=== PATIENT | male | born 1950 | race Caucasian/White ===

== ENCOUNTER → 2018-03-06 10:49 | Outpatient (CLI) | payer MEDICARE, SELFPAY ==
[2018-03-06 12:31] LABS: AST(SGOT) 55 U/L (15-37); Alanine Aminotransfer ALT/SGPT 88 U/L (16-61); Albumin, Serum 4.2 g/dL (3.2-5.0); Alkaline Phosphatase 56 U/L (45-117); Anion Gap 11 (5-15); BUN 17 mg/dL (7-18); BUN/Creat Ratio 18.9 RATIO (10-20); Bilirubin, Direct 0.11 mg/dL (0.00-0.30); Calcium,Total 9.6 mg/dL (8.5-10.1); Chloride 108 mmol/L (98-107); Cholesterol 135 mg/dL (200); EST Glomerular Filtration Rate 89 mL/min (>60); Est Glom Filt Rate - Afr Amer 107 mL/min (>60); Globulin 3.3 g/dL (2.2-4.2); Glucose 104 mg/dL (74-106); High Density Lipoprotein 59 mg/dL; Potassium 4.2 mmol/L (3.5-5.1); Protein, Total 7.5 g/dL (6.4-8.2); Sodium Level 139 mmol/L (136-145); Triglycerides 78 mg/dL; Very Low Density Lipoprotein 16 mg/dL (5-40)
[2018-03-06 12:44] LABS: Microalbumin,Random Urine 11.8 mg/L (NO RANGE EST.); Microalbumin:Creatinine Ratio 9.7 mg/g CRE (<30 mg/g CRE)
== END ==
PROVIDERS: Family Provider Family Medicine; PCP Family Medicine; Visit Provider Family Medicine
DX: E11.9 Type 2 diabetes mellitus without complications (principal)
CPT/HCPCS: 36415; 80048; 80061; 80076; 82043; 82570

== ENCOUNTER → 2018-09-02 10:28 | Outpatient (CLI) | payer MEDICARE, SELFPAY ==
[2018-09-02 12:41] LABS: Anion Gap 10 (5-15); BUN 15 mg/dL (7-18); BUN/Creat Ratio 15.4 RATIO (10-20); Calcium,Total 9.8 mg/dL (8.5-10.1); Chloride 107 mmol/L (98-107); Creatinine, Serum 0.98 mg/dL (0.70-1.30); EST Glomerular Filtration Rate 81 mL/min (>60); Est Glom Filt Rate - Afr Amer 98 mL/min (>60); Glucose 104 mg/dL (74-106); Potassium 4.6 mmol/L (3.5-5.1); Sodium Level 138 mmol/L (136-145)
[2018-09-02 12:48] LABS: Hemoglobin A1c 6.3 % (4.2-6.3)
== END ==
PROVIDERS: Family Provider Family Medicine; PCP Family Medicine; Visit Provider Family Medicine
DX: E11.9 Type 2 diabetes mellitus without complications (principal)
CPT/HCPCS: 36415; 80048; 83036

== ENCOUNTER → 2019-03-03 | Outpatient (CLI) | payer MEDICARE, SELFPAY ==
[2019-03-03 12:39] LABS: Microalbumin,Random Urine 15.8 mg/L (NO RANGE EST.); Microalbumin:Creatinine Ratio 9.6 mg/g CRE (<30 mg/g CRE)
[2019-03-03 12:54] LABS: AST(SGOT) 30 U/L (15-37); Alanine Aminotransfer ALT/SGPT 44 U/L (16-61); Albumin, Serum 4.4 g/dL (3.2-5.0); Alkaline Phosphatase 60 U/L (45-117); Anion Gap 4 (5-15); BUN 18 mg/dL (7-18); BUN/Creat Ratio 18.7 RATIO (10-20); Bilirubin, Direct 0.13 mg/dL (0.00-0.30); Calcium,Total 9.9 mg/dL (8.5-10.1); Chloride 109 mmol/L (98-107); Cholesterol 149 mg/dL (200); Creatinine, Serum 0.96 mg/dL (0.70-1.30); EST Glomerular Filtration Rate 82 mL/min (>60); Est Glom Filt Rate - Afr Amer 99 mL/min (>60); Globulin 3.1 g/dL (2.2-4.2); Glucose 118 mg/dL (74-106); High Density Lipoprotein 58 mg/dL; Potassium 4.5 mmol/L (3.5-5.1); Protein, Total 7.5 g/dL (6.4-8.2); Sodium Level 137 mmol/L (136-145); Triglycerides 109 mg/dL; Very Low Density Lipoprotein 22 mg/dL (5-40)
== END | disposition home or self-care (01) ==
LOC: MFPLAB 11:00
PROVIDERS: Family Provider Family Medicine; PCP Family Medicine; Visit Provider Family Medicine
DX: I10 Essential (primary) hypertension (principal); E11.9 Type 2 diabetes mellitus without complications
CPT/HCPCS: 36415; 80048; 80061; 80076; 82043; 82570

== ENCOUNTER → 2019-05-23 | Outpatient (CLI) | payer MEDICARE, SELFPAY ==
--- NOTE | 2019-05-23 12:16 | RAD_ITS ---
STUDY: X-RAY - RIGHT KNEE REASON FOR EXAM: Male, 68 years old. Pain below the patella. TECHNIQUE: 4 view(s) of the knee. COMPARISON: None. FINDINGS: Normal visualized distal femur. Normal visualized proximal tibia and fibula. Normal proximal tibiofibular articulation. Enthesophyte of the superior and inferior pole of the patella. There is severe degenerative arthrosis of the medial femorotibial compartment with severe joint space narrowing. There is moderate degenerative arthrosis of the lateral femorotibial compartment with moderate joint space narrowing. There is severe degenerative arthrosis of the patellofemoral articulation. The soft tissue structures are unremarkable. RAD/Knee 4 or More Views IMPRESSION: The knee remains located without acute fracture deformity. Advanced degenerative arthrosis of the medial and patellofemoral compartments. Moderate degenerative arthrosis of the lateral compartment. Degenerative enthesophytes of the superior and inferior pole of the patella. Negative for substantial joint effusion. Electronically Signed: Arabella Rader MD at 18:33 EDT , Service support ,
== END | disposition home or self-care (01) ==
LOC: MTRAD 12:13
PROVIDERS: Family Provider Family Medicine; PCP Family Medicine; Referring Provider Family Medicine; Visit Provider Family Medicine
DX: M25.561 Pain in right knee (principal)
CPT/HCPCS: 73564

== ENCOUNTER → 2019-09-02 10:54 | Outpatient (CLI) | payer MEDICARE, SELFPAY ==
[2019-06-02 08:18] VITALS: BMI 29.5
[2019-09-02 13:15] LABS: Hemoglobin A1c 6.9 % (4.2-6.3)
[2019-09-02 13:21] LABS: Microalbumin,Random Urine 36.2 mg/L (NO RANGE EST.); Microalbumin:Creatinine Ratio 17.8 mg/g CRE (<30 mg/g CRE)
[2019-09-02 13:25] LABS: AST(SGOT) 22 U/L (15-37); Alanine Aminotransfer ALT/SGPT 44 U/L (16-61); Anion Gap 8 (5-15); BUN 18 mg/dL (7-18); BUN/Creat Ratio 18.9 RATIO (10-20); Chloride 107 mmol/L (98-107); Cholesterol 160 mg/dL (200); Creatinine, Serum 0.95 mg/dL (0.70-1.30); EST Glomerular Filtration Rate 83 mL/min (>60); Est Glom Filt Rate - Afr Amer 100 mL/min (>60); Glucose 131 mg/dL (74-106); High Density Lipoprotein 49 mg/dL; PSA,Total - Annual Screen 3.62 ng/mL (0.00-4.00); Potassium 4.3 mmol/L (3.5-5.1); Sodium Level 135 mmol/L (136-145); Triglycerides 109 mg/dL; Very Low Density Lipoprotein 22 mg/dL (5-40)
== END ==
PROVIDERS: Family Provider Family Medicine; PCP Family Medicine; Referring Provider Family Medicine; Visit Provider Family Medicine
DX: Z00.00 Encounter for general adult medical examination without abnormal findings (principal); E11.9 Type 2 diabetes mellitus without complications; Z12.5 Encounter for screening for malignant neoplasm of prostate; E78.5 Hyperlipidemia, unspecified; I10 Essential (primary) hypertension
CPT/HCPCS: 36415; 80048; 80061; 82043; 82570; 83036; 84153; 84450; 84460; G0103

== ENCOUNTER 2020-04-27 17:10 | Inpatient (IN) | payer MEDICARE, SELFPAY ==
[2019-06-02 08:18] VITALS: BMI 29.5
[2020-04-27 17:28] VITALS: BP 143/82; PULSE 102; RESP 18; TEMP 36.8; O2SAT 96; BMI 29.8; BMI 29.9
[2020-04-27] MEDS: Celecoxib 200 MG Capsule PO (19:02)
[2020-04-27 20:32] VITALS: PULSE 98; O2SAT 98
--- NOTE | 2020-04-27 20:47 | HP.PCM_ITS ---
Problem List (1) Debility Status: Acute (2) Bilateral primary osteoarthritis of knee Status: Chronic (3) Neuropathy Status: Chronic (4) GERD (gastroesophageal reflux disease) Status: Chronic (5) Insomnia Status: Chronic (6) Imbalance Status: Chronic (7) Tinea corporis Status: Chronic (8) Erectile dysfunction Status: Chronic (9) Lumbar spinal stenosis Status: Chronic (10) IBS (irritable bowel syndrome) Status: Chronic (11) Basal cell carcinoma Status: Chronic (12) Diabetes mellitus Status: Chronic (13) Hypertension Status: Chronic (14) Hyperlipidemia Status: Chronic (15) Alcohol abuse Status: Chronic History of Present Illness Date of Admission: 04/27/20 Chief Complaint: Here for rehabilitation, strengthening, prior to discharge home with . The patient is a 69 year old Male with below past medical history with followin04/22/2020 Dr. Pedersen performed bilateral total knee arthroplasty. Post-operative course complicated by urinary retention after removal of rawls catheter. Rawls catheter reinserted prior to discharge. 04/27/2020 Admit to TCU with debility, here for rehabilitation, strengthening, prior to discharge home with . Past Medical History Past Medical History (Chronic Problems): Chronic Problems Bilateral primary osteoarthritis of knee (Chronic) Neuropathy (Chronic) GERD (gastroesophageal reflux disease) (Chronic) Insomnia (Chronic) Imbalance (Chronic) Tinea corporis (Chronic) Erectile dysfunction (Chronic) Lumbar spinal stenosis (Chronic) IBS (irritable bowel syndrome) (Chronic) Basal cell carcinoma (Chronic) Diabetes mellitus (Chronic) Hypertension (Chronic) Hyperlipidemia (Chronic) Alcohol abuse (Chronic) Allergies propoxyphene [From Darvon] Adverse Reaction (Verified 06/02/19 08:19) Vomiting Home Medications: Ambulatory Orders Medication Instructions Recorded atorvastatin 20 mg tablet 20 mg PO QHS #90 tab 06/02/19 candesartan 8 mg tablet 8 mg PO DAILY #90 tab 06/02/19 celecoxib 200 mg capsule 200 mg PO BID #180 cap 06/02/19 glimepiride 4 mg tablet 4 mg PO DAILY #90 tab 06/02/19 metformin 500 mg tablet 500 mg PO DAILY #270 tab 06/02/19 Ascorbic Acid [C-1000] 1,000 mg PO BID 04/27/20 Aspirin 81 mg PO BID 04/27/20 Esomeprazole Magnesium 20 mg PO DAILY 04/27/20 Ginkgo Biloba 60 mg PO BID 04/27/20 Melatonin 3 mg PO QHS 04/27/20 Metformin HCl 1,000 mg PO QHS 04/27/20 Tadalafil [Cialis] 20 mg PO QHS 04/27/20 Tamsulosin HCl [Flomax] 0.4 mg PO DAILY 04/27/20 Vitamin D 1,000 units PO DAILY 04/27/20 traMADol [Ultram (G)] 50 mg PO Q6H PRN PRN 04/27/20 Surgical History: adenoidectomy, tonsillectomy, - - Left quadriceps tendon rupture repair, right carpal tunnel release, lumbar spine surgery, bilateral total knee replacement. Lives: Spouse/ Significant Other Smoking Status: Former smoker Tobacco Use: Cigarettes Alcohol: Sober Drugs: None, Cocaine - History of., Marijuana - History of. - *Family History Maternal History Items: Heart Disease Paternal History Items: Cancer - Liver. Review of Systems Constitutional: Denies: Chills, Fever, Weight Change HEENT: Denies: Head Aches, Sinus Congestion, Sinus Drainage Cardiovascular: Denies: Chest Pain, Palpitations Respiratory: Denies: Cough, Shortness of breath at rest, Sputum production Gastrointestinal: Denies: Abdominal Pain, Nausea, Vomiting Genitourinary: Reports: Retention. Denies: Dysuria Musculoskeletal: Denies: Joint Pain, Joint Tenderness Skin: Denies: Rash, Wounds Neurological: Denies: Numbness, Tingling, Focal weakness Psychiatric: Denies: Anxiety, Depression, Homicidal Ideations, Suicidal Ideations Hematologic/ Lymphatic: Denies: Easy Bruising, Easy Bleeding VTE Information - Inpt Only VTE Present on Admission: No VTE Mechan Device Prophylaxis: Knee High JACEK Hose VTE Pharm Prophylaxis ordered?: Yes Patient Problems: Active and Suspected Problems Debility (Acute) - Physical Exam Vitals/I&O's: Vital Signs Temp Pulse Resp BP Pulse Ox 98.3 F 102 H 18 143/82 H 96 04/27/20 17:28 04/27/20 17:28 04/27/20 17:28 04/27/20 17:28 04/27/20 17:28 Oxygen Delivery Method Room Air Weight: 105.551 kg Body Mass Index (BMI) 29.8 General: Alert, Oriented x3, Cooperative HEENT: Atraumatic, PERRLA, EOMI, Normocephalic Neck: Supple, No JVD, Negative Carotid Bruits Lungs: Clear to auscultation, Normal air movement Cardiovascular: Regular rate, No murmurs Abdomen: Bowel Sounds Present, Soft, Non Tender, - - Indwelling Rawls Catheter. Extremities: No edema, Capillary Refill Less than 3 Seconds Skin: No rashes, No breakdown, Incision - Bilateral knee clean, dry, intact. Musculoskeletal: No Tenderness to Palpation of Joints or Extremities Neurological: Cranial nerves II-XII grossly intact Psych/Mental Status: Normal Affect, Appropriate Laboratory Results 04/27/20 19:57: COVID-19 ([facility]MAN[facility]) Pending Current Medications Ascorbic Acid (Vitamin C) 1,000 mg PO BIDCM [facility] Aspirin (Aspirin, Baby) 81 mg PO BIDCM [facility] Atorvastatin Calcium (Lipitor) 20 mg PO QHS ALFRED Celecoxib (Celebrex) 200 mg PO BID [facility] Last Admin: 04/27/20 19:02 Dose: 200 mg Documented by: Glimepiride (Amaryl) 4 mg PO DAILYCM [facility] Losartan Potassium (Cozaar) 50 mg PO DAILY [facility] Melatonin (Melatonin) 3 mg PO QHS [facility] Metformin HCl (Glucophage) 1,000 mg PO QHS [facility] Metformin HCl (Glucophage) 500 mg PO DAILYCM [facility] Non-Formulary Medication (Tadalafil) 20 mg PO QHS ALFRED Pantoprazole Sodium (Protonix) 20 mg PO DAILY [facility] Tamsulosin HCl (Flomax) 0.4 mg PO DAILY@1730 ALFRED Tramadol HCl (Ultram) 50 mg PO Q6H PRN PRN PRN Reason: Pain 1-10/10 or Fever Tuberculin PPD (Tubersol, Aplisol, Ppd) 5 tu ID X1 ONE Stop: 04/28/20 10:01 Tuberculin PPD (Tubersol, Aplisol, Ppd) 5 tu ID X1 ONE Stop: 05/05/20 10:01 Assessment/Plan All Active Problems Debility (Acute) 69 year old male with below past medical history hospitalized for bilateral total knee replacement 04/22/[address] Pedersen, post-operative course complicated by urinary retention requiring indwelling Rawls catheter, admitted to TCU with debility, here for rehabilitation, strengthening, prior to discharge home with . * Debility - PT/OT. * Pain - Tylenol 1000MG Q6H PRN (1-3), Tramadol 50MG Q6H PRN (4-10). * Bowel - Miralax 17GM daily, Senna/colace 2 tablets BID, Dulcolax 10MG [place] daily PRN. * Adult immunization - Administer Prevnar 13, Pneumovax 23, Fluzone as appropriate. * DVT prophylaxis - Aspirin 81MG BID. * Vitamin C deficiency - Vitamin C 1000MG BID. * Hyperlipidemia - Atorvastatin 20MG QHS. * Osteoarthritis - Celebrex 200MG BID. * Diabetes Mellitus II - Metformin 500MG AM, 1000MG QHS, Glimepiride 4MG daily. * Hypertension - Losartan 50MG daily. * Insomnia - Melatonin 3MG QHS. * GERD - Pantoprazole 20MG daily. * BPH/urinary retention - Tamsulosin 0.4MG daily, on Tadalafil 20MG QHS at home, but not on formulary, remove rawls/voiding trials TCU Day #3.
[2020-04-27] MEDS: Atorvastatin Calcium 20 MG Tablet PO (21:05)
[2020-04-27] MEDS: MELATONIN 3 MG TABLET PO (21:05)
[2020-04-27] MEDS: metFORMIN HCl 1,000 MG Tablet 1000 MG PO (21:05)
[2020-04-27] MEDS: traMADol 50 MG Tablet PO (21:05)
[2020-04-27 21:31] LABS: Bedside Glucose 183 mg/dL (70-110)
[2020-04-28] MEDS: Acetaminophen 500 MG Tablet 1000 MG PO ×4 (01:20→21:10)
[2020-04-28] MEDS: traMADol 50 MG Tablet PO ×4 (03:38→21:47)
[2020-04-28 05:33] VITALS: BP 134/72; PULSE 98; RESP 18; TEMP 36.7; O2SAT 98
[2020-04-28] MEDS: Celecoxib 200 MG Capsule PO ×2 (05:34→16:27)
[2020-04-28] MEDS: Polyethylene Glycol 3350 17 GM PACKET PO (05:34)
[2020-04-28] MEDS: Losartan Potassium 50 MG Tablet PO (05:34)
[2020-04-28] MEDS: Senna/Docusate Sodium 1 Tablet 2 TABLET PO ×2 (05:34→16:27)
[2020-04-28] MEDS: Pantoprazole Sodium 20 MG Tablet PO (05:34)
[2020-04-28 06:26] LABS: Bedside Glucose 192 mg/dL (70-110)
[2020-04-28 06:27] LABS: Anion Gap 7 (5-15); BUN 19 mg/dL (7-18); BUN/Creat Ratio 21.3 RATIO (10-20); Calcium,Total 9.6 mg/dL (8.5-10.1); Chloride 96 mmol/L (98-107); Creatinine, Serum 0.89 mg/dL (0.70-1.30); EST Glomerular Filtration Rate 89 mL/min (>60); Est Glom Filt Rate - Afr Amer 108 mL/min (>60); Estimated Creatinine Clearance 88.51 ml/min; Glucose 191 mg/dL (74-106); Potassium 4.2 mmol/L (3.5-5.1); Sodium Level 132 mmol/L (136-145)
[2020-04-28 06:46] LABS: Absolute Lymphocyte Count 1.58 X10^3/uL (0.83-4.51); Absolute Neutrophil Count 5.1 X10^3/uL (2.0-7.7); Basophil# 0.06 X10^3/uL; Basophil% 0.7 % (0-1); Eosinophil# 0.28 X10^3/uL; Eosinophils% 3.5 % (0-5); Hematocrit 35.9 % (40-54); Hemoglobin 11.2 g/dL (13.0-16.5); Lymphocyte # 1.58 X10^3/ul (4.0); Lymphocyte % 19.6 % (19-41); Mean Corp Hgb Conc 31.2 g/dL (32-36); Mean Corpuscular Hgb 30.8 pg (27.0-32.0); Mean Corpuscular Volume 98.6 fL (80-94); Mean Platelet Vol. 9.7 fl (6.2-12.0); Monocyte# 0.91 X10^3/uL; Monocyte% 11.3 % (0-10); NRBC Flagged by Analyzer 0 % (0-5); Neutrophil # 5.12 X10^3/uL (2.7-7.7); Neutrophil % 63.7 % (47-70); Platelet Count 321 K/mm3 (150-450); RBC Distribution Width CV 12.4 % (11.6-14.6); RBC Distribution Width SD 44.9 fl (35.1-43.9); Red Blood Count 3.64 M/mm3 (4.6-6.2); White Blood Count 8.1 K/mm3 (4.4-11.0)
[2020-04-28] MEDS: Ascorbic Acid 500 MG Tablet 1000 MG PO ×2 (08:31→16:28)
[2020-04-28] MEDS: metFORMIN HCl 500 MG Tablet PO (08:31)
[2020-04-28] MEDS: Glimepiride 4 MG Tablet PO (08:31)
[2020-04-28] MEDS: Aspirin 81 MG TAB.CHEW PO ×2 (08:31→16:28)
[2020-04-28 10:43] VITALS: PULSE 90; RESP 16; O2SAT 95
[2020-04-28 11:10] LABS: Bedside Glucose 188 mg/dL (70-110)
[2020-04-28 12:53] VITALS: BP 144/90; PULSE 90; RESP 16; TEMP 36.2; O2SAT 95
--- NOTE | 2020-04-28 13:10 | RAD_ITS ---
STUDY: X-RAY CHEST REASON FOR EXAM: Male, 69 years old. RULE OUT ACTIVE TB; HISTORY O F TB REACTOR TECHNIQUE: PA and lateral views of the chest. COMPARISON: None. FINDINGS: Scattered calcified granulomas. There is no demonstrated pleural abnormality. Normal size heart. Normal mediastinum and nehal. Normal visualized pulmonary arteries. There is atherosclerotic calcification of the aortic arch with tortuosity. There are diffuse degenerative changes of the visualized thoracic spine. Normal visualized ribs, clavicles, and shoulders. There is no demonstrated abnormality of the visualized soft tissue structures of the upper abdomen. RAD/Chest PA and Lateral IMPRESSION: No acute abnormality is seen. Electronically Signed: Moy Anand, at 14:00 EDT , Service support ,
--- NOTE | 2020-04-28 14:57 | PHA.CONS_ITS ---
<Adelaida Elizabeth - Last Filed: 04/28/20 14:57> Progress Note - Pharmacy Subjective: TCU Admission Objective: Allergies propoxyphene [From Darvon] Adverse Reaction (Verified 06/02/19 08:19) Vomiting Current Medications Generic Name Dose Route Start Last Admin Trade Name Freq PRN Reason Stop Dose Admin Acetaminophen 1,000 mg 04/27/20 21:05 04/28/20 14:29 Tylenol PO 1,000 mg Q6H PRN PRN Administration Pain Score 1-3/10 Ascorbic Acid 1,000 mg 04/28/20 08:00 04/28/20 08:31 Vitamin C PO 1,000 mg BIDCM ALFRED Administration Aspirin 81 mg 04/28/20 08:00 04/28/20 08:31 [facility], [facility] Atorvastatin Calcium 20 mg 04/27/20 22:00 04/27/20 21:05 Lipitor PO 20 mg QHS ALFRED Administration Bisacodyl 10 mg 04/27/20 21:05 Dulcolax RECTAL DAILY PRN Constipation Celecoxib 200 mg 04/27/20 18:00 04/28/20 05:34 Celebrex PO 200 mg BID ALFRED Administration Glimepiride 4 mg 04/28/20 08:00 04/28/20 08:31 [facility] Administration Losartan Potassium 50 mg 04/28/20 06:00 04/28/20 05:34 Cozaar PO 50 mg DAILY ALFRED Administration Melatonin 3 mg 04/27/20 22:00 04/27/20 21:05 Melatonin PO 3 mg QHS ALFRED Administration Metformin HCl 1,000 mg 04/27/20 22:00 04/27/20 21:05 Glucophage PO 1,000 mg QHS ALFRED Administration Metformin HCl 500 mg 04/28/20 08:00 04/28/20 08:31 Glucophage PO 500 mg DAILY ALFRED Administration Pantoprazole Sodium 20 mg 04/28/20 06:00 04/28/20 05:34 Protonix PO 20 mg DAILY ALFRED Administration Polyethylene Glycol 17 gm 04/28/20 06:00 04/28/20 05:34 Miralax PO 17 gm DAILY ALFRED Administration Senna/Docusate Sodium 2 tablet 04/28/20 06:00 04/28/20 05:34 Senokot-S, Michelle-Colace PO 2 tablet BID ALFRED Administration Tamsulosin HCl 0.4 mg 04/28/20 17:30 Flomax PO DAILY@1730 ALFRED Tramadol HCl 50 mg 04/27/20 17:58 04/28/20 09:36 Ultram PO 50 mg Q6H PRN PRN Administration Pain Score 4-10/10 Tuberculin PPD 5 tu 05/05/20 10:00 Tubersol, Aplisol, Ppd ID 05/05/20 10:01 X1 ONE Problem List Debility (Acute) Bilateral primary osteoarthritis of knee (Chronic) Neuropathy (Chronic) GERD (gastroesophageal reflux disease) (Chronic) Insomnia (Chronic) Imbalance (Chronic) Tinea corporis (Chronic) Erectile dysfunction (Chronic) Lumbar spinal stenosis (Chronic) IBS (irritable bowel syndrome) (Chronic) Basal cell carcinoma (Chronic) Diabetes mellitus (Chronic) Hypertension (Chronic) Hyperlipidemia (Chronic) Alcohol abuse (Chronic) Vital Signs Temp Pulse Resp BP Pulse Ox 97.2 F L 90 16 144/90 H 95 04/28/20 12:53 04/28/20 12:53 04/28/20 12:53 04/28/20 12:53 04/28/20 12:53 Oxygen Delivery Method Room Air Weight: 105.551 kg Body Mass Index (BMI) 29.8 Sodium 132 mmol/L (136-145) L 04/28/20 05:32 Potassium 4.2 mmol/L (3.5-5.1) 04/28/20 05:32 Chloride 96 mmol/L (98-107) L 04/28/20 05:32 Carbon Dioxide 29.0 mmol/L (21.0-32.0) 04/28/20 05:32 Anion Gap 7 (5-15) 04/28/20 05:32 BUN 19 mg/dL (7-18) H 04/28/20 05:32 Creatinine 0.89 mg/dL (0.70-1.30) 04/28/20 05:32 Est GFR (MDRD) Af Amer 108 mL/min (>60) 04/28/20 05:32 Est GFR (MDRD) Non-Af 89 mL/min (>60) 04/28/20 05:32 BUN/Creatinine Ratio 21.3 RATIO (10-20) H 04/28/20 05:32 Glucose 191 mg/dL (74-106) H 04/28/20 05:32 Assessment/Plan: 1. Pain: acetaminophen 1000mg PO Q6H PRN pain 1-3/10 and tramadol 50mg PO Q6H PRN pain 4-10/10. Please continue to monitor for increased pain, PRN usage, constipation and respiratory depression. 2. DVT prophylaxis: aspirin 81mg PO BIDCM. Please continue to monitor for S/S of bleeding/DVT. 3. Vitamin C deficiency: ascorbic acid 1000mg PO BIDCM. Please continue to monitor. 4. Hyperlipidemia: atorvastatin 20mg PO QHS. Please continue to monitor a lipid panel annually and for muscle pain. LFTs are WNL. 5. Osteoarthritis: celecoxib 200mg PO BID. Please continue to monitor for pain, GI side effects, and GI bleeding. 6. Type II diabetes mellitus: metformin 500mg PO DAILYCM and 1000mg PO QHS, glimepiride 4mg PO DAILYCM. Last A1c was 6.9%. Please continue to monitor POC glucose, for S/S of hypo/hyperglycemia and renal function. 7. Hypertension: losartan 50mg PO daily. Please continue to monitor BP (last 144/90) and renal function. 8. Insomnia: melatonin 3mg PO QHS. Please continue to monitor for insomnia and excessive drowsiness. 9. GERD: pantoprazole 20mg PO daily. Please continue to monitor for S/S of GERD. 10. BPH/urinary retention: tamsulosin 0.4mg PO daily. Please continue to monitor for urine flow and hypotension. Psychotropic Medications: None Unnecessary Medications: None Bowel Regimen: Miralax 17gm PO daily, senna/docusate 2T PO BID and bisacodyl 10mg [place] daily PRN constipation. Please continue to monitor for constipation and PRN usage. Date of Note:: 04/28/20 - Provider Comments Provider responsibility: Provider responsible to enter orders to implement recommendations <Christiano Tellez Chi - Last Filed: 04/28/20 17:00> Progress Note - Pharmacy Subjective: [] Objective: Allergies propoxyphene [From Darvon] Adverse Reaction (Verified 06/02/19 08:19) Vomiting Current Medications Generic Name Dose Route Start Last Admin Trade Name Freq PRN Reason Stop Dose Admin Acetaminophen 1,000 mg 04/27/20 21:05 04/28/20 14:29 Tylenol PO 1,000 mg Q6H PRN PRN Administration Pain Score 1-3/10 Ascorbic Acid 1,000 mg 04/28/20 08:00 04/28/20 16:28 Vitamin C PO 1,000 mg BIDCM [facility] Administration Aspirin 81 mg 04/28/20 08:00 04/28/20 16:28 Aspirin, Baby [facility] Administration Atorvastatin Calcium 20 mg 04/27/20 22:00 04/27/20 21:05 Lipitor PO 20 mg QHS [facility] Administration Bisacodyl 10 mg 04/27/20 21:05 Dulcolax RECTAL DAILY PRN Constipation Celecoxib 200 mg 04/27/20 18:00 04/28/20 16:27 Celebrex PO 200 mg BID [facility] Administration Glimepiride 4 mg 04/28/20 08:00 04/28/20 08:31 [facility] Administration Losartan Potassium 50 mg 04/28/20 06:00 04/28/20 05:34 Cozaar PO 50 mg DAILY [facility] Administration Melatonin 3 mg 04/27/20 22:00 04/27/20 21:05 Melatonin PO 3 mg QHS [facility] Administration Metformin HCl 1,000 mg 04/27/20 22:00 04/27/20 21:05 Glucophage PO 1,000 mg QHS [facility] Administration Metformin HCl 500 mg 04/28/20 08:00 04/28/20 08:31 [facility] Administration Pantoprazole Sodium 20 mg 04/28/20 06:00 04/28/20 05:34 Protonix PO 20 mg DAILY [facility] Administration Polyethylene Glycol 17 gm 04/28/20 06:00 04/28/20 05:34 Miralax PO 17 gm DAILY [facility] Administration Senna/Docusate Sodium 2 tablet 04/28/20 06:00 04/28/20 16:27 Senokot-S, Michelle-Colace PO 2 tablet BID [facility] Administration Tamsulosin HCl 0.4 mg 04/28/20 17:30 04/28/20 16:28 Flomax PO 0.4 mg DAILY@1730 [facility] Administration Tramadol HCl 50 mg 04/27/20 17:58 04/28/20 15:46 Ultram PO 50 mg Q6H PRN PRN Administration Pain Score 4-10/10 Tuberculin PPD 5 tu 05/05/20 10:00 Tubersol, Aplisol, Ppd ID 05/05/20 10:01 X1 ONE Problem List Debility (Acute) Bilateral primary osteoarthritis of knee (Chronic) Neuropathy (Chronic) GERD (gastroesophageal reflux disease) (Chronic) Insomnia (Chronic) Imbalance (Chronic) Tinea corporis (Chronic) Erectile dysfunction (Chronic) Lumbar spinal stenosis (Chronic) IBS (irritable bowel syndrome) (Chronic) Basal cell carcinoma (Chronic) Diabetes mellitus (Chronic) Hypertension (Chronic) Hyperlipidemia (Chronic) Alcohol abuse (Chronic) Vital Signs Temp Pulse Resp BP Pulse Ox 97.2 F L 90 16 144/90 H 95 04/28/20 12:53 04/28/20 12:53 04/28/20 12:53 04/28/20 12:53 04/28/20 12:53 Oxygen Delivery Method Room Air Weight: 105.551 kg Body Mass Index (BMI) 29.8 Sodium 132 mmol/L (136-145) L 04/28/20 05:32 Potassium 4.2 mmol/L (3.5-5.1) 04/28/20 05:32 Chloride 96 mmol/L (98-107) L 04/28/20 05:32 Carbon Dioxide 29.0 mmol/L (21.0-32.0) 04/28/20 05:32 Anion Gap 7 (5-15) 04/28/20 05:32 BUN 19 mg/dL (7-18) H 04/28/20 05:32 Creatinine 0.89 mg/dL (0.70-1.30) 04/28/20 05:32 Est GFR (MDRD) Af Amer 108 mL/min (>60) 04/28/20 05:32 Est GFR (MDRD) Non-Af 89 mL/min (>60) 04/28/20 05:32 BUN/Creatinine Ratio 21.3 RATIO (10-20) H 04/28/20 05:32 Glucose 191 mg/dL (74-106) H 04/28/20 05:32 Assessment/Plan: Psychotropic Medications: Unnecessary Medications: Bowel Regimen: - Provider Comments Provider responsibility: Provider responsible to enter orders to implement recommendations Provider Comments to Recommendations by Pharmacy: Agree
[2020-04-28 16:20] LABS: Bedside Glucose 150 mg/dL (70-110)
[2020-04-28] MEDS: Tamsulosin HCl 0.4 MG Capsule PO (16:28)
--- NOTE | 2020-04-28 18:47 | NURSING ---
Resident sent to x ray due to previous positive TB test. X ray results negative. Dr. Tellez aware of results.
[2020-04-28] MEDS: Atorvastatin Calcium 20 MG Tablet PO (21:12)
[2020-04-28] MEDS: MELATONIN 3 MG TABLET PO (21:12)
[2020-04-28] MEDS: metFORMIN HCl 1,000 MG Tablet 1000 MG PO (21:13)
[2020-04-28 21:31] LABS: Bedside Glucose 199 mg/dL (70-110)
[2020-04-29] MEDS: Acetaminophen 500 MG Tablet 1000 MG PO ×3 (04:00→20:11)
[2020-04-29] MEDS: traMADol 50 MG Tablet PO ×4 (04:00→22:27)
[2020-04-29 05:02] VITALS: BP 135/82; PULSE 100; RESP 18; TEMP 37
[2020-04-29] MEDS: Pantoprazole Sodium 20 MG Tablet PO (05:42)
[2020-04-29] MEDS: Polyethylene Glycol 3350 17 GM PACKET PO (05:42)
[2020-04-29] MEDS: Celecoxib 200 MG Capsule PO ×2 (05:44→16:21)
[2020-04-29] MEDS: Senna/Docusate Sodium 1 Tablet 2 TABLET PO ×2 (05:45→16:21)
[2020-04-29] MEDS: Losartan Potassium 50 MG Tablet PO (05:45)
[2020-04-29] MEDS: Menthol/Lanolin/Calamine/Znox 113 GM Tube 1 APPLIC TOPICAL ×2 (05:46→16:21)
[2020-04-29 06:16] LABS: Bedside Glucose 174 mg/dL (70-110)
[2020-04-29] MEDS: Aspirin 81 MG TAB.CHEW PO ×2 (08:14→16:21)
[2020-04-29] MEDS: Glimepiride 4 MG Tablet PO (08:14)
[2020-04-29] MEDS: Ascorbic Acid 500 MG Tablet 1000 MG PO ×2 (08:15→16:21)
[2020-04-29] MEDS: metFORMIN HCl 500 MG Tablet PO (08:15)
[2020-04-29 11:36] LABS: Bedside Glucose 158 mg/dL (70-110)
[2020-04-29 12:38] VITALS: BP 142/88; PULSE 100; RESP 18; TEMP 36.4; O2SAT 96
[2020-04-29 14:10] VITALS: BP 142/88; PULSE 100; RESP 18; TEMP 36.4; O2SAT 96
[2020-04-29] MEDS: Tamsulosin HCl 0.4 MG Capsule PO (16:21)
[2020-04-29 17:11] LABS: Bedside Glucose 173 mg/dL (70-110)
[2020-04-29] MEDS: Atorvastatin Calcium 20 MG Tablet PO (20:12)
[2020-04-29] MEDS: MELATONIN 3 MG TABLET PO (20:13)
[2020-04-29] MEDS: metFORMIN HCl 1,000 MG Tablet 1000 MG PO (20:13)
[2020-04-29 22:16] LABS: Bedside Glucose 184 mg/dL (70-110)
[2020-04-30] MEDS: Acetaminophen 500 MG Tablet 1000 MG PO ×4 (02:15→23:26)
[2020-04-30 06:41] LABS: Bedside Glucose 185 mg/dL (70-110)
[2020-04-30] MEDS: Losartan Potassium 50 MG Tablet PO (06:58)
[2020-04-30] MEDS: traMADol 50 MG Tablet PO ×3 (06:58→22:00)
[2020-04-30] MEDS: Menthol/Lanolin/Calamine/Znox 113 GM Tube 1 APPLIC TOPICAL ×2 (06:59→17:40)
[2020-04-30] MEDS: Pantoprazole Sodium 20 MG Tablet PO (06:59)
[2020-04-30] MEDS: Celecoxib 200 MG Capsule PO ×2 (06:59→17:40)
[2020-04-30 07:00] VITALS: BP 140/95; PULSE 102; RESP 18; TEMP 36.8; O2SAT 97
[2020-04-30] MEDS: Ascorbic Acid 500 MG Tablet 1000 MG PO ×2 (10:01→16:16)
[2020-04-30] MEDS: metFORMIN HCl 500 MG Tablet PO (10:01)
[2020-04-30] MEDS: Aspirin 81 MG TAB.CHEW PO ×2 (10:01→16:16)
[2020-04-30] MEDS: Glimepiride 4 MG Tablet PO (10:01)
[2020-04-30 10:35] VITALS: PULSE 94; RESP 18; O2SAT 98
[2020-04-30 11:05] LABS: Bedside Glucose 211 mg/dL (70-110)
[2020-04-30 16:00] VITALS: BP 148/92; PULSE 94; RESP 18; TEMP 36.4; O2SAT 98
[2020-04-30] MEDS: Tamsulosin HCl 0.4 MG Capsule PO (16:16)
[2020-04-30 16:50] LABS: Bedside Glucose 184 mg/dL (70-110)
[2020-04-30] MEDS: MELATONIN 3 MG TABLET PO (22:00)
[2020-04-30] MEDS: metFORMIN HCl 1,000 MG Tablet 1000 MG PO (22:00)
[2020-04-30] MEDS: Atorvastatin Calcium 20 MG Tablet PO (22:01)
[2020-04-30 23:26] LABS: Bedside Glucose 208 mg/dL (70-110)
[2020-05-01] MEDS: traMADol 50 MG Tablet PO ×4 (01:37→20:39)
[2020-05-01 05:42] VITALS: BP 139/94; PULSE 74; RESP 18; TEMP 36.5; O2SAT 95
[2020-05-01] MEDS: Acetaminophen 500 MG Tablet 1000 MG PO ×4 (05:44→23:50)
[2020-05-01] MEDS: Losartan Potassium 50 MG Tablet PO (05:45)
[2020-05-01] MEDS: Celecoxib 200 MG Capsule PO ×2 (05:45→17:08)
[2020-05-01] MEDS: Pantoprazole Sodium 20 MG Tablet PO (05:45)
[2020-05-01] MEDS: Menthol/Lanolin/Calamine/Znox 113 GM Tube 1 APPLIC TOPICAL ×2 (05:46→17:09)
[2020-05-01 06:41] LABS: Bedside Glucose 201 mg/dL (70-110)
[2020-05-01] MEDS: Glimepiride 4 MG Tablet PO (09:16)
[2020-05-01] MEDS: Ascorbic Acid 500 MG Tablet 1000 MG PO ×2 (09:16)
[2020-05-01] MEDS: Aspirin 81 MG TAB.CHEW PO ×2 (09:17→17:08)
[2020-05-01] MEDS: metFORMIN HCl 500 MG Tablet PO (09:17)
[2020-05-01 11:35] LABS: Bedside Glucose 228 mg/dL (70-110)
--- NOTE | 2020-05-01 12:22 | NURSING ---
SPOKE WITH Lb' REGARDING BLOOD SUGARS. STATES HE DOES NOT TAKE INSULIN AT HOME, NOR DOES HE WISH TO. HE WANTS HIS TREATMENT OF GLUCOPHAGE AND AMARYL TO REMAIN THE SAME.
[2020-05-01 15:38] VITALS: BP 131/80; PULSE 95; RESP 18; TEMP 37.7; O2SAT 97
[2020-05-01 16:41] LABS: Bedside Glucose 162 mg/dL (70-110)
[2020-05-01] MEDS: Tamsulosin HCl 0.4 MG Capsule PO (17:08)
[2020-05-01 17:43] VITALS: TEMP 36.9
[2020-05-01] MEDS: Atorvastatin Calcium 20 MG Tablet PO (20:39)
[2020-05-01] MEDS: metFORMIN HCl 1,000 MG Tablet 1000 MG PO (20:39)
[2020-05-01] MEDS: Senna/Docusate Sodium 1 Tablet 2 TABLET PO (20:41)
[2020-05-01 21:21] LABS: Bedside Glucose 201 mg/dL (70-110)
[2020-05-01] MEDS: MELATONIN 3 MG TABLET PO (23:50)
[2020-05-02] MEDS: traMADol 50 MG Tablet PO ×4 (02:00→19:24)
[2020-05-02 06:01] VITALS: BP 149/87; PULSE 92; RESP 18; TEMP 35.9; O2SAT 96
[2020-05-02] MEDS: Acetaminophen 500 MG Tablet 1000 MG PO ×3 (06:03→20:53)
[2020-05-02] MEDS: Menthol/Lanolin/Calamine/Znox 113 GM Tube 1 APPLIC TOPICAL ×2 (06:04→16:26)
[2020-05-02] MEDS: Pantoprazole Sodium 20 MG Tablet PO (06:04)
[2020-05-02] MEDS: Senna/Docusate Sodium 1 Tablet 2 TABLET PO ×2 (06:04→16:26)
[2020-05-02] MEDS: Losartan Potassium 50 MG Tablet PO (06:04)
[2020-05-02] MEDS: Celecoxib 200 MG Capsule PO ×2 (06:04→16:26)
--- NOTE | 2020-05-02 06:20 | NURSING ---
Romeo removed without difficulty, tip intact. Pt tolerated well. Urinal at bedside and pt aware to notify RN of any pressure/discomfort/difficulty urinating. Bladder scans to begin this afternoon per voiding trials.
[2020-05-02 06:30] LABS: Bedside Glucose 188 mg/dL (70-110)
[2020-05-02] MEDS: Ascorbic Acid 500 MG Tablet 1000 MG PO ×2 (08:19→16:25)
[2020-05-02] MEDS: metFORMIN HCl 500 MG Tablet PO (08:19)
[2020-05-02] MEDS: Glimepiride 4 MG Tablet PO (08:19)
[2020-05-02] MEDS: Aspirin 81 MG TAB.CHEW PO ×2 (08:19→16:25)
[2020-05-02 11:21] LABS: Bedside Glucose 214 mg/dL (70-110)
[2020-05-02 12:35] VITALS: BP 136/82; PULSE 85; RESP 18; TEMP 36.7; O2SAT 97
--- NOTE | 2020-05-02 14:50 | NURSING ---
Notified Dr. Tellez of pt c/o itching back, received new order.
[2020-05-02 15:44] VITALS: PULSE 85; RESP 16; O2SAT 96
[2020-05-02] MEDS: Hydrocortisone 2.5% Crm 1 APPLIC TOPICAL (16:02)
[2020-05-02] MEDS: Tamsulosin HCl 0.4 MG Capsule PO (16:25)
[2020-05-02 16:35] LABS: Bedside Glucose 178 mg/dL (70-110)
--- NOTE | 2020-05-02 17:56 | NURSING ---
Notified Dr. Tellez, pt c/o burning with urination. Received new orders.
[2020-05-02 18:34] LABS: Mucous, Urine 0 SEEN /hpf (<or=2+); Squamous Epithelial Cells - UA 0 SEEN /hpf (0-5)
[2020-05-02 19:01] LABS: Color, Urine Yellow (Yellow); Glucose, Dipstick Normal (Normal); Ketone-Dipstick Negative (Negative); Leukocyte Esterase-Dipstick 500 /ul (Negative); Nitrite-Dipstick Positive (Negative); Occult Blood-Urine 150 /ul (Negative); Protein-Dipstick 30 mg/dl (Negative); Specific Gravity, Urine 1.015 (1.002-1.030); Urine Bilirubin Dipstick Negative (Negative); Urine Clarity Cloudy (Clear); Urine Urobilinogen Normal (Normal)
[2020-05-02 19:09] LABS: Bacteria 4+ /hpf (None Seen); Red Blood Cells-Urine 0-5 SEEN /hpf (0-5); Triple Phosphate Crystals Ur 2+ /hpf (<or=1+); White Blood Cells 0-5 SEEN /hpf (0-5)
[2020-05-02] MEDS: Phenazopyridine 95 MG Tablet PO (19:25)
[2020-05-02] MEDS: Atorvastatin Calcium 20 MG Tablet PO (20:51)
[2020-05-02] MEDS: Ciprofloxacin 500 MG Tablet PO (20:51)
[2020-05-02] MEDS: metFORMIN HCl 1,000 MG Tablet 1000 MG PO (20:51)
[2020-05-02 21:21] LABS: Bedside Glucose 206 mg/dL (70-110)
[2020-05-02] MEDS: MELATONIN 3 MG TABLET PO (22:59)
--- NOTE | 2020-05-02 23:20 | NURSING ---
results communicated to Dr. Tellez. [facility]
--- NOTE | 2020-05-02 23:21 | NURSING ---
2245- Pt c/o pelvic and penile pain this shift. Attempted to urinate several times for small amounts/dribbles. Was also up to the BSC with loose stools several times and c/o gas pressure. Bladder scan showing 480mL/ Dr. Tellez notified and new orders received to straight cath now and PRN >500mL per bladder scan. Straight cath inserted with sterile technique and 900mL dark yellow cloudy urine drained. Pt states relief of pain/pressure. Will continue to monitor.
[2020-05-03] MEDS: traMADol 50 MG Tablet PO ×4 (00:45→20:23)
[2020-05-03] MEDS: Phenazopyridine 95 MG Tablet PO ×3 (02:51→20:24)
[2020-05-03] MEDS: Menthol/Lanolin/Calamine/Znox 113 GM Tube 1 APPLIC TOPICAL ×2 (02:52→17:12)
[2020-05-03] MEDS: Acetaminophen 500 MG Tablet 1000 MG PO ×3 (02:53→22:58)
[2020-05-03 03:28] VITALS: BP 154/97; PULSE 118; RESP 18; TEMP 36.3; O2SAT 97
[2020-05-03] MEDS: Losartan Potassium 50 MG Tablet PO (04:02)
[2020-05-03] MEDS: Celecoxib 200 MG Capsule PO ×2 (04:02→17:11)
[2020-05-03] MEDS: Ciprofloxacin 500 MG Tablet PO ×2 (04:02→17:11)
[2020-05-03] MEDS: Pantoprazole Sodium 20 MG Tablet PO (04:02)
[2020-05-03 06:30] LABS: Bedside Glucose 236 mg/dL (70-110)
[2020-05-03] MEDS: metFORMIN HCl 500 MG Tablet PO (09:25)
[2020-05-03] MEDS: Glimepiride 4 MG Tablet PO (09:25)
[2020-05-03] MEDS: Aspirin 81 MG TAB.CHEW PO ×2 (09:25→17:12)
[2020-05-03] MEDS: Ascorbic Acid 500 MG Tablet 1000 MG PO ×2 (09:26→17:12)
--- NOTE | 2020-05-03 11:05 | NURSING ---
[address] cathed 1225cc orange color urine. pt c/o pelvic discomfort. scanned for >645cc. pt also incont lg amt soft stool. incont care provided. pt much relieved after bladder emptied. will updated dr. Tellez. pt voided x2 [address]cc before st cath with assist of [employer].
[2020-05-03 11:30] LABS: Bedside Glucose 221 mg/dL (70-110)
--- NOTE | 2020-05-03 14:10 | NURSING ---
Addendum entered by Gwen Snow 05/03/20 14:24: Orders from Dr Tellez to reinsert Romeo catheter and increase Flomax to BID. Original Note: Up in chair. Unable to urinate. States his bladder is uncomfortable and he feels the urge. Bladder scanned for 670 ml at this time. Will update Dr Tellez.
[2020-05-03 14:49] VITALS: BP 136/89; PULSE 119; RESP 16; TEMP 36.2; O2SAT 97
[2020-05-03 16:36] LABS: Bedside Glucose 223 mg/dL (70-110)
[2020-05-03] MEDS: Tamsulosin HCl 0.4 MG Capsule PO (17:12)
[2020-05-03] MEDS: MELATONIN 3 MG TABLET PO (20:23)
[2020-05-03] MEDS: metFORMIN HCl 1,000 MG Tablet 1000 MG PO (20:23)
[2020-05-03] MEDS: Atorvastatin Calcium 20 MG Tablet PO (20:24)
[2020-05-03 21:46] LABS: Bedside Glucose 221 mg/dL (70-110)
[2020-05-04] MEDS: traMADol 50 MG Tablet PO ×4 (02:08→21:27)
[2020-05-04 05:07] VITALS: BP 110/75; PULSE 105; RESP 18; TEMP 36.7; O2SAT 96
[2020-05-04] MEDS: Acetaminophen 500 MG Tablet 1000 MG PO ×3 (05:08→18:13)
[2020-05-04] MEDS: Ciprofloxacin 500 MG Tablet PO ×2 (05:09→17:03)
[2020-05-04] MEDS: Menthol/Lanolin/Calamine/Znox 113 GM Tube 1 APPLIC TOPICAL ×2 (05:09→17:05)
[2020-05-04] MEDS: Celecoxib 200 MG Capsule PO ×2 (05:09→17:03)
[2020-05-04] MEDS: Losartan Potassium 50 MG Tablet PO (05:10)
[2020-05-04] MEDS: Phenazopyridine 95 MG Tablet PO ×3 (05:10→21:28)
[2020-05-04] MEDS: Pantoprazole Sodium 20 MG Tablet PO (05:10)
[2020-05-04 06:26] LABS: Bedside Glucose 193 mg/dL (70-110)
[2020-05-04] MEDS: metFORMIN HCl 500 MG Tablet PO (08:11)
[2020-05-04] MEDS: Glimepiride 4 MG Tablet PO (08:11)
[2020-05-04] MEDS: Aspirin 81 MG TAB.CHEW PO ×2 (08:11→17:03)
[2020-05-04] MEDS: Tamsulosin HCl 0.4 MG Capsule PO ×2 (08:12→17:03)
[2020-05-04] MEDS: Ascorbic Acid 500 MG Tablet 1000 MG PO ×2 (08:12→17:03)
--- NOTE | 2020-05-04 11:17 | CASEMGMT ---
Social Work Brief interview for mental status (BIMS) and resident mood assessment (PHQ-9) completed on this day. BIMS score . PHQ-9 score 01/08. Vladimir HINTON, KAMILLE
[2020-05-04 11:30] LABS: Bedside Glucose 196 mg/dL (70-110)
[2020-05-04 14:39] VITALS: BP 127/69; PULSE 112; RESP 16; TEMP 36.6; O2SAT 98
[2020-05-04 16:51] LABS: Bedside Glucose 158 mg/dL (70-110)
[2020-05-04] MEDS: Atorvastatin Calcium 20 MG Tablet PO (21:28)
[2020-05-04] MEDS: MELATONIN 3 MG TABLET PO (21:28)
[2020-05-04] MEDS: metFORMIN HCl 1,000 MG Tablet 1000 MG PO (21:28)
[2020-05-04 21:36] LABS: Bedside Glucose 168 mg/dL (70-110)
[2020-05-05] MEDS: Acetaminophen 500 MG Tablet 1000 MG PO (01:41)
[2020-05-05] MEDS: traMADol 50 MG Tablet PO ×4 (01:42→20:33)
[2020-05-05 05:45] VITALS: BP 119/82; PULSE 92; RESP 16; TEMP 36.3; O2SAT 98
[2020-05-05] MEDS: Hydrocortisone 2.5% Crm 1 APPLIC TOPICAL (05:47)
[2020-05-05] MEDS: Ciprofloxacin 500 MG Tablet PO ×2 (05:48→15:59)
[2020-05-05] MEDS: Phenazopyridine 95 MG Tablet PO ×3 (05:48→20:34)
[2020-05-05] MEDS: Pantoprazole Sodium 20 MG Tablet PO (05:48)
[2020-05-05] MEDS: Celecoxib 200 MG Capsule PO ×2 (05:48→15:58)
[2020-05-05] MEDS: Losartan Potassium 50 MG Tablet PO (05:48)
[2020-05-05] MEDS: Menthol/Lanolin/Calamine/Znox 113 GM Tube 1 APPLIC TOPICAL ×2 (05:50→15:59)
[2020-05-05 06:04] LABS: Absolute Lymphocyte Count 1.93 X10^3/uL (0.83-4.51); Absolute Neutrophil Count 5.3 X10^3/uL (2.0-7.7); Basophil# 0.08 X10^3/uL; Basophil% 0.9 % (0-1); Eosinophil# 0.42 X10^3/uL; Eosinophils% 4.8 % (0-5); Hematocrit 35.8 % (40-54); Hemoglobin 11.4 g/dL (13.0-16.5); Lymphocyte # 1.93 X10^3/ul (4.0); Mean Corp Hgb Conc 31.8 g/dL (32-36); Mean Corpuscular Hgb 30.6 pg (27.0-32.0); Monocyte# 0.94 X10^3/uL; Monocyte% 10.7 % (0-10); NRBC Flagged by Analyzer 0 % (0-5); Neutrophil # 5.33 X10^3/uL (2.7-7.7); Neutrophil % 60.7 % (47-70); Platelet Count 450 K/mm3 (150-450); RBC Distribution Width CV 12.7 % (11.6-14.6); RBC Distribution Width SD 44.3 fl (35.1-43.9); Red Blood Count 3.73 M/mm3 (4.6-6.2); White Blood Count 8.8 K/mm3 (4.4-11.0)
[2020-05-05 06:34] LABS: Anion Gap 5 (5-15); BUN 20 mg/dL (7-18); BUN/Creat Ratio 17.4 RATIO (10-20); Calcium,Total 9.8 mg/dL (8.5-10.1); Chloride 104 mmol/L (98-107); Creatinine, Serum 1.15 mg/dL (0.70-1.30); EST Glomerular Filtration Rate 67 mL/min (>60); Est Glom Filt Rate - Afr Amer 81 mL/min (>60); Glucose 211 mg/dL (74-106); Potassium 4.1 mmol/L (3.5-5.1); Sodium Level 135 mmol/L (136-145)
[2020-05-05 06:36] LABS: Bedside Glucose 213 mg/dL (70-110)
[2020-05-05] MEDS: Ascorbic Acid 500 MG Tablet 1000 MG PO ×2 (08:47→15:58)
[2020-05-05] MEDS: metFORMIN HCl 500 MG Tablet PO (08:48)
[2020-05-05] MEDS: Glimepiride 4 MG Tablet PO (08:48)
[2020-05-05] MEDS: Tamsulosin HCl 0.4 MG Capsule PO ×2 (08:48→15:58)
[2020-05-05] MEDS: Aspirin 81 MG TAB.CHEW PO ×2 (08:48→15:58)
[2020-05-05 11:11] LABS: Bedside Glucose 211 mg/dL (70-110)
[2020-05-05 13:07] VITALS: BP 126/78; PULSE 94; RESP 18; TEMP 36.6; O2SAT 98
--- NOTE | 2020-05-05 14:10 | CASEMGMT ---
Social Work IDT met with patient and via conference call for care plan meeting. Discussed patient's progress in therapy. Pt is SBA/CGA for bed mobility, CGA for sit to stands and transfers w/FWW, CGA to ambulate 150 ft with FWW, CGA to step up and off portable bus step with UE support. Pt is CGA/SBA for toilet transfers, SBA for pericare, CGA for shower transfers, set up seated level for UE ADLS, SBA for LE ADLS. Pt is very painful with movement and pain meds are now scheduled. Pt is out of room isolation 05/12. Pt's appetite is improving and weight it stable. Activities will continue with 1:1 visits. Explained [employer] benefit with [employer] 05/03 and continued stay is not guaranteed. Inquired about alternative plan if pt cannot do 14 steps to 2nd floor. Pt requesting hospital bed for 1st floor set up. Discussed HHC vs outpatient and due to COVID, pt prefers HHC. Insurance approved with NRD 05/07 and will issue NOMNC- approval given to resolve urinary retention and stair training. Notified pt and . Provided cost for hospital bed and list of skilled HHC agencies to select. Will continue to follow. Yomaira Brown, JAMAAL GODOYW
[2020-05-05] MEDS: Senna/Docusate Sodium 1 Tablet 2 TABLET PO (15:58)
[2020-05-05 16:11] LABS: Bedside Glucose 186 mg/dL (70-110)
[2020-05-05] MEDS: metFORMIN HCl 1,000 MG Tablet 1000 MG PO (20:34)
[2020-05-05] MEDS: Atorvastatin Calcium 20 MG Tablet PO (20:35)
[2020-05-05] MEDS: MELATONIN 3 MG TABLET PO (20:35)
[2020-05-05 21:40] LABS: Bedside Glucose 194 mg/dL (70-110)
[2020-05-06] MEDS: traMADol 50 MG Tablet PO ×4 (02:32→20:15)
[2020-05-06 06:18] VITALS: BP 153/90; PULSE 104; RESP 18; TEMP 36.5; O2SAT 98
[2020-05-06] MEDS: Losartan Potassium 50 MG Tablet PO (06:20)
[2020-05-06] MEDS: Celecoxib 200 MG Capsule PO ×2 (06:21→17:42)
[2020-05-06] MEDS: Pantoprazole Sodium 20 MG Tablet PO (06:21)
[2020-05-06] MEDS: Ciprofloxacin 500 MG Tablet PO ×2 (06:21→17:42)
[2020-05-06] MEDS: Menthol/Lanolin/Calamine/Znox 113 GM Tube 1 APPLIC TOPICAL ×2 (06:22→17:43)
[2020-05-06 06:35] LABS: Bedside Glucose 188 mg/dL (70-110)
[2020-05-06] MEDS: Glimepiride 4 MG Tablet PO (08:43)
[2020-05-06] MEDS: metFORMIN HCl 500 MG Tablet PO (08:43)
[2020-05-06] MEDS: Ascorbic Acid 500 MG Tablet 1000 MG PO ×2 (08:43→17:43)
[2020-05-06] MEDS: Aspirin 81 MG TAB.CHEW PO ×2 (08:43→17:42)
[2020-05-06] MEDS: Tamsulosin HCl 0.4 MG Capsule PO ×2 (08:44→17:43)
--- NOTE | 2020-05-06 10:14 | MDS.RN ---
Information for the mds was obtained from review of the clinical record, interview of resident, staff, and direct observation of resident's care.
[2020-05-06 11:00] LABS: Bedside Glucose 214 mg/dL (70-110)
[2020-05-06 14:48] VITALS: BP 122/79; PULSE 97; RESP 18; TEMP 36.2; O2SAT 99
[2020-05-06 16:46] LABS: Bedside Glucose 150 mg/dL (70-110)
[2020-05-06] MEDS: Hydrocortisone 2.5% Crm 1 APPLIC TOPICAL (20:17)
[2020-05-06 21:51] LABS: Bedside Glucose 173 mg/dL (70-110)
[2020-05-06] MEDS: MELATONIN 3 MG TABLET PO (21:54)
[2020-05-06] MEDS: metFORMIN HCl 1,000 MG Tablet 1000 MG PO (21:54)
[2020-05-06] MEDS: Atorvastatin Calcium 20 MG Tablet PO (21:54)
[2020-05-06] MEDS: Acetaminophen 500 MG Tablet 1000 MG PO (23:37)
[2020-05-07] MEDS: traMADol 50 MG Tablet PO ×4 (01:26→20:25)
[2020-05-07 05:25] VITALS: BP 139/90; PULSE 90; RESP 16; TEMP 36.5; O2SAT 98
[2020-05-07] MEDS: Celecoxib 200 MG Capsule PO ×2 (05:26→17:21)
[2020-05-07] MEDS: Ciprofloxacin 500 MG Tablet PO ×2 (05:26→17:21)
[2020-05-07] MEDS: Pantoprazole Sodium 20 MG Tablet PO (05:27)
[2020-05-07] MEDS: Losartan Potassium 50 MG Tablet PO (05:27)
[2020-05-07] MEDS: Menthol/Lanolin/Calamine/Znox 113 GM Tube 1 APPLIC TOPICAL ×2 (05:30→17:21)
[2020-05-07 06:31] LABS: Bedside Glucose 173 mg/dL (70-110)
[2020-05-07] MEDS: Aspirin 81 MG TAB.CHEW PO ×2 (08:35→17:21)
[2020-05-07] MEDS: Tamsulosin HCl 0.4 MG Capsule PO ×2 (08:35→17:21)
[2020-05-07] MEDS: Ascorbic Acid 500 MG Tablet 1000 MG PO ×2 (08:35→17:21)
[2020-05-07] MEDS: Glimepiride 4 MG Tablet PO (08:35)
[2020-05-07] MEDS: metFORMIN HCl 500 MG Tablet PO (09:56)
[2020-05-07 11:01] VITALS: BP 152/88; PULSE 99; RESP 16; TEMP 36.7; O2SAT 98
[2020-05-07 11:35] LABS: Bedside Glucose 211 mg/dL (70-110)
[2020-05-07 17:01] LABS: Bedside Glucose 121 mg/dL (70-110)
[2020-05-07] MEDS: metFORMIN HCl 1,000 MG Tablet 1000 MG PO (20:33)
[2020-05-07] MEDS: Atorvastatin Calcium 20 MG Tablet PO (20:33)
[2020-05-07 21:25] LABS: Bedside Glucose 213 mg/dL (70-110)
[2020-05-07] MEDS: MELATONIN 3 MG TABLET PO (22:09)
[2020-05-08] MEDS: traMADol 50 MG Tablet PO ×4 (00:46→19:35)
[2020-05-08 00:49] VITALS: BP 149/78; PULSE 109; RESP 18; TEMP 37.3; O2SAT 98
[2020-05-08] MEDS: Acetaminophen 500 MG Tablet 1000 MG PO (04:19)
[2020-05-08] MEDS: Ciprofloxacin 500 MG Tablet PO ×2 (04:19→16:49)
[2020-05-08] MEDS: Pantoprazole Sodium 20 MG Tablet PO (04:19)
[2020-05-08] MEDS: Celecoxib 200 MG Capsule PO ×2 (04:19→16:50)
[2020-05-08] MEDS: Losartan Potassium 50 MG Tablet PO (04:20)
[2020-05-08] MEDS: Menthol/Lanolin/Calamine/Znox 113 GM Tube 1 APPLIC TOPICAL ×2 (04:21→16:51)
[2020-05-08 06:31] LABS: Bedside Glucose 161 mg/dL (70-110)
[2020-05-08] MEDS: metFORMIN HCl 500 MG Tablet PO (08:23)
[2020-05-08] MEDS: Tamsulosin HCl 0.4 MG Capsule PO ×2 (08:23→16:50)
[2020-05-08] MEDS: Aspirin 81 MG TAB.CHEW PO ×2 (08:23→16:50)
[2020-05-08] MEDS: Glimepiride 4 MG Tablet PO (08:23)
[2020-05-08] MEDS: Ascorbic Acid 500 MG Tablet 1000 MG PO ×2 (08:23→16:51)
[2020-05-08 10:42] VITALS: PULSE 92; RESP 18; O2SAT 98
[2020-05-08 11:40] LABS: Bedside Glucose 217 mg/dL (70-110)
[2020-05-08 16:25] VITALS: BP 142/82; PULSE 92; RESP 18; TEMP 37; O2SAT 98
[2020-05-08] MEDS: metFORMIN HCl 1,000 MG Tablet 1000 MG PO (21:12)
[2020-05-08] MEDS: Atorvastatin Calcium 20 MG Tablet PO (21:12)
[2020-05-08] MEDS: MELATONIN 3 MG TABLET PO (21:12)
[2020-05-09] MEDS: traMADol 50 MG Tablet PO ×4 (01:23→19:33)
[2020-05-09 02:47] VITALS: BP 139/80; PULSE 101; RESP 16; TEMP 36.8; O2SAT 98
[2020-05-09] MEDS: Celecoxib 200 MG Capsule PO ×2 (05:03→16:45)
[2020-05-09] MEDS: Pantoprazole Sodium 20 MG Tablet PO (05:03)
[2020-05-09] MEDS: Losartan Potassium 50 MG Tablet PO (05:03)
[2020-05-09] MEDS: Ciprofloxacin 500 MG Tablet PO ×2 (05:03→16:45)
[2020-05-09] MEDS: Menthol/Lanolin/Calamine/Znox 113 GM Tube 1 APPLIC TOPICAL ×2 (05:04→16:46)
[2020-05-09 06:26] LABS: Bedside Glucose 208 mg/dL (70-110)
[2020-05-09] MEDS: Ascorbic Acid 500 MG Tablet 1000 MG PO ×2 (08:16→16:45)
[2020-05-09] MEDS: Tamsulosin HCl 0.4 MG Capsule PO ×2 (08:16→16:45)
[2020-05-09] MEDS: Aspirin 81 MG TAB.CHEW PO ×2 (08:16→16:45)
[2020-05-09] MEDS: metFORMIN HCl 1,000 MG Tablet 1000 MG PO (08:16)
[2020-05-09] MEDS: Glimepiride 4 MG Tablet PO (08:16)
[2020-05-09] MEDS: metFORMIN HCl 500 MG Tablet PO (08:18)
[2020-05-09] MEDS: Hydrocortisone 2.5% Crm 1 APPLIC TOPICAL (10:44)
[2020-05-09 14:44] VITALS: BP 141/89; PULSE 97; RESP 16; TEMP 37; O2SAT 100
[2020-05-09] MEDS: Atorvastatin Calcium 20 MG Tablet PO (19:32)
[2020-05-09] MEDS: MELATONIN 3 MG TABLET PO (22:45)
[2020-05-10 01:41] VITALS: BP 131/84; PULSE 106; RESP 16; TEMP 36.9; O2SAT 97
[2020-05-10] MEDS: traMADol 50 MG Tablet PO ×4 (01:41→21:14)
[2020-05-10] MEDS: Menthol/Lanolin/Calamine/Znox 113 GM Tube 1 APPLIC TOPICAL ×2 (06:40→17:01)
[2020-05-10] MEDS: Celecoxib 200 MG Capsule PO ×2 (06:40→17:00)
[2020-05-10] MEDS: Pantoprazole Sodium 20 MG Tablet PO (06:40)
[2020-05-10] MEDS: Losartan Potassium 50 MG Tablet PO (06:41)
[2020-05-10 06:46] LABS: Bedside Glucose 184 mg/dL (70-110)
[2020-05-10] MEDS: Glimepiride 4 MG Tablet PO (08:29)
[2020-05-10] MEDS: metFORMIN HCl 500 MG Tablet PO (08:29)
[2020-05-10] MEDS: Aspirin 81 MG TAB.CHEW PO ×2 (08:29→17:00)
[2020-05-10] MEDS: Tamsulosin HCl 0.4 MG Capsule PO ×2 (08:29→17:00)
[2020-05-10] MEDS: Ascorbic Acid 500 MG Tablet 1000 MG PO ×2 (09:57→17:00)
[2020-05-10 10:00] VITALS: PULSE 109; RESP 16; O2SAT 99
--- NOTE | 2020-05-10 12:27 | NURSING ---
Roemo catheter removed, per orders. pt tolerated well.
--- NOTE | 2020-05-10 12:28 | CASEMGMT ---
Social Work Insurance issued last covered day. SW met with pt and call placed to pt for discharge meeting. Pt and agreeable to discharge on Sunday05/11/20. Per therapy and pt, Pt is able to complete flight of stairs and therefore pt will be able to get to second floor bedroom and bathroom at home. Pt has a walker, shower chair and high rise commode. Pt and preferring home health at this time and pt prefers [facility]. Pt and with questions regarding Catheter. JORGE A Espino updated and will talk to Dr. Tellez about this. Referral made to [facility] for Home health PT/SN. Pt is able to transport pt home. NOMNOC faxed to insurance. No further d/c needs. RADHA Gallegos
[2020-05-10 14:27] VITALS: BP 120/79; PULSE 106; RESP 18; TEMP 35.9; O2SAT 99
--- NOTE | 2020-05-10 17:06 | NURSING ---
Notified Dr. Tellez of pat unable to void after removal of rawls cath. Bladder scan 595. New order to insert rawls cath received.
--- NOTE | 2020-05-10 17:50 | NURSING ---
Dr Tellez in to see pt, pt requested to be straight cathed one more time before requiring an indwelling rawls. pt hopeful he will be able to void on his own.
--- NOTE | 2020-05-10 18:09 | NURSING ---
Patient straight cathed for 900ml, pt tolerated well.
[2020-05-10] MEDS: metFORMIN HCl 1,000 MG Tablet 1000 MG PO (21:15)
[2020-05-10] MEDS: MELATONIN 3 MG TABLET PO (21:15)
[2020-05-10] MEDS: Atorvastatin Calcium 20 MG Tablet PO (21:15)
--- NOTE | 2020-05-10 21:43 | DCINST_ITS ---
- Discharge Diagnoses Current Active Problems: Current Active and Chronic Problems Debility (Acute) Bilateral primary osteoarthritis of knee (Chronic) Neuropathy (Chronic) GERD (gastroesophageal reflux disease) (Chronic) Insomnia (Chronic) Imbalance (Chronic) Tinea corporis (Chronic) Erectile dysfunction (Chronic) Lumbar spinal stenosis (Chronic) IBS (irritable bowel syndrome) (Chronic) Basal cell carcinoma (Chronic) Diabetes mellitus (Chronic) Hypertension (Chronic) Hyperlipidemia (Chronic) Alcohol abuse (Chronic) You will use the following diet at home:: No restrictions, Regular Your food should be the consistency of: Regular Your liquids should be the consistency of: Regular/Thin Discharge Activity: Return to Normal Activity, May Shower, Use Walker Weight Bearing Status: Weight bearing as tolerated Call your doctor if you observe: Fever of 101 or Higher, Inability to urinate, Inability to have a bowel movement, Shortness of breath, Chest pain, Uncontrolled pain Allergies/Adverse Reactions: Allergies propoxyphene [From Darvon] Adverse Reaction (Verified 06/02/19 08:19) Vomiting Medications to take at Discharge atorvastatin 20 mg tablet 20 mg PO QHS #90 tab 06/02/19 candesartan 8 mg tablet 8 mg PO DAILY #90 tab 06/02/19 celecoxib 200 mg capsule 200 mg PO BID #180 cap 06/02/19 glimepiride 4 mg tablet 4 mg PO DAILY #90 tab 06/02/19 metformin 500 mg tablet 500 mg PO DAILY #270 tab 06/02/19 Ascorbic Acid [C-1000] 1,000 mg PO BID 04/27/20 Aspirin 81 mg PO BID 04/27/20 Esomeprazole Magnesium 20 mg PO DAILY 04/27/20 Melatonin 3 mg PO QHS 04/27/20 Metformin HCl 1,000 mg PO QHS 04/27/20 Tadalafil [Cialis] 20 mg PO QHS 04/27/20 Acetaminophen [Tylenol] 1,000 mg PO Q6H PRN PRN tablet 05/10/20 Ascorbic Acid [Vitamin C] 1,000 mg PO BIDCM tablet 05/10/20 Atorvastatin Calcium [Lipitor] 20 mg PO QHS tablet 05/10/20 Hydrocortisone 2.5% Crm [Hytone] 1 applic TOPICAL BID PRN PRN #1 tube 05/10/20 Menthol/Lanolin/Calamine/Znox [Calmoseptine Ointment] 1 applic TOPICAL BID tube 05/10/20 Polyethylene Glycol 3350 [Miralax] 17 gm PO DAILY #30 packet 05/10/20 Senna/Docusate Sodium [Senokot-S] 2 tab PO BID #120 tab 05/10/20 Tamsulosin HCl [Flomax] 0.4 mg PO BID@0830,1730 #60 cap 05/10/20 traMADol [Ultram] 50 mg PO Q6H PRN PRN #28 tab 05/10/20 The following prescriptions were given: Tamsulosin HCl [Flomax] 0.4 mg PO BID@0830,1730 #60 cap Prescription Printed Hydrocortisone 2.5% Crm [Hytone] 1 applic TOPICAL BID PRN PRN #1 tube PRN Reason: RASH/TOPICAL IRRITATION Prescription Printed Polyethylene Glycol 3350 [Miralax] 17 gm PO DAILY #30 packet Prescription Printed Senna/Docusate Sodium [Senokot-S] 2 tab PO BID #120 tab Prescription Printed traMADol [Ultram] 50 mg PO Q6H PRN PRN #28 tab PRN Reason: Pain Or Fever Prescription Printed Primary Care Physician: Rahel Anglin MD [Primary Care Provider] - Please follow up with your Primary Care Physician in: 1 week. Test Results: Test results from this visit will be discussed in further detail at your follow- up appointment, if applicable. Please Follow Up With: Dr. Pedersen (Orthopedic Surgeon) When: As scheduled. Please Follow Up With: Rohit Hough MD - Urinary retention When: 1 week. Proposed Discharge Date: 05/11/20
--- NOTE | 2020-05-10 21:45 | PCM.DC.SUM ---
Discharge Date and Diagnosis - Problem List Patient Problems: Active and Suspected Problems Debility (Acute) Date of Admission: 04/27/20 Date of Discharge: 05/11/20 - Primary Discharge Diagnosis Acute Problems: Active Problems Debility (Acute) - Secondary Discharge Diagnosis Chronic Problems: Chronic Problems Bilateral primary osteoarthritis of knee (Chronic) Neuropathy (Chronic) GERD (gastroesophageal reflux disease) (Chronic) Insomnia (Chronic) Imbalance (Chronic) Tinea corporis (Chronic) Erectile dysfunction (Chronic) Lumbar spinal stenosis (Chronic) IBS (irritable bowel syndrome) (Chronic) Basal cell carcinoma (Chronic) Diabetes mellitus (Chronic) Hypertension (Chronic) Hyperlipidemia (Chronic) Alcohol abuse (Chronic) Hospital Course and Treatment Imaging Results: 05/03/20 07:52 Diet: Regular Diet Is pt able to select menu?: Yes Clinical Impression(s) from Imaging Studies Chest X-Ray 04/28/20 13:10 IMPRESSION: No acute abnormality is seen. Electronically Signed: Moy Kika, at 14:00 EDT , Service support , Labs (Last 48 Hours) 05/09/20 05/10/20 06:17 06:39 POC Glucose 208 H 184 H Operations: None Procedures: None Summary of Care Provided: The patient is a 69 year old Male with below past medical history hospitalized for bilateral total knee replacement 04/22/[address] Pedersen, post-operative course complicated by urinary retention requiring indwelling Rawls catheter, admitted to TCU with debility, here for rehabilitation, strengthening, prior to discharge home with . On TCU, failed voiding trials x 2. Tamsulosin increased to 0.4MG twice daily, if discharged home with rawls catheter, follow up with Dr. Hough for BPH/urinary retention. Discharge home with , [facility] PT/SN. Patient Problems: Active and Suspected Problems Debility (Acute) - Physical Exam Vitals/I&O's: Vital Signs Temp Pulse Resp BP Pulse Ox 96.7 F L 106 H 18 120/79 99 05/10/20 14:27 05/10/20 14:27 05/10/20 14:27 05/10/20 14:27 05/10/20 14:27 Oxygen Delivery Method Room Air Weight: 104.78 kg Body Mass Index (BMI) 29.8 Intake and Output for Last 24 Hours 05/08/20 05/09/20 05/10/20 23:59 23:59 23:59 Intake Total 960 / 960 1520 / 1520 1320 / 1320 Output Total 1300 / 1300 4450 / 4450 3700 / 3700 Balance -340 / -340 -2930 / -2930 -2380 / -2380 Laboratory Results 05/10/20 06:39: POC Glucose 184 H Current Medications Acetaminophen (Tylenol) 1,000 mg PO Q6H PRN PRN PRN Reason: Pain Score 1-3/10 Last Admin: 05/08/20 04:19 Dose: 1,000 mg Documented by: [facility]ic [facility] Admin: 05/10/20 17:00 Dose: 1,000 mg Documented by: Aspirin (Aspirin, Baby) [facility] Last Admin: 05/10/20 17:00 Dose: 81 mg Documented by: Atorvastatin Calcium (Lipitor) 20 mg PO QHS [facility] Last Admin: 05/10/20 21:15 Dose: 20 mg Documented by: Bisacodyl (Dulcolax) 10 mg RECTAL DAILY PRN PRN Reason: Constipation Calamine/Phenol (Calmoseptine Ointment) 1 applic TOPICAL BID [facility]; Protocol Last Admin: 05/10/20 17:01 Dose: 1 applicatio Documented by: Celecoxib (Celebrex) 200 mg PO BID [facility] Last Admin: 05/10/20 17:00 Dose: 200 mg Documented by: Gl[facility]pir[facility] (Amaryl) [facility] Last Admin: 05/10/20 08:29 Dose: 4 mg Documented by: Hydrocortisone (Hytone) 1 applic TOPICAL BID PRN PRN; Protocol PRN Reason: RASH/TOPICAL IRRITATION Last Admin: 05/09/20 10:44 Dose: 1 applicatio Documented by: Losartan Potassium (Cozaar) 50 mg PO DAILY [facility] Last Admin: 05/10/20 06:41 Dose: 50 mg Documented by: [facility] Admin: 05/10/20 21:15 Dose: 3 mg Documented by: Metformin [facility] (Glucophage) [facility] Last Admin: 05/10/20 21:15 Dose: 1,000 mg Documented by: Metformin HCl (Glucophage) 500 mg PO DAILYCM [facility] Last Admin: 05/10/20 08:29 Dose: 500 mg Documented by: Pantoprazole Sodium (Protonix) 20 mg PO DAILY [facility] Last Admin: 05/10/20 06:40 Dose: 20 mg Documented by: Polyethylene Glycol (Miralax) 17 gm PO DAILY [facility] Last Admin: 05/10/20 06:41 Dose: Not Given Documented by: Senna/Docusate Sodium (Senokot-S, Michelle-Colace) 2 tablet PO BID [facility] Last Admin: 05/10/20 17:02 Dose: Not Given Documented by: Tamsulosin HCl (Flomax) 0.4 mg PO BID@0830,1730 [facility] Last Admin: 05/10/20 17:00 Dose: 0.4 mg Documented by: Tramadol HCl (Ultram) 50 mg PO Q6H [facility] Last Admin: 05/10/20 21:14 Dose: 50 mg Documented by: Discharge Diet: No Restrictions Discharge Activity: Return to Normal Activity, May Shower, Use Walker Weight Bearing Status: Weight bearing as tolerated Call your doctor if you observe: Fever of 101 or Higher, Inability to urinate, Inability to have a bowel movement, Shortness of breath, Chest pain, Uncontrolled pain Home Medications: Medications to take at Discharge atorvastatin 20 mg tablet 20 mg PO QHS #90 tab 06/02/19 candesartan 8 mg tablet 8 mg PO DAILY #90 tab 06/02/19 celecoxib 200 mg capsule 200 mg PO BID #180 cap 06/02/19 glimepiride 4 mg tablet 4 mg PO DAILY #90 tab 06/02/19 metformin 500 mg tablet 500 mg PO DAILY #270 tab 06/02/19 Ascorbic Acid [C-1000] 1,000 mg PO BID 04/27/20 Aspirin 81 mg PO BID 04/27/20 Esomeprazole Magnesium 20 mg PO DAILY 04/27/20 Melatonin 3 mg PO QHS 04/27/20 Metformin HCl 1,000 mg PO QHS 04/27/20 Tadalafil [Cialis] 20 mg PO QHS 04/27/20 Acetaminophen [Tylenol] 1,000 mg PO Q6H PRN PRN tablet 05/10/20 Ascorbic Acid [Vitamin C] 1,000 mg PO BIDCM tablet 05/10/20 Atorvastatin Calcium [Lipitor] 20 mg PO QHS tablet 05/10/20 Hydrocortisone 2.5% Crm [Hytone] 1 applic TOPICAL BID PRN PRN #1 tube 05/10/20 Menthol/Lanolin/Calamine/Znox [Calmoseptine Ointment] 1 applic TOPICAL BID tube 05/10/20 Polyethylene Glycol 3350 [Miralax] 17 gm PO DAILY #30 packet 05/10/20 Senna/Docusate Sodium [Senokot-S] 2 tab PO BID #120 tab 05/10/20 Tamsulosin HCl [Flomax] 0.4 mg PO BID@0830,1730 #60 cap 05/10/20 traMADol [Ultram] 50 mg PO Q6H PRN PRN #28 tab 05/10/20 Following Prescrptions Were Given to Patient: Tamsulosin HCl [Flomax] 0.4 mg PO BID@0830,1730 #60 cap Prescription Printed Hydrocortisone 2.5% Crm [Hytone] 1 applic TOPICAL BID PRN PRN #1 tube PRN Reason: RASH/TOPICAL IRRITATION Prescription Printed Polyethylene Glycol 3350 [Miralax] 17 gm PO DAILY #30 packet Prescription Printed Senna/Docusate Sodium [Senokot-S] 2 tab PO BID #120 tab Prescription Printed traMADol [Ultram] 50 mg PO Q6H PRN PRN #28 tab PRN Reason: Pain Or Fever Prescription Printed Primary Care Physician: Rahel Anglin MD [Primary Care Provider] - Please follow up with your Primary Care Physician in: 1 week. Please Follow Up With: Dr. Pedersen (Orthopedic Surgeon) When: As scheduled. Please Follow Up With: Rohit Hough MD - Urinary retention When: 1 week. Disposition: Home with Home Health Minutes spent on discharge:: 35 Patient Condition:: Stable Medical Necessity - Tobacco Use Smoking Status: Former smoker Tobacco Use: Cigarettes Meaningful Use Info Meaningful Use Diagnoses (Choose all that apply): None applicable
[2020-05-11] MEDS: Acetaminophen 500 MG Tablet 1000 MG PO (00:35)
[2020-05-11] MEDS: traMADol 50 MG Tablet PO ×2 (01:56→09:43)
--- NOTE | 2020-05-11 02:13 | NURSING ---
Patient has not been able to urinate since he was straight cathed at 1800. Patient is complaining of some pressure in his abdomen. Patient requesting that Romeo be inserted at this time per Dr. arriaga. Romeo inserted this time with an instant return of 750 cc of clear yellow urine. Patient states that he feels instant relief.
[2020-05-11 05:29] VITALS: BP 137/90; PULSE 96; RESP 18; TEMP 37; O2SAT 99
[2020-05-11] MEDS: Losartan Potassium 50 MG Tablet PO (05:31)
[2020-05-11] MEDS: Celecoxib 200 MG Capsule PO (05:31)
[2020-05-11] MEDS: Pantoprazole Sodium 20 MG Tablet PO (05:31)
[2020-05-11] MEDS: Menthol/Lanolin/Calamine/Znox 113 GM Tube 1 APPLIC TOPICAL (05:32)
[2020-05-11 06:26] LABS: Bedside Glucose 169 mg/dL (70-110)
[2020-05-11] MEDS: Ascorbic Acid 500 MG Tablet 1000 MG PO (09:38)
[2020-05-11] MEDS: Aspirin 81 MG TAB.CHEW PO (09:38)
[2020-05-11] MEDS: Glimepiride 4 MG Tablet PO (09:38)
[2020-05-11] MEDS: metFORMIN HCl 500 MG Tablet PO (09:38)
[2020-05-11] MEDS: Tamsulosin HCl 0.4 MG Capsule PO (09:39)
== END 2020-05-11 11:05 | disposition home health service (06) | DRG 561 ==
PROVIDERS: Admitting Provider Family Medicine Geriatric Medicine; PCP Family Medicine; Visit Provider Family Medicine Geriatric Medicine
DX: Z47.1 Aftercare following joint replacement surgery (principal); Z96.653 Presence of artificial knee joint, bilateral; I10 Essential (primary) hypertension; E11.40 Type 2 diabetes mellitus with diabetic neuropathy, unspecified; K21.9 Gastro-esophageal reflux disease without esophagitis; E78.5 Hyperlipidemia, unspecified; F10.10 Alcohol abuse, uncomplicated; K58.9 Irritable bowel syndrome, unspecified; Z87.891 Personal history of nicotine dependence; N40.1 Benign prostatic hyperplasia with lower urinary tract symptoms; R33.8 Other retention of urine
CPT/HCPCS: 36415; 71046; 80048; 81001; 82962; 85025; 87077; 87086; 87088; 87186; 87635; 97110; 97116; 97161; 97166; 97530; 97535; 97802; G2023; U0003

== ENCOUNTER 2020-06-28 09:00 | Outpatient (RCR) | payer MEDICARE, SELFPAY ==
[2020-04-27 17:28] VITALS: BMI 29.8
--- NOTE | 2020-05-31 12:54 | HP.PTEVAL_ITS ---
Patient's Visit Information ADENIKE KRUSE is a 69 year old M referred to Physical Therapy by KAREN OLIVEROS with a diagnosis of B TKA 04/22. Date of Evaluation: 05/31/20 Physical Therapist: Romie Horan DPT, OCS, CSCS - Visit Plan Frequency: 2x /Week Duration: 4-6 Weeks Plan: 2x/week for 4-6 weeks for. 1. rollout and stretch quads and patella mobs distal, PROM knee flexion and ext. 2. strength LE. 3. gait and steps. 4. ice as needed. - Subjective B TKA 04/22/20. First major on R, H/o back surgery in 60s and 2005 quad tendon tear that was repaired. 6 weeks ago had TKA after bone on bone with B knee pain. Unable to hike for several years. Had therapy immediately in hospital and 5 days at [facility] and 14 in rehab at [facility]. Had home PT for two weeks. Everybody seems happy with progress. Saw doctor 3 weeks ago adn sees again . No aD prior to surgery. Was on Walker until Sunday adn cane since. Uses walker at night. Pain level is 1 R adn 0 L. Been up to 8/10 in therapy but not after. Sleeping is not great on back and knees hurt on sides within 20 minutes. A little trouble sleeping. Used to sleep on sides adn trying back now. Not employed retired from [employer]. When healthy spends day baking and gardeing. Mowing grass. Has not returned for more than making biscuits. Can't stand long yet. Does basic ADLs on his own. is home most of time. Steps to second floor with railing and doing them multipoe times per day. Has HEP includes AP, SLR, HS, QS, SAQ, sitting flexion. 15 2 sets. - Pain R knee Pain Intensity (Out of 10): 0 Pain Intensity Range: 0, 8 Comment: bending L knee Pain Intensity (Out of 10): 1 Pain Intensity Range: 0, 8 Comment: bending - Objective Walks I with adn without cane today. Trasnfers needing arms as he is talla nd does not fully shift weight forward. Steps are reciprocally but pulls with UE adn lacks a forward weight shift. 2/3 patella adn achilles reflex. SensationWNL to gross light touch in LE. Patella move well medial and lateral but distal is limited adn tight B. Incisions have healed well with some scabs on R knee and mild scar tissue mostly distally B. R knee AROM -2-103 AROM, L knee. Quasds max tight B, HS -10 90/90 test. Hips and ankle AROM WFL. strength knee ext 4- R knee adn 4 L knee. Hip strength 4 B felxion and 4- ext and abd. Ankle strength 4+ B. Walk is I but lacks some ext at heel strike adn confidence with weight shift. - Balance Scores Functional Gait Assessment Score: 27 % Disability: 10.0000 - Goals Goal 1:: stand 60 minutes to bake without increased pain. Goal Time Frame: 4-6 Weeks Goal 2:: Hike through yard without need for cane fro safety. Goal Time Frame: 4-6 Weeks Goal 3:: AROM 0-120 to allow steps without pain Goal Time Frame: 4-6 Weeks Goal 4:: Steps reciprocal with one rail without UE pulling Goal Time Frame: 4-6 Weeks Goal 5:: Exit chair without UE Goal Time Frame: 4-6 Weeks - Rehabilitation Potential Physical Therapy Diagnosis: s/p TKA Rehabilitation Potential: Good - Anticipated Interventions Patient/Client Instruction: Educate patient on: Condition, Plan of Care For the Purpose of:: To decrease pain, To increase ROM, To improve muscle performance and motor function, To increase tolerance to activity/condition/position, To improve ability of physical actions for home/community/work/leisure Therapeutic Exercise to Include: Strength training, Flexibilty training, Gait and locomotor training, Neuromotor development, Passive ROM, Active ROM For the Purpose of:: To decrease pain, To increase ROM, To improve muscle performance and motor function, To increase tolerance to activity/condition/position, To improve ability of physical actions for home/community/work/leisure Manual Therapy Techniques to Include: Mobilization, Soft tissue mobilization For the Purpose of:: To decrease pain, To increase ROM Cryotherapy (ice pack, ice massage): Yes For the Purpose of:: To decrease swelling/inflammation Thank you for the opportunity to evaluate your patient. For Medicare and Medicare HMO plans, please review the plan of care and approve it. It will need to be FAXED BACK to us at [phone] for Medicare purposes. For Medicare only, by signing this I certify the plan of care. Please let me know if there are questions or concerns regarding this plan of care. Physician Signature: Date:
--- NOTE | 2020-06-28 09:21 | HP.PTDCSUM ---
It has been my pleasure to treat ADENIKE KRUSE referred by KAREN OLIVEROS, with the diagnosis of B TKA 04/22 for a total of 8 visit(s). Discharge Date: 06/28/20 Please see the following information for a summary of their discharge status. Subjective: Everything got better. More flexibility and less pain and more strength. Currently pain is slight 1/10 now and then whie doing stuff, gone with rest. Sleep is OK with two tylenol and alleve. Has pain elsewhere. Activities are pretty normal. Doing exercises at home 10 of them including stretches. Ready to be done with PT. R knee Pain Intensity (Out of 10): 0 L knee Pain Intensity (Out of 10): 0 % Improvement: 80 Objective/Function: 0-115 knee flexion R adn 0-113 L. Walks well and steps without rail reciprocally ascending and one rail descending. Needs UE to exit chair. Functionally, ROM and painwise doing very well. Ready to be done and will continue via HEP. Goal 1:: stand 60 minutes to bake without increased pain. Goal Progress: Goal Met Goal 2:: Hike through yard without need for cane fro safety. Goal Progress: Goal Met Goal 3:: AROM 0-120 to allow steps without pain Goal Progress: 113 L and 115 R Goal 4:: Steps reciprocal with one rail without UE pulling Goal Progress: Goal Met Goal 5:: Exit chair without UE Goal Progress: needs UE. Plan: d/c Discharge Comments: Pt ready to be done due to doing wella dn covid concerns. If there are questions or concerns regarding this patient's physical therapy, please feel free to call me at [phone]. Thank you for the referral of this patient. Sincerely, Romie Horan, DPT, OCS, CSCS
== END 2020-06-28 19:00 | disposition home or self-care (01) ==
LOC: PT 09:00
PROVIDERS: PCP Family Medicine
DX: Z96.653 Presence of artificial knee joint, bilateral (principal)
CPT/HCPCS: 97110; 97162; 97164

== ENCOUNTER → 2020-09-06 10:22 | Outpatient (CLI) | payer MEDICARE, SELFPAY ==
[2020-04-27 17:28] VITALS: BMI 29.8
[2020-09-06 12:43] LABS: AST(SGOT) 20 U/L (15-37); Alanine Aminotransfer ALT/SGPT 43 U/L (16-61); Anion Gap 11 (5-15); BUN 17 mg/dL (7-18); Chloride 107 mmol/L (98-107); Cholesterol 170 mg/dL (200); Creatinine, Serum 1.06 mg/dL (0.70-1.30); EST Glomerular Filtration Rate 73 mL/min (>60); Est Glom Filt Rate - Afr Amer 88 mL/min (>60); Glucose 145 mg/dL (74-106); High Density Lipoprotein 60 mg/dL; Potassium 4.2 mmol/L (3.5-5.1); Sodium Level 139 mmol/L (136-145); Triglycerides 83 mg/dL; Very Low Density Lipoprotein 17 mg/dL (5-40)
== END ==
PROVIDERS: PCP Family Medicine; Visit Provider Family Medicine
DX: E11.9 Type 2 diabetes mellitus without complications (principal); E78.5 Hyperlipidemia, unspecified
CPT/HCPCS: 36415; 80048; 80061; 84450; 84460

== ENCOUNTER → 2021-06-06 11:21 | Outpatient (CLI) | payer MEDICARE, SELFPAY ==
[2020-04-27 17:28] VITALS: BMI 29.8
[2021-06-06 13:15] LABS: AST(SGOT) 22 U/L (15-37); Alanine Aminotransfer ALT/SGPT 49 U/L (16-61); Albumin, Serum 4.2 g/dL (3.2-5.0); Alkaline Phosphatase 72 U/L (45-117); Anion Gap 9 (5-15); BUN 20 mg/dL (7-18); BUN/Creat Ratio 20.9 RATIO (10-20); Bilirubin, Direct 0.08 mg/dL (0.00-0.30); Calcium,Total 9.9 mg/dL (8.5-10.1); Chloride 108 mmol/L (98-107); Cholesterol 155 mg/dL (200); Creatinine, Serum 0.96 mg/dL (0.70-1.30); EST Glomerular Filtration Rate 82 mL/min (>60); Est Glom Filt Rate - Afr Amer 99 mL/min (>60); Globulin 3.6 g/dL (2.2-4.2); Glucose 119 mg/dL (74-106); High Density Lipoprotein 54 mg/dL; Potassium 4.3 mmol/L (3.5-5.1); Protein, Total 7.8 g/dL (6.4-8.2); Sodium Level 136 mmol/L (136-145); Triglycerides 100 mg/dL; Very Low Density Lipoprotein 20 mg/dL (5-40)
== END ==
PROVIDERS: PCP Family Medicine; Visit Provider Family Medicine
DX: E11.59 Type 2 diabetes mellitus with other circulatory complications (principal); I10 Essential (primary) hypertension
CPT/HCPCS: 36415; 80048; 80061; 80076

== ENCOUNTER 2022-02-14 12:16 | Outpatient (CLI) | payer MEDICARE, SELFPAY ==
[2022-02-14 15:40] LABS: Microalbumin,Random Urine 80.3 mg/L (NO RANGE EST.)
[2022-02-14 15:44] LABS: AST(SGOT) 21 U/L (15-37); Alanine Aminotransfer ALT/SGPT 41 U/L (16-61); Anion Gap 8 (5-15); BUN 21 mg/dL (7-18); BUN/Creat Ratio 17.1 RATIO (10-20); Calcium,Total 9.9 mg/dL (8.5-10.1); Chloride 109 mmol/L (98-107); Cholesterol 158 mg/dL (200); Creatinine, Serum 1.23 mg/dL (0.70-1.30); EST Glomerular Filtration Rate 61 mL/min (>60); Est Glom Filt Rate - Afr Amer 74 mL/min (>60); Glucose 125 mg/dL (74-106); High Density Lipoprotein 55 mg/dL; Potassium 4.4 mmol/L (3.5-5.1); Sodium Level 138 mmol/L (136-145); Triglycerides 91 mg/dL; Very Low Density Lipoprotein 18 mg/dL (5-40)
== END 2022-02-14 23:59 | disposition home or self-care (01) ==
LOC: MFPLAB 12:17
PROVIDERS: PCP Family Medicine; Referring Provider Family Medicine; Visit Provider Family Medicine
DX: E11.69 Type 2 diabetes mellitus with other specified complication (principal)
CPT/HCPCS: 36415; 80048; 80061; 82043; 82570; 84450; 84460

== ENCOUNTER 2022-03-26 16:02 | Emergency (ER) | payer MEDICARE, SELFPAY ==
[2022-03-26 16:02] VITALS: BP 139/79; PULSE 138; RESP 20; TEMP 37.9; O2SAT 98; BMI 28.2
--- NOTE | 2022-03-26 16:17 | RAD_ITS ---
INDICATION: dyspnea EXAMINATION/TECHNIQUE: X-RAY - XR Chest 1 View COMPARISON: 04/28/2020 FINDINGS: LIFE-SUPPORT AND LINES: 1. None HEART AND VESSELS: The cardiac silhouette, pulmonary vasculature have normal appearance. No evidence of congestive failure. LUNGS AND PLEURAL SPACES: Minimal linear atelectasis/interstitial prominence in the mid lung on the LEFT and at the RIGHT lung base. No focal infiltrate or consolidation. No pulmonary mass is noted. MEDIASTINUM AND HILAR REGIONS: No masses adenopathy noted. No areas of calcification. Visualized upper airway is normal in position. BONY ELEMENTS: No acute bony changes noted. RAD/Chest 1 View (Portable) IMPRESSION: 1. Linear areas of interstitial prominence versus atelectasis in the LEFT midlung at the RIGHT lung base. Subtle early interstitial infiltrate is a consideration. 2. No consolidation, congestive failure or effusion. Electronically Signed: Ranjeet Vidal MD at 18:14 EDT ,
--- NOTE | 2022-03-26 16:17 | EKG12_ITS ---
Test Reason : SOB Blood Pressure : / mmHG Vent. Rate : 129 BPM Atrial Rate : 129 BPM P-R Int : 162 ms QRS Dur : 088 ms QT Int : 284 ms P-R-T Axes : 035 018 029 degrees QTc Int : 416 ms Sinus tachycardia with occasional Premature ventricular complexes Otherwise normal ECG Confirmed by DA TSE, JAILENE ([id number]), video editor CRUZITO BAILEY ([id number]) on 03/27/2022 2:00:21 PM Referred By: GHADA Confirmed By:JAILENE ROBERSON MD
--- NOTE | 2022-03-26 16:18 | EX.ED.DYSGE1 ---
HPI History of Present Illness Chief Complaint: Shortness of Breath Detail of Chief Complaint: Shortness of breath and fatigue that started this afternoon around 3 PM Informant: patient Narrative Narrative: Patient presents to the emergency department complaint of shortness of breath with exertion and just generalized fatigue that started around 3 AM after waking up from a nap. Patient states that he rarely naps. He denies any chest pain. Patient called his primary care physician's office and was referred to the emergency department. Patient does have history of diabetes and hypertension and history of IBS as well as GERD. Patient denies cough or fever although on arrival to the ER he was noted to have a temperature of 100.3. He had COVID in July 2021. Patient has had the COVID-vaccine and booster. He has not had the flu vaccine. He denies urinary symptoms. Prior similar symptoms: No PFSH PFSH Home Medications candesartan 8 mg tablet 8 mg PO DAILY #90 tab 06/02/19 [History Last Taken Unknown] celecoxib 200 mg capsule 200 mg PO BID #180 cap 06/02/19 [History Last Taken Unknown] glimepiride 4 mg tablet 4 mg PO BID #90 tab 06/02/19 [History Last Taken Unknown] metformin 500 mg tablet 500 mg PO DAILY #270 tab 06/02/19 [History Last Taken Unknown] aspirin 81 mg PO DAILY 04/27/20 [History Last Taken Unknown] esomeprazole magnesium 20 mg PO DAILY 04/27/20 [History Last Taken Unknown] melatonin 3 mg PO QHS 04/27/20 [History Last Taken Unknown] metformin 1,000 mg PO QHS 04/27/20 [History Last Taken Unknown] tadalafil 20 mg PO QHS 04/27/20 [History Last Taken Unknown] ascorbic acid (vitamin C) 1,000 mg PO BIDCM tab 05/10/20 [Rx Last Taken Unknown] atorvastatin 20 mg PO QHS tab 05/10/20 [Rx Last Taken Unknown] hydrocortisone 1 applic TOPICAL BID PRN PRN #1 tube 05/10/20 [Rx Last Taken Unknown] menthol-zinc oxide 1 applic TOPICAL BID tube 05/10/20 [Rx Last Taken Unknown] Allergy/AdvReac Type Severity Reaction Status Date / Time adhesive AdvReac Rash Verified 03/26/22 16:04 propoxyphene [From Darvon] AdvReac Vomiting Verified 05/15/22 16:04 Family History Other Alcoholism Surgical History History of back surgery History of carpal tunnel surgery History of knee surgery Hx of tonsillectomy Social History Smoking Status: Former smoker alcohol intake: former details: Former alcoholic ROS ROS ED Constitutional Constitutional ED: Reports systems reviewed and no addt'l complaints, except as documented; Denies body ache(s), change in weight or chills Eyes Eyes: Denies acute decrease in peripheral vision, change in vision, double vision or loss of vision ENT ENT ED: Reports none; Denies ear pain, lip swelling, loss taste/smell, neck pain, otalgia or sore throat Cardiovascular Cardiovascular: Reports none; Denies abdominal pain, chest pain with activity, leg edema, lightheadedness, palpitations, rapid heart rate or syncope Respiratory/Chest Respiratory/Chest: Reports none and dyspnea; Denies change in mental status, dry cough, hemoptysis, shortness of breath at rest or shortness of breath with exertion Gastrointestinal Gastrointestinal: Reports none; Denies abdominal pain, change in stool character, diarrhea, hematemesis, hematochezia, melena, rectal bleeding or vomiting Genitourinary Genitourinary ED: Reports none; Denies abdominal discomfort, anuria, dysuria, genital pain or polyuria Musculoskeletal Musculoskeletal: Reports none; Denies arthralgias, back pain, difficulty walking, extremity pain, muscle weakness or myalgias Integumentary Reports none; Denies abscess or rash Neurologic Neurologic: Reports none and weakness; Denies abnormal gait, confusion, focal weakness, frequent falls, headache(s), loss of vision, numbness, paresthesias, radicular pain or vertigo Psychiatric Psychiatric: Reports systems reviewed and no addt'l complaints, except as documented and none; Denies behavioral changes, confusion, difficulty concentrating, hallucinations, suicidal ideation, tactile hallucinations or visual hallucinations Endocrine Endocrinology: Denies none, cold intolerance, excessive sweating, fatigue or heat intolerance Hematologic/Lymphatic Hematologic/Lymphatic: Reports none; Denies anemia, easy bleeding or easy bruising Allergic/Immunologic Allergic/Immunologic ED: Denies as per HPI, none, lip swelling, mouth swelling, throat swelling, tongue swelling or hives EXAM Physical Exam Const Vital Signs: 03/26/22 16:02 03/26/22 16:03 03/26/22 16:45 Temperature 100.3 F H Temperature Source Temporal Pulse Rate 138 H 129 H Respiratory Rate 20 H 16 Respiratory Effort Normal Non-Labored Respiratory Depth Normal Respiratory Pattern Normal Blood Pressure 139/79 H 118/75 Blood Pressure Mean 99 89 Pulse Ox 98 95 Oxygen Delivery Method Room Air Room Air 03/26/22 18:02 03/26/22 18:03 Temperature 99.8 F H Temperature Source Oral Pulse Rate 114 H 116 H Respiratory Rate 14 18 Respiratory Effort Respiratory Depth Respiratory Pattern Blood Pressure 136/78 H 152/81 H Blood Pressure Mean 97 104 Pulse Ox 98 97 Oxygen Delivery Method Room Air Room Air Positive well nourished and well developed General Appearance ED: well developed and NAD HEENT Reports TM's clear and moist mucous membranes normocephalic and atraumatic; Negative for trauma or tenderness Tympanic Membrane ED: Yes TM's clear Eyes PERRL and EOMs intact bilaterally General Eye ED: Negative for pale conjunctiva or scleral icterus Neck no lymphadenopathy, supple and no JVD General: Negative for tenderness Chest Wall inspection of chest normal and palpation of chest normal Chest: Negative for tenderness Resp normal respiratory effort and clear to auscultation bilaterally Effort and Inspection: Negative for respiratory distress or pain with movement Auscultation: Negative for rhonchi, wheezes or diminished lung sounds Cardio regular rate, regular rhythm, S1 normal heart sound, S2 normal heart sound and no murmurs Peripheral Pulses: pulses 2+ throughout GI normal to inspection, nondistended, normoactive bowel sounds, soft to palpation, non-tender, non-distended and no masses Back/Spine no CVA tenderness and no thoracic nor lumbar tenderness Extremity normal to inspection General Extremety ED: Negative for edema General Extremity: Negative for edema Neuro oriented x3, CN's II-XII intact bilaterally, no sensory deficits noted and gait normal Sensorium / Orientation: awake, alert, oriented to person, oriented to place and oriented to time Motor Exam: strength 5/5 throughout and strength abnormal Psych mental status grossly normal Skin no wounds Skin Narrative: Patient has cellulitis of the right lower extremity with diffuse erythema and warmth. Patient was unaware of these findings and has no discomfort to the leg. MDM MDM MDM Narrative Medical decision making narrative: IV line established on arrival. Patient had labs that showed an elevated white blood cell count of 18.6. His lactate was 1.8. Chemistries were unremarkable. Glucose was 326. Patient was started on Unasyn 3 g IV. Chest x-ray 1 view obtained interpreted by myself as no acute disease process. Official report from radiology pending. D-dimer was normal. At this point I suspect patient's symptoms likely related to cellulitis of his right lower extremity. Patient technically meets sepsis criteria. Case will be discussed with hospitalist evaluate for admission. Patient was seen by hospitalist and awaiting floor bed when he eloped from the department. Patient initially was advised that I recommended admission and he agreed to it. Hospitalist did call patient back and he refused to come back for admission. I was not made aware the patient would be leaving the department until after he left. Lab Data Attestation: I reviewed the patient's lab results. Labs: Laboratory Results - last 24 hr 03/26/22 03/26/22 03/26/22 16:43 16:43 16:43 WBC 18.6 H RBC 4.62 Hgb 14.5 Hct 43.4 MCV 93.9 MCH 31.4 MCHC 33.4 RDW Std Deviation 43.4 RDW Coeff of Amanda 12.6 Plt Count 277 MPV 9.5 Immature Gran % (Auto) 1.200 H Neut % (Auto) 90.1 H Lymph % (Auto) 2.0 L [place] % (Auto) 6.5 Eos % (Auto) 0.1 Baso % (Auto) 0.1 Absolute Neuts (auto) 16.8 H Absolute Lymphs (auto) 0.37 L Nucleated RBC % 0 Anisocytosis 1+ D-Dimer Quant (PE/DVT) Sodium 135 L Potassium 4.3 Chloride 107 Carbon Dioxide 20.0 L Anion Gap 8 BUN 38 H Creatinine 1.42 H Estim Creat Clear Calc 53.87 Est GFR (MDRD) Af Amer 63 Est GFR (MDRD) Non-Af 52 L BUN/Creatinine Ratio 26.8 H Glucose 326 H Lactic Acid 1.8 Calcium 9.6 Troponin I High Sens 4 03/26/22 17:03 WBC RBC Hgb Hct MCV MCH MCHC RDW Std Deviation RDW Coeff of Amanda Plt Count MPV Immature Gran % (Auto) Neut % (Auto) Lymph % (Auto) [place] % (Auto) Eos % (Auto) Baso % (Auto) Absolute Neuts (auto) Absolute Lymphs (auto) Nucleated RBC % Anisocytosis D-Dimer Quant (PE/DVT) 0.30 Sodium Potassium Chloride Carbon Dioxide Anion Gap BUN Creatinine Estim Creat Clear Calc Est GFR (MDRD) Af Amer Est GFR (MDRD) Non-Af BUN/Creatinine Ratio Glucose Lactic Acid Calcium Troponin I High Sens Radiography Chest X-Ray - ED: 1 View Diagnostic Testing: Clinical Impression(s) from Imaging Studies Chest X-Ray 03/26/22 16:17 IMPRESSION: 1. Linear areas of interstitial prominence versus atelectasis in the LEFT midlung at the RIGHT lung base. Subtle early interstitial infiltrate is a consideration. 2. No consolidation, congestive failure or effusion. Electronically Signed: Ranjeet Vidal MD at 18:14 EDT , 1 view chest x-ray obtained interpreted by myself as no acute disease process. Official report from radiology pending. EKG Initial EKG: Comments: Sinus tachycardia with a ventricular rate of 129 bpm with occasional PVCs Discharge Plan Triage Chief Complaint: Shortness of Breath ED Provider: Arias Noe Dx/Rx/DC Orders Clinical Impression: Cellulitis of leg, right, Acute hyperglycemia, Sepsis Prescriptions: No Action candesartan 8 mg tablet 8 mg PO DAILY Qty: 90 RF: 0 glimepiride 4 mg tablet 4 mg PO BID Qty: 90 RF: 0 celecoxib 200 mg capsule 200 mg PO BID Qty: 180 RF: 0 metformin 500 mg tablet 500 mg PO DAILY Qty: 270 RF: 0 melatonin 3 MG tablet 3 mg PO QHS RF: 0 metformin 1,000 MG tablet 1,000 mg PO QHS RF: 0 esomeprazole magnesium 20 MG capsule,delayed release(DR/EC) 20 mg PO DAILY RF: 0 tadalafil 20 MG tablet 20 mg PO QHS RF: 0 aspirin 81 MG tablet,chewable 81 mg PO DAILY RF: 0 atorvastatin 20 MG tablet 20 mg PO QHS RF: 0 ascorbic acid (vitamin C) 500 MG tablet 1,000 mg PO BIDCM RF: 0 hydrocortisone 1 APPLIC cream 1 applic topical BID PRN PRN (Reason: RASH/TOPICAL IRRITATION) Qty: 1 RF: 0 menthol-zinc oxide 1 APPLIC ointment 1 applic topical BID RF: 0 Primary Care Provider: Rahel Anglin Referrals: Rahel Anglin MD [Primary Care Provider] - Disposition Disposition: Elopement Discharge Date/Time: 03/26/22 19:50
[2022-03-26 16:45] VITALS: BP 118/75; PULSE 129; RESP 16; O2SAT 95
[2022-03-26 17:00] LABS: Absolute Lymphocyte Count 0.37 X10^3/uL (0.83-4.51); Absolute Neutrophil Count 16.8 X10^3/uL (2.0-7.7); Basophil# 0.02 X10^3/uL; Basophil% 0.1 % (0-1); Eosinophil# 0.01 X10^3/uL; Eosinophils% 0.1 % (0-5); Hematocrit 43.4 % (40-54); Hemoglobin 14.5 g/dL (13.0-16.5); Lymphocyte # 0.37 X10^3/ul (0.83-4.51); Mean Corp Hgb Conc 33.4 g/dL (32-36); Mean Corpuscular Hgb 31.4 pg (27.0-32.0); Mean Corpuscular Volume 93.9 fL (80-94); Mean Platelet Vol. 9.5 fl (6.2-12.0); Monocyte# 1.21 X10^3/uL; Monocyte% 6.5 % (0-10); NRBC Flagged by Analyzer 0 % (0-5); Neutrophil # 16.76 X10^3/uL (2.7-7.7); Neutrophil % 90.1 % (47-70); POSITIVE DIFFERENTIAL YES; Platelet Count 277 K/mm3 (150-450); RBC Distribution Width CV 12.6 % (11.6-14.6); RBC Distribution Width SD 43.4 fl (35.1-43.9); Red Blood Count 4.62 M/mm3 (4.6-6.2); White Blood Count 18.6 K/mm3 (4.4-11.0)
[2022-03-26 17:15] LABS: Anion Gap 8 (5-15); BUN 38 mg/dL (7-18); BUN/Creat Ratio 26.8 RATIO (10-20); Calcium,Total 9.6 mg/dL (8.5-10.1); Chloride 107 mmol/L (98-107); Creatinine, Serum 1.42 mg/dL (0.70-1.30); EST Glomerular Filtration Rate 52 mL/min (>60); Est Glom Filt Rate - Afr Amer 63 mL/min (>60); Estimated Creatinine Clearance 53.87 ml/min; Glucose 326 mg/dL (74-106); Potassium 4.3 mmol/L (3.5-5.1); Sodium Level 135 mmol/L (136-145); Troponin-I HS 4 pg/mL (3.0-78.0)
[2022-03-26 17:16] LABS: Differential Indicated SCAN CRITERIA MET
[2022-03-26] MEDS: 0.9% Normal Saline 1,000 ML 150 ML IV (17:22)
[2022-03-26 17:23] LABS: Lactic Acid 1.8 mmol/L (0.4-1.9)
[2022-03-26 18:02] VITALS: BP 136/78; PULSE 114; RESP 14; O2SAT 98
[2022-03-26 18:03] VITALS: BP 152/81; PULSE 116; RESP 18; TEMP 37.7; O2SAT 97
[2022-03-26 18:32] LABS: Anisocytosis 1+
--- NOTE | 2022-03-26 18:58 | HP.PCM.HOS_ITS ---
HPI - General HPI Narrative ADENIKE KRUSE, is a 71 M with a significant history of hypertension; diabetes mellitus medical hyperlipidemia who presents to the emergency department with erythema of his right meyers that he did not know about. On the day of presentation patient felt shortness of breath with mild exertion. He was weak all over. He had weakness; fatigue; and lethargy. Because his symptoms was reminiscent of delta COVID-19 that he had in July 2021 he was very concerned. The on-call physician of his PCP was notified and patient was instructed come to emergency department. He denies any subjective fever or chills. He denies anorexia. At the emergent department he was found to have a temperature of 100.3 Fahrenheit and was found to have erythema of his right leg. [facility] Home Medications candesartan 8 mg tablet 8 mg PO DAILY #90 tab 06/02/19 [History Last Taken Unknown] celecoxib 200 mg capsule 200 mg PO BID #180 cap 06/02/19 [History Last Taken Unknown] glimepiride 4 mg tablet 4 mg PO BID #90 tab 06/02/19 [History Last Taken Unknown] metformin 500 mg tablet 500 mg PO DAILY #270 tab 06/02/19 [History Last Taken Unknown] aspirin 81 mg PO DAILY 04/27/20 [History Last Taken Unknown] esomeprazole magnesium 20 mg PO DAILY 04/27/20 [History Last Taken Unknown] melatonin 3 mg PO QHS 04/27/20 [History Last Taken Unknown] metformin 1,000 mg PO QHS 04/27/20 [History Last Taken Unknown] tadalafil 20 mg PO QHS 04/27/20 [History Last Taken Unknown] ascorbic acid (vitamin C) 1,000 mg PO BIDCM tab 05/10/20 [Rx Last Taken Unknown] atorvastatin 20 mg PO QHS tab 05/10/20 [Rx Last Taken Unknown] hydrocortisone 1 applic TOPICAL BID PRN PRN #1 tube 05/10/20 [Rx Last Taken Unknown] menthol-zinc oxide 1 applic TOPICAL BID tube 05/10/20 [Rx Last Taken Unknown] Allergy/AdvReac Type Severity Reaction Status Date / Time adhesive AdvReac Rash Verified 03/26/22 16:04 propoxyphene [From Darvon] AdvReac Vomiting Verified 03/26/22 16:04 Family History Other Alcoholism Surgical History History of back surgery History of carpal tunnel surgery History of knee surgery Hx of tonsillectomy Social History Smoking Status: Former smoker alcohol intake: former details: Former alcoholic ROS ROS Narrative Pertinent positives and pertinent negatives as noted in HPI. All other systems were reviewed and are negative. Vital Signs Vital Signs Vital Signs: 03/26/22 16:02 03/26/22 16:03 03/26/22 16:45 Temperature 100.3 F H Temperature Source Temporal Pulse Rate 138 H 129 H Respiratory Rate 20 H 16 Respiratory Effort Normal Non-Labored Respiratory Depth Normal Respiratory Pattern Normal Blood Pressure 139/79 H 118/75 Blood Pressure Mean 99 89 Pulse Ox 98 95 Oxygen Delivery Method Room Air Room Air 03/26/22 18:02 03/26/22 18:03 Temperature 99.8 F H Temperature Source Oral Pulse Rate 114 H 116 H Respiratory Rate 14 18 Respiratory Effort Respiratory Depth Respiratory Pattern Blood Pressure 136/78 H 152/81 H Blood Pressure Mean 97 104 Pulse Ox 98 97 Oxygen Delivery Method Room Air Room Air Weight Weight: 99.79 kg Body Mass Index (BMI) 28.2 Physical Exam Narrative Physical exam: General: Well-nourished, well-developed. Head: Normocephalic, atraumatic, no tenderness Eyes: Vision is grossly intact. EOMI ENT, no trauma, moist mucous membranes, no rhinorrhea Neck: Nontender, full range of motion, no spinal tenderness, deformities, step- off CVS: Regular rate and rhythm. S1-S2 present. No murmur, gallop or rub. Respiratory : clear to auscultation bilaterally, chest wall nontender, no wheezing Abdomen: Soft, nontender, nondistended, normal bowel sounds, no masses : Deferred Back: Nontender, no CVA tenderness, no midline spinal tenderness, deformities. Extremities: Nontender full range of motion, no trauma Skin: Erythema; increased warmth and mild tenderness of right meyers. Normal color, no trauma, abrasions Neuro: Alert, oriented, cranial nerves II through XII grossly intact. Psychiatry: Normal mood. Normal affect. Not depressed. Not anxious. Results Lab / Micro Data Result Diagrams: 03/26/22 16:43 03/26/22 16:43 Labs: Laboratory Results - last 24 hr 03/26/22 16:43: WBC 18.6 H, RBC 4.62, Hgb 14.5, Hct 43.4, MCV 93.9, MCH 31.4, MCHC 33.4, RDW Std Deviation 43.4, RDW Coeff of Amanda 12.6, Plt Count 277, MPV 9.5, Immature Gran % (Auto) 1.200 H, Neut % (Auto) 90.1 H, Lymph % (Auto) 2.0 L, [place] % (Auto) 6.5, Eos % (Auto) 0.1, Baso % (Auto) 0.1, Absolute Neuts (auto) 16.8 H, Absolute Lymphs (auto) 0.37 L, Nucleated RBC % 0, Anisocytosis 1+ 03/26/22 16:43: Sodium 135 L, Potassium 4.3, Chloride 107, Carbon Dioxide 20.0 L , Anion Gap 8, BUN 38 H, Creatinine 1.42 H, Estim Creat Clear Calc 53.87, Est GFR (MDRD) Af Amer 63, Est GFR (MDRD) Non-Af 52 L, BUN/Creatinine Ratio 26.8 H, Glucose 326 H, Calcium 9.6, Troponin I High Sens 4 03/26/22 16:43: Lactic Acid 1.8 03/26/22 17:03: D-Dimer Quant (PE/DVT) 0.30 Micro: Microbiology 03/26/22 16:30 Nasal Secretion SARS-CoV-2 & FLU Antigen (Rapid) - Final Radiology Impression Chest X-Ray 03/26/22 16:17 IMPRESSION: 1. Linear areas of interstitial prominence versus atelectasis in the LEFT midlung at the RIGHT lung base. Subtle early interstitial infiltrate is a consideration. 2. No consolidation, congestive failure or effusion. Electronically Signed: Ranjeet Vidal MD at 18:14 EDT , Assessment & Plan Assessment/Plan (1) Cellulitis: QUALIFIERS: Laterality: right Site of cellulitis: extremity Site of cellulitis of extremity: lower extremity Qualified Code(s): L03.115 - Cellulitis of right lower limb PLAN: Cellulitis of right leg On presentation patient met SIRS criteria with white count of 18,600 (bandemia of 1.2%; neutrophilia of 90.1%; lymphopenia of 2%.); Tachycardia with highest heart rate of 138. Lactic acid of 1.8 qSOFA is 0; sepsis ruled out. Chest x-ray was visualized and independently interpreted and agree radiology interpretation above. Blood cultures x2 ordered emergency department, follow.Rapid COVID antigen and influenza screen on presentation was negative. Received Unasyn at the emergency department and continued. Will trend CBC. Diabetes mellitus Patient with hyperglycemia on presentation Glimepiride continued. Hold metformin. Accu-Chek with correction scale insulin continued. AIDEN on CKD stage II Creatinine on presentation was 1.42. His creatinine on 02/15/2020 was 1.23. Creatinine in 2020 was 0.96. His creatinine on 09/06/2020 was 1.06. Baseline creatinine likely around 1. His BUN on presentation was 38. BUN on 02/14/2022 was 21 and in 2020 was 28. BUN over creatinine is 26.8; likely prerenal Likely mild AIDEN. Hold home NSAIDs and ANDREW receptor blockers. Gentle IV hydration. Trend BMP. Hypertension Blood pressure is not within goal Expiratory lopez held secondary to mild AIDEN. As needed hydralazine ordered. Trend blood pressure and adjust blood pressure medications. DVT prophylaxis: Subcutaneous Lovenox ordered. Charges/Coding Visit Charges Inpatient E&M: 55477 Init Hosp L3
--- NOTE | 2022-03-26 19:47 | NURSING ---
Pt ambulating in seay, dressed in clothes, stating that he is leaving. Stopped by staff and informed that we need to take his IV out. Pt states that his patience is worn out and that he wants to leave. RN took IV out. Pt ambulated out main ED entrance.
== END 2022-03-26 19:50 | disposition left against medical advice (07) ==
PROVIDERS: Emergency Provider Emergency Medicine; PCP Family Medicine; Visit Provider Emergency Medicine
DX: L03.115 Cellulitis of right lower limb (principal); A41.9 Sepsis, unspecified organism; E11.65 Type 2 diabetes mellitus with hyperglycemia; I10 Essential (primary) hypertension; K58.9 Irritable bowel syndrome, unspecified; K21.9 Gastro-esophageal reflux disease without esophagitis; Z79.82 Long term (current) use of aspirin; Z79.84 Long term (current) use of oral hypoglycemic drugs; Z79.899 Other long term (current) drug therapy; Z86.16 Personal history of COVID-19; Z87.891 Personal history of nicotine dependence; I49.3 Ventricular premature depolarization; Z53.29 Procedure and treatment not carried out because of patient's decision for other reasons
CPT/HCPCS: 71045; 80048; 83605; 84484; 85025; 85379; 87040; 87428; 93005; 96365; 99281; 99282; J7030; A4216; J0295

== ENCOUNTER → 2023-02-14 | Outpatient (CLI) | payer MEDICARE, SELFPAY ==
[2023-02-14 12:45] LABS: AST(SGOT) 21 U/L (15-37); Alanine Aminotransfer ALT/SGPT 35 U/L (16-61); Alkaline Phosphatase 65 U/L (45-117); Anion Gap 7 (5-15); BUN 17 mg/dL (7-18); BUN/Creat Ratio 15.3 RATIO (10-20); Calcium,Total 9.8 mg/dL (8.5-10.1); Chloride 108 mmol/L (98-107); Cholesterol 151 mg/dL (200); Creatinine, Serum 1.11 mg/dL (0.70-1.30); EST Glomerular Filtration Rate 69 mL/min (>60); Est Glom Filt Rate - Afr Amer 83 mL/min (>60); Globulin 3.3 g/dL (2.2-4.2); Glucose 132 mg/dL (74-106); High Density Lipoprotein 51 mg/dL; Potassium 4.5 mmol/L (3.5-5.1); Protein, Total 7.3 g/dL (6.4-8.2); Sodium Level 136 mmol/L (136-145); Triglycerides 102 mg/dL; Very Low Density Lipoprotein 20 mg/dL (5-40)
== END | disposition home or self-care (01) ==
LOC: MFPLAB 10:50
PROVIDERS: PCP Family Medicine; Referring Provider Family Medicine; Visit Provider Family Medicine
DX: E11.59 Type 2 diabetes mellitus with other circulatory complications (principal)
CPT/HCPCS: 36415; 80048; 80061; 80076

== ENCOUNTER 2023-03-17 16:13 | Emergency (ER) | payer MEDICARE, SELFPAY ==
[2023-03-17 16:14] VITALS: BP 130/77; PULSE 93; RESP 12; TEMP 36.5; O2SAT 100; BMI 29.5
--- NOTE | 2023-03-17 16:26 | EKG12_ITS ---
Test Reason : SYNCOPE Blood Pressure : / mmHG Vent. Rate : 091 BPM Atrial Rate : 091 BPM P-R Int : 186 ms QRS Dur : 096 ms QT Int : 368 ms P-R-T Axes : 033 002 013 degrees QTc Int : 452 ms Normal sinus rhythm Minimal voltage criteria for LVH, may be normal variant ( R in aVL ) Borderline ECG Confirmed by RADHA TSE, CASSIE ([id number]), state editor CRUZITO BAILEY ([id number]) on 03/19/2023 2:46:48 PM Referred By: PL Confirmed By:SANDIP GARCIA MD
--- NOTE | 2023-03-17 16:27 | CT_ITS ---
INDICATION: Dizziness. Syncopal episode. Hypertension. EXAMINATION: CT Head or Brain W/O Contrast Injection TECHNIQUE: Multiple axial images were obtained of the head without intravenous contrast. A radiation dose optimization technique was used for this scan. IV Contrast dosage and agent: None. COMPARISON: None. FINDINGS: BRAIN PARENCHYMA: No intra- or extra-axial hemorrhage. No evidence of acute infarct. No intracranial mass or mass effect. No vasogenic edema. There is preservation of the aj/white matter interface. Mild parenchymal volume loss. Posterior fossa structures are unremarkable. CSF SPACES: Appropriate for age. No hydrocephalus. Basal cisterns are patent. No focal dense vessel sign. No abnormal extra-axial fluid collection. CALVARIUM, SKULL BASE, PARANASAL SINUSES AND MASTOID AIR CELLS: Clear. No discrete lytic or blastic abnormalities. ORBITS: Bilateral cataract repair. No acute orbital abnormality.. ASPECTS Score for Acute Strokes: 10 CT/Brain/Head without Contrast IMPRESSION: No acute intracranial findings. Electronically Signed: Artie Davis MD at 17:41 EDT ,
[2023-03-17 16:37] LABS: Absolute Lymphocyte Count 0.82 X10^3/uL (0.83-4.51); Absolute Neutrophil Count 13.4 X10^3/uL (2.0-7.7); Basophil# 0.05 X10^3/uL; Basophil% 0.3 % (0-1); Eosinophil# 0.11 X10^3/uL; Eosinophils% 0.7 % (0-5); Hemoglobin 15.1 g/dL (13.0-16.5); Lymphocyte # 0.82 X10^3/ul (0.83-4.51); Lymphocyte % 5.2 % (19-41); Mean Corp Hgb Conc 33.6 g/dL (32-36); Mean Corpuscular Hgb 31.5 pg (27.0-32.0); Mean Corpuscular Volume 93.9 fL (80-94); Mean Platelet Vol. 9.4 fl (6.2-12.0); Monocyte% 8.9 % (0-10); NRBC Flagged by Analyzer 0 % (0-5); Neutrophil # 13.37 X10^3/uL (2.7-7.7); Neutrophil % 84.6 % (47-70); Platelet Count 293 K/mm3 (150-450); RBC Distribution Width CV 12.8 % (11.6-14.6); Red Blood Count 4.79 M/mm3 (4.6-6.2); White Blood Count 15.8 K/mm3 (4.4-11.0)
[2023-03-17] MEDS: Ondansetron 4 MG/2 ML Vial IV (16:39)
[2023-03-17] MEDS: 0.9% Normal Saline 1,000 ML 1000 ML IV (16:39)
--- NOTE | 2023-03-17 16:43 | RAD_ITS ---
INDICATION: Cough. EXAMINATION/TECHNIQUE: X-RAY - XR Chest 1 View COMPARISON: March 26, 2022 chest x-ray. FINDINGS: LINES/DEVICES: None. LUNGS: Stable linear scarring in the left midlung. Mild interstitial prominence at the right lung base again seen. No focal consolidation or pleural effusion. No pneumothorax. MEDIASTINUM AND CARDIOVASCULAR STRUCTURES: Cardiac silhouette not enlarged. Aortic arch calcification. Normal pulmonary vascularity. BONES AND SOFT TISSUES: Stable degenerative changes of the thoracic spine. No acute osseous injury. RAD/Chest 1 View (Portable) IMPRESSION: No acute cardiopulmonary disease. Stable chest. Electronically Signed: Artie Davis MD at 17:13 EDT ,
--- NOTE | 2023-03-17 16:47 | EDS_ITS ---
HPI <GAIL Mejia - Last Filed: 03/17/23 19:22> History of Present Illness Chief Complaint: Syncope Narrative Narrative: Patient is a 72-year-old male with history of acid reflux, diabetes, hypertension, hyperlipidemia who presents to the emergency department with a syncopal episode, nausea, vomiting, diarrhea. Patient woke up feeling well, patient states all of a sudden he had multiple episodes of diarrhea, he felt faint, he then had to have multiple episode of vomitus, he did have 3 episodes of intermittent syncope while in the bathroom. Per the , he kept vomiting looking up at her that his eyes rolled back and he would pass out for a second and then vomit again. Patient denied any chest pain. Patient states that whenever he moves his head side to side he does feel more nauseous. He is not describing a dizziness slight as a room spinning sensation. He states he feels like he might pass out. Patient arrives by EMS. [facility] <GAIL Mejia - Last Filed: 03/17/23 19:22> [facility] Medical History (Updated 03/17/23 @ 19:21 by GAIL Mejia) Basal cell carcinoma DM II (diabetes mellitus, type II), controlled GERD (gastroesophageal reflux disease) History of alcohol abuse HTN (hypertension) Hyperlipidemia Irritable bowel syndrome (IBS) Home Medications candesartan 8 mg tablet 8 mg PO DAILY BP #90 tabs 06/02/19 [History Last Taken Unknown] celecoxib 200 mg capsule 200 mg PO BID Pain #180 caps 06/02/19 [History Last Taken Unknown] glimepiride 4 mg tablet 4 mg PO BID Blood sugar #90 tabs 06/02/19 [History Last Taken Unknown] metformin 500 mg tablet 500 mg PO DAILY Blood sugar #270 tabs 06/02/19 [History Last Taken Unknown] aspirin 81 mg chewable tablet 81 mg PO DAILY Blood thinner 04/27/20 [History Last Taken Unknown] esomeprazole magnesium 20 mg capsule,delayed release 20 mg PO DAILY Stomach acid 04/27/20 [History Last Taken Unknown] melatonin 3 mg tablet 3 mg PO QHS Sleep 04/27/20 [History Last Taken Unknown] metformin 1,000 mg tablet 1,000 mg PO QHS Blood sugar 04/27/20 [History Last Taken Unknown] ascorbic acid (vitamin C) 500 mg tablet 1,000 mg PO BIDCM 05/10/20 [Rx Last Taken Unknown] atorvastatin 20 mg tablet 20 mg PO QHS 05/10/20 [Rx Last Taken Unknown] dicyclomine 20 mg tablet 20 mg PO TID #14 tabs 03/17/23 [Rx Last Taken Unknown] ondansetron 4 mg disintegrating tablet 4 mg PO Q8H PRN PRN Nausea #10 tabs 03/17/23 [Rx Last Taken Unknown] Allergy/AdvReac Type Severity Reaction Status Date / Time adhesive AdvReac Rash Verified 03/17/23 16:18 propoxyphene [From Darvon] AdvReac Vomiting Verified 03/17/23 16:18 Family History Other Alcoholism Surgical History History of back surgery History of carpal tunnel surgery History of knee surgery Hx of tonsillectomy Social History Smoking Status: Former smoker alcohol intake: former details: Former alcoholic ROS <GAIL Mejia - Last Filed: 03/17/23 19:22> ROS ED ROS Narrative Constitutional: Negative for fever, chills, weight loss, weakness Eyes: Negative for vision loss, vision change, double vision ENT: Negative for any sore throat, ear pain, congestion Cardiovascular: Negative for any chest pain, tightness, palpitations Respiratory: Negative for any cough, sputum production, hemoptysis, dyspnea, dyspnea on exertion, orthopnea Gastrointestinal: Negative for any constipation, blood in stool, blood in vomit. Positive for abdominal pain, nausea, vomiting, diarrhea : Negative for any urinary frequency, dysuria, retention, blood in urine Muscle skeletal: Negative for any muscle joint pain, stiffness, myalgias, a rthralgias, neck pain, back pain Neurological: Negative for any headache, numbness or tingling, dizziness. Positive for syncope Skin: Negative for any rashes, lumps, itching, abrasions, lacerations Psychiatric: Negative for any depression, anxiety, stress, suicidal ideation, homicidal ideation Hematologic: Negative for any easy bruising, excessive bruising, easy bleeding Allergies: Negative for any eczema, hives, rash EXAM <GAIL Mejia - Last Filed: 03/17/23 19:22> Physical Exam Narrative Exam Narrative: Vital signs reviewed. Patient when laying on his back, eyes closed with his head straight feels better. He does appear dry, slightly pale. HEET: Head normocephalic atraumatic, TMs clear bilaterally. Posterior pharynx is clear, dry mucous membranes. Nares clear bilaterally. Neck: Supple with no lymphadenopathy or tenderness. No signs of meningismus, negative jolt sign. Cardiac: Regular rate and rhythm no murmurs gallops or rubs, equal peripheral pulses bilaterally. Respiratory: Lungs clear to auscultation bilaterally. No chest tenderness. Abdomen: Soft, nontender, nondistended. No abdominal bruit or pulsatile masses. No hepatosplenomegaly Extremities: No peripheral edema, no signs of gross trauma or deformity. Active full range of motion of all extremities. Neuro: Cranial nerves II through XII intact, no focal neurological deficits. NIH score 0. When the patient does move his head right or left he said he feels nauseous, he does not exhibit any nystagmus or feels a room spinning like sensation. He only feels nausea. Skin: Clean dry and intact with no rash, purpura, petechiae, vesicles or pustules. Backs/flank: No CVA tenderness, no midline spinal tenderness, no deformity. Psych: Normal mood and affect. No SI, HI or acute psychosis. Const Vital Signs: 03/17/23 16:14 03/17/23 16:20 03/17/23 17:13 Temperature 97.7 F L Temperature Source Oral Pulse Rate 93 96 Respiratory Rate 12 17 Respiratory Effort Normal Non-Labored Respiratory Pattern Normal Blood Pressure 130/77 H 135/76 H Blood Pressure Mean 94 95 Pulse Ox 100 95 Oxygen Delivery Method Room Air Room Air 03/17/23 18:00 03/17/23 19:22 Temperature Temperature Source Pulse Rate 101 H 100 Respiratory Rate 18 17 Respiratory Effort Respiratory Pattern Blood Pressure 127/75 H 136/88 H Blood Pressure Mean 92 Pulse Ox 97 98 Oxygen Delivery Method Room Air Positive well nourished and well developed General Appearance ED: well developed <Dr. Zonia Castillo MD - Last Filed: 03/17/23 21:23> Physical Exam Const Vital Signs: 03/17/23 16:14 03/17/23 16:20 03/17/23 17:13 Temperature 97.7 F L Temperature Source Oral Pulse Rate 93 96 Respiratory Rate 12 17 Respiratory Effort Normal Non-Labored Respiratory Pattern Normal Blood Pressure 130/77 H 135/76 H Blood Pressure Mean 94 95 Pulse Ox 100 95 Oxygen Delivery Method Room Air Room Air 03/17/23 18:00 03/17/23 19:22 Temperature Temperature Source Pulse Rate 101 H 100 Respiratory Rate 18 17 Respiratory Effort Respiratory Pattern Blood Pressure 127/75 H 136/88 H Blood Pressure Mean 92 Pulse Ox 97 98 Oxygen Delivery Method Room Air MDM <GAIL Mejia - Last Filed: 03/17/23 19:22> [facility] Lab Data Labs: Laboratory Results - last 24 hr 03/17/23 03/17/23 03/17/23 16:20 16:20 16:20 WBC 15.8 H RBC 4.79 Hgb 15.1 Hct 45.0 MCV 93.9 MCH 31.5 MCHC 33.6 RDW Std Deviation 44.0 H RDW Coeff of Amanda 12.8 Plt Count 293 MPV 9.4 Immature Gran % (Auto) 0.300 Neut % (Auto) 84.6 H Lymph % (Auto) 5.2 L Lyon % (Auto) 8.9 Eos % (Auto) 0.7 Baso % (Auto) 0.3 Absolute Neuts (auto) 13.4 H Absolute Lymphs (auto) 0.82 L Nucleated RBC % 0 Sodium 141 Potassium 3.7 Chloride 109 H Carbon Dioxide 20.0 L Anion Gap 12 BUN 26 H Creatinine 1.21 Estim Creat Clear Calc 60.53 Est GFR (MDRD) Af Amer 75 Est GFR (MDRD) Non-Af 62 BUN/Creatinine Ratio 21.5 H Glucose 264 H Calcium 9.6 Total Bilirubin 0.30 AST 17 ALT 31 Alkaline Phosphatase 71 Troponin I High Sens 4 Total Protein 7.2 Albumin 3.8 Globulin 3.4 Albumin/Globulin Ratio 1.1 Lipase 48 Urine Color Urine Clarity Urine pH Ur Specific [place] Urine Protein Urine Glucose (UA) Urine Ketones Urine Occult Blood Urine Nitrite Urine Bilirubin Urine Urobilinogen Ur Leukocyte Esterase Urine RBC Urine WBC Ur Squamous Epith Cells Urine Bacteria Urine Mucus 03/17/23 03/17/23 18:24 18:30 WBC RBC Hgb Hct MCV MCH MCHC RDW Std Deviation RDW Coeff of Amanda Plt Count MPV Immature Gran % (Auto) Neut % (Auto) Lymph % (Auto) Lyon % (Auto) Eos % (Auto) Baso % (Auto) Absolute Neuts (auto) Absolute Lymphs (auto) Nucleated RBC % Sodium Potassium Chloride Carbon Dioxide Anion Gap BUN Creatinine Estim Creat Clear Calc Est GFR (MDRD) Af Amer Est GFR (MDRD) Non-Af BUN/Creatinine Ratio Glucose Calcium Total Bilirubin AST ALT Alkaline Phosphatase Troponin I High Sens 4 Total Protein Albumin Globulin Albumin/Globulin Ratio Lipase Urine Color Yellow Urine Clarity Clear Urine pH 6.0 Ur Specific [place] 1.015 Urine Protein 30 H Urine Glucose (UA) 250 H Urine Ketones 50 H Urine Occult Blood Negative Urine Nitrite Negative Urine Bilirubin Negative Urine Urobilinogen Normal Ur Leukocyte Esterase 25 H Urine RBC 0-5 SEEN Urine WBC 10-25 SEEN Ur Squamous Epith Cells 0 SEEN Urine Bacteria RARE Urine Mucus 0 SEEN Radiography Diagnostic Testing: Clinical Impression(s) from Imaging Studies Brain CT 03/17/23 16:27 IMPRESSION: No acute intracranial findings. Electronically Signed: Artie Davis MD at 17:41 EDT , Chest X-Ray 03/17/23 16:43 IMPRESSION: No acute cardiopulmonary disease. Stable chest. Electronically Signed: Artie Davis MD at 17:13 EDT , EKG Normal sinus rhythm: Attestation: I personally reviewed and interpreted this EKG as follows: Comments: Normal sinus rhythm, rate of 91 bpm, NC interval 186 ms, QRS duration 96 ms, no acute ST elevation, no acute infarct noted Treatment and Re-Evaluation :: All radiologic examinations were read, reviewed by the emergency department attending. From these reads, a plan of care will be put in place. Patient on arrival was pale, had difficulty opening his eyes because he said he felt faint, nausea, vomiting, diarrhea. Patient did receive a full abdominal work-up as well as a cardiac work-up secondary to the syncopal episodes. After speaking with the patient, I do believe the syncopal episodes were related to a vagal response secondary to having diarrhea as well as nausea and vomiting. However secondary the patient's age, and evaluation was completed. Patient's laboratory studies showed a CBC with a white blood count of 15.8, this is slight ly elevated however the patient is having nausea, vomiting, diarrhea over the last several hours. Patient's chemistries showed normal renal function, no anion gap, blood glucose of 264. Patient's liver enzymes were unremarkable. Patient's initial troponin was 4, the repeat was 4, patient's EKG was unremarkable. There is no evidence to suspect any ACS, IA. Consider CT scan of the abdomen pelvis however patient had no pain on palpation, active bowel sounds. With the nausea vomiting diarrhea, there is little evidence of any bowel obstruction. Patient did receive a CT scan of the brain which was unremarkable, negative for any CVA or intracranial hemorrhage. Patient's chest x-ray was unremarkable. After 2 L of normal saline, 8 mg of IV Zofran, the patient felt much better. Vital signs remained stable, he was able to get up and walk around and felt much better. He is able to pass a p.o. challenge here. At this time, I do believe the patient stable for discharge. I spoke with the patient the patient's as well as the patient's son, they all had no further questions, they were given strict return precaution. Patient stable for discharge. Patient be placed on Zofran, Bentyl for home. <Dr. Zonia Castillo MD - Last Filed: 03/17/23 21:23> [facility] Lab Data Labs: Laboratory Results - last 24 hr 03/17/23 03/17/23 03/17/23 16:20 16:20 16:20 WBC 15.8 H RBC 4.79 Hgb 15.1 Hct 45.0 MCV 93.9 MCH 31.5 MCHC 33.6 RDW Std Deviation 44.0 H RDW Coeff of Amanda 12.8 Plt Count 293 MPV 9.4 Immature Gran % (Auto) 0.300 Neut % (Auto) 84.6 H Lymph % (Auto) 5.2 L Lyon % (Auto) 8.9 Eos % (Auto) 0.7 Baso % (Auto) 0.3 Absolute Neuts (auto) 13.4 H Absolute Lymphs (auto) 0.82 L Nucleated RBC % 0 Sodium 141 Potassium 3.7 Chloride 109 H Carbon Dioxide 20.0 L Anion Gap 12 BUN 26 H Creatinine 1.21 Estim Creat Clear Calc 60.53 Est GFR (MDRD) Af Amer 75 Est GFR (MDRD) Non-Af 62 BUN/Creatinine Ratio 21.5 H Glucose 264 H Calcium 9.6 Total Bilirubin 0.30 AST 17 ALT 31 Alkaline Phosphatase 71 Troponin I High Sens 4 Total Protein 7.2 Albumin 3.8 Globulin 3.4 Albumin/Globulin Ratio 1.1 Lipase 48 Urine Color Urine Clarity Urine pH Ur Specific [place] Urine Protein Urine Glucose (UA) Urine Ketones Urine Occult Blood Urine Nitrite Urine Bilirubin Urine Urobilinogen Ur Leukocyte Esterase Urine RBC Urine WBC Ur Squamous Epith Cells Urine Bacteria Urine Mucus 03/17/23 03/17/23 18:24 18:30 WBC RBC Hgb Hct MCV MCH MCHC RDW Std Deviation RDW Coeff of Amanda Plt Count MPV Immature Gran % (Auto) Neut % (Auto) Lymph % (Auto) Lyon % (Auto) Eos % (Auto) Baso % (Auto) Absolute Neuts (auto) Absolute Lymphs (auto) Nucleated RBC % Sodium Potassium Chloride Carbon Dioxide Anion Gap BUN Creatinine Estim Creat Clear Calc Est GFR (MDRD) Af Amer Est GFR (MDRD) Non-Af BUN/Creatinine Ratio Glucose Calcium Total Bilirubin AST ALT Alkaline Phosphatase Troponin I High Sens 4 Total Protein Albumin Globulin Albumin/Globulin Ratio Lipase Urine Color Yellow Urine Clarity Clear Urine pH 6.0 Ur Specific [place] 1.015 Urine Protein 30 H Urine Glucose (UA) 250 H Urine Ketones 50 H Urine Occult Blood Negative Urine Nitrite Negative Urine Bilirubin Negative Urine Urobilinogen Normal Ur Leukocyte Esterase 25 H Urine RBC 0-5 SEEN Urine WBC 10-25 SEEN Ur Squamous Epith Cells 0 SEEN Urine Bacteria RARE Urine Mucus 0 SEEN Radiography Diagnostic Testing: Clinical Impression(s) from Imaging Studies Brain CT 03/17/23 16:27 IMPRESSION: No acute intracranial findings. Electronically Signed: Artie Davis MD at 17:41 EDT , Chest X-Ray 03/17/23 16:43 IMPRESSION: No acute cardiopulmonary disease. Stable chest. Electronically Signed: Artie Davis MD at 17:13 EDT , Treatment and Re-Evaluation :: All radiologic examinations were read, reviewed by the emergency department attending. From these reads, a plan of care will be put in place. Patient on arrival was pale, had difficulty opening his eyes because he said he felt faint, nausea, vomiting, diarrhea. Patient did receive a full abdominal work-up as well as a cardiac work-up secondary to the syncopal episodes. After speaking with the patient, I do believe the syncopal episodes were related to a vagal response secondary to having diarrhea as well as nausea and vomiting. However secondary the patient's age, and evaluation was completed. Patient's laboratory studies showed a CBC with a white blood count of 15.8, this is slightly elevated however the patient is having nausea, vomiting, diarrhea over the last several hours. Patient's chemistries showed normal renal function, no anion gap, blood glucose of 264. Patient's liver enzymes were unremarkable. Patient's initial troponin was 4, the repeat was 4, patient's EKG was unremarkable. There is no evidence to suspect any ACS, IA. Consider CT scan of the abdomen pelvis however patient had no pain on palpation, active bowel sounds. With the nausea vomiting diarrhea, there is little evidence of any bowel obstruction. Patient did receive a CT scan of the brain which was unremarkable, negative for any CVA or intracranial hemorrhage. Patient's chest x-ray was unremarkable. After 2 L of normal saline, 8 mg of IV Zofran, the patient felt much better. Vital signs remained stable, he was able to get up and walk around and felt much better. He is able to pass a p.o. challenge here. At this time, I do believe the patient stable for discharge. I spoke with the patient the patient's as well as the patient's son, they all had no further questions, they were given strict return precaution. Patient stable for discharge. Patient be placed on Zofran, Bentyl for home. Patient seen and evaluated with ELLEN. I personally interviewed and examined the patient. I was involved in all aspects of patient's orders, interpretation of results, and treatment. Patient presents for evaluation of nausea, vomiting, diarrhea, syncope. Patient reportedly had rather abrupt onset of diarrhea this afternoon. This was followed by nausea and vomiting. Per report his states that he was on the commode with episodes of vomiting and had multiple syncopal episodes. He states he members feeling lightheaded, clammy, and sweaty. He denies having chest pain or palpitations. He does report significant nausea when he turns his head but does not report vertigo symptoms. Patient lying in bed with a towel across his eyes. No acute distress and answering questions appropriately. Head and neck examination largely unremarkable. Heart is regular rate and rhythm. Lung sounds are clear. Abdomen is soft and nontender. Neuro exam reveals no focal findings. CT scan of the head is unremarkable. CBC reveals a white count of 15.8 with 84% neutrophils. Chemistry studies reveal slightly low bicarb at 20. BUN is 26 and creatinine is 1.21. Glucose is 264. LFTs and lipase are unremarkable. Troponin is normal at 4. Urinalysis reveals 10-25 white cells with rare bacteria. No nitrites are noted and patient has no urinary symptoms. After IV fluids and Zofran patient does feel much improved. He is able to tolerate p.o. challenge. He is able to get up and walk about his room without difficulty. He will be given Zofran and Bentyl for home instructed to follow a bland diet and slowly advance. Return instructions given. Discharge Plan Triage Chief Complaint: Syncope Other Complaint: Nausea/Vomiting/Diarrhea ED Midlevel Provider: Artie Carl ED Provider: Zonia Castillo Dx/Rx/DC Orders Clinical Impression: Vasovagal syncope, Nausea & vomiting, Diarrhea Instructions: ED Diarrhea, Unknown Cause, ED Fainting, Vagal Reaction, ED Vomi ting and Diarrhea ... Prescriptions: New ondansetron 4 mg tablet,disintegrating 4 mg PO Q8H PRN PRN (Reason: Nausea) Qty: 10 0RF dicyclomine 20 mg tablet 20 mg PO TID Qty: 14 0RF No Action candesartan 8 mg tablet 8 mg PO DAILY Qty: 90 glimepiride 4 mg tablet 4 mg PO BID Qty: 90 celecoxib 200 mg capsule 200 mg PO BID Qty: 180 metformin 500 mg tablet 500 mg PO DAILY Qty: 270 melatonin 3 MG tablet 3 mg PO QHS metformin 1,000 MG tablet 1,000 mg PO QHS esomeprazole magnesium 20 MG capsule,delayed release(DR/EC) 20 mg PO DAILY aspirin 81 MG tablet,chewable 81 mg PO DAILY atorvastatin 20 MG tablet 20 mg PO QHS 0RF ascorbic acid (vitamin C) 500 MG tablet 1,000 mg PO BIDCM 0RF Primary Care Provider: Rahel Anglin Referrals: Rahel Anglin MD [Primary Care Provider] - Activity Restrictions/Additional Instructions: Maintain hydration, advance her diet as tolerated Disposition Disposition: Home, Self Care Discharge Date/Time: 03/17/23 19:30
[2023-03-17 16:53] LABS: ALB/GLOB Ratio 1.1 RATIO (0.9-2.4); AST(SGOT) 17 U/L (15-37); Alanine Aminotransfer ALT/SGPT 31 U/L (16-61); Albumin, Serum 3.8 g/dL (3.2-5.0); Alkaline Phosphatase 71 U/L (45-117); Anion Gap 12 (5-15); BUN 26 mg/dL (7-18); BUN/Creat Ratio 21.5 RATIO (10-20); Calcium,Total 9.6 mg/dL (8.5-10.1); Chloride 109 mmol/L (98-107); Creatinine, Serum 1.21 mg/dL (0.70-1.30); EST Glomerular Filtration Rate 62 mL/min (>60); Est Glom Filt Rate - Afr Amer 75 mL/min (>60); Estimated Creatinine Clearance 60.53 ml/min; Globulin 3.4 g/dL (2.2-4.2); Glucose 264 mg/dL (74-106); Lipase 48 U/L (13-75); Potassium 3.7 mmol/L (3.5-5.1); Protein, Total 7.2 g/dL (6.4-8.2); Sodium Level 141 mmol/L (136-145)
[2023-03-17 17:13] VITALS: BP 135/76; PULSE 96; RESP 17; O2SAT 95
[2023-03-17 17:24] LABS: Troponin-I HS (w/2H Reflex) 4 pg/mL (3.0-78.0)
[2023-03-17 18:00] VITALS: BP 127/75; PULSE 101; RESP 18; O2SAT 97
[2023-03-17 18:27] LABS: Mucous, Urine 0 SEEN /hpf (<or=2+); Squamous Epithelial Cells - UA 0 SEEN /hpf (0-5)
[2023-03-17 18:28] LABS: Color, Urine Yellow (Yellow); Glucose, Dipstick 250 mg/dl (Normal); Ketone-Dipstick 50 mg/dl (Negative); Leukocyte Esterase-Dipstick 25 /ul (Negative); Nitrite-Dipstick Negative (Negative); Occult Blood-Urine Negative /ul (Negative); Protein-Dipstick 30 mg/dl (Negative); Specific Gravity, Urine 1.015 (1.002-1.030); Urine Bilirubin Dipstick Negative (Negative); Urine Clarity Clear (Clear); Urine Urobilinogen Normal (Normal)
[2023-03-17 18:35] LABS: Bacteria RARE /hpf (None Seen); Red Blood Cells-Urine 0-5 SEEN /hpf (0-5); White Blood Cells 10-25 SEEN /hpf (0-5)
[2023-03-17 18:42] LABS: Reflex Troponin-HS? (from REC) Y
[2023-03-17 19:06] LABS: Troponin-I HS 4 pg/mL (3.0-78.0)
[2023-03-17 19:22] VITALS: BP 136/88; PULSE 100; RESP 17; O2SAT 98
== END 2023-03-17 19:30 | disposition home or self-care (01) ==
PROVIDERS: Nurse Practitioner; Emergency Provider Emergency Medicine; PCP Family Medicine; Visit Provider Emergency Medicine
DX: R55 Syncope and collapse (principal); E11.9 Type 2 diabetes mellitus without complications; R11.2 Nausea with vomiting, unspecified; E78.5 Hyperlipidemia, unspecified; I10 Essential (primary) hypertension; R19.7 Diarrhea, unspecified; Z87.891 Personal history of nicotine dependence; Z79.899 Other long term (current) drug therapy; Z79.84 Long term (current) use of oral hypoglycemic drugs; Z79.82 Long term (current) use of aspirin; K21.9 Gastro-esophageal reflux disease without esophagitis
CPT/HCPCS: 70450; 71045; 80053; 81001; 83690; 84484; 85025; 93005; 96361; 96374; 99284; J7030; J2405

== ENCOUNTER 2024-02-06 17:03 | Emergency (ER) | payer MEDICARE, SELFPAY ==
[2024-02-06 17:05] VITALS: BP 137/79; PULSE 104; RESP 16; TEMP 36.6; O2SAT 98; BMI 29.8
--- NOTE | 2024-02-06 17:22 | EKG12_ITS ---
Test Reason : GENERAL Blood Pressure : / mmHG Vent. Rate : 105 BPM Atrial Rate : 105 BPM P-R Int : 184 ms QRS Dur : 094 ms QT Int : 328 ms P-R-T Axes : 026 001 014 degrees QTc Int : 433 ms Sinus tachycardia Inferior infarct , age undetermined Abnormal ECG Confirmed by JAILENE ROBERSON MD ([id number]), offline editor JACQUELINE KEYS ([id number]) on 02/07/2024 9:17:12 AM Referred By: Confirmed By:JAILENE ROBERSON MD
--- NOTE | 2024-02-06 17:23 | EDS_ITS ---
HPI History of Present Illness Chief Complaint: Nausea/Vomiting/Diarrhea Detail of Chief Complaint: Gastroenteritis and syncope Informant: patient Onset/Context/Timing Onset: Today Narrative Narrative: Patient presents secondary to nausea, vomiting, diarrhea for the past 90 minutes. EMS reports he had a brief syncopal episode while sitting in his chair and vomiting. Patient complains of mild epigastric pain. No fever or chills. He has not noted any blood in his vomitus. He reportedly was given Zofran with EMS and he states his nausea is improved. [facility] Medical History Basal cell carcinoma DM II (diabetes mellitus, type II), controlled GERD (gastroesophageal reflux disease) History of alcohol abuse HTN (hypertension) Hyperlipidemia Irritable bowel syndrome (IBS) Home Medications candesartan 8 mg tablet 8 mg PO DAILY BP #90 tabs 06/02/19 [History Last Taken Unknown] celecoxib 200 mg capsule 200 mg PO BID Pain #180 caps 06/02/19 [History Last Taken Unknown] glimepiride 4 mg tablet 4 mg PO BID Blood sugar #90 tabs 06/02/19 [History Last Taken Unknown] metformin 500 mg tablet 500 mg PO DAILY Blood sugar #270 tabs 06/02/19 [History Last Taken Unknown] aspirin 81 mg chewable tablet 81 mg PO DAILY Blood thinner 04/27/20 [History Last Taken Unknown] esomeprazole magnesium 20 mg capsule,delayed release 20 mg PO DAILY Stomach acid 04/27/20 [History Last Taken Unknown] melatonin 3 mg tablet 3 mg PO QHS Sleep 04/27/20 [History Last Taken Unknown] metformin 1,000 mg tablet 1,000 mg PO QHS Blood sugar 04/27/20 [History Last Taken Unknown] ascorbic acid (vitamin C) 500 mg tablet 1,000 mg (2 x 500 mg) PO BIDCM 05/10/20 [Rx Last Taken Unknown] atorvastatin 20 mg tablet 20 mg PO QHS 05/10/20 [Rx Last Taken Unknown] dicyclomine 20 mg tablet 20 mg PO TID #14 tabs 03/17/23 [Rx Last Taken Unknown] ondansetron 4 mg disintegrating tablet 4 mg PO Q8H PRN PRN Nausea #10 tabs 03/17/23 [Rx Last Taken Unknown] ondansetron 4 mg disintegrating tablet 4 mg PO Q8H PRN PRN Nausea #10 tabs 02/06/24 [Rx Last Taken Unknown] Allergy/AdvReac Type Severity Reaction Status Date / Time adhesive AdvReac Rash Verified 03/17/23 16:18 propoxyphene [From Darvon] AdvReac Vomiting Verified 03/17/23 16:18 Family History Other Alcoholism Surgical History History of back surgery History of carpal tunnel surgery History of knee surgery Hx of tonsillectomy Social History Smoking Status: Former smoker alcohol intake: former details: Former alcoholic ROS ROS ED Constitutional Constitutional ED: Denies chills or fever(s) Eyes Eyes: Denies discharge from eye(s) ENT ENT ED: Denies discharge from eye(s), rhinorrhea or sore throat Cardiovascular Cardiovascular: Denies chest pain Respiratory/Chest Respiratory/Chest: Denies cough or dyspnea Gastrointestinal Gastrointestinal: Reports abdominal pain, diarrhea, nausea and vomiting Genitourinary Genitourinary ED: Denies dysuria Musculoskeletal Musculoskeletal: Denies back pain or extremity pain Integumentary Denies Abrasions or rash Neurologic Neurologic: Denies headache(s) or weakness Allergic/Immunologic Allergic/Immunologic ED: Denies lip swelling or urticaria EXAM Physical Exam Const Vital Signs: 02/06/24 17:05 02/06/24 19:04 Temperature 97.9 F Temperature Source Oral Pulse Rate 104 H 110 H Respiratory Rate 16 16 Blood Pressure 137/79 H 144/81 H Blood Pressure Mean 98 102 Pulse Ox 98 97 Oxygen Delivery Method Room Air Room Air Positive well nourished and well developed General Appearance ED: well developed HEENT Reports moist mucous membranes Eyes EOMs intact bilaterally Chest Wall inspection of chest normal and palpation of chest normal Resp normal respiratory effort and clear to auscultation bilaterally Cardio regular rate and regular rhythm GI GI Narrative: Abdomen soft with mild tenderness in the epigastrium. No guarding or rebound. Hypoactive bowel sounds. Extremity normal to inspection Neuro oriented x3 and no sensory deficits noted Motor Exam: strength 5/5 throughout Psych mental status grossly normal Skin no rashes or lesions noted MDM MDM MDM Narrative Medical decision making narrative: Patient placed on personnel monitor. IV fluids initiated. EKG obtained to evaluate for cardiac arrhythmia/ischemia. Labwork obtained to evaluate for leukocytosis, anemia, and electrolyte derangement. History & Record Review Discussion w/independent historian: Patient Lab Data Attestation: I reviewed the patient's lab results. Labs: Laboratory Results - last 24 hr 02/06/24 17:30 WBC 24.1 H RBC 4.82 Hgb 14.6 Hct 46.0 MCV 95.4 H MCH 30.3 MCHC 31.7 L RDW Std Deviation 44.1 H RDW Coeff of Amanda 12.7 Plt Count 310 MPV 9.4 Immature Gran % (Auto) 0.700 Neut % (Auto) 88.7 H Lymph % (Auto) 2.7 L [place] % (Auto) 7.1 Eos % (Auto) 0.3 Baso % (Auto) 0.5 Absolute Neuts (auto) 21.4 H Absolute Lymphs (auto) 0.65 L Nucleated RBC % 0 Differential Comment SCANNED Diff Path Review May foll Sodium 135 L Potassium 3.9 Chloride 107 Carbon Dioxide 21.0 Anion Gap 7 BUN 21 H Creatinine 1.19 Estim Creat Clear Calc 67.93 Est GFR (MDRD) Af Amer 77 Est GFR (MDRD) Non-Af 63 BUN/Creatinine Ratio 17.6 Glucose 249 H Calcium 9.4 Total Bilirubin 0.40 Direct Bilirubin 0.13 AST 14 L ALT 25 Alkaline Phosphatase 73 Total Protein 7.4 Albumin 4.0 Globulin 3.4 Lipase 47 EKG Initial EKG: Attestation: I personally reviewed and interpreted this EKG as follows: Interpretation: Sinus Tachycardia (Sinus tachycardia at 105. No acute ischemia.) Treatment and Re-Evaluation :: CBC was elevated white count at 24.1 with 88% neutrophils. Hemoglobin is 14.6. Chemistry studies reveal a BUN of 21 and a creatinine 1.19. Sodium is 135. LFTs and lipase are unremarkable. Glucose is 249. EKG is sinus tachycardia with no acute ischemia. On repeat evaluation patient states his nausea and abdominal pain are completely resolved. He is tolerating ice chips here without difficulty. I do feel his elevated white count is likely stress response from his vomiting. He had a brief syncopal episode with diarrhea that was vasovagal in nature. He will be given a prescription for Zofran and discharged to home. Return instructions were provided. Discharge Plan Triage Chief Complaint: Nausea/Vomiting/Diarrhea Other Complaint: Nausea/Vomiting ED Provider: Zonia Castillo Dx/Rx/DC Orders Clinical Impression: Vasovagal syncope, Gastroenteritis Instructions: ED Fainting, Vagal Reaction, ED Gastroenteritis, Viral (Adult), ED Vomiting (Adult) Prescriptions: New ondansetron 4 mg tablet,disintegrating 4 mg PO Q8H PRN PRN (Reason: Nausea) Qty: 10 0RF No Action candesartan 8 mg tablet 8 mg PO DAILY Qty: 90 glimepiride 4 mg tablet 4 mg PO BID Qty: 90 celecoxib 200 mg capsule 200 mg PO BID Qty: 180 metformin 500 mg tablet 500 mg PO DAILY Qty: 270 melatonin 3 MG tablet 3 mg PO QHS metformin 1,000 MG tablet 1,000 mg PO QHS esomeprazole magnesium 20 MG capsule,delayed release(DR/EC) 20 mg PO DAILY aspirin 81 MG tablet,chewable 81 mg PO DAILY atorvastatin 20 MG tablet 20 mg PO QHS 0RF ascorbic acid (vitamin C) 500 MG tablet 1,000 mg PO BIDCM 0RF ondansetron 4 mg tablet,disintegrating 4 mg PO Q8H PRN PRN (Reason: Nausea) Qty: 10 0RF dicyclomine 20 mg tablet 20 mg PO TID Qty: 14 0RF Primary Care Provider: Rahel Anglin Referrals: Rahel Anglin MD [Primary Care Provider] - 3-5 Days if not improving
[2024-02-06] MEDS: 0.9% Normal Saline (1000mL) 1,000 ML 1000 ML IV (17:30)
[2024-02-06 17:35] LABS: Absolute Lymphocyte Count 0.65 X10^3/uL (0.83-4.51); Absolute Neutrophil Count 21.4 X10^3/uL (2.0-7.7); Basophil# 0.11 X10^3/uL; Basophil% 0.5 % (0-1); Eosinophil# 0.08 X10^3/uL; Eosinophils% 0.3 % (0-5); Hemoglobin 14.6 g/dL (13.0-16.5); Lymphocyte # 0.65 X10^3/ul (0.83-4.51); Lymphocyte % 2.7 % (19-41); Mean Corp Hgb Conc 31.7 g/dL (32-36); Mean Corpuscular Hgb 30.3 pg (27.0-32.0); Mean Corpuscular Volume 95.4 fL (80-94); Mean Platelet Vol. 9.4 fl (6.2-12.0); Monocyte% 7.1 % (0-10); NRBC Flagged by Analyzer 0 % (0-5); Neutrophil # 21.36 X10^3/uL (2.7-7.7); Neutrophil % 88.7 % (47-70); POSITIVE DIFFERENTIAL YES; Platelet Count 310 K/mm3 (150-450); RBC Distribution Width CV 12.7 % (11.6-14.6); RBC Distribution Width SD 44.1 fl (35.1-43.9); Red Blood Count 4.82 M/mm3 (4.6-6.2); White Blood Count 24.1 K/mm3 (4.4-11.0)
[2024-02-06 17:43] LABS: Differential Indicated SCAN CRITERIA MET
[2024-02-06 17:53] LABS: AST(SGOT) 14 U/L (15-37); Alanine Aminotransfer ALT/SGPT 25 U/L (16-61); Alkaline Phosphatase 73 U/L (45-117); Anion Gap 7 (5-15); BUN 21 mg/dL (7-18); BUN/Creat Ratio 17.6 RATIO (10-20); Bilirubin, Direct 0.13 mg/dL (0.00-0.30); Calcium,Total 9.4 mg/dL (8.5-10.1); Chloride 107 mmol/L (98-107); Creatinine, Serum 1.19 mg/dL (0.70-1.30); EST Glomerular Filtration Rate 63 mL/min (>60); Est Glom Filt Rate - Afr Amer 77 mL/min (>60); Estimated Creatinine Clearance 67.93 ml/min; Globulin 3.4 g/dL (2.2-4.2); Glucose 249 mg/dL (74-106); Lipase 47 U/L (13-75); Potassium 3.9 mmol/L (3.5-5.1); Protein, Total 7.4 g/dL (6.4-8.2); Sodium Level 135 mmol/L (136-145)
[2024-02-06 18:11] LABS: Differential Comment SCANNED
[2024-02-06 19:04] VITALS: BP 144/81; PULSE 110; RESP 16; O2SAT 97
[2024-02-06 19:48] VITALS: BP 139/89; PULSE 106; RESP 18; TEMP 36.9; O2SAT 98
[2024-02-07 14:33] LABS: Pathologist Review Reviewed
== END 2024-02-06 19:58 | disposition home or self-care (01) ==
PROVIDERS: Emergency Provider Emergency Medicine; PCP Family Medicine; Visit Provider Emergency Medicine
DX: K52.9 Noninfective gastroenteritis and colitis, unspecified (principal); E11.9 Type 2 diabetes mellitus without complications; R55 Syncope and collapse; Z87.891 Personal history of nicotine dependence; I10 Essential (primary) hypertension; E78.5 Hyperlipidemia, unspecified; Z79.84 Long term (current) use of oral hypoglycemic drugs; Z79.82 Long term (current) use of aspirin; Z79.899 Other long term (current) drug therapy; K21.9 Gastro-esophageal reflux disease without esophagitis
CPT/HCPCS: 80048; 80076; 83690; 85025; 93005; 96360; 99284

== ENCOUNTER → 2024-03-10 | Outpatient (CLI) | payer MEDICARE, SELFPAY ==
[2024-03-10 15:09] LABS: Absolute Lymphocyte Count 1.46 X10^3/uL (0.83-4.51); Basophil# 0.05 X10^3/uL; Basophil% 0.4 % (0-1); Eosinophil# 0.11 X10^3/uL; Eosinophils% 0.8 % (0-5); Hematocrit 47.3 % (40-54); Hemoglobin 15.4 g/dL (13.0-16.5); Lymphocyte # 1.46 X10^3/ul (0.83-4.51); Lymphocyte % 10.7 % (19-41); Mean Corp Hgb Conc 32.6 g/dL (32-36); Mean Corpuscular Hgb 30.3 pg (27.0-32.0); Mean Corpuscular Volume 93.1 fL (80-94); Mean Platelet Vol. 9.8 fl (6.2-12.0); Monocyte% 6.6 % (0-10); NRBC Flagged by Analyzer 0 % (0-5); Neutrophil # 11.04 X10^3/uL (2.7-7.7); Neutrophil % 81.1 % (47-70); Platelet Count 332 K/mm3 (150-450); RBC Distribution Width CV 12.5 % (11.6-14.6); RBC Distribution Width SD 42.9 fl (35.1-43.9); Red Blood Count 5.08 M/mm3 (4.6-6.2); White Blood Count 13.6 K/mm3 (4.4-11.0)
[2024-03-10 15:24] LABS: Protein, Urine (Random) 45.1 mg/dL (<11.9); Protein:Creat Ratio 291 mg/g CRE (0-200)
[2024-03-10 15:28] LABS: AST(SGOT) 18 U/L (15-37); Alanine Aminotransfer ALT/SGPT 27 U/L (16-61); Albumin, Serum 4.1 g/dL (3.2-5.0); Alkaline Phosphatase 81 U/L (45-117); Anion Gap 8 (5-15); BUN 15 mg/dL (7-18); BUN/Creat Ratio 12.8 RATIO (10-20); Chloride 106 mmol/L (98-107); Cholesterol 145 mg/dL (200); Creatinine, Serum 1.17 mg/dL (0.70-1.30); EST Glomerular Filtration Rate 65 mL/min (>60); Est Glom Filt Rate - Afr Amer 78 mL/min (>60); Globulin 3.6 g/dL (2.2-4.2); Glucose 130 mg/dL (74-106); High Density Lipoprotein 55 mg/dL; Potassium 4.3 mmol/L (3.5-5.1); Protein, Total 7.7 g/dL (6.4-8.2); Sodium Level 137 mmol/L (136-145); Triglycerides 92 mg/dL; Very Low Density Lipoprotein 18 mg/dL (5-40)
== END | disposition home or self-care (01) ==
PROVIDERS: PCP Family Medicine; Referring Provider Family Medicine; Visit Provider Family Medicine
DX: E11.59 Type 2 diabetes mellitus with other circulatory complications (principal); D72.829 Elevated white blood cell count, unspecified; E78.5 Hyperlipidemia, unspecified
CPT/HCPCS: 36415; 80048; 80061; 80076; 82570; 84156; 85025

== ENCOUNTER → 2024-03-19 | Outpatient (CLI) | payer MEDICARE, SELFPAY ==
--- NOTE | 2024-03-19 10:55 | RAD_ITS ---
STUDY: X-RAY - RIGHT FOOT CLINICAL: Male, 73 years old. RIGHT FOOT DEFORMITY, PRIOR FX ABOUT 10 YRS AGO TECHNIQUE: 2 views of the right foot. COMPARISON: Right foot radiographs dated 06/21/2016. FINDINGS: Intact talus, calcaneus, and tarsal bones. There are small plantar and posterior calcaneal spurs. Normal visualized subtalar, talonavicular, calcaneocuboid, tarsal and tarsometatarsal articulations. There is an old healed fracture of the proximal fifth metatarsal. Normal remainder of the metatarsi. Normal metatarsophalangeal joint of the great toe. Normal tibial and fibular sesamoid bones. Normal interphalangeal joint of the great toe. Normal phalanges of the great toe. Normal second through fifth metatarsophalangeal joints. Normal interphalangeal joints and phalanges of the lesser toes. The soft tissue structures are unremarkable. There is no demonstrated acute fracture. RAD/Foot min 3 Views IMPRESSION: Old healed fracture of the proximal fifth metatarsal. Small plantar and posterior calcaneal spurs. No demonstrated acute fracture. Electronically Signed: Brandon Brown MD at 15:40 EDT Reading Location ID and State: [facility] / [place] , Service support ,
[2024-03-19 11:05] LABS: Mucous, Urine 0 SEEN /hpf (<or=2+); Red Blood Cells-Urine 0 SEEN /hpf (0-5); Squamous Epithelial Cells - UA 0 SEEN /hpf (0-5)
[2024-03-19 12:23] LABS: Erythrocyte Sedimentation Rate 17 mm/hr (0-20)
[2024-03-19 12:25] LABS: GGTP 20 U/L (15-85)
[2024-03-19 12:27] LABS: Absolute Lymphocyte Count 1.45 X10^3/uL (0.83-4.51); Absolute Neutrophil Count 8.9 X10^3/uL (2.0-7.7); Basophil# 0.05 X10^3/uL; Basophil% 0.4 % (0-1); Eosinophil# 0.09 X10^3/uL; Eosinophils% 0.8 % (0-5); Hematocrit 42.8 % (40-54); Hemoglobin 13.7 g/dL (13.0-16.5); Lymphocyte # 1.45 X10^3/ul (0.83-4.51); Lymphocyte % 12.8 % (19-41); Mean Corpuscular Volume 93.7 fL (80-94); Mean Platelet Vol. 9.9 fl (6.2-12.0); Monocyte# 0.82 X10^3/uL; Monocyte% 7.2 % (0-10); NRBC Flagged by Analyzer 0 % (0-5); Neutrophil # 8.85 X10^3/uL (2.7-7.7); Neutrophil % 78.3 % (47-70); Platelet Count 325 K/mm3 (150-450); RBC Distribution Width CV 12.5 % (11.6-14.6); RBC Distribution Width SD 42.9 fl (35.1-43.9); Red Blood Count 4.57 M/mm3 (4.6-6.2); White Blood Count 11.3 K/mm3 (4.4-11.0)
[2024-03-19 12:36] LABS: Vitamin B12 571 pg/mL (211-911)
[2024-03-19 12:46] LABS: Color, Urine Yellow (Yellow); Glucose, Dipstick Normal (Normal); Ketone-Dipstick Negative (Negative); Leukocyte Esterase-Dipstick 500 /ul (Negative); Nitrite-Dipstick Negative (Negative); Occult Blood-Urine 10 /ul (Negative); Protein-Dipstick Negative (Negative); Specific Gravity, Urine 1.015 (1.002-1.030); Urine Bilirubin Dipstick Negative (Negative); Urine Clarity Clear (Clear); Urine Urobilinogen Normal (Normal)
[2024-03-19 13:05] LABS: ALB/GLOB Ratio 1.1 RATIO (0.9-2.4); AST(SGOT) 15 U/L (15-37); Alanine Aminotransfer ALT/SGPT 21 U/L (16-61); Albumin, Serum 3.8 g/dL (3.2-5.0); Alkaline Phosphatase 69 U/L (45-117); Anion Gap 4 (5-15); BUN 16 mg/dL (7-18); BUN/Creat Ratio 16.6 RATIO (10-20); Calcium,Total 9.7 mg/dL (8.5-10.1); Chloride 109 mmol/L (98-107); Creatinine, Serum 0.96 mg/dL (0.70-1.30); EST Glomerular Filtration Rate 81 mL/min (>60); Est Glom Filt Rate - Afr Amer 98 mL/min (>60); Globulin 3.4 g/dL (2.2-4.2); Glucose 167 mg/dL (74-106); Magnesium 1.5 mg/dL (1.6-2.6); Phosphorus 2.6 mg/dL (2.5-4.9); Protein, Total 7.2 g/dL (6.4-8.2); Sodium Level 139 mmol/L (136-145)
[2024-03-19 13:08] LABS: Bacteria 2+ /hpf (None Seen); White Blood Cells 50-100 SEEN /hpf (0-5)
== END | disposition home or self-care (01) ==
PROVIDERS: PCP Family Medicine; Referring Provider Internal Medicine Medical Oncology; Visit Provider Internal Medicine Medical Oncology
DX: D72.829 Elevated white blood cell count, unspecified (principal); M21.969 Unspecified acquired deformity of unspecified lower leg
CPT/HCPCS: 36415; 73630; 80053; 81001; 82274; 82607; 82746; 82977; 83735; 84100; 85025; 85652

== ENCOUNTER → 2024-03-26 | Outpatient (CLI) | payer MEDICARE, SELFPAY ==
--- NOTE | 2024-03-26 18:39 | CT_ITS ---
STUDY: CT CHEST, ABDOMEN T PELVIS WITH CONTRAST REASON FOR EXAM: Male, 73 years old. R/O MALIGNANCY RADIATION DOSAGE (If Supplied By Facility): CTDIvol = ( 18.59 ) mGy, DLP = ( 1776.16 ) mGycm TECHNIQUE: Transaxial imaging was performed following intravenous administration of Oral and amp; IV Gastrografin and amp; 100mL [id number]-370. Individualized dose optimization techniques were used for this CT. COMPARISON: No relevant priors. FINDINGS: CHEST Mild emphysema and scarring. No noncalcified nodule or mass. There is no demonstrated pleural abnormality. Normal heart and pericardium. Normal mediastinum. Normal hilar regions. Normal unenhanced pulmonary arteries. Normal aorta arch and descending thoracic aorta. There are multi-level degenerative changes of the thoracic spine. There is no demonstrated abnormality of the visualized upper abdomen. ABDOMEN The visualized lung bases are unremarkable. The visualized portions of the heart are within normal limits. 1.5 cm cyst in the lateral segment left lobe of liver adjacent to the falciform ligament. Normal gallbladder and extrahepatic biliary system. Normal spleen. Normal pancreas. Normal bilateral adrenal glands. Normal right kidney. 6 cm exophytic cyst in the midsection left kidney. There is a small hiatal hernia. Normal small intestine. Normal colon. The appendix is visualized and appears normal. There is diffuse atherosclerotic calcification of the abdominal aorta, without a demonstrated aneurysm. Normal inferior vena cava. Normal retroperitoneum. Normal abdominal wall. There are diffuse degenerative changes of the visualized lumbar spine. PELVIS Normal urinary bladder. Normal visualized small intestine. There are multiple colonic diverticula of the sigmoid colon consistent with chronic diverticulosis. There is no pelvic fluid. There is no pelvic lymphadenopathy or mass lesion. There are prostatic calcifications. Normal visualized pelvic arteries. There are bilateral inguinal hernias containing fat. Normal osseous structures. CT/CT Chest, Abd, Pel w/Contrast IMPRESSION: No CT evidence of primary or metastatic tumor. Electronically Signed: Ranjeet Hughes MD at 22:52 EDT ,
== END | disposition home or self-care (01) ==
LOC: CT 18:38
PROVIDERS: PCP Family Medicine; Referring Provider Internal Medicine Medical Oncology; Visit Provider Internal Medicine Medical Oncology
DX: D72.829 Elevated white blood cell count, unspecified (principal)
CPT/HCPCS: 71260; 74177; Q9967

== ENCOUNTER → 2024-06-18 | Outpatient (CLI) | payer MEDICARE, SELFPAY ==
[2024-06-18 10:12] LABS: Absolute Lymphocyte Count 1.56 X10^3/uL (0.83-4.51); Absolute Neutrophil Count 5.6 X10^3/uL (2.0-7.7); Basophil# 0.04 X10^3/uL; Basophil% 0.5 % (0-1); Eosinophil# 0.16 X10^3/uL; Hematocrit 43.8 % (40-54); Hemoglobin 14.1 g/dL (13.0-16.5); Lymphocyte # 1.56 X10^3/ul (0.83-4.51); Lymphocyte % 19.5 % (19-41); Mean Corp Hgb Conc 32.2 g/dL (32-36); Mean Corpuscular Hgb 29.8 pg (27.0-32.0); Mean Corpuscular Volume 92.6 fL (80-94); Mean Platelet Vol. 9.7 fl (6.2-12.0); Monocyte# 0.62 X10^3/uL; Monocyte% 7.7 % (0-10); NRBC Flagged by Analyzer 0 % (0-5); Neutrophil # 5.62 X10^3/uL (2.7-7.7); Neutrophil % 70.1 % (47-70); Platelet Count 333 K/mm3 (150-450); RBC Distribution Width CV 12.9 % (11.6-14.6); RBC Distribution Width SD 43.7 fl (35.1-43.9); Red Blood Count 4.73 M/mm3 (4.6-6.2)
[2024-06-18 10:44] LABS: ALB/GLOB Ratio 1.1 RATIO (0.9-2.4); AST(SGOT) 15 U/L (15-37); Alanine Aminotransfer ALT/SGPT 22 U/L (16-61); Albumin, Serum 3.8 g/dL (3.2-5.0); Alkaline Phosphatase 69 U/L (45-117); Anion Gap 9 (5-15); BUN 14 mg/dL (7-18); BUN/Creat Ratio 13.7 RATIO (10-20); Calcium,Total 10.1 mg/dL (8.5-10.1); Chloride 105 mmol/L (98-107); Creatinine, Serum 1.02 mg/dL (0.70-1.30); EST Glomerular Filtration Rate 76 mL/min (>60); Est Glom Filt Rate - Afr Amer 91 mL/min (>60); Globulin 3.5 g/dL (2.2-4.2); Glucose 196 mg/dL (74-106); LDH 123 U/L (87-241); Potassium 3.8 mmol/L (3.5-5.1); Protein, Total 7.3 g/dL (6.4-8.2); Sodium Level 136 mmol/L (136-145)
== END | disposition home or self-care (01) ==
PROVIDERS: PCP Family Medicine; Referring Provider Internal Medicine Medical Oncology; Visit Provider Internal Medicine Medical Oncology
DX: D72.828 Other elevated white blood cell count (principal)
CPT/HCPCS: 80053; 83615; 85025

== ENCOUNTER → 2024-11-21 | Outpatient (CLI) | payer MEDICARE, SELFPAY ==
[2024-11-21 12:25] LABS: Cholesterol 166 mg/dL (200); High Density Lipoprotein 54 mg/dL; Triglycerides 84 mg/dL; Very Low Density Lipoprotein 17 mg/dL (5-40)
[2024-11-21 12:47] LABS: Microalbumin:Creatinine Ratio 71.8 mg/g CRE (<30 mg/g CRE)
[2024-11-22 09:51] LABS: Protein, Urine (Random) 39.9 mg/dL (<11.9); Protein:Creat Ratio 281 mg/g CRE (0-200)
== END | disposition home or self-care (01) ==
LOC: MTLAB 10:56
PROVIDERS: PCP Family Medicine; Referring Provider Family Medicine; Visit Provider Family Medicine
DX: E11.69 Type 2 diabetes mellitus with other specified complication (principal)
CPT/HCPCS: 36415; 80061; 82043; 82570; 84156; 84443

== ENCOUNTER → 2025-06-08 | Outpatient (CLI) | payer MEDICARE, SELFPAY ==
[2025-06-08 12:42] LABS: Hematocrit 45.0 % (40-54); Hemoglobin 15.4 g/dL (13.0-16.5); Mean Corp Hgb Conc 34.2 g/dL (32-36); Mean Corpuscular Volume 90.5 fL (80-94); Mean Platelet Vol. 9.8 fl (6.2-12.0); Platelet Count 323 K/mm3 (150-450); RBC Distribution Width CV 12.8 % (11.6-14.6); RBC Distribution Width SD 42.0 fl (35.1-43.9); Red Blood Count 4.97 M/mm3 (4.6-6.2); White Blood Count 7.5 K/mm3 (4.4-11.0)
[2025-06-08 13:29] LABS: AST(SGOT) 17 U/L (<=37); Alanine Aminotransfer ALT/SGPT 17 U/L (<=46); Albumin, Serum 4.4 g/dL (3.4-4.8); Alkaline Phosphatase 74 U/L (40-129); Anion Gap 15 (5-15); BUN 15 mg/dL (4-19); BUN/Creat Ratio 14.7 RATIO (10-20); Calcium,Total 10.4 mg/dL (7.6-11.0); Carbon Dioxide 18.7 mmol/L (21.0-32.0); Chloride 103 mmol/L (98-108); Cholesterol 163 mg/dL (<=200); Globulin 3.0 g/dL (2.2-4.2); Glucose 183 mg/dL (70-99); Low Density Lipoprotein Calc. 85 mg/dL; Potassium 4.2 mmol/L (3.3-5.1); Triglycerides 99 mg/dL; Very Low Density Lipoprotein 20 mg/dL (5-40); cholesterol:hdl ratio screen 2.80
[2025-06-08 13:30] LABS: Creatinine, Urine (random) 125.00 mg/dL (39.00-259.00); Microalbumin,Random Urine 51.0 mg/L (<20 mg/L)
--- OUTSIDE RECORDS SUMMARY | 2025-06-08 20:53 | XMS RPT_ITS | CCD ---
Author Organization [facility] Care Team Providers [employer] Web Application Developer Name Role Phone Dr. Rahel Anglin Primary Care Provider Dr. Arias Noe Emergency Provider [phone] Xavier Espana Attending Provider [phone] Dr. Rahel Anglin Primary Care Provider Varsha José Attending Provider Unavailable Xavier Palacios Referring Unavailable Jolliff, Rahel S Primary Care Unavailable Prajhony, Xavier Attending Unavailable PraXavier booker Referring Unavailable Jolliff, Rahel S Primary Care Unavailable Prajhony, Xavier Attending Unavailable Jolliff, Rahel S Primary Care Unavailable Jolliff, Rahel S Attending Unavailable Jolliff, Rahel S Referring Unavailable Jolliff, Rahel S Primary Care Unavailable Zonia Castillo Attending Unavailable Jolliff, Rahel S Primary Care Unavailable Varsha José Attending Unavailable Xavier Palacios Referring Unavailable Prajhony, Xavier Attending Unavailable Jolliff, Rahel S Primary Care Unavailable Jolliff, Rahel S Attending Unavailable Jolliff, Rahel S Referring Unavailable Jolliff, Rahel S Primary Care Unavailable Prah, Xavier Attending Unavailable Jolliff, Rahel S Referring Unavailable Jolliff, Rahel S Primary Care Unavailable Jolliff, Rahel S Primary Care Unavailable Jolliff, Rahel S Referring Unavailable Prah, Xavier Attending Unavailable Jolliff, Rahel S Referring Unavailable Jolliff, Rahel S Primary Care Unavailable Prah, Xavier Attending Unavailable Allergies Allergy Classification Reported Allergen(s) Allergy Type Date of Onset Reaction(s) Facility (6 sources) Propoxyphene Drug Allergy 9 Vomiting [facility] (6 sources) Adhesive agent; Translations: [adhesive] Propensity to adverse reactions 2 Rash [facility] (1 source) Propoxyphene Drug Allergy 4 [facility] Repository Medications Current Medications Medication Drug Class(es) Dates Sig (Normalized) Sig (Original) acetaminophen 500 mg oral tablet (1 source) Start: 05-10-2020 take 1000 mg by mouth every six hours as needed Acetaminophen Active 1000 MG PO EVERY 6 HOURS NEEDED May 10, 2020 9:40pm ascorbic acid 500 mg oral tablet (7 sources) Vitamin C Start: 05-10-2020 take 1000 mg by mouth twice daily at mealtime Ascorbic Acid (Vitamin C) Active 1000 MG PO TWICE DAILY WITH MEALS May 10, 2020 12:00am Start: 04-27-2020 take 1000 mg by mout h twice daily Ascorbic Acid (Vitamin C) Active 1000 MG PO TWICE A DAY April 27, 2020 5:31pm aspirin 81 mg chewable tablet (6 sources) Platelet Aggregation Inhibitor, Nonsteroidal Anti-inflammatory Drug Start: 04-27-2020 take 81 mg by mouth twice daily Aspirin Active 81 MG PO TWICE A DAY April 27, 2020 5:57pm Start: 04-27-2020 take 81 mg by mouth once daily Aspirin Active 81 MG PO DAILY April 27, 2020 12:00am atorvastatin 20 mg oral tablet (7 sources) HMG-CoA Reductase Inhibitor Start: 06-02-2019 take 20 mg by mouth at bedtime Atorvastatin Active 20 MG PO AT BEDTIME May 10, 2020 12:00am candesartan cilexetil 8 mg oral tablet (6 sources) Angiotensin 2 Receptor Nanci Start: 06-02-2019 take 8 mg by mouth once daily Candesartan Active 8 MG PO DAILY 90 June 02, 2019 12:00am celecoxib 200 mg oral capsule (6 sources) Nonsteroidal Anti-inflammatory Drug Start: 06-02-2019 take 200 mg by mouth twice daily Celecoxib Active 200 MG PO TWICE A DAY 180 June 02, 2019 12:00am dicyclomine hydrochloride 20 mg oral tablet (3 sources) Anticholinergic Start: 03-17-2023 take 20 mg by mouth three times daily Dicyclomine Active 20 MG PO THREE TIMES A DAY 14 March 17, 2023 12:00am docusate sodium 50 mg / sennosides, senior care 8.6 mg oral tablet (1 source) Start: 05-10-2020 take 2 tablets by mouth twice daily Sennosides-Docusa te Sodium Active 2 TABLET PO TWICE A DAY 120 May 10, 2020 9:40pm Ginkgo Biloba (7 sources) Start: 03-12-2024 take 40 mg by mouth once daily Ginkgo Biloba Active 40 MG PO DAILY March 12, 2024 12:00am give with meal/snack Start: 04-27-2020 End: 05-10-2020 take 60 mg by mouth twice daily Ginkgo Biloba Discontinued 60 MG PO TWICE A DAY April 27, 2020 5:31pm May 10, 2020 9:42pm Start: 04-27-2020 End: 05-10-2020 take 60 mg by mouth twice daily Ginkgo Biloba Discontinued 60 MG PO TWICE A DAY April 27, 2020 12:00am May 10, 2020 9:42pm glimepiride 4 mg oral tablet (6 sources) Sulfonylurea Start: 06-02-2019 take 4 mg by mouth once daily Glimepiride Active 4 MG PO DAILY June 02, 2019 8:20am Start: 06-02-2019 take 4 mg by mouth twice daily Glimepiride Active 4 MG PO TWICE A DAY June 02, 2019 12:00am hydrocortisone 25 mg/ml topical cream (3 sources) Corticosteroid Start: 05-10-2020 Hydrocortisone Active 1 APPLIC TOPICAL TWICE DAILY NEEDED May 10, 2020 9:40pm Menthol / Zinc Oxide (3 sources) Start: 05-10-2020 Menthol-Zinc O xide Active 1 APPLIC TOPICAL TWICE A DAY May 10, 2020 9:40pm Start: 05-10-2020 Menthol-Zinc O xide Active 1 APPLIC TOPICAL TWICE A DAY May 10, 2020 9:40pm Start: 05-10-2020 Menthol-Zinc O xide Active 1 APPLIC TOPICAL TWICE A DAY May 10, 2020 12:00am metFORMIN hydrochloride 1000 mg oral tablet (12 sources) Biguanide Start: 04-27-2020 take 1000 mg by mouth at bedtime Metformin Active 1000 MG PO AT BEDTIME April 27, 2020 12:00am Start: 06-02-2019 take 500 mg by mouth once kaleigh y Metformin Active 500 MG PO DAILY 270 June 02, 2019 12:00am ondansetron 4 mg disintegrating oral tablet (5 sources) Serotonin-3 Receptor Antagonist Start: 03-17-2023 take 4 mg by mouth every eight hours as needed Ondansetron Active 4 MG PO EVERY 8 HOURS NEEDED February 06, 2024 12:00am polyethylene glycol 3350 72104 mg powder for oral solution (1 source) Osmotic Laxative Start: 05-10-2020 take 17 g by mouth once daily Polyethylene Glycol 3350 Active 17 GM PO DAILY May 10, 2020 9:40pm Goodwell's Wort (1 source) Start: 03-12-2024 take 300 mg by mouth once daily Gama's Wort Active 300 MG PO DAILY March 12, 2024 12:00am tadalafil 20 mg oral tablet (4 sources) Phosphodiesterase 5 Inhibitor Start: 03-12-2024 take 1 tablet by mouth every twenty-four hours Tadalafil (Cialis) 20 mg tablet Active 20 MG PO DAILY March 12, 2024 12:00am administer approximately 30min before sexual activity; do not use more than 1 dose per 24hrs Start: 04-27-2020 take 20 mg by mouth at bedtime Tadalafil Active 20 MG PO AT BEDTIME April 27, 2020 5:31pm tamsulosin hydrochloride 0.4 mg oral capsule (7 sources) alpha-Adrenergic Nanci Start: 05-10-2020 take 0.4 mg by mouth twice daily Tamsulosin Active 0.4 MG PO BID@0830,1730 60 May 10, 2020 9:40pm Start: 04-27-2020 End: 05-10-2020 take 0.4 mg by mouth once daily Tamsulosin Discontinued 0.4 MG PO DAILY April 27, 2020 12:00am May 10, 2020 9:42pm Completed/Discontinued Medications Medication Drug Class(es) Dates Sig (Normalized) Sig (Original) esomeprazole 20 mg delayed release oral capsule (6 sources) Proton Pump Inhibitor Start: 04-27-2020 End: 03-12-2024 take 20 mg by mouth once daily Esomeprazole Magnesium Discontinued 20 MG PO DAILY April 27, 2020 12:00am March 12, 2024 10:49am melatonin 3 mg oral tablet (6 sources) Start: 04-27-2020 End: 03-12-2024 take 3 mg by mouth at bedtime Melatonin Discontinued 3 MG PO AT BEDTIME April 27, 2020 12:00am March 12, 2024 10:49am traMADol hydrochloride 50 mg oral tablet (7 sources) Opioid Agonist Start: 04-27-2020 End: 05-10-2020 take 50 mg by mouth every six hours as needed Tramadol Discontinued 50 MG PO EVERY 6 HOURS NEEDED April 27, 2020 12:00am May 10, 2020 9:42pm vitamin d 1000 unt oral tablet (6 sources) Start: 04-27-2020 End: 05-10-2020 take 1000 [IU] by mouth once daily Vitamin D Discontinued 1000 UNITS PO DAILY April 27, 2020 5:31pm May 10, 2020 9:42pm Start: 04-27-2020 End: 05-10-2020 take 1000 [IU] by mouth once daily Vitamin D Discontinued 1000 UNITS PO DAILY April 27, 2020 12:00am May 10, 2020 9:42pm Problems Active Problems Problem Classification Problem Date Documented Da te Episodic/Chronic Alcohol-related disorders (6 sources) Alcohol abuse; Translations: [Alcohol abuse, uncomplicated] 04-27-2020 Chronic Diabetes mellitus with complications (2 sources) Type 2 diabetes mellitus with other specified complication; Translations: [Type 2 diabetes mellitus with other circulatory complications] Onset: 4 Chronic Diabetes mellitus without complication (6 sources) Diabetes mellitus; Translations: [Type 2 diabetes mellitus without complications] 04-27-2020 Chronic Diabetes mellitus without complication (5 sources) Acute hyperglycemia; Translations: [Hyperglycemia, unspecified] 04-03-2022 Episodic Diseases of white blood cells (3 sources) Other elevated white blood cell count; Translations: [Elevated white blood cell count, unspecified] Onset: 4 Chronic Disorders of lipid metabolism (6 sources) Hyperlipidemia; Translations: [Hyperlipidemia, unspecified] 04-27-2020 Chronic Esophageal disorders (6 sources) Gastroesophageal reflux disease; Translations: [Gastro-esophageal reflux disease without esophagitis] 04-27-2020 Chronic Essential hypertension (6 sources) Hypertensive disorder; Translations: [Essential (primary) hypertension] 04-27-2020 Chronic Malaise and fatigue (6 sources) Asthenia; Translations: [Other malaise] 04-27-2020 Episodic Mycoses (6 sources) Tinea corporis; Translations: [Tinea corporis] 04-27-2020 Episodic Nausea and vomiting (3 sources) Nausea and vomiting; Translations: [Nausea with vomiting, unspecified] 03-17-2023 Episodic Osteoarthritis (6 sources) Primary gonarthrosis, bilateral; Translations: [Bilateral primary osteoarthritis of knee] 04-27-2020 Chronic Other gastrointestinal disorders (6 sources) Irritable bowel syndrome; Translations: [Irritable bowel syndrome without diarrhea] 04-27-2020 Chronic Other gastrointestinal disorders (3 sources) Diarrhea; Translations: [Diarrhea, unspecified] 03-17-2023 Episodic Other male genital disorders (6 sources) Male erectile dysfunction, unspecified; Translations: [Erectile dysfunction] 04-27-2020 Chronic Other nervous system disorders (6 sources) Neuropathy; Translations: [Polyneuropathy, unspecified] 04-27-2020 Chronic Other nervous system disorders (6 sources) Impairment of balance; Translations: [Other abnormalities of gait and mobility] 04-27-2020 Episodic Residual codes; unclassified (6 sources) Insomnia; Translations: [Insomnia, unspecified] 04-27-2020 Episodic Septicemia (except in labor) (5 sources) Sepsis; Translations: [Sepsis, unspecified organism] 04-03-2022 Episodic Skin and subcutaneous tissue infections (10 sources) Cellulitis of lower limb; Translations: [Cellulitis of right lower limb] 04-03-2022 Episodic Spondylosis; intervertebral disc disorders; other back problems (6 sources) Spinal stenosis of lumbar region; Translations: [Spinal stenosis, lumbar region without neurogenic claudication] 04-27-2020 Episodic Syncope (5 sources) Vasovagal syncope; Translations: [Syncope and collapse] 03-17-2023 Episodic Past or Other Problems Problem Classification Problem Date Documented Date Episodic/Chronic Noninfectious gastroenteritis (3 sources) Gastroenteritis; Translations: [Noninfective gastroenteritis and colitis, unspecified] Onset: 02-12-2024 02-06-2024 Episodic Other acquired deformities (1 source) Unspecified acquired deformity of right lower leg; Translations: [Unspecified acquired deformity of right lower leg] Onset: 03-19-2024 Episodic Other acquired deformities (1 source) Unspecified acquired deformity of unspecified lower leg; Translations: [Unspecified acquired deformity of unspecified lower leg] Onset: 03-19-2024 Episodic Other non-epithelial cancer of skin (7 sources) Basal cell carcinoma of skin; Translations: [Basal cell carcinoma of skin, unspecified] Onset: 03-19-2024 04-27-2020 Episodic Results Test Name Value Interpretation Reference Range Facility Protein+Creatinine Ratio,Uri neon 11-22-2024 PROT:CRE RATIO 281 mg/g CRE High 0-200 [facility] Comment on above: Performed By: #### L 501.0900, L500.4100, L500.2500, L500.3400, L100.0100 #### [facility] [address] [place], [address] Protein (U) [Mass/Vol] 39.9 mg/dL High <11.9 [facility] Comment on above: Performed By: #### L 501.0900, L500.4100, L500.2500, L500.3400, L100.0100 #### [facility] [address] [place], [address] Lipid Profileon 11-21-2024 Cholesterol [Mass/Vol] 166 mg/dL Normal 200 [facility] Comment on above: Result Comment: <200 mg/dL Desirable 200-240 mg/dL Borderline >240 mg/dL High Risk Performed By: #### L 501.0900, L500.4100, L500.2500, L500.3400, L100.0100 #### [facility] [address] [place], [address] Cholesterol in HDL [Mass/Vol] 54 mg/dL Normal [facility] Comment on above: Result Comment: The drugs N-Acetylcysteine and Metamizole may falsely depress this assay. Reference Range HDL <40 mg/dL Low HDL Cholesterol HDL >or= 60 mg/dL High HDL Cholesterol Performed By: #### L 501.0900, L500.4100, L500.2500, L500.3400, L100.0100 #### [facility] [address] [place], [address] Cholesterol in LDL [Mass/Vol] 95 mg/dL Normal 0-130 [facility] Comment on above: Performed By: #### L 501.0900, L500.4100, L500.2500, L500.3400, L100.0100 #### [facility] [address] [place], [place], [id number] Cholesterol in VLDL [Mass/Vol] 17 mg/dL Normal 5-40 [facility] Comment on above: Performed By: #### L 501.0900, L500.4100, L500.2500, L500.3400, L100.0100 #### [facility] [address] [place], [place], [id number] Triglyceride [Mass/Vol] 84 mg/dL Normal [facility] Comment on above: Result Comment: The drugs N-Acetylcysteine and Metamizole may falsely depress this assay. Serum Triglycerides Reference Interval Normal <150 mg/dL Borderline high 150 - 199 mg/dL High 200 - 499 mg/dL Very High > or = 500 mg/dL Performed By: #### L 501.0900, L500.4100, L500.2500, L500.3400, L100.0100 #### [facility] [address] [place], [place], [id number] Microalb:Creat Ratio,Random URon 11-21-2024 Creatinine [Mass/Vol] 142.00 mg/dL Normal NO RAN GE EST. [facility] Comment on above: Performed By: #### L 501.0900, L500.4100, L500.2500, L500.3400, L100.0100 #### [facility] [address] [place], [place], [id number] MALB:CRE 71.8 mg/g CRE High <30 mg/g CRE [facility] Comment on above: Performed By: #### L 501.0900, L500.4100, L500.2500, L500.3400, L100.0100 #### [facility] [address] [place], [address] MICROALBUMIN,UR 102.0 mg/L Normal NO RANGE EST. [facility] Comment on above: Performed By: #### L 501.0900, L500.4100, L500.2500, L500.3400, L100.0100 #### [facility] [address] [place], [address] Thyroid Stim Hormone (TSH)on 11-21-2024 TSH 1.680 uIU/mL Normal 0.358-3.740 [facility] Comment on above: Performed By: #### L 501.0900, L500.4100, L500.2500, L500.3400, L100.0100 #### [facility] [address] [place], [address] Oncology Visit Reporton 06-12 Oncology Visit Report [facility] [address] [place] [address] OFFICE VISIT Date of Service: 06/25/24 1347 MR#: [id number] Acct: [id number] Name: ADENIKE KRUSE Rep #: [id number] : 1950 From: Xavier Palacios MD Age/Sex: 73/M Location: [facility] [place] Status: Signed HPI Subjective Date of Service 06/25/24 Chief Complaint F/u for increased WBC. History of Present Illness 73y.o.man was found to have Leukocytosis since March 2022 and referred for evaluation. He had Knee surgery in 2020. Denied weight loss, fever or night sweats. CT chest/abd/pelvis on 03/26/2024 was normal. Flow cytometry was normal. Stool for occult blood was positive, he says he has hemorrhoids and Dr. Gifford knows about it. He is on observation, had blood work and comes for follow up. Feeling well. [facility] Medical History History of alcohol abuse Hyperlipidemia HTN (hypertension) Irritable bowel syndrome (IBS) GERD (gastroesophageal reflux disease) DM II (diabetes mellitus, type II), controlled Basal cell carcinoma Surgical History Cataract Hx of tonsillectomy History of back surgery History of carpal tunnel surgery History of knee surgery Family History Father Cancer melanoma Aunt Heart disease Other Alcoholism Social History household members: spouse housing: house Smoking Status: Former smoker alcohol intake: former details: Former alcoholic substance use type: does not use Intake Vital Signs 04/02/24 15:00 06/25/24 13:47 06/25/24 13:51 Height 6 ft 1.5 in 6 ft 1.5 in 6 ft 1.5 in Weight: 99.96 kg BMI 28.6 BP 153/90 H Blood Pressure Location Lt brachial Position Sitting Respiration 18 Pulse 80 Pulse Source Monitor Temp 98.6 F Temperature Source Temporal Artery Pulse Oximetry (%) 97 Oxygen Delivery Method room air Intake Is patient in pain?: No Allergies adhesive Adverse Reaction (Verified 06/25/24 13:51) Rash propoxyphene (From Darvon) Adverse Reaction (Verified 06/25/24 13:51) Vomiting Medications ???Medication ???Instructions ???Recorded ???Confirmed ???Type candesartan 8 mg tablet 8 mg PO DAILY BP #90 tabs 06/02/19 06/25/24 History celecoxib 200 mg capsule 200 mg PO BID Pain #180 caps 06/02/19 06/25/24 History glimepiride 4 mg tablet 4 mg PO BID Blood sugar #90 tabs 06/02/19 06/25/24 History metformin 500 mg tablet 500 mg PO DAILY Blood sugar #270 06/02/19 06/25/24 History tabs aspirin 81 mg chewable tablet 81 mg PO DAILY Blood thinner 04/27/20 06/25/24 History metformin 1,000 mg tablet 1,000 mg PO QHS Blood sugar 04/27/20 06/25/24 History atorvastatin 20 mg tablet 20 mg PO QHS 05/10/20 06/25/24 Rx omeprazole 20 mg capsule,delayed 20 mg PO DAILY 03/19/24 06/25/24 History release tadalafil 20 mg tablet (Cialis) 60 mg PO DAILY PRN 03/19/24 06/25/24 History Have you fallen in the past year?: No Central Venous Access Central Venous Access: No Laboratory Results 06/18/24 03/19/24 08:02 11:04 WBC 8.0 11.3 H Hgb 14.1 13.7 Hct 43.8 42.8 Plt Count 333 325 Absolute Neuts (auto) 5.6 8.9 H Absolute Lymphs (auto) 1.56 Sodium 139 Potassium 4.0 Chloride 109 H Carbon Dioxide 26.0 BUN 16 Creatinine 0.96 Glucose 167 H Calcium 9.7 Phosphorus 2.6 Magnesium 1.5 L Total Bilirubin 0.30 GGT 20 AST 15 ALT 21 Alkaline Phosphatase 69 Total Protein 7.2 Albumin 3.8 Globulin 3.4 Coding Level of Care Code Off vis,est,level 3 Exam Problem Focused Diagnoses Other elevated white blood cell (WBC) count D72.828 Leukocytosis type: other Assessment and Plan Assessment and Plan (1) Leukocytosis: Status: Chronic Qualifiers: Leukocytosis type: other Qualified Code(s): D72.828 - Other elevated white blood cell count Comment: Neutrophilia, Flow cytometry on 03/19/2024 showed no abnormal cells. CT c/a/p on 03/26/2024 showed no evidence of malignancy. WBC on 06/18/2024 is normal. Flow cytometry is normal. Discussed results, needs observation. Plan: To continue observation. To follow up with Dr. Anglin and referred if new problems arise. RTC PRN. Clinical Quality Measures Falls Risk Screening/Assistive Devices Have you fallen in the past year?: No 06/25/24 1416 Date Xavier Palacios MD Cosigner Signature: Date (if applicable) CC: Dr. Rahel Anglin MD Normal [facility] Miscellaneous Lab Procedureo n 06-24-[address] [facility] LAB TEST Normal [facility] Comment on above: Order Comment: LC#[id number] [facility] SODIUM HEP WB RFLC#[id number] [facility] SODIUM HEP WB RF Result Comment: TEST RESULTS LIMITS Flow panel: Leukemia/Lymphoma Flow Interpretation No significant immunophenotypic abnormality detected Flow Comment Previous negative phenotyping results form 03/19/24 were reviewed. Clinical Information Accompanying CBC dated 06/18/2024 shows: WBC 8.0, Gustavo 5.6, Lym 1.6, Mon 0.6. Specimen Type Peripheral blood Assessment of Leukocytes No monoclonal B cell population is detected. kappa:lambda ratio 1.6 There is no loss of, or aberrant expression of, the funes T cell antigens to suggest a neoplastic T cell process. CD4:CD8 ratio 9.4 No circulating blasts are detected. There is no immunophenotypic evidence of abnormal myeloid maturation. Analysis of the leukocyte population shows: granulocytes 79%, monocytes 5%, lymphocytes 16%, blasts <0.1%, B cells 1%, T cells 13%, NK cells 2%. Viability 96% Analysis and Gating Strategy 8 color analysis with CD45/SSC gating [facility] Phen[facility] Chart CD2 Normal CD3 Normal CD4 Normal CD5 Normal CD7 Normal CD8 Normal CD10 Normal CD11b Normal CD13 Normal CD14 Normal CD16 Normal CD19 Normal CD20 Normal CD33 Normal CD34 Normal CD38 Normal CD45 Normal CD56 Normal CD57 Normal CD117 Normal HLA-DR Normal KAPPA Normal LAMBDA Normal CD64 Normal Resulting Path Name Kaylie Dawkins M.D. Comment: Each antibody in this assay was utilized to assess for potential abnormalities of studied cell populations or to characterize identified abnormalities. This test was developed and its performance characteristics determined by [facility]. It has not been cleared or approved by the U.S. Food and Drug Administration. The FDA has determined that such clearance or approval is not necessary. This test is used for clinical purposes. It should not be regarded as investigational or for research. TESTING PERFORMED AT [facility]. ORIGINAL REPORT ON FILE IN LAB CONTAINS ADDITIONAL TEST SITE INFORMATION. Performed By: #### L 501.0900, L500.4100, L500.2500, L500.3400, L100.0100 #### [facility] [place], [address] Miscellaneous Lab Procedure 2on 06-24-[address] [facility] LAB TEST 2 Normal [facility] Comment on above: Order Comment: #[id number] CLL FISH SODIUM HEP [id number] CLL FISH SODIUM HEP RMT Result Comment: TEST RESULTS LIMITS CLL FISH Panel Specimen Type Comment: BLOOD Cells Counted Comment: 200/PROBE Cells Analyzed Comment: 200/PROBE FISH Result Comment: NORMAL CLL PANEL Interpretation Comment: The CLL interphase fluorescence in situ hybridization (FISH) panel analysis was normal. There were no cells with CCND1-IGH fusion. No extra signals or deletions of MALIHA, chromosome 12, 13q, or TP53 were observed. SPECIFIC FISH RESULTS: CCND1/IGH: NORMAL . nuc cecily 11q13(KLKV9e8),14q32(IGHx2)[200] MALIHA: NORMAL nuc cecily 11q22.3(ATMx2)[200]. 12cen: NORMAL . nuc cecily 12cen(R23V9h8)[200]. 13q: NORMAL . nuc cecily 13q14.3(DLEUx2),13q34(JARZ2h9)[200]. TP53: NORMAL . nuc cecily 17p13.1(TP53x2)[200] This analysis is limited to abnormalities detectable by the specific probes included in the study. FISH results should be interpreted within the context of a full cytogenetic analysis and hematologic evaluation. REFERENCES:. Howard,(2013) Adv Exp Med Biol 792:193-214.PMID#[id number] . Celestina et al.,(2011) Clin Lab Med 31:649-658.PMID#[id number] This test was developed and its performace characteristics determined by [employer] It has not been cleared or approved by the U.S. Food and Drug Administration. The DNA probe vendor for this study was [employer] ([employer]). Director Review: Comment: BRAD CHRISTOPHER, PHD, [facility] TESTING PERFORMED AT [facility]. ORIGINAL REPORT ON FILE IN LAB CONTAINS ADDITIONAL TEST SITE INFORMATION. Performed By: #### L 501.0900, L500.4100, L500.2500, L500.3400, L100.0100 #### [facility] [address] [place], [address] CBC W/Diff, Automatedon 08-0 7-2023 Absolute Lymph 1.56 X10 3/uL Normal 0.83-4.51 [facility] Comment on above: Performed By: #### L 501.0900, L500.4100, L500.2500, L500.3400, L100.0100 #### [facility] [address] [place], [address] Absolute Neut 5.6 X10 3/uL Normal 2.0-7.7 [facility] Comment on above: Performed By: #### L 501.0900, L500.4100, L500.2500, L500.3400, L100.0100 #### [facility] [address] [place], [address] Basophils/100 WBC (Bld) 0.5 % Normal 0-1 [facility] Comment on above: Performed By: #### L 501.0900, L500.4100, L500.2500, L500.3400, L100.0100 #### [facility] [address] [place], [address] Eosinophils/100 WBC (Bld) 2.0 % Normal 0-5 [facility] Comment on above: Performed By: #### L 501.0900, L500.4100, L500.2500, L500.3400, L100.0100 #### [facility] [address] [place], [address] Erythrocyte distribution width (RBC) [Ratio] 12.9 % Normal 11.6-14.6 [facility] Comment on above: Performed By: #### L 501.0900, L500.4100, L500.2500, L500.3400, L100.0100 #### [facility] [address] [place], [address] Hematocrit (Bld) [Volume fraction] 43.8 % Normal 40-54 [facility] Comment on above: Performed By: #### L 501.0900, L500.4100, L500.2500, L500.3400, L100.0100 #### [facility] [address] [place], [address] Hemoglobin (Bld) [Mass/Vol] 14.1 g/dL Normal 13.0-16.5 [facility] Comment on above: Performed By: #### L 501.0900, L500.4100, L500.2500, L500.3400, L100.0100 #### [facility] [address] [place], [address] IG% 0.200 Normal 0.0-0.9 [facility] Comment on above: Result Comment: IG% - Immature Granulocytes (promyelocytes, myelocytes and metamyelocytes) > 1% indicates that a LEFT SHIFT is Present. Performed By: #### L 501.0900, L500.4100, L500.2500, L500.3400, L100.0100 #### [facility] [address] [place], [address] Lymphocytes/100 WBC (Bld) 19.5 % Normal 19-41 [facility] Comment on above: Performed By: #### L 501.0900, L500.4100, L500.2500, L500.3400, L100.0100 #### [facility] [address] [place], [address] MCH (RBC) [Entitic mass] 29.8 pg Normal 27.0-32.0 [facility] Comment on above: Performed By: #### L 501.0900, L500.4100, L500.2500, L500.3400, L100.0100 #### [facility] [address] [place], [address] MCHC (RBC) [Mass/Vol] 32.2 g/dL Normal 32-36 [facility] Comment on above: Performed By: #### L 501.0900, L500.4100, L500.2500, L500.3400, L100.0100 #### [facility] [address] [place], [address] MCV (RBC) [Entitic vol] 92.6 fL Normal 80-94 [facility] Comment on above: Performed By: #### L 501.0900, L500.4100, L500.2500, L500.3400, L100.0100 #### [facility] [address] [place], [address] Monocytes/100 WBC (Bld) 7.7 % Normal 0-10 [facility] Comment on above: Performed By: #### L 501.0900, L500.4100, L500.2500, L500.3400, L100.0100 #### [facility] [address] [place], [address] Neutrophils/100 WBC (Bld) 70.1 % High 47-70 [facility] Comment on above: Performed By: #### L 501.0900, L500.4100, L500.2500, L500.3400, L100.0100 #### [facility] [address] [place], [address] Nucleated RBC (Bld) [#/Vol] 0 10*3/uL Normal 0-5 [facility] Comment on above: Performed By: #### L 501.0900, L500.4100, L500.2500, L500.3400, L100.0100 #### [facility] [address] [place], [address] Platelet mean volume (Bld) [Entitic vol] 9.7 fL Normal 6.2-12.0 [facility] Comment on above: Performed By: #### L 501.0900, L500.4100, L500.2500, L500.3400, L100.0100 #### [facility] [address] [place], [address] Platelets (Bld) [#/Vol] 333 10*3/uL Normal 150-450 [facility] Comment on above: Performed By: #### L 501.0900, L500.4100, L500.2500, L500.3400, L100.0100 #### [facility] [address] [place], [address] RBC (Bld) [#/Vol] 4.73 10*6/uL Normal 4.6-6.2 [facility] Comment on above: Performed By: #### L 501.0900, L500.4100, L500.2500, L500.3400, L100.0100 #### [facility] [address] [place], [address] RDW SD 43.7 fl Normal 35.1-43.9 [facility] Comment on above: Performed By: #### L 501.0900, L500.4100, L500.2500, L500.3400, L100.0100 #### [facility] [address] [place], [address] WBC (Bld) [#/Vol] 8.0 10*3/uL Normal 4.4-11.0 [facility] Comment on above: Performed By: #### L 501.0900, L500.4100, L500.2500, L500.3400, L100.0100 #### [facility] [address] [place], [address] Comprehensive Metabolic Prof ilon 06-18-2024 Albumin [Mass/Vol] 3.8 g/dL Normal 3.2-5.0 [facility] Comment on above: Order Comment: 1 Performed By: #### L 501.0900, L500.4100, L500.2500, L500.3400, L100.0100 #### [facility] [address] [place], [address] Albumin/Globulin [Mass ratio] 1.1 {ratio} Normal 0.9-2.4 [facility] Comment on above: Order Comment: 1 Performed By: #### L 501.0900, L500.4100, L500.2500, L500.3400, L100.0100 #### [facility] [address] [place], [address] ALK P 69 U/L Normal 45-117 [facility] Comment on above: Order Comment: 1 Performed By: #### L 501.0900, L500.4100, L500.2500, L500.3400, L100.0100 #### [facility] [address] [place], [address] ALT [Catalytic activity/Vol] 22 U/L Normal 16-61 [facility] Comment on above: Order Comment: 1 Performed By: #### L 501.0900, L500.4100, L500.2500, L500.3400, L100.0100 #### [facility] [address] [place], [address] AST [Catalytic activity/Vol] 15 U/L Normal 15-37 [facility] Comment on above: Order Comment: 1 Performed By: #### L 501.0900, L500.4100, L500.2500, L500.3400, L100.0100 #### [facility] [address] [place], [address] Bilirubin [Mass/Vol] 0.50 mg/dL Normal 0.20-1.00 [facility] Comment on above: Order Comment: 1 Result Comment: For patients on eltrombopag therapy, use of Dimension Aurora TBIL is not recommended. Performed By: #### L 501.0900, L500.4100, L500.2500, L500.3400, L100.0100 #### [facility] [address] [place], [address] BUN/CRE 13.7 RATIO Normal 10-20 [facility] Comment on above: Order Comment: 1 Performed By: #### L 501.0900, L500.4100, L500.2500, L500.3400, L100.0100 #### [facility] [address] [place], [address] CA,Total 10.1 mg/dL Normal 8.5-10.1 [facility] Comment on above: Order Comment: 1 Performed By: #### L 501.0900, L500.4100, L500.2500, L500.3400, L100.0100 #### [facility] [address] [place], [address] Chloride [Moles/Vol] 105 mmol/L Normal 98-107 [facility] Comment on above: Order Comment: 1 Performed By: #### L 501.0900, L500.4100, L500.2500, L500.3400, L100.0100 #### [facility] [address] [place], [address] CO2 [Moles/Vol] 22.0 mmol/L Normal 21.0-32.0 [facility] Comment on above: Order Comment: 1 Performed By: #### L 501.0900, L500.4100, L500.2500, L500.3400, L100.0100 #### [facility] [address] [place], [address] Creatinine [Mass/Vol] 1.02 mg/dL Normal 0.70-1.30 [facility] Comment on above: Order Comment: 1 Result Comment: The validity of the calculated GFR GFRAA in patients over 70 years has not been determined. Clinical correlation is essential. Performed By: #### L 501.0900, L500.4100, L500.2500, L500.3400, L100.0100 #### [facility] [address] [place], [address] EST GFR - AA 91 mL/min Normal >60 [facility] Comment on above: Order Comment: 1 Result Comment: Afri can Faroese GFR Calc Performed By: #### L 501.0900, L500.4100, L500.2500, L500.3400, L100.0100 #### [facility] [address] [place], [address] GAP 9 Normal 5-15 [facility] Comment on above: Order Comment: 1 Performed By: #### L 501.0900, L500.4100, L500.2500, L500.3400, L100.0100 #### [facility] [address] [place], [address] GFR/1.73 sq M.predicted among non-blacks MDRD (S/P/Bld) [Vol rate/Area] 76 mL/min/{1.73_m2} Normal >60 [facility] Comment on above: Order Comment: 1 Result Comment: Non- GFR Calc Performed By: #### L 501.0900, L500.4100, L500.2500, L500.3400, L100.0100 #### [facility] [address] [place], [address] Globulin (S) [Mass/Vol] 3.5 g/dL Normal 2.2-4.2 [facility] Comment on above: Order Comment: 1 Performed By: #### L 501.0900, L500.4100, L500.2500, L500.3400, L100.0100 #### [facility] [address] [place], [address] Glucose [Mass/Vol] 196 mg/dL High 74-106 [facility] Comment on above: Order Comment: 1 Result Comment: Fast ing Glucose result greater than or equal to 126 mg/dL suggests DIABETES MELLITUS per A.D.A. criteria. Performed By: #### L 501.0900, L500.4100, L500.2500, L500.3400, L100.0100 #### [facility] [address] [place], [address] Potassium [Moles/Vol] 3.8 mmol/L Normal 3.5-5.1 [facility] Comment on above: Order Comment: 1 Performed By: #### L 501.0900, L500.4100, L500.2500, L500.3400, L100.0100 #### [facility] [address] [place], [address] Sodium [Moles/Vol] 136 mmol/L Normal 136-145 [facility] Comment on above: Order Comment: 1 Performed By: #### L 501.0900, L500.4100, L500.2500, L500.3400, L100.0100 #### [facility] [address] [place], [address] T PROT 7.3 g/dL Normal 6.4-8.2 [facility] Comment on above: Order Comment: 1 Performed By: #### L 501.0900, L500.4100, L500.2500, L500.3400, L100.0100 #### [facility] [address] [place], [address] Urea nitrogen [Mass/Vol] 14 mg/dL Normal 7-18 [facility] Comment on above: Order Comment: 1 Performed By: #### L 501.0900, L500.4100, L500.2500, L500.3400, L100.0100 #### [facility] [address] [place], [address] LDHon 06-18-2024 LDH 123 U/L Normal 87-241 [facility] Comment on above: Order Comment: 1 Performed By: #### L 501.0900, L500.4100, L500.2500, L500.3400, L100.0100 #### [facility] [address] [place], [address] Oncology Visit Reporton 03-13 Oncology Visit Report [facility] [address] [place] [address] OFFICE VISIT Date of Service: 04/02/24 1458 MR#: [id number] Acct: [id number] Name: ADENIKE KRUSE Rep #: [id number] : 1950 From: Xavier Palacios MD Age/Sex: 73/M Location: [facility] Status: Signed HPI Subjective Date of Service 04/02/24 Chief Complaint F/u for increased WBC. History of Present Illness 73y.o.man was found to have Leukocytosis since March 2022 and referred for evaluation. He had Knee surgery in 2020. Denied weight loss, fever or night sweats. Had CT chest/abd/pelvis and Flow cytometry done and comes for follow up. Stool for occult blood was positive, he says he has hemorrhoids and Dr. Gifford knows about it. [facility] Medical History History of alcohol abuse Hyperlipidemia HTN (hypertension) Irritable bowel syndrome (IBS) GERD (gastroesophageal reflux disease) DM II (diabetes mellitus, type II), controlled Basal cell carcinoma Surgical History Cataract Hx of tonsillectomy History of back surgery History of carpal tunnel surgery History of knee surgery Family History Father Cancer melanoma Aunt Heart disease Other Alcoholism Social History household members: spouse housing: house Smoking Status: Former smoker alcohol intake: former details: Former alcoholic substance use type: does not use Intake Vital Signs 03/19/24 09:32 04/02/24 14:59 04/02/24 15:00 Height 6 ft 1.5 in 6 ft 1.5 in 6 ft 1.5 in Weight: 97.069 kg BMI 27.8 BP 150/92 H Blood Pressure Location Lt brachial Position Sitting Respiration 18 Pulse 83 Pulse Source Monitor Temp 98.7 F Temperature Source Temporal Artery Pulse Oximetry (%) 97 Oxygen Delivery Method room air Intake Is patient in pain?: No Allergies adhesive Adverse Reaction (Verified 04/02/24 15:00) Rash propoxyphene (From Darvon) Adverse Reaction (Verified 04/02/24 15:00) Vomiting Medications ???Medication ???Instructions ???Recorded ???Confirmed ???Type candesartan 8 mg tablet 8 mg PO DAILY BP #90 tabs 06/02/19 04/02/24 History celecoxib 200 mg capsule 200 mg PO BID Pain #180 caps 06/02/19 04/02/24 History glimepiride 4 mg tablet 4 mg PO BID Blood sugar #90 tabs 06/02/19 04/02/24 History metformin 500 mg tablet 500 mg PO DAILY Blood sugar #270 06/02/19 04/02/24 History tabs aspirin 81 mg chewable tablet 81 mg PO DAILY Blood thinner 04/27/20 04/02/24 History metformin 1,000 mg tablet 1,000 mg PO QHS Blood sugar 04/27/20 04/02/24 History atorvastatin 20 mg tablet 20 mg PO QHS 05/10/20 04/02/24 Rx omeprazole 20 mg capsule,delayed 20 mg PO DAILY 03/19/24 04/02/24 History release tadalafil 20 mg tablet (Cialis) 60 mg PO DAILY PRN 03/19/24 04/02/24 History Central Venous Access Central Venous Access: No Laboratory Results 03/19/24 11:04 WBC 11.3 H Hgb 13.7 Hct 42.8 Plt Count 325 Absolute Neuts (auto) 8.9 H Sodium 139 Potassium 4.0 Chloride 109 H Carbon Dioxide 26.0 BUN 16 Creatinine 0.96 Glucose 167 H Calcium 9.7 Phosphorus 2.6 Magnesium 1.5 L Total Bilirubin 0.30 GGT 20 AST 15 ALT 21 Alkaline Phosphatase 69 Total Protein 7.2 Albumin 3.8 Globulin 3.4 03/26/2024 CT c/a/p reviewed. CT/CT Chest, Abd, Pel w/Contrast IMPRESSION: No CT evidence of primary or metastatic tumor. Electronically Signed: Ranjeet Hughes MD at 22:52 EDT Exam Physical Exam Const alert, oriented x3 and no apparent distress Coding Level of Care Code Off vis,est,level 3 Exam Problem Focused Diagnoses Other elevated white blood cell (WBC) count D72.828 Leukocytosis type: other Assessment and Plan Assessment and Plan (1) Leukocytosis: Status: Acute Qualifiers: Leukocytosis type: other Qualified Code(s): D72.828 - Other elevated white blood cell count Comment: Neutrophilia, Flow cytometry on 03/19/2024 showed no abnormal cells. CT c/a/p on 03/26/2024 showed no evidence of malignancy Plan: To do observation. Monitor WBC. RTC 3 months Orders: Orders CBC W/Diff, Automated 06/18/24 D72.829 - Elevated white blood cell count, unspecified Comprehensive Metabolic Profil 06/18/24 D72.828 - Other elevated white blood cell count LDH 06/18/24 D72.828 - Other elevated white blood cell count Miscellaneous Lab Procedure 06/18/24 D72.828 - Other elevated white blood cell count Miscellaneous Lab Procedure 2 06/18/24 D72.828 - Other elevated white blood cell count 04/02/24 1716 Date ____ (more content not included)... Normal [facility] CT Chest, Abd, Pel w/Contras ton 03-26-2024 CT Chest, Abd, Pel w/Contrast [facility] Imaging Services [address] [place] [address] Chest, Abd, Pel w/Contrast MR#: [id number] Acct: [id number] Name: ADENIKE KRUSE Rep #: [id number] : 1950 M 73 From: Ranjeet Hughes MD PCP: Dr. Rahel Anglin MD Status: REG CLI Study: CT Chest, Abd, Pel w/Contrast Date of Exam: Exam# [id number] Ordering Dr: Xavier Palacios MD [id number] STUDY: CT CHEST, ABDOMEN T PELVIS WITH CONTRAST REASON FOR EXAM: Male, 73 years old. R/O MALIGNANCY RADIATION DOSAGE (If Supplied By Facility): CTDIvol = ( 18.59 ) mGy, DLP = ( 1776.16 ) mGycm TECHNIQUE: Transaxial imaging was performed following intravenous administration of Oral and amp; IV Gastrografin and amp; 100mL [id number]-370. Individualized dose optimization techniques were used for this CT. COMPARISON: No relevant priors. FINDINGS: CHEST Mild emphysema and scarring. No noncalcified nodule or mass. There is no demonstrated pleural abnormality. Normal heart and pericardium. Normal mediastinum. Normal hilar regions. Normal unenhanced pulmonary arteries. Normal aorta arch and descending thoracic aorta. There are multi-level degenerative changes of the thoracic spine. There is no demonstrated abnormality of the visualized upper abdomen. ABDOMEN The visualized lung bases are unremarkable. The visualized portions of the heart are within normal limits. 1.5 cm cyst in the lateral segment left lobe of liver adjacent to the falciform ligament. Normal gallbladder and extrahepatic biliary system. Normal spleen. Normal pancreas. Normal bilateral adrenal glands. Normal right kidney. 6 cm exophytic cyst in the midsection left kidney. There is a small hiatal hernia. Normal small intestine. Normal colon. The appendix is visualized and appears normal. There is diffuse atherosclerotic calcification of the abdominal aorta, without a demonstrated aneurysm. Normal inferior vena cava. Normal retroperitoneum. Normal abdominal wall. There are diffuse degenerative changes of the visualized lumbar spine. PELVIS Normal urinary bladder. Normal visualized small intestine. There are multiple colonic diverticula of the sigmoid colon consistent with chronic diverticulosis. There is no pelvic fluid. There is no pelvic lymphadenopathy or mass lesion. There are prostatic calcifications. Normal visualized pelvic arteries. There are bilateral inguinal hernias containing fat. Normal osseous structures. CT/CT Chest, Abd, Pel w/Contrast IMPRESSION: No CT evidence of primary or metastatic tumor. Electronically Signed: Ranjeet Hughes MD at 22:52 EDT , CC: Dr. Rahel Anglin MD; Dr. Xavier Palacios MD [place] Operator: [facility]igned [facility] [facility] LAB TEST Normal [facility] Comment on above: Order Comment: FLOW CYTOMETRY LC#[id number] CYTOMETRY GREEN WB RF Result Comment: TEST RESULTS LIMITS Flow panel: Leukemia/Lymphoma Flow Interpretation No significant immunophenotypic abnormality detected. Clinical Information Leukocytosis Accompanying CBC dated 03/19/2024 shows: WBC count 11.3, Gustavo 8.9, Lym 1.5 Specimen Type Peripheral blood Assessment of Leukocytes No monoclonal B cell population is detected. kappa:lambda ratio 1.5 There is no loss of, or aberrant expression of, the funse T cell antigens to suggest a neoplastic T cell process. CD4:CD8 ratio 7.6 No circulating blasts are detected. There is no immunophenotypic evidence of abnormal myeloid maturation. Analysis of the lymphocyte population shows: B cells 10%, T cells 77%, NK cells 13% Viability 87% Analysis and Gating Strategy 8 color analysis with CD45/SCC gating Technical-Analysis performed at [facility], [address] [facility] [address] , [place] [address] Director: Viv Gleason, [facility] Phenotype Chart CD2 Normal CD3 Normal CD4 Normal CD5 Normal CD7 Normal CD8 Normal CD10 Normal CD11b Normal CD13 Normal CD14 Normal CD16 Normal CD19 Normal CD20 Normal CD33 Normal CD34 Normal CD38 Normal CD45 Normal CD56 Normal CD57 Normal CD117 Normal HLA-DR Normal KAPPA Normal LAMBDA Normal CD64 Normal Resulting Path Name Xavier Yañez M.D. Comment: Each antibody in this assay was utilized to assess for potential abnormalities of studied cell populations or to characterize identified abnormalities. This test was developed and its performance characteristics determined by [facility]. It has not been cleared or approved by the U.S. Food and Drug Administration. The FDA has determined that such clearance or approval is not necessary. This test is used for clinical purposes. It should not be regarded as investigational or for research. TESTING PERFORMED AT [facility]. ORIGINAL REPORT ON FILE IN LAB CONTAINS ADDITIONAL TEST SITE INFORMATION. Performed By: #### L 801.1541, L501.5100 #### [facility] [address] [place], [address] CBC W/Diff, Automatedon 05-0 8-2023 Absolute Lymph 1.45 X10 3/uL Normal 0.83-4.51 [facility] Comment on above: Performed By: #### L 100.0100, L501.2300, L500.4050, L506.0250, L101.9900, L503.0105, L501.5200, L400.0001 ####[facility] [address] [place], [address] Absolute Neut 8.9 X10 3/uL High 2.0-7.7 [facility] Comment on above: Performed By: #### L 100.0100, L501.2300, L500.4050, L506.0250, L101.9900, L503.0105, L501.5200, L400.0001 ####[facility] [address] [place], [address] Basophils/100 WBC (Bld) 0.4 % Normal 0-1 [facility] Comment on above: Performed By: #### L 100.0100, L501.2300, L500.4050, L506.0250, L101.9900, L503.0105, L501.5200, L400.0001 ####[facility] [address] [place], [address] Eosinophils/100 WBC (Bld) 0.8 % Normal 0-5 [facility] Comment on above: Performed By: #### L 100.0100, L501.2300, L500.4050, L506.0250, L101.9900, L503.0105, L501.5200, L400.0001 ####[facility] [address] [place], [address] Erythrocyte distribution width (RBC) [Ratio] 12.5 % Normal 11.6-14.6 [facility] Comment on above: Performed By: #### L 100.0100, L501.2300, L500.4050, L506.0250, L101.9900, L503.0105, L501.5200, L400.0001 ####[facility] [address] [place], [address] Hematocrit (Bld) [Volume fraction] 42.8 % Normal 40-54 [facility] Comment on above: Performed By: #### L 100.0100, L501.2300, L500.4050, L506.0250, L101.9900, L503.0105, L501.5200, L400.0001 ####[facility] [address] [place], [address] Hemoglobin (Bld) [Mass/Vol] 13.7 g/dL Normal 13.0-16.5 [facility] Comment on above: Performed By: #### L 100.0100, L501.2300, L500.4050, L506.0250, L101.9900, L503.0105, L501.5200, L400.0001 ####[facility] [address] [place], [address] IG% 0.500 Normal 0.0-0.9 [facility] Comment on above: Result Comment: IG% - Immature Granulocytes (promyelocytes, myelocytes and metamyelocytes) > 1% indicates that a LEFT SHIFT is Present. Performed By: #### L 100.0100, L501.2300, L500.4050, L506.0250, L101.9900, L503.0105, L501.5200, L400.0001 ####[facility] [address] [place], [address] Lymphocytes/100 WBC (Bld) 12.8 % Low 19-41 [facility] Comment on above: Performed By: #### L 100.0100, L501.2300, L500.4050, L506.0250, L101.9900, L503.0105, L501.5200, L400.0001 ####[facility] [address] [place], [address] MCH (RBC) [Entitic mass] 30.0 pg Normal 27.0-32.0 [facility] Comment on above: Performed By: #### L 100.0100, L501.2300, L500.4050, L506.0250, L101.9900, L503.0105, L501.5200, L400.0001 ####[facility] [address] [place], [address] MCHC (RBC) [Mass/Vol] 32.0 g/dL Normal 32-36 [facility] Comment on above: Performed By: #### L 100.0100, L501.2300, L500.4050, L506.0250, L101.9900, L503.0105, L501.5200, L400.0001 ####[facility] [address] [place], [address] MCV (RBC) [Entitic vol] 93.7 fL Normal 80-94 [facility] Comment on above: Performed By: #### L 100.0100, L501.2300, L500.4050, L506.0250, L101.9900, L503.0105, L501.5200, L400.0001 ####[facility] [address] [place] [place], [address] Monocytes/100 WBC (Bld) 7.2 % Normal 0-10 [facility] Comment on above: Performed By: #### L 100.0100, L501.2300, L500.4050, L506.0250, L101.9900, L503.0105, L501.5200, L400.0001 ####[facility] [address] [facility] [place], [address] Neutrophils/100 WBC (Bld) 78.3 % High 47-70 [facility] Comment on above: Performed By: #### L 100.0100, L501.2300, L500.4050, L506.0250, L101.9900, L503.0105, L501.5200, L400.0001 ####[facility] [address] [facility], [address] Nucleated RBC (Bld) [#/Vol] 0 10*3/uL Normal 0-5 [facility] Comment on above: Performed By: #### L 100.0100, L501.2300, L500.4050, L506.0250, L101.9900, L503.0105, L501.5200, L400.0001 ####[facility] [address] [facility] [place], [address] Platelet mean volume (Bld) [Entitic vol] 9.9 fL Normal 6.2-12.0 [facility] Comment on above: Performed By: #### L 100.0100, L501.2300, L500.4050, L506.0250, L101.9900, L503.0105, L501.5200, L400.0001 ####[facility] [address] [place], [address] Platelets (Bld) [#/Vol] 325 10*3/uL Normal 150-450 [facility] Comment on above: Performed By: #### L 100.0100, L501.2300, L500.4050, L506.0250, L101.9900, L503.0105, L501.5200, L400.0001 ####[facility] [address] [place], [address] RBC (Bld) [#/Vol] 4.57 10*6/uL Low 4.6-6.2 [facility] Comment on above: Performed By: #### L 100.0100, L501.2300, L500.4050, L506.0250, L101.9900, L503.0105, L501.5200, L400.0001 ####[facility] [address] [place], [address] RDW SD 42.9 fl Normal 35.1-43.9 [facility] Comment on above: Performed By: #### L 100.0100, L501.2300, L500.4050, L506.0250, L101.9900, L503.0105, L501.5200, L400.0001 ####[facility] [address] [place], [address] WBC (Bld) [#/Vol] 11.3 10*3/uL High 4.4-11.0 [facility] Comment on above: Performed By: #### L 100.0100, L501.2300, L500.4050, L506.0250, L101.9900, L503.0105, L501.5200, L400.0001 ####[facility] [address] [place], [address] Comprehensive Metabolic Prof ilon 03-19-2024 Albumin [Mass/Vol] 3.8 g/dL Normal 3.2-5.0 [facility] Comment on above: Order Comment: FLOW CYTOMETRY LC#[id number] Performed By: #### L 100.0100, L501.2300, L500.4050, L506.0250, L101.9900, L503.0105, L501.5200, L400.0001 ####[facility] [address] [place], [place], [id number] Albumin/Globulin [Mass ratio] 1.1 {ratio} Normal 0.9-2.4 [facility] Comment on above: Order Comment: FLOW CYTOMETRY LC#[id number] Performed By: #### L 100.0100, L501.2300, L500.4050, L506.0250, L101.9900, L503.0105, L501.5200, L400.0001 ####[facility] [address] [place], [place], [id number] ALK P 69 U/L Normal 45-117 [facility] Comment on above: Order Comment: FLOW CYTOMETRY LC#[id number] Performed By: #### L 100.0100, L501.2300, L500.4050, L506.0250, L101.9900, L503.0105, L501.5200, L400.0001 ####[facility] [address] [place], [address] ALT [Catalytic activity/Vol] 21 U/L Normal 16-61 [facility] Comment on above: Order Comment: FLOW CYTOMETRY LC#[id number] Performed By: #### L 100.0100, L501.2300, L500.4050, L506.0250, L101.9900, L503.0105, L501.5200, L400.0001 ####[facility] [address] [place], [address] AST [Catalytic activity/Vol] 15 U/L Normal 15-37 [facility] Comment on above: Order Comment: FLOW CYTOMETRY LC#[id number] Performed By: #### L 100.0100, L501.2300, L500.4050, L506.0250, L101.9900, L503.0105, L501.5200, L400.0001 ####[facility] [address] [place], [address] Bilirubin [Mass/Vol] 0.30 mg/dL Normal 0.20-1.00 [facility] Comment on above: Order Comment: FLOW CYTOMETRY LC#[id number] Result Comment: For patients on eltrombopag therapy, use of Dimension Aurora TBIL is not recommended. Performed By: #### L 100.0100, L501.2300, L500.4050, L506.0250, L101.9900, L503.0105, L501.5200, L400.0001 ####[facility] [address] [place], [place], [phone]([phone]) BUN/CRE 16.6 RATIO Normal 10-20 [facility] Comment on above: Order Comment: FLOW CYTOMETRY LC#[id number] Performed By: #### L 100.0100, L501.2300, L500.4050, L506.0250, L101.9900, L503.0105, L501.5200, L400.0001 ####[facility] [address] [place], [address] CA,Total 9.7 mg/dL Normal 8.5-10.1 [facility] Comment on above: Order Comment: FLOW CYTOMETRY LC#[id number] Performed By: #### L 100.0100, L501.2300, L500.4050, L506.0250, L101.9900, L503.0105, L501.5200, L400.0001 ####[facility] [address] [place], [address] Chloride [Moles/Vol] 109 mmol/L High 98-107 [facility] Comment on above: Order Comment: FLOW CYTOMETRY LC#[id number] Performed By: #### L 100.0100, L501.2300, L500.4050, L506.0250, L101.9900, L503.0105, L501.5200, L400.0001 ####[facility] [address] [place], [address] CO2 [Moles/Vol] 26.0 mmol/L Normal 21.0-32.0 [facility] Comment on above: Order Comment: FLOW CYTOMETRY LC#[id number] Performed By: #### L 100.0100, L501.2300, L500.4050, L506.0250, L101.9900, L503.0105, L501.5200, L400.0001 ####[facility] [address] [place], [address] Creatinine [Mass/Vol] 0.96 mg/dL Normal 0.70-1.30 [facility] Comment on above: Order Comment: FLOW CYTOMETRY LC#[id number] Result Comment: The validity of the calculated GFR GFRAA in patients over 70 years has not been determined. Clinical correlation is essential. Performed By: #### L 100.0100, L501.2300, L500.4050, L506.0250, L101.9900, L503.0105, L501.5200, L400.0001 ####[facility] [address] [place], [address] EST GFR - AA 98 mL/min Normal >60 [facility] Comment on above: Order Comment: FLOW CYTOMETRY LC#[id number] Result Comment: Afri can Faroese GFR Calc Performed By: #### L 100.0100, L501.2300, L500.4050, L506.0250, L101.9900, L503.0105, L501.5200, L400.0001 ####[facility] [address] [place], [address] GAP 4 Low 5-15 [facility] Comment on above: Order Comment: FLOW CYTOMETRY LC#[id number] Performed By: #### L 100.0100, L501.2300, L500.4050, L506.0250, L101.9900, L503.0105, L501.5200, L400.0001 ####[facility] [address] [place], [address] GFR/1.73 sq M.predicted among non-blacks MDRD (S/P/Bld) [Vol rate/Area] 81 mL/min/{1.73_m2} Normal >60 [facility] Comment on above: Order Comment: FLOW CYTOMETRY LC#[id number] Result Comment: Non- GFR Calc Performed By: #### L 100.0100, L501.2300, L500.4050, L506.0250, L101.9900, L503.0105, L501.5200, L400.0001 ####[facility] [address] [place], [place], [phone] Globulin (S) [Mass/Vol] 3.4 g/dL Normal 2.2-4.2 [facility] Comment on above: Order Comment: FLOW CYTOMETRY LC#[id number] Performed By: #### L 100.0100, L501.2300, L500.4050, L506.0250, L101.9900, L503.0105, L501.5200, L400.0001 ####[facility] [address] [place], [address] Glucose [Mass/Vol] 167 mg/dL High 74-106 [facility] Comment on above: Order Comment: FLOW CYTOMETRY LC#[id number] Result Comment: Fast ing Glucose result greater than or equal to 126 mg/dL suggests DIABETES MELLITUS per A.D.A. criteria. Performed By: #### L 100.0100, L501.2300, L500.4050, L506.0250, L101.9900, L503.0105, L501.5200, L400.0001 ####[facility] [address] [place], [address] Potassium [Moles/Vol] 4.0 mmol/L Normal 3.5-5.1 [facility] Comment on above: Order Comment: FLOW CYTOMETRY LC#[id number] Performed By: #### L 100.0100, L501.2300, L500.4050, L506.0250, L101.9900, L503.0105, L501.5200, L400.0001 ####[facility] [address] [place], [address] Sodium [Moles/Vol] 139 mmol/L Normal 136-145 [facility] Comment on above: Order Comment: FLOW CYTOMETRY LC#[id number] Performed By: #### L 100.0100, L501.2300, L500.4050, L506.0250, L101.9900, L503.0105, L501.5200, L400.0001 ####[facility] [address] [place], [place], [phone] T PROT 7.2 g/dL Normal 6.4-8.2 [facility] Comment on above: Order Comment: FLOW CYTOMETRY LC#[id number] Performed By: #### L 100.0100, L501.2300, L500.4050, L506.0250, L101.9900, L503.0105, L501.5200, L400.0001 ####[facility] [address] [place], [address] Urea nitrogen [Mass/Vol] 16 mg/dL Normal 7-18 [facility] Comment on above: Order Comment: FLOW CYTOMETRY LC#[id number] Performed By: #### L 100.0100, L501.2300, L500.4050, L506.0250, L101.9900, L503.0105, L501.5200, L400.0001 ####[facility] [address] [place], [address] Erythrocyte Sed Rateon 03-19 SED RATE 17 mm/hr Normal 0-20 [facility] Comment on above: Performed By: #### L 100.0100, L501.2300, L500.4050, L506.0250, L101.9900, L503.0105, L501.5200, L400.0001 ####[facility] [address] [place], [address] Folates, (Folic Acid)on FOLATES 26.00 ng/mL Normal 3.1-55.4 [facility] Comment on above: Order Comment: FLOW CYTOMETRY LC#[id number] Performed By: #### L 501.0900, L500.4100, L500.2500, L500.3400, L100.0100 #### [facility] Laboratory [address] [place], [address] Foot min 3 Viewson Foot min 3 Views [facility] Imaging Services [address] [place] [place] [address] Foot min 3 Views MR#: [id number] Acct: [id number] Name: ADENIKE KRUSE Rep #: [id number] : 1950 M 73 From: Brandon Brown MD PCP: Dr. Rahel Anglin MD Status: REG CLI Study: Foot min 3 Views Date of Exam: 03/19/24 Exam# [id number] Ordering Dr: Xavier Palacios [place] [id number] STUDY: X-RAY - RIGHT FOOT CLINICAL: Male, 73 years old. RIGHT FOOT DEFORMITY, PRIOR FX ABOUT 10 YRS AGO TECHNIQUE: 2 views of the right foot. COMPARISON: Right foot radiographs dated 06/21/2016. FINDINGS: Intact talus, calcaneus, and tarsal bones. There are small plantar and posterior calcaneal spurs. Normal visualized subtalar, talonavicular, calcaneocuboid, tarsal and tarsometatarsal articulations. There is an old healed fracture of the proximal fifth metatarsal. Normal remainder of the metatarsi. Normal metatarsophalangeal joint of the great toe. Normal tibial and fibular sesamoid bones. Normal interphalangeal joint of the great toe. Normal phalanges of the great toe. Normal second through fifth metatarsophalangeal joints. Normal interphalangeal joints and phalanges of the lesser toes. The soft tissue structures are unremarkable. There is no demonstrated acute fracture. RAD/Foot min 3 Views IMPRESSION: Old healed fracture of the proximal fifth metatarsal. Small plantar and posterior calcaneal spurs. No demonstrated acute fracture. Electronically Signed: Brandon Brown MD at 15:40 EDT Reading Location ID and State: [address] [place] [address] , Service support , CC: Dr. Rahel Anglin MD; Dr. Xavier Palacios MD [place] Operator: Signed Normal [facility] GGTPon 03-19-2024 GGTP 20 U/L Normal [facility] Comment on above: Performed By: #### L 801.1541, L501.5100 #### [facility] [address] [place], [address] Magnesiumon 03-19-2024 Magnesium [Mass/Vol] 1.5 mg/dL Low 1.6-2.6 [facility] Comment on above: Order Comment: FLOW CYTOMETRY LC#[id number] Performed By: #### L 100.0100, L501.2300, L500.4050, L506.0250, L101.9900, L503.0105, L501.5200, L400.0001 ####[facility] [address] [place], [address] Oncology Visit Reporton Oncology Visit Report [facility] [address] [place] [address] OFFICE VISIT Date of Service: 03/19/24922 MR#: [id number] Acct: [id number] Name: ADENIKE KRUSE Rep #: [id number] : 1950 From: Xavier Palacios MD Age/Sex: 73/M Location: [facility] [place] Status: Signed HPI Subjective Date of Service 03/19/24 Chief Complaint Referred for increased WBC. History of Present Illness 73y.o.yr was found to have Leukocytosis since March 2022 and referred for evaluation. He had Knee surgery in 2020. Denies weight loss, fever or night sweats. [facility] Medical History (Updated 03/19/24 @ 09:[address] Xavier Palacios MD) Basal cell carcinoma DM II (diabetes mellitus, type II), controlled GERD (gastroesophageal reflux disease) History of alcohol abuse HTN (hypertension) Hyperlipidemia Irritable bowel syndrome (IBS) Surgical History (Updated 03/19/24 @ 09:28 by Naty Hernandez LPN) Cataract History of back surgery History of carpal tunnel surgery History of knee surgery Hx of tonsillectomy Family History Father Cancer melanoma Aunt Heart disease Other Alcoholism Social History (Updated 03/19/24 @ 09:29 by Naty Hernandez LPN) household members: spouse housing: house Smoking Status: Former smoker smoking status stop date: 11/12/87 alcohol intake: former details: Former alcoholic substance use type: does not use ROS Constitutional Constitutional: Reports systems reviewed and no addt'l complaints, except as documented Eyes Eyes: Reports systems reviewed and no addt'l complaints, except as documented ENT HEENT: Reports systems reviewed and no addt'l complaints, except as documented Cardiovascular Cardiovascular: Reports systems reviewed and no addt'l complaints, except as documented Respiratory/Chest Respiratory/Chest: Reports systems reviewed and no addt'l complaints, except as documented Gastrointestinal Gastrointestinal: Reports systems reviewed and no addt'l complaints, except as documented Genitourinary Genitourinary: Reports systems reviewed and no addt'l complaints, except as documented Musculoskeletal Musculoskeletal: Reports systems reviewed and no addt'l complaints, except as documented Integumentary Integumentary: Reports systems reviewed and no addt'l complaints, except as documented Neurologic Neurologic: Reports systems reviewed and no addt'l complaints, except as documented Psychiatric Psychiatric: Reports systems reviewed and no addt'l complaints, except as documented Endocrine Endocrinology: Reports systems reviewed and no addt'l complaints, except as documented Hematologic/Lymphatic Hematologic/Lymphatic: Reports systems reviewed and no addt'l complaints, except as documented Allergic/Immunologic Allergic/Immunologic: Reports systems reviewed and no addt'l complaints, except as documented Intake Vital Signs 02/06/24 17:05 03/19/24 09:29 03/19/24 09:30 03/19/24 09:32 Height 6 ft 1.5 in 6 ft 1.5 in 6 ft 1.5 in 6 ft 1.5 in Weight: 97.778 kg 97.778 kg BMI 28.0 28.0 BP 151/92 H Blood Pressure Location Rt brachial Position Sitting Respiration 18 Pulse 79 Pulse Source Monitor Temp 98.2 F Temperature Source Temporal Artery Pulse Oximetry (%) 97 Oxygen Delivery Method room air Intake Is patient in pain?: Yes (joint pain) Pain scale (1-10): 2 Allergies adhesive Adverse Reaction (Verified 03/19/24 09:24) Rash propoxyphene [From Darvon] Adverse Reaction (Verified 03/19/24 09:24) Vomiting Medications candesartan 8 mg tablet 8 mg PO DAILY BP #90 tabs 06/02/19 [History Confirmed 03/19/24] celecoxib 200 mg capsule 200 mg PO BID Pain #180 caps 06/02/19 [History Confirmed 03/19/24] glimepiride 4 mg tablet 4 mg PO BID Blood sugar #90 tabs 06/02/19 [History Confirmed 03/19/24] metformin 500 mg tablet 500 mg PO DAILY Blood sugar #270 tabs 06/02/19 [History Confirmed 03/19/24] aspirin 81 mg chewable tablet 81 mg PO DAILY Blood thinner 04/27/20 [History Confirmed 03/19/24] metformin 1,000 mg tablet 1,000 mg PO QHS Blood sugar 04/27/20 [History Confirmed 03/19/24] atorvastatin 20 mg tablet 20 mg PO QHS 05/10/20 [Rx Confirmed 03/19/24] omeprazole 20 mg capsule,delayed release 20 mg PO DAILY 03/19/24 [History Confirmed 03/19/24] tadalafil 20 mg tablet (Cialis) 60 mg PO DAILY PRN 03/19/24 [History Confirmed 03/19/24] Central Venous Access Central Venous Access: No Exam Physical Exam Const alert, oriented x3 and no apparent distress HEENT normocephalic, external ears normal and external nose normal Eyes conjunctivae normal and no scleral icterus Neck supple Lymph Lymphatic: no lymphadenopathy noted Chest inspection of chest normal Resp normal respiratory effort and clear to auscultation bilaterally (more content not included)... Normal [facility] Phosphoruson 03-19-2024 Phosphate [Mass/Vol] 2.6 mg/dL Normal 2.5-4.9 [facility] Comment on above: Order Comment: FLOW CYTOMETRY LC#[id number] Performed By: #### L 100.0100, L501.2300, L500.4050, L506.0250, L101.9900, L503.0105, L501.5200, L400.0001 ####[facility] [address] [place], [place], [id number] Stool Occult Blood iFOBon STOB Positive Normal [facility] Comment on above: Performed By: #### L 501.0900, L500.4100, L500.2500, L500.3400, L100.0100 #### [facility] Laboratory [address] [place], [place], [address] Urinalysis, Completeon 03-19 BACTERIA 2+ /hpf Normal None Seen [facility] Comment on above: Order Comment: FLOW CYTOMETRY LC#[id number] TO SPECIFY Performed By: #### L 100.0100, L501.2300, L500.4050, L506.0250, L101.9900, L503.0105, L501.5200, L400.0001 ####[facility] [address] [place], [address] WBC 50-100 SEEN Normal 0-5 [facility] Comment on above: Order Comment: FLOW CYTOMETRY LC#[id number] TO SPECIFY Performed By: #### L 100.0100, L501.2300, L500.4050, L506.0250, L101.9900, L503.0105, L501.5200, L400.0001 ####[facility] [address] [place], [address] EPI,SQUAMOUS 0 SEEN Normal 0-5 [facility] Comment on above: Order Comment: FLOW CYTOMETRY LC#[id number] TO SPECIFY Performed By: #### L 100.0100, L501.2300, L500.4050, L506.0250, L101.9900, L503.0105, L501.5200, L400.0001 ####[facility] [address] [place], [address] Mucus Ql (Urine sed) 0 SEEN Normal [facility] Comment on above: Order Comment: FLOW CYTOMETRY LC#[id number] TO SPECIFY Performed By: #### L 100.0100, L501.2300, L500.4050, L506.0250, L101.9900, L503.0105, L501.5200, L400.0001 ####[facility] [address] [place], [address] RBC 0 SEEN Normal 0-5 [facility] Comment on above: Order Comment: FLOW CYTOMETRY LC#[id number] TO SPECIFY Performed By: #### L 100.0100, L501.2300, L500.4050, L506.0250, L101.9900, L503.0105, L501.5200, L400.0001 ####[facility] [address] [place], [address] Vitamin B12on 03-19-2024 Cobalamin (Vitamin B12) [Mass/Vol] 571 pg/mL Normal 211-911 [facility] Comment on above: Performed By: #### L 100.0100, L501.2300, L500.4050, L506.0250, L101.9900, L503.0105, L501.5200, L400.0001 ####[facility] [address] [place], [address] Absolute lymphocyte countOrd ered By: Rahel Anglin on 03-10-2024 Lymphocytes Auto (Unsp spec) [#/Vol] 1.46 10*3/uL 0.83-4.51 [facility] Automated lymphocyte count a s percentage of total leukocytesOrdered By: Rahel Anglin on 03-10-2024 Lymphocytes/100 WBC Auto (Unsp spec) 10.7 % 19-41 [facility] Basic Metabolic Profile (BMP )on 03-10-2024 BUN/CRE 12.8 RATIO Normal 10-20 [facility] Comment on above: Performed By: #### L 501.0900, L500.4100, L500.2500, L500.3400, L100.0100 #### [facility] [address] [place], [address] CA,Total 10.0 mg/dL Normal 8.5-10.1 [facility] Comment on above: Performed By: #### L 501.0900, L500.4100, L500.2500, L500.3400, L100.0100 #### [facility] [address] [place], [address] Chloride [Moles/Vol] 106 mmol/L Normal 98-107 [facility] Comment on above: Performed By: #### L 501.0900, L500.4100, L500.2500, L500.3400, L100.0100 #### [facility] [address] [place], [address] CO2 [Moles/Vol] 23.0 mmol/L Normal 21.0-32.0 [facility] Comment on above: Performed By: #### L 501.0900, L500.4100, L500.2500, L500.3400, L100.0100 #### [facility] [address] [place], [address] Creatinine [Mass/Vol] 1.17 mg/dL Normal 0.70-1.30 [facility] Comment on above: Result Comment: The validity of the calculated GFR GFRAA in patients over 70 years has not been determined. Clinical correlation is essential. Performed By: #### L 501.0900, L500.4100, L500.2500, L500.3400, L100.0100 #### [facility] [address] [place], [address] EST GFR - AA 78 mL/min Normal >60 [facility] Comment on above: Result Comment: Afri can Faroese GFR Calc Performed By: #### L 501.0900, L500.4100, L500.2500, L500.3400, L100.0100 #### [facility] [address] [place], [address] GAP 8 Normal 5-15 [facility] Comment on above: Performed By: #### L 501.0900, L500.4100, L500.2500, L500.3400, L100.0100 #### [facility] [address] [place], [address] GFR/1.73 sq M.predicted among non-blacks MDRD (S/P/Bld) [Vol rate/Area] 65 mL/min/{1.73_m2} Normal >60 [facility] Comment on above: Result Comment: Non- GFR Calc Performed By: #### L 501.0900, L500.4100, L500.2500, L500.3400, L100.0100 #### [facility] [address] [place], [address] Glucose [Mass/Vol] 130 mg/dL High 74-106 [facility] Comment on above: Result Comment: Fast ing Glucose result greater than or equal to 126 mg/dL suggests DIABETES MELLITUS per A.D.A. criteria. Performed By: #### L 501.0900, L500.4100, L500.2500, L500.3400, L100.0100 #### [facility] [address] [place], [address] Potassium [Moles/Vol] 4.3 mmol/L Normal 3.5-5.1 [facility] Comment on above: Performed By: #### L 501.0900, L500.4100, L500.2500, L500.3400, L100.0100 #### [facility] [address] [place], [address] Sodium [Moles/Vol] 137 mmol/L Normal 136-145 [facility] Comment on above: Performed By: #### L 501.0900, L500.4100, L500.2500, L500.3400, L100.0100 #### [facility] [address] [place], [address] Urea nitrogen [Mass/Vol] 15 mg/dL Normal 7-18 [facility] Comment on above: Performed By: #### L 501.0900, L500.4100, L500.2500, L500.3400, L100.0100 #### [facility] [address] [place], [address] Basophil percentageOrdered B y: Rahel Anglin on 03-10-2024 Basophils/100 WBC (Bld) 0.4 % 0-1 [facility] Bilirubin [Mass/Vol] 0.40 mg/dL 0.20-1.00 [facility] Comment on above: For patients on eltr ombopag therapy, use of Dimension Aurora TBIL is not recommended. Chloride [Moles/Vol] 106 mmol/L 98-107 [facility] Cholesterol [Mass/Vol] 145 mg/dL <200 [facility] Comment on above: <200 mg/dL Desirable 200-240 mg/dL Borderline >240 mg/dL High Risk Eosinophils/100 WBC (Bld) 0.8 % 0-5 [facility] Glucose [Mass/Vol] 130 mg/dL 74-106 [facility] Comment on above: Fasting Glucose resu lt greater than or equal to 126 mg/dL suggests DIABETES MELLITUS per A.D.A. criteria. Hemoglobin (Bld) [Mass/Vol] 15.4 g/dL 13.0-16.5 [facility] Monocytes/100 WBC (Bld) 6.6 % 0-10 [facility] Neutrophils (Bld) [#/Vol] 11.0 10*3/uL 2.0-7.7 [facility] Neutrophils/100 WBC (Bld) 81.1 % 47-70 [facility] Potassium [Moles/Vol] 4.3 mmol/L 3.5-5.1 [facility] Protein [Mass/Vol] 7.7 g/dL 6.4-8.2 [facility] Sodium [Moles/Vol] 137 mmol/L 136-145 [facility] Triglyceride [Mass/Vol] 92 mg/dL <199 [facility] Comment on above: The drugs N-Acetylcy steine and Metamizole may falsely depress this assay.Serum Triglycerides Reference Interval Normal <150 mg/dL Borderline high 150 - 199 mg/dL High 200 - 499 mg/dL Very High > or = 500 mg/dL WBC (Bld) [#/Vol] 13.6 10*3/uL 4.4-11.0 [facility] CBC W/Diff, Automatedon 04-2 Absolute Lymph 1.46 X10 3/uL Normal 0.83-4.51 [facility] Comment on above: Performed By: #### L 501.0900, L500.4100, L500.2500, L500.3400, L100.0100 #### [facility] [address] [place], [place], [address] Absolute Neut 11.0 X10 3/uL High 2.0-7.7 [facility] Comment on above: Performed By: #### L 501.0900, L500.4100, L500.2500, L500.3400, L100.0100 #### [facility] [address] [place], [address] Basophils/100 WBC (Bld) 0.4 % Normal 0-1 [facility] Comment on above: Performed By: #### L 501.0900, L500.4100, L500.2500, L500.3400, L100.0100 #### [facility] [address] [place], [address] Eosinophils/100 WBC (Bld) 0.8 % Normal 0-5 [facility] Comment on above: Performed By: #### L 501.0900, L500.4100, L500.2500, L500.3400, L100.0100 #### [facility] [address] [place], [address] Erythrocyte distribution width (RBC) [Ratio] 12.5 % Normal 11.6-14.6 [facility] Comment on above: Performed By: #### L 501.0900, L500.4100, L500.2500, L500.3400, L100.0100 #### [facility] [address] [place], [address] Hematocrit (Bld) [Volume fraction] 47.3 % Normal 40-54 [facility] Comment on above: Performed By: #### L 501.0900, L500.4100, L500.2500, L500.3400, L100.0100 #### [facility] [address] [place], [address] Hemoglobin (Bld) [Mass/Vol] 15.4 g/dL Normal 13.0-16.5 [facility] Comment on above: Performed By: #### L 501.0900, L500.4100, L500.2500, L500.3400, L100.0100 #### [facility] [address] [place], [address] IG% 0.400 Normal 0.0-0.9 [facility] Comment on above: Result Comment: IG% - Immature Granulocytes (promyelocytes, myelocytes and metamyelocytes) > 1% indicates that a LEFT SHIFT is Present. Performed By: #### L 501.0900, L500.4100, L500.2500, L500.3400, L100.0100 #### [facility] [address] [place] [place], [address] Lymphocytes/100 WBC (Bld) 10.7 % Low 19-41 [facility] Comment on above: Performed By: #### L 501.0900, L500.4100, L500.2500, L500.3400, L100.0100 #### [facility] [address] [place] [place], [address] MCH (RBC) [Entitic mass] 30.3 pg Normal 27.0-32.0 [facility] Comment on above: Performed By: #### L 501.0900, L500.4100, L500.2500, L500.3400, L100.0100 #### [facility] [address] [place] [place], [address] MCHC (RBC) [Mass/Vol] 32.6 g/dL Normal 32-36 [facility] Comment on above: Performed By: #### L 501.0900, L500.4100, L500.2500, L500.3400, L100.0100 #### [facility] [address] [place], [address] MCV (RBC) [Entitic vol] 93.1 fL Normal 80-94 [facility] Comment on above: Performed By: #### L 501.0900, L500.4100, L500.2500, L500.3400, L100.0100 #### [facility] [address] [place], [address] Monocytes/100 WBC (Bld) 6.6 % Normal 0-10 [facility] Comment on above: Performed By: #### L 501.0900, L500.4100, L500.2500, L500.3400, L100.0100 #### [facility] [address] [place], [address] Neutrophils/100 WBC (Bld) 81.1 % High 47-70 [facility] Comment on above: Performed By: #### L 501.0900, L500.4100, L500.2500, L500.3400, L100.0100 #### [facility] [address] [place], [address] Nucleated RBC (Bld) [#/Vol] 0 10*3/uL Normal 0-5 [facility] Comment on above: Performed By: #### L 501.0900, L500.4100, L500.2500, L500.3400, L100.0100 #### [facility] [address] [place], [address] Platelet mean volume (Bld) [Entitic vol] 9.8 fL Normal 6.2-12.0 [facility] Comment on above: Performed By: #### L 501.0900, L500.4100, L500.2500, L500.3400, L100.0100 #### [facility] [address] [place], [address] Platelets (Bld) [#/Vol] 332 10*3/uL Normal 150-450 [facility] Comment on above: Performed By: #### L 501.0900, L500.4100, L500.2500, L500.3400, L100.0100 #### [facility] [address] [place], [address] RBC (Bld) [#/Vol] 5.08 10*6/uL Normal 4.6-6.2 [facility] Comment on above: Performed By: #### L 501.0900, L500.4100, L500.2500, L500.3400, L100.0100 #### [facility] [address] [place], [address] RDW SD 42.9 fl Normal 35.1-43.9 [facility] Comment on above: Performed By: #### L 501.0900, L500.4100, L500.2500, L500.3400, L100.0100 #### [facility] [address] [place], [address] WBC (Bld) [#/Vol] 13.6 10*3/uL High 4.4-11.0 [facility] Comment on above: Performed By: #### L 501.0900, L500.4100, L500.2500, L500.3400, L100.0100 #### [facility] [address] [place], [address] Determination of erythrocyte mean corpuscular volume (MCV)Ordered By: Rahel Anglin on 03-10-2024 MCV (RBC) [Entitic vol] 93.1 fL 80-94 [facility] Direct bilirubinOrdered By: Rahel Anglin on 03-10-2024 Bilirubin.direct [Mass/Vol] 0.10 mg/dL 0.00-0.30 [facility] Erythrocyte distribution wid th ratioOrdered By: Rahel Anglin on 03-10-2024 Erythrocyte distribution width (RBC) [Ratio] 12.5 % 11.6-14.6 [facility] Erythrocyte distribution wid th standard deviationOrdered By: Rahel Anglin on 03-10-2024 Erythrocyte distribution width (RBC) [Entitic vol] 42.9 fL 35.1-43.9 [facility] Hematocrit Auto (Bld) [Volum e fraction]Ordered By: Rahel Anglin on 03-10-2024 Hematocrit (Bld) [Volume fraction] 47.3 % 40-54 [facility] Immature granulocytes/100 WB C Auto (Bld)Ordered By: Rahel Anglin on 03-10-2024 Immature granulocytes/100 WBC (Bld) 0.400 % 0.0-0.9 [facility] Comment on above: IG% - Immature Granu locytes (promyelocytes, myelocytes and metamyelocytes) > 1% indicates that a LEFT SHIFT is Present. Laboratory - Chemistry and C hemistry - challengeOrdered By: Rahel Anglin on 03-10-2024 ALP [Catalytic activity/Vol] 81 U/L 45-117 [facility] ALT [Catalytic activity/Vol] 27 U/L 16-61 [facility] Cholesterol in HDL [Mass/Vol] 55 mg/dL >40 [facility] Comment on above: The drugs N-Acetylcy steine and Metamizole may falsely depress this assay. Reference Range HDL <40 mg/dL Low HDL Cholesterol HDL >or= 60 mg/dL High HDL Cholesterol Cholesterol in LDL [Mass/Vol] 72 mg/dL 0-130 [facility] CO2 [Moles/Vol] 23.0 mmol/L 21.0-32.0 [facility] Globulin (S) [Mass/Vol] 3.6 g/dL 2.2-4.2 [facility] Urea nitrogen/Creatinine [Mass ratio] 12.8 mg/mg 10-20 [facility] - Hematology and Cell countsOrdered By: Rahel Anglin on 03-10-2024 MCH (RBC) [Entitic mass] 30.3 pg 27.0-32.0 [facility] MCHC (RBC) [Mass/Vol] 32.6 g/dL 32-36 [facility] Nucleated RBC/100 WBC (Bld) [Ratio] 0 % 0-5 [facility] Platelet mean volume (Bld) [Entitic vol] 9.8 fL 6.2-12.0 [facility] Platelets (Bld) [#/Vol] 332 10*3/uL 150-450 [facility] Lipid Profileon 03-10-2024 Cholesterol [Mass/Vol] 145 mg/dL Normal 200 [facility] Comment on above: Result Comment: <200 mg/dL Desirable 200-240 mg/dL Borderline >240 mg/dL High Risk Performed By: #### L 501.0900, L500.4100, L500.2500, L500.3400, L100.0100 #### [facility] [address] [place], [address] Cholesterol in HDL [Mass/Vol] 55 mg/dL Normal [facility] Comment on above: Result Comment: The drugs N-Acetylcysteine and Metamizole may falsely depress this assay. Reference Range HDL <40 mg/dL Low HDL Cholesterol HDL >or= 60 mg/dL High HDL Cholesterol Performed By: #### L 501.0900, L500.4100, L500.2500, L500.3400, L100.0100 #### [facility] [address] [place], [address] Cholesterol in LDL [Mass/Vol] 72 mg/dL Normal 0-130 [facility] Comment on above: Performed By: #### L 501.0900, L500.4100, L500.2500, L500.3400, L100.0100 #### [facility] [address] [place], [address] Cholesterol in VLDL [Mass/Vol] 18 mg/dL Normal 5-40 [facility] Comment on above: Performed By: #### L 501.0900, L500.4100, L500.2500, L500.3400, L100.0100 #### [facility] [address] [place], [address] Triglyceride [Mass/Vol] 92 mg/dL Normal [facility] Comment on above: Result Comment: The drugs N-Acetylcysteine and Metamizole may falsely depress this assay. Serum Triglycerides Reference Interval Normal <150 mg/dL Borderline high 150 - 199 mg/dL High 200 - 499 mg/dL Very High > or = 500 mg/dL Performed By: #### L 501.0900, L500.4100, L500.2500, L500.3400, L100.0100 #### [facility] [address] [place], [address] Liver Profileon 04-29-2024 Albumin [Mass/Vol] 4.1 g/dL Normal 3.2-5.0 [facility] Comment on above: Performed By: #### L 501.0900, L500.4100, L500.2500, L500.3400, L100.0100 #### [facility] [address] [place], [address] ALK P 81 U/L Normal 45-117 [facility] Comment on above: Performed By: #### L 501.0900, L500.4100, L500.2500, L500.3400, L100.0100 #### [facility] [address] [place], [address] ALT [Catalytic activity/Vol] 27 U/L Normal 16-61 [facility] Comment on above: Performed By: #### L 501.0900, L500.4100, L500.2500, L500.3400, L100.0100 #### [facility] [address] [place], [address] AST [Catalytic activity/Vol] 18 U/L Normal 15-37 [facility] Comment on above: Performed By: #### L 501.0900, L500.4100, L500.2500, L500.3400, L100.0100 #### [facility] [address] [place], [address] Bilirubin [Mass/Vol] 0.40 mg/dL Normal 0.20-1.00 [facility] Comment on above: Result Comment: For patients on eltrombopag therapy, use of Dimension Aurora TBIL is not recommended. Performed By: #### L 501.0900, L500.4100, L500.2500, L500.3400, L100.0100 #### [facility] [address] [place], [address] Bilirubin.direct [Mass/Vol] 0.10 mg/dL Normal 0.00-0.30 [facility] Comment on above: Performed By: #### L 501.0900, L500.4100, L500.2500, L500.3400, L100.0100 #### [facility] [address] [place], [address] Globulin (S) [Mass/Vol] 3.6 g/dL Normal 2.2-4.2 [facility] Comment on above: Performed By: #### L 501.0900, L500.4100, L500.2500, L500.3400, L100.0100 #### [facility] [address] [place], [address] T PROT 7.7 g/dL Normal 6.4-8.2 [facility] Comment on above: Performed By: #### L 501.0900, L500.4100, L500.2500, L500.3400, L100.0100 #### [facility] [address] [place], [address] No Panel InformationOrdered By: Rahel Anglin on 03-10-2024 Estimated GFR (MDRD) Amer 78 mL/min >60 [facility] Comment on above: GFR Calc Estimated GFR (MDRD) Non-Af Amer 65 mL/min >60 [facility] Comment on above: Non- GFR Calc VLDL Cholesterol 18 mg/dL 5-40 [facility] Protein+Creatinine Ratio,Uri neon 03-10-2024 PROT:CRE RATIO 291 mg/g CRE High 0-200 [facility] Comment on above: Performed By: #### L 501.0900, L500.4100, L500.2500, L500.3400, L100.0100 #### [facility] [address] [place] [place], [address] Protein (U) [Mass/Vol] 45.1 mg/dL High <11.9 [facility] Comment on above: Performed By: #### L 501.0900, L500.4100, L500.2500, L500.3400, L100.0100 #### [facility] [address] [place], [address] UR CREAT 155.00 mg/dL Normal NO RANGE EST. [facility] Comment on above: Performed By: #### L 501.0900, L500.4100, L500.2500, L500.3400, L100.0100 #### [facility] [address] [place], [address] RBC Auto (Bld) [#/Vol]Ordere d By: Rahel Anglin on 03-10-2024 RBC (Bld) [#/Vol] 5.08 10*6/uL 4.6-6.2 [facility] Serum or plasma calcium veronica urement (mass/volume)Ordered By: Rahel Anglin on 03-10-2024 Calcium [Mass/Vol] 10.0 mg/dL 8.5-10.1 [facility] Serum or plasma creatinine m easurement (mass/volume)Ordered By: Rahel Anglin on 03-10-2024 Creatinine [Mass/Vol] 1.17 mg/dL 0.70-1.30 [facility] Comment on above: The validity of the calculated GFR & GFRAA in patients over 70 years has not been determined. Clinical correlation is essential. Serum or plasma urea nitroge n measurement (mass/volume)Ordered By: Rahel Anglin on 03-10-2024 Urea nitrogen [Mass/Vol] 15 mg/dL 7-18 [facility] Thin prep Papanicolaou smear with manual screeningOrdered By: Rahel Anglin on 03-10-2024 Protein (U) [Mass/Vol] 45.1 mg/dL 0.0-11.8 [facility] Thin prep Papanicolaou smear with manual screening 4.1 g/dL 3.2-5.0 [facility] Thin prep Papanicolaou smear with manual screening 18 U/L 15-37 [facility] Thin prep Papanicolaou smear with manual screening 8 5-15 [facility] Urine creatinine measurement (mass/volume)Ordered By: Rahel Anglin on 03-10-2024 Creatinine (U) [Mass/Vol] 155.00 mg/dL NO RANGE EST. [facility] Urine protein/creatinine mas s ratioOrdered By: Rahel Anglin on 03-10-2024 Protein/Creatinine (U) [Mass ratio] 291 mg/g CRE 0-200 [facility] CBC W/Diff, Automatedon 01-11 PATH REV Reviewed Normal [facility] Comment on above: Result Comment: Neut rophilic leukocytosis. Macrocytosis Clinical correlation necessary. Cristhian Mujica M.D. 02/07/24 AMENDED REPORT 02/07/24 1432 PATH REV previously reported as: March michael Performed By: #### L 500.3400, L100.0100, L500.2500, L501.2450 #### [facility] [address] [facility], [address] 12 Lead EKGon 02-06-2024 12 Lead EKG [facility] Services [address] [place] [address] 12 Lead EKG 02/06/24 1728 MR#: [id number] Acct: [id number] Name: ADENIKE KRUSE Rep #: [id number] : [id number] 73 From: Micky Law MD Attending Dr: Status: DEP ER Ordering Dr: Zonia Castillo MD Date: 02/06/24 Location: ED Sex: M C Admitted: Test Reason : GENERAL Blood Pressure : / mmHG Vent. Rate : 105 BPM Atrial Rate : 105 BPM P-R Int : 184 ms QRS Dur : 094 ms QT Int : 328 ms P-R-T Axes : 026 001 014 degrees QTc Int : 433 ms Sinus tachycardia Inferior infarct , age undetermined Abnormal ECG Confirmed by MICKY LAW MD ([id number]), associate entertainment editor JACQUELINE KEYS ([id number]) on 02/07/2024 9:17:12 AM Referred By: Confirmed By:MICKY LAW MD 02/07/24 0917 Date Micky Law MD CC: Dr. Rahel Anglin MD; Dr. Zonia Castillo MD Signed Normal [facility] Absolute lymphocyte countOrd ered By: Zonia Castillo on 02-06-2024 Lymphocytes Auto (Unsp spec) [#/Vol] 0.65 10*3/uL 0.83-4.51 [facility] Automated lymphocyte count a s percentage of total leukocytesOrdered By: Zonia Castillo on 02-06-2024 Lymphocytes/100 WBC Auto (Unsp spec) 2.7 % 19-41 [facility] Basic Metabolic Profile (BMP )on 02-06-2024 BUN/CRE 17.6 RATIO Normal 10-20 [facility] Comment on above: Performed By: #### L 500.3400, L100.0100, L500.2500, L501.2450 ####[facility] [address] [place], [address] CA,Total 9.4 mg/dL Normal 8.5-10.1 [facility] Comment on above: Performed By: #### L 500.3400, L100.0100, L500.2500, L501.2450 ####[facility] [address] [place], [address] Chloride [Moles/Vol] 107 mmol/L Normal 98-107 [facility] Comment on above: Performed By: #### L 500.3400, L100.0100, L500.2500, L501.2450 ####[facility] [address] [place], [address] CO2 [Moles/Vol] 21.0 mmol/L Normal 21.0-32.0 [facility] Comment on above: Performed By: #### L 500.3400, L100.0100, L500.2500, L501.2450 ####[facility] [address] [place], [address] Creatinine [Mass/Vol] 1.19 mg/dL Normal 0.70-1.30 [facility] Comment on above: Result Comment: The validity of the calculated GFR GFRAA in patients over 70 years has not been determined. Clinical correlation is essential. Performed By: #### L 500.3400, L100.0100, L500.2500, L501.2450 ####[facility] [address] [place], [address] ECRCL 67.93 ml/min Normal [facility] Comment on above: Performed By: #### L 500.3400, L100.0100, L500.2500, L501.2450 ####[facility] [address] [place], [address] EST GFR - AA 77 mL/min Normal >60 [facility] Comment on above: Result Comment: Afri can Faroese GFR Calc Performed By: #### L 500.3400, L100.0100, L500.2500, L501.2450 ####[facility] [address] [place], [address] GAP 7 Normal 5-15 [facility] Comment on above: Performed By: #### L 500.3400, L100.0100, L500.2500, L501.2450 ####[facility] [address] [place], [address] GFR/1.73 sq M.predicted among non-blacks MDRD (S/P/Bld) [Vol rate/Area] 63 mL/min/{1.73_m2} Normal >60 [facility] Comment on above: Result Comment: Non- GFR Calc Performed By: #### L 500.3400, L100.0100, L500.2500, L501.2450 ####[facility] [address] [place], [address] Glucose [Mass/Vol] 249 mg/dL High 74-106 [facility] Comment on above: Result Comment: Gluc ose result greater than or equal to 200 mg/dL suggests DIABETES MELLITUS per A.D.A. criteria. Performed By: #### L 500.3400, L100.0100, L500.2500, L501.2450 ####[facility] [address] [place], [address] Potassium [Moles/Vol] 3.9 mmol/L Normal 3.5-5.1 [facility] Comment on above: Performed By: #### L 500.3400, L100.0100, L500.2500, L501.2450 ####[facility] [address] [place], [address] Sodium [Moles/Vol] 135 mmol/L Low 136-145 [facility] Comment on above: Performed By: #### L 500.3400, L100.0100, L500.2500, L501.2450 ####[facility] [address] [place], [address] Urea nitrogen [Mass/Vol] 21 mg/dL High 7-18 [facility] Comment on above: Performed By: #### L 500.3400, L100.0100, L500.2500, L501.2450 ####[facility] [address] [place], [address] Basophil percentageOrdered B y: Zonia Castillo on 02-06-2024 Basophils/100 WBC (Bld) 0.5 % 0-1 [facility] Bilirubin [Mass/Vol] 0.40 mg/dL 0.20-1.00 [facility] Comment on above: For patients on eltr ombopag therapy, use of Dimension Aurora TBIL is not recommended. Chloride [Moles/Vol] 107 mmol/L 98-107 [facility] Eosinophils/100 WBC (Bld) 0.3 % 0-5 [facility] Glucose [Mass/Vol] 249 mg/dL 74-106 [facility] Comment on above: Glucose result great er than or equal to 200 mg/dLsuggests DIABETES MELLITUS per A.D.A. criteria. Hemoglobin (Bld) [Mass/Vol] 14.6 g/dL 13.0-16.5 [facility] Monocytes/100 WBC (Bld) 7.1 % 0-10 [facility] Neutrophils (Bld) [#/Vol] 21.4 10*3/uL 2.0-7.7 [facility] Neutrophils/100 WBC (Bld) 88.7 % 47-70 [facility] Potassium [Moles/Vol] 3.9 mmol/L 3.5-5.1 [facility] Protein [Mass/Vol] 7.4 g/dL 6.4-8.2 [facility] Sodium [Moles/Vol] 135 mmol/L 136-145 [facility] WBC (Bld) [#/Vol] 24.1 10*3/uL 4.4-11.0 [facility] Blood manual differential co mment interpretation (narrative result)Ordered By: Zonia Castillo on 02-06-2024 Manual differential comment Bhanu (Bld) [Interp] SCANNED [facility] Comment on above: NEUTROPHILIA NOTEDMO NOCYTOSIS NOTED Determination of erythrocyte mean corpuscular volume (MCV)Ordered By: Zonia Castillo on 02-06-2024 MCV (RBC) [Entitic vol] 95.4 fL 80-94 [facility] Direct bilirubinOrdered By: Zonia Castillo on 02-06-2024 Bilirubin.direct [Mass/Vol] 0.13 mg/dL 0.00-0.30 [facility] Emergency Department Summary on 02-06-2024 Emergency Department Summary [facility] Medical Records Department [address] [place] [address] Emergency Department Summary 02/06/24 MR#: [id number] Acct: [id number] Name: ADENIKE KRUSE Rep #: [id number] : 1950 73 From: Zonia Castillo MD PCP: Dr. Rahel Anglin MD Status:DEP ER Location: ED HPI History of Present Illness Chief Complaint: Nausea/Vomiting/Diarrh ea Detail of Chief Complaint: Gastroenteritis and syncope Informant: patient Onset/Context/Timing Onset: Today Narrative Narrative: Patient presents secondary to nausea, vomiting, diarrhea for the past 90 minutes. EMS reports he had a brief syncopal episode while sitting in his chair and vomiting. Patient complains of mild epigastric pain. No fever or chills. He has not noted any blood in his vomitus. He reportedly was given Zofran with EMS and he states his nausea is improved. [facility] Medical History Basal cell carcinoma DM II (diabetes mellitus, type II), controlled GERD (gastroesophageal reflux disease) History of alcohol abuse HTN (hypertension) Hyperlipidemia Irritable bowel syndrome (IBS) Home Medications candesartan 8 mg tablet 8 mg PO DAILY BP #90 tabs 06/02/19 [History Last Taken Unknown] celecoxib 200 mg capsule 200 mg PO BID Pain #180 caps 06/02/19 [History Last Taken Unknown] glimepiride 4 mg tablet 4 mg PO BID Blood sugar #90 tabs 06/02/19 [History Last Taken Unknown] metformin 500 mg tablet 500 mg PO DAILY Blood sugar #270 tabs 06/02/19 [History Last Taken Unknown] aspirin 81 mg chewable tablet 81 mg PO DAILY Blood thinner 04/27/20 [History Last Taken Unknown] esomeprazole magnesium 20 mg capsule,delayed release 20 mg PO DAILY Stomach acid 04/27/20 [History Last Taken Unknown] melatonin 3 mg tablet 3 mg PO QHS Sleep 04/27/20 [History Last Taken Unknown] metformin 1,000 mg tablet 1,000 mg PO QHS Blood sugar 04/27/20 [History Last Taken Unknown] ascorbic acid (vitamin C) 500 mg tablet 1,000 mg (2 x 500 mg) PO BIDCM 05/10/20 [Rx Last Taken Unknown] atorvastatin 20 mg tablet 20 mg PO QHS 05/10/20 [Rx Last Taken Unknown] dicyclomine 20 mg tablet 20 mg PO TID #14 tabs 03/17/23 [Rx Last Taken Unknown] ondansetron 4 mg disintegrating tablet 4 mg PO Q8H PRN PRN Nausea #10 tabs 03/17/23 [Rx Last Taken Unknown] ondansetron 4 mg disintegrating tablet 4 mg PO Q8H PRN PRN Nausea #10 tabs 02/06/24 [Rx Last Taken Unknown] Allergy/AdvReac Type Severity Reaction Status Date / Time adhesive AdvReac Rash Verified 03/17/23 16:18 propoxyphene [From Darvon] AdvReac Vomiting Verified 03/17/23 16:18 Family History Other Alcoholism Surgical History History of back surgery History of carpal tunnel surgery History of knee surgery Hx of tonsillectomy Social History Smoking Status: Former smoker alcohol intake: former details: Former alcoholic ROS ROS ED Constitutional Constitutional ED: Denies chills or fever(s) Eyes Eyes: Denies discharge from eye(s) ENT ENT ED: Denies discharge from eye(s), rhinorrhea or sore throat Cardiovascular Cardiovascular: Denies chest pain Respiratory/Chest Respiratory/Chest: Denies cough or dyspnea Gastrointestinal Gastrointestinal: Reports abdominal pain, diarrhea, nausea and vomiting Genitourinary Genitourinary ED: Denies dysuria Musculoskeletal Musculoskeletal: Denies back pain or extremity pain Integumentary Denies Abrasions or rash Neurologic Neurologic: Denies headache(s) or weakness Allergic/Immunologic Allergic/Immunologic ED: Denies lip swelling or urticaria EXAM Physical Exam Const Vital Signs: 02/06/24 17:05 02/06/24 19:04 Temperature 97.9 F Temperature Source Oral Pulse Rate 104 H 110 H Respiratory Rate 16 16 Blood Pressure 137/79 H 144/81 H Blood Pressure Mean 98 102 Pulse Ox 98 97 Oxygen Delivery Method Room Air Room Air Positive well nourished and well developed General Appearance ED: well developed HEENT Reports moist mucous membranes Eyes EOMs intact bilaterally Chest Wall inspection of chest normal and palpation of chest normal Resp normal respiratory effort and clear to auscultation bilaterally Cardio regular rate and regular rhythm GI GI Narrative: Abdomen soft with mild tenderness in the epigastrium. No guarding or rebound. Hypoactive bowel sounds. Extremity normal to inspection Neuro oriented x3 and no sensory deficits noted Motor Exam: strength 5/5 throughout Psych mental status grossly normal Skin no rashes or lesions noted MDM MDM MDM Narrative Medical decision making narrative: Patient placed on emg technician. IV flu (more content not included)... Normal [facility] Erythrocyte distribution wid th ratioOrdered By: Zonia Castillo on 02-06-2024 Erythrocyte distribution width (RBC) [Ratio] 12.7 % 11.6-14.6 [facility] Erythrocyte distribution wid th standard deviationOrdered By: Zonia Castillo on 02-06-2024 Erythrocyte distribution width (RBC) [Entitic vol] 44.1 fL 35.1-43.9 [facility] Hematocrit Auto (Bld) [Volum e fraction]Ordered By: Zonia Castillo on 02-06-2024 Hematocrit (Bld) [Volume fraction] 46.0 % 40-54 [facility] Immature granulocytes/100 WB C Auto (Bld)Ordered By: Zoniazoraida Castillo on 02-06-2024 Immature granulocytes/100 WBC (Bld) 0.700 % 0.0-0.9 [facility] Comment on above: IG% - Immature Granu locytes (promyelocytes, myelocytes and metamyelocytes) > 1% indicates that a LEFT SHIFT is Present. Laboratory - Chemistry and C hemistry - challengeOrdered By: Zonia Castillo on 02-06-2024 ALP [Catalytic activity/Vol] 73 U/L 45-117 [facility] ALT [Catalytic activity/Vol] 25 U/L 16-61 [facility] CO2 [Moles/Vol] 21.0 mmol/L 21.0-32.0 [facility] Globulin (S) [Mass/Vol] 3.4 g/dL 2.2-4.2 [facility] Lipase [Catalytic activity/Vol] 47 U/L 13-75 [facility] Comment on above: Please note:LIPASE r evised reference range effective 23. New Lipase methodology. Expected to produce lower values than the previous assay method. NEW Reference Range: 13 - 75 U/L Urea nitrogen/Creatinine [Mass ratio] 17.6 mg/mg 10-20 [facility] Laboratory - Hematology and Cell countsOrdered By: Zonia Castillo on 02-06-2024 MCH (RBC) [Entitic mass] 30.3 pg 27.0-32.0 [facility] MCHC (RBC) [Mass/Vol] 31.7 g/dL 32-36 [facility] Nucleated RBC/100 WBC (Bld) [Ratio] 0 % 0-5 [facility] Platelet mean volume (Bld) [Entitic vol] 9.4 fL 6.2-12.0 [facility] Platelets (Bld) [#/Vol] 310 10*3/uL 150-450 [facility] Lipaseon 02-06-2024 Lipase [Catalytic activity/Vol] 47 U/L Normal 13-75 [facility] Comment on above: Result Comment: Andre bartlett note: LIPASE revised reference range effective 23. New Lipase methodology. Expected to produce lower values than the previous assay method. NEW Reference Range: 13 - 75 U/L Performed By: #### L 500.3400, L100.0100, L500.2500, L501.2450 ####[facility] [address] [place], [address] Liver Profileon 02-06-2024 Albumin [Mass/Vol] 4.0 g/dL Normal 3.2-5.0 [facility] Comment on above: Performed By: #### L 500.3400, L100.0100, L500.2500, L501.2450 ####[facility] [address] [place], [address] ALK P 73 U/L Normal 45-117 [facility] Comment on above: Performed By: #### L 500.3400, L100.0100, L500.2500, L501.2450 ####[facility] [address] [place], [address] ALT [Catalytic activity/Vol] 25 U/L Normal 16-61 [facility] Comment on above: Performed By: #### L 500.3400, L100.0100, L500.2500, L501.2450 ####[facility] [address] [place], [address] AST [Catalytic activity/Vol] 14 U/L Low 15-37 [facility] Comment on above: Performed By: #### L 500.3400, L100.0100, L500.2500, L501.2450 ####[facility] [address] [place], [address] Bilirubin [Mass/Vol] 0.40 mg/dL Normal 0.20-1.00 [facility] Comment on above: Result Comment: For patients on eltrombopag therapy, use of Dimension [place] TBIL is not recommended. Performed By: #### L 500.3400, L100.0100, L500.2500, L501.2450 ####[facility] [address] [place], [address] Bilirubin.direct [Mass/Vol] 0.13 mg/dL Normal 0.00-0.30 [facility] Comment on above: Performed By: #### L 500.3400, L100.0100, L500.2500, L501.2450 ####[facility] [address] [place], [address] Globulin (S) [Mass/Vol] 3.4 g/dL Normal 2.2-4.2 [facility] Comment on above: Performed By: #### L 500.3400, L100.0100, L500.2500, L501.2450 ####[facility] [address] [place], [address] T PROT 7.4 g/dL Normal 6.4-8.2 [facility] Comment on above: Performed By: #### L 500.3400, L100.0100, L500.2500, L501.2450 ####[facility] [address] [place], [address] No Panel InformationOrdered By: Zonia Castillo on 02-06-2024 Estimated Creatinine Clearance Calc 67.93 ml/min [facility] Estimated GFR (MDRD) Amer 77 mL/min >60 [facility] Comment on above: GFR Calc Estimated GFR (MDRD) Non-Af Amer 63 mL/min >60 [facility] Comment on above: Non- GFR Calc RBC Auto (Bld) [#/Vol]Ordere d By: Zonia Castillo on 02-06-2024 RBC (Bld) [#/Vol] 4.82 10*6/uL 4.6-6.2 [facility] Review by pathologistOrdered By: Zonia Castillo on 02-06-2024 Pathologist review Bhanu (Unsp spec) [Interp] Areli rodriguez [facility] Pathologist review Bhanu (Unsp spec) [Interp] Reviewed [facility] Comment on above: Previous reported re sult: Areli rodriguez Edited by: NAYELI on 02/07/24:1432Neutrophilic leukocytosis.MacrocytosisClinical correlation necessary.Cristhian Mujica M.D. 02/07/24 AMENDED REPORT 02/07/24 1432 PATH REV previously reported as: Areli rodriguez Serum or plasma calcium veronica urement (mass/volume)Ordered By: Zonia Castillo on 02-06-2024 Calcium [Mass/Vol] 9.4 mg/dL 8.5-10.1 [facility] Serum or plasma creatinine m easurement (mass/volume)Ordered By: Zonia Castillo on 02-06-2024 Creatinine [Mass/Vol] 1.19 mg/dL 0.70-1.30 [facility] Comment on above: The validity of the calculated GFR & GFRAA in patients over 70 years has not been determined. Clinical correlation is essential. Serum or plasma urea nitroge n measurement (mass/volume)Ordered By: Zonia Castillo on 02-06-2024 Urea nitrogen [Mass/Vol] 21 mg/dL 7-18 [facility] Thin prep Papanicolaou smear with manual screeningOrdered By: Zonia Castillo on 02-06-2024 Thin prep Papanicolaou smear with manual screening 4.0 g/dL 3.2-5.0 [facility] Thin prep Papanicolaou smear with manual screening 14 U/L 15-37 [facility] Thin prep Papanicolaou smear with manual screening 7 5-15 [facility] Absolute lymphocyte countOrd ered By: Artie Carl on 03-17-2023 Lymphocytes Auto (Unsp spec) [#/Vol] 0.82 10*3/uL 0.83-4.51 [facility] Basophil percentageOrdered B y: Artie Carl on 03-17-2023 Basophil percentage 10-25 SEEN /hpf 0-5 [facility] Basophils/100 WBC (Bld) 0.3 % 0-1 [facility] Bilirubin [Mass/Vol] 0.30 mg/dL 0.20-1.00 [facility] Comment on above: For patients on eltr ombopag therapy, use of Dimension [place] TBIL is not recommended. Chloride [Moles/Vol] 109 mmol/L 98-107 [facility] Eosinophils/100 WBC (Bld) 0.7 % 0-5 [facility] Glucose [Mass/Vol] 264 mg/dL 74-106 [facility] Comment on above: Glucose result great er than or equal to 200 mg/dLsuggests DIABETES MELLITUS per A.D.A. criteria. Neutrophils (Bld) [#/Vol] 13.4 10*3/uL 2.0-7.7 [facility] Neutrophils/100 WBC (Bld) 84.6 % 47-70 [facility] Potassium [Moles/Vol] 3.7 mmol/L 3.5-5.1 [facility] Protein [Mass/Vol] 7.2 g/dL 6.4-8.2 [facility] Sodium [Moles/Vol] 141 mmol/L 136-145 [facility] WBC (Bld) [#/Vol] 15.8 10*3/uL 4.4-11.0 [facility] Bilirubin Test strip Ql (U)O rdered By: Artie Carl on 03-17-2023 Bilirubin Ql (U) Negative Negative [facility] Blood erythrocytes count (nu mber/volume)Ordered By: Artie Carl on 03-17-2023 RBC (Bld) [#/Vol] 4.79 10*6/uL 4.6-6.2 [facility] Blood hemoglobin measurement (mass/volume)Ordered By: Artie Carl on 03-17-2023 Hemoglobin (Bld) [Mass/Vol] 15.1 g/dL 13.0-16.5 [facility] Blood lymphocytes/100 leukoc ytesOrdered By: Artie Carl on 03-17-2023 Lymphocytes/100 WBC (Bld) 5.2 % 19-41 [facility] Blood monocytes/100 leukocyt esOrdered By: Artie Carl on 03-17-2023 Monocytes/100 WBC (Bld) 8.9 % 0-10 [facility] Blood platelet mean volumeOr dered By: Artie Carl on 03-17-2023 Platelet mean volume (Bld) [Entitic vol] 9.4 fL 6.2-12.0 [facility] Determination of erythrocyte mean corpuscular volume (MCV)Ordered By: Artie Carl on 03-17-2023 MCV (RBC) [Entitic vol] 93.9 fL 80-94 [facility] Hematocrit Auto (Bld) [Volum e fraction]Ordered By: Artie Carl on 03-17-2023 Hematocrit (Bld) [Volume fraction] 45.0 % 40-54 [facility] Ketones Test strip Ql (U)Ord ered By: Artie Carl on 03-17-2023 Ketones Ql (U) 50 mg/dl Negative [facility] Laboratory - Chemistry and C hemistry - challengeOrdered By: Artie Carl on 03-17-2023 ALP [Catalytic activity/Vol] 71 U/L 45-117 [facility] ALT [Catalytic activity/Vol] 31 U/L 16-61 [facility] CO2 [Moles/Vol] 20.0 mmol/L 21.0-32.0 [facility] Globulin (S) [Mass/Vol] 3.4 g/dL 2.2-4.2 [facility] Lipase [Catalytic activity/Vol] 48 U/L 13-75 [facility] Comment on above: Please note:LIPASE r evised reference range effective 23. New Lipase methodology. Expected to produce lower values than the previous assay method. NEW Reference Range: 13 - 75 U/L Urea nitrogen/Creatinine [Mass ratio] 21.5 mg/mg 10-20 [facility] Laboratory - Hematology and Cell countsOrdered By: Artie Carl on 03-17-2023 Erythrocyte distribution width (RBC) [Entitic vol] 44.0 fL 35.1-43.9 [facility] Erythrocyte distribution width (RBC) [Ratio] 12.8 % 11.6-14.6 [facility] Immature granulocytes/100 WBC (Bld) 0.300 % 0.0-0.9 [facility] Comment on above: IG% - Immature Granu locytes (promyelocytes, myelocytes and metamyelocytes) > 1% indicates that a LEFT SHIFT is Present. MCH (RBC) [Entitic mass] 31.5 pg 27.0-32.0 [facility] Nucleated RBC/100 WBC (Bld) [Ratio] 0 % 0-5 [facility] MCHC Auto (RBC) [Mass/Vol]Or dered By: Artie Carl on 03-17-2023 MCHC (RBC) [Mass/Vol] 33.6 g/dL 32-36 [facility] Mucus LM Ql (Urine sed)Order ed By: Artie Carl on 03-17-2023 Mucus Ql (Urine sed) 0 SEEN /hpf [facility] Nitrite Test strip Ql (U)Ord ered By: Artie Carl on 03-17-2023 Nitrite Ql (U) Negative Negative [facility] No Panel InformationOrdered By: Artie Carl on 03-17-2023 Troponin I High Sensitivity 4 pg/mL 3.0-78.0 [facility] Comment on above: Please Note: New Krysta t Units and Gender Specific Reference Ranges. For more information see Policy Stat Procedure [facility] High Sensitivity Troponin (TNIH) and attachments. Estimated Creatinine Clearance Calc 60.53 ml/min [facility] Estimated GFR (MDRD) Amer 75 mL/min >60 [facility] Comment on above: GFR Calc Estimated GFR (MDRD) Non-Af Amer 62 mL/min >60 [facility] Comment on above: Non- GFR Calc Platelets bldOrdered By: Ania Carl on 03-17-2023 Platelets (Bld) [#/Vol] 293 10*3/uL 150-450 [facility] Protein Test strip Ql (U)Ord ered By: Artie Carl on 03-17-2023 Protein Ql (U) 30 mg/dl Negative [facility] Serum or plasma albumin veronica urement (mass/volume)Ordered By: Artie Carl on 03-17-2023 Albumin [Mass/Vol] 3.8 g/dL 3.2-5.0 [facility] Serum or plasma albumin/glob ulin mass ratioOrdered By: Artie Carl on 03-17-2023 Albumin/Globulin [Mass ratio] 1.1 {ratio} 0.9-2.4 [facility] Serum or plasma calcium veronica urement (mass/volume)Ordered By: Artie Carl on 03-17-2023 Calcium [Mass/Vol] 9.6 mg/dL 8.5-10.1 [facility] Serum or plasma creatinine m easurement (mass/volume)Ordered By: Artie Carl on 03-17-2023 Creatinine [Mass/Vol] 1.21 mg/dL 0.70-1.30 [facility] Comment on above: The validity of the calculated GFR & GFRAA in patients over 70 years has not been determined. Clinical correlation is essential. Serum or plasma urea nitroge n measurement (mass/volume)Ordered By: Artie Carl on 03-17-2023 Urea nitrogen [Mass/Vol] 26 mg/dL 7-18 [facility] Squamous epithelial cells de tection in urine sediment by light microscopyOrdered By: Artie Carl on 03-17-2023 Epithelial cells.squamous LM Ql (Urine sed) 0 SEEN /hpf 0-5 [facility] Thin prep Papanicolaou smear with manual screeningOrdered By: Artie Carl on 03-17-2023 Thin prep Papanicolaou smear with manual screening 17 U/L 15-37 [facility] Thin prep Papanicolaou smear with manual screening 12 5-15 [facility] Urine blood detectionOrdered By: Artie Carl on 03-17-2023 RBC Ql (U) Negative Negative [facility] RBC Ql (U) 0-5 SEEN /hpf 0-5 [facility] Urine clarityOrdered By: Ania Carl on 03-17-2023 Clarity (U) Clear Clear [facility] Urine color determinationOrd ered By: Artie Carl on 03-17-2023 Color (U) Yellow Yellow [facility] Urine glucose detectionOrder ed By: Artie Carl on 03-17-2023 Glucose Ql (U) 250 mg/dl Normal [facility] Urine leukocyte esterase det ection by dipstickOrdered By: Artie Cral on 03-17-2023 Leukocyte esterase Test strip Ql (U) 25 /ul Negative [facility] Urine pHOrdered By: Artie kevin on 03-17-2023 pH (U) 6.0 [pH] 5.0 - 8.0 [facility] Urine sediment bacteria coun t by microscopy (number/high power field)Ordered By: Artie Carl on 03-17-2023 Bacteria LM.HPF (Urine sed) [#/Area] RARE /hpf None Seen [facility] Urine specific gravity measu rementOrdered By: Artie Carl on 03-17-2023 Specific gravity (U) [Rel density] 1.015 1.002-1.030 [facility] Urobilinogen Auto test strip Ql (U)Ordered By: Artie Carl on 03-17-2023 Urobilinogen Ql (U) Normal mg/dl Normal [facility] Basophil percentageOrdered B y: Dr. Anglin on 02-14-2023 Bilirubin [Mass/Vol] 0.40 mg/dL 0.20-1.00 [facility] Comment on above: For patients on eltr ombopag therapy, use of Dimension [place] TBIL is not recommended. Chloride [Moles/Vol] 108 mmol/L 98-107 [facility] Cholesterol [Mass/Vol] 151 mg/dL <200 [facility] Comment on above: <200 mg/dL Desirable 200-240 mg/dL Borderline >240 mg/dL High Risk Glucose [Mass/Vol] 132 mg/dL 74-106 [facility] Comment on above: Fasting Glucose resu lt greater than or equal to 126 mg/dL suggests DIABETES MELLITUS per A.D.A. criteria. Potassium [Moles/Vol] 4.5 mmol/L 3.5-5.1 [facility] Comment on above: Slight Hemolysis, Re sult may be falsely increased. Protein [Mass/Vol] 7.3 g/dL 6.4-8.2 [facility] Sodium [Moles/Vol] 136 mmol/L 136-145 [facility] Triglyceride [Mass/Vol] 102 mg/dL <199 [facility] Comment on above: The drugs N-Acetylcy steine and Metamizole may falsely depress this assay.Serum Triglycerides Reference Interval Normal <150 mg/dL Borderline high 150 - 199 mg/dL High 200 - 499 mg/dL Very High > or = 500 mg/dL Direct bilirubinOrdered By: Dr. Anglin on 02-14-2023 Bilirubin.direct [Mass/Vol] 0.10 mg/dL 0.00-0.30 [facility] Laboratory - Chemistry and C hemistry - challengeOrdered By: Dr. Anglin on 02-14-2023 ALP [Catalytic activity/Vol] 65 U/L 45-117 [facility] ALT [Catalytic activity/Vol] 35 U/L 16-61 [facility] CO2 [Moles/Vol] 21.0 mmol/L 21.0-32.0 [facility] Globulin (S) [Mass/Vol] 3.3 g/dL 2.2-4.2 [facility] Urea nitrogen/Creatinine [Mass ratio] 15.3 mg/mg 10-20 [facility] No Panel InformationOrdered By: Dr. Anglin on 02-14-2023 Estimated GFR (MDRD) Amer 83 mL/min >60 [facility] Comment on above: GFR Calc Estimated GFR (MDRD) Non-Af Amer 69 mL/min >60 [facility] Comment on above: Non- GFR Calc Serum or plasma albumin veronica urement (mass/volume)Ordered By: Dr. Anglin on 02-14-2023 Albumin [Mass/Vol] 4.0 g/dL 3.2-5.0 [facility] Serum or plasma calcium veronica urement (mass/volume)Ordered By: Dr. Anglin on 02-14-2023 Calcium [Mass/Vol] 9.8 mg/dL 8.5-10.1 [facility] Serum or plasma cholesterol in HDL measurement (mass/volume)Ordered By: Dr. Anglin on 02-14-2023 Cholesterol in HDL [Mass/Vol] 51 mg/dL >40 [facility] Comment on above: The drugs N-Acetylcy steine and Metamizole may falsely depress this assay. Reference Range HDL <40 mg/dL Low HDL Cholesterol HDL >or= 60 mg/dL High HDL Cholesterol Serum or plasma cholesterol in VLDL measurement (mass/volume)Ordered By: Dr. Anglin on 02-14-2023 Cholesterol in VLDL [Mass/Vol] 20 mg/dL 5-40 [facility] Serum or plasma creatinine m easurement (mass/volume)Ordered By: Dr. Anglin on 02-14-2023 Creatinine [Mass/Vol] 1.11 mg/dL 0.70-1.30 [facility] Comment on above: The validity of the calculated GFR & GFRAA in patients over 70 years has not been determined. Clinical correlation is essential. Serum or plasma low density lipoprotein (LDL) cholesterol measurement (mass/volume)Ordered By: Dr. Anglin on 02-14-2023 Cholesterol in LDL [Mass/Vol] 80 mg/dL 0-130 [facility] Serum or plasma urea nitroge n measurement (mass/volume)Ordered By: Dr. Anglin on 02-14-2023 Urea nitrogen [Mass/Vol] 17 mg/dL 7-18 [facility] Thin prep Papanicolaou smear with manual screeningOrdered By: Dr. Anglin on 02-14-2023 Thin prep Papanicolaou smear with manual screening 21 U/L 15-37 [facility] Comment on above: Slight Hemolysis, Re sult may be falsely increased. Thin prep Papanicolaou smear with manual screening 7 5-15 [facility] Absolute lymphocyte counton 03-26-2022 Lymphocytes Auto (Unsp spec) [#/Vol] 0.37 10*3/uL 0.83-4.51 [facility] Work Phone: Basophil percentageon 2021 Basophils/100 WBC (Bld) 0.1 % 0-1 [facility] Work Phone: Chloride [Moles/Vol] 107 mmol/L 98-107 [facility] Work Phone: Eosinophils/100 WBC (Bld) 0.1 % 0-5 [facility] Work Phone: Glucose [Mass/Vol] 326 mg/dL 74-106 [facility] Work Phone: Comment on above: Glucose result great er than or equal to 200 mg/dLsuggests DIABETES MELLITUS per A.D.A. criteria. Lactate [Moles/Vol] 1.8 mmol/L 0.4-2.0 [facility] Work Phone: Neutrophils (Bld) [#/Vol] 16.8 10*3/uL 2.0-7.7 [facility] Work Phone: Neutrophils/100 WBC (Bld) 90.1 % 47-70 [facility] Work Phone: Potassium [Moles/Vol] 4.3 mmol/L 3.5-5.1 [facility] Work Phone: Sodium [Moles/Vol] 135 mmol/L 136-145 [facility] Work Phone: WBC (Bld) [#/Vol] 18.6 10*3/uL 4.4-11.0 [facility] Work Phone: Blood erythrocytes count (nu mber/volume)on 03-26-2022 RBC (Bld) [#/Vol] 4.62 10*6/uL 4.6-6.2 [facility] Work Phone: Blood hemoglobin measurement (mass/volume)on 03-26-2022 Hemoglobin (Bld) [Mass/Vol] 14.5 g/dL 13.0-16.5 [facility] Work Phone: Blood lymphocytes/100 leukoc yteson 03-26-2022 Lymphocytes/100 WBC (Bld) 2.0 % 19-41 [facility] Work Phone: Blood monocytes/100 leukocyt eson 03-26-2022 Monocytes/100 WBC (Bld) 6.5 % 0-10 [facility] Work Phone: Blood platelet mean volumeon 03-26-2022 Platelet mean volume (Bld) [Entitic vol] 9.5 fL 6.2-12.0 [facility] Work Phone: Determination of erythrocyte mean corpuscular volume (MCV)on 03-26-2022 MCV (RBC) [Entitic vol] 93.9 fL 80-94 [facility] Work Phone: [phone] Hematocrit Auto (Bld) [Volum e fraction]on 03-26-2022 Hematocrit (Bld) [Volume fraction] 43.4 % 40-54 [facility] Work Phone: [phone] Laboratory - Chemistry and C hemistry - challengeon 03-26-2022 CO2 [Moles/Vol] 20.0 mmol/L 21.0-32.0 [facility] Work Phone: [phone] Urea nitrogen/Creatinine [Mass ratio] 26.8 mg/mg 10-20 [facility] Work Phone: [phone] Laboratory - Hematology and Cell countson 03-26-2022 Anisocytosis Ql (Bld) 1+ [facility] Work Phone: [phone] Erythrocyte distribution width (RBC) [Entitic vol] 43.4 fL 35.1-43.9 [facility] Work Phone: [phone] Erythrocyte distribution width (RBC) [Ratio] 12.6 % 11.6-14.6 [facility] Work Phone: [phone] Immature granulocytes/100 WBC (Bld) 1.200 % 0.0-0.9 [facility] Work Phone: [phone] Comment on above: IG% - Immature Granu locytes (promyelocytes, myelocytes and metamyelocytes) > 1% indicates that a LEFT SHIFT is Present. MCH (RBC) [Entitic mass] 31.4 pg 27.0-32.0 [facility] Work Phone: [phone] Nucleated RBC/100 WBC (Bld) [Ratio] 0 % 0-5 [facility] Work Phone: [phone] MCHC Auto (RBC) [Mass/Vol]on 03-26-2022 MCHC (RBC) [Mass/Vol] 33.4 g/dL 32-36 [facility] Work Phone: [phone] No Panel Informationon 03-26 D-Dimer Quantitative (PE/DVT) 0.30 FEU/ug/m 0.27-0.49 [facility] Work Phone: Comment on above: NORMAL D-Dimer level (<0.50) indicates no DVT or PE. Estimated Creatinine Clearance Calc 53.87 ml/min [facility] Work Phone: Estimated GFR (MDRD) Amer 63 mL/min >60 [facility] Work Phone: Comment on above: GFR Calc Estimated GFR (MDRD) Non-Af Amer 52 mL/min >60 [facility] Work Phone: Comment on above: Non- GFR Calc Troponin I High Sensitivity 4 pg/mL 3.0-78.0 [facility] Work Phone: Comment on above: Please Note: New Krysta t Units and Gender Specific Reference Ranges. For more information see Policy Stat Procedure [facility] High Sensitivity Troponin (TNIH) and attachments. SARS-CoV-2 & FLU Antigen (Rapid) [facility] Work Phone: Platelets bldon 03-26-2022 Platelets (Bld) [#/Vol] 277 10*3/uL 150-450 [facility] Work Phone: Serum or plasma calcium veronica urement (mass/volume)on 03-26-2022 Calcium [Mass/Vol] 9.6 mg/dL 8.5-10.1 [facility] Work Phone: Serum or plasma creatinine m easurement (mass/volume)on 03-26-2022 Creatinine [Mass/Vol] 1.42 mg/dL 0.70-1.30 [facility] Work Phone: Comment on above: The validity of the calculated GFR & GFRAA in patients over 70 years has not been determined. Clinical correlation is essential. Serum or plasma urea nitroge n measurement (mass/volume)on 03-26-2022 Urea nitrogen [Mass/Vol] 38 mg/dL 7-18 [facility] Work Phone: Thin prep Papanicolaou smear with manual screeningon 03-26-2022 Thin prep Papanicolaou smear with manual screening 8 5-15 [facility] Work Phone: Basophil percentageon 2021 Chloride [Moles/Vol] 109 mmol/L 98-107 [facility] Work Phone: Cholesterol [Mass/Vol] 158 mg/dL <200 [facility] Work Phone: [phone] Comment on above: <200 mg/dL Desirable 200-240 mg/dL Borderline >240 mg/dL High Risk Glucose [Mass/Vol] 125 mg/dL 74-106 [facility] Work Phone: [phone] Comment on above: Fasting Glucose resu lt from 100 to 125 mg/dL suggests IMPAIRED HOMEOSTASIS per A.D.A. criteria. Potassium [Moles/Vol] 4.4 mmol/L 3.5-5.1 [facility] Work Phone: Sodium [Moles/Vol] 138 mmol/L 136-145 [facility] Work Phone: [phone] Triglyceride [Mass/Vol] 91 mg/dL [facility] Work Phone: [phone] Comment on above: The drugs N-Acetylcy steine and Metamizole may falsely depress this assay.Serum Triglycerides Reference Interval Normal <150 mg/dL Borderline high 150 - 199 mg/dL High 200 - 499 mg/dL Very High > or = 500 mg/dL Laboratory - Chemistry and C hemistry - challengeon 02-14-2022 ALT [Catalytic activity/Vol] 41 U/L 16-61 [facility] Work Phone: [phone] CO2 [Moles/Vol] 21.0 mmol/L 21.0-32.0 [facility] Work Phone: [phone] Urea nitrogen/Creatinine [Mass ratio] 17.1 mg/mg 10-20 [facility] Work Phone: No Panel Informationon 02-14 Estimated GFR (MDRD) Amer 74 mL/min >60 [facility] Work Phone: Comment on above: GFR Calc Estimated GFR (MDRD) Non-Af Amer 61 mL/min >60 [facility] Work Phone: [phone] Comment on above: Non- GFR Calc Urine Microalbumin/Creatinine Ratio 31.0 mg/g CRE <30 [facility] Work Phone: Serum or plasma calcium veronica urement (mass/volume)on 02-14-2022 Calcium [Mass/Vol] 9.9 mg/dL 8.5-10.1 [facility] Work Phone: [phone] Serum or plasma cholesterol in HDL measurement (mass/volume)on 02-14-2022 Cholesterol in HDL [Mass/Vol] 55 mg/dL [facility] Work Phone: Comment on above: The drugs N-Acetylcy steine and Metamizole may falsely depress this assay. Reference Range HDL <40 mg/dL Low HDL Cholesterol HDL >or= 60 mg/dL High HDL Cholesterol Serum or plasma cholesterol in VLDL measurement (mass/volume)on 02-14-2022 Cholesterol in VLDL [Mass/Vol] 18 mg/dL 5-40 [facility] Work Phone: [phone] Serum or plasma creatinine m easurement (mass/volume)on 02-14-2022 Creatinine [Mass/Vol] 1.23 mg/dL 0.70-1.30 [facility] Work Phone: Comment on above: The validity of the calculated GFR & GFRAA in patients over 70 years has not been determined. Clinical correlation is essential. Serum or plasma low density lipoprotein (LDL) cholesterol measurement (mass/volume)on 02-14-2022 Cholesterol in LDL [Mass/Vol] 85 mg/dL 0-130 [facility] Work Phone: [phone] Serum or plasma urea nitroge n measurement (mass/volume)on 02-14-2022 Urea nitrogen [Mass/Vol] 21 mg/dL 7-18 [facility] Work Phone: [phone] Thin prep Papanicolaou smear with manual screeningon 02-14-2022 Thin prep Papanicolaou smear with manual screening 21 U/L 15-37 [facility] Work Phone: [phone] Thin prep Papanicolaou smear with manual screening 8 5-15 [facility] Work Phone: [phone] Thin prep Papanicolaou smear with manual screening 80.3 mg/L NO RANGE EST. [facility] Work Phone: Urine creatinine measurement (mass/volume)on 02-14-2022 Creatinine (U) [Mass/Vol] 259.00 mg/dL NO RANGE EST. [facility] Work Phone: Vital Signs Date Time Vital Sign Value Performing Clinician Erika lity 02-06-2024 19:48-0400 Body temperature 98.4 [degF] [facility] 02-06-2024 19:48-0400 Diastolic blood pressure 89 mm[Hg] [facility] 02-06-2024 19:48-0400 Heart rate 106 /min [facility] 02-06-2024 19:48-0400 Respiratory rate 18 /min [facility] 02-06-2024 19:48-0400 SaO2% (BldA) [Mass fraction] 98 % [facility] 02-06-2024 19:48-0400 Systolic blood pressure 139 mm[Hg] [facility] 02-06-2024 17:05-0400 Body height 186.69 cm [facility] 02-06-2024 17:05-0400 Body mass index (BMI) [Ratio] 29.8 kg/m2 [facility] 02-06-2024 17:05-0400 Body weight 104 kg [facility] 03-17-2023 19:22-0400 Diastolic blood pressure 88 mm[Hg] [facility] 03-17-2023 19:22-0400 Heart rate 100 /min [facility] 03-17-2023 19:22-0400 Respiratory rate 17 /min [facility] 03-17-2023 19:22-0400 SaO2% (BldA) [Mass fraction] 98 % [facility] 03-17-2023 19:22-0400 Systolic blood pressure 136 mm[Hg] [facility] 03-17-2023 16:14-0400 Body height 185.42 cm [facility] 03-17-2023 16:14-0400 Body mass index (BMI) [Ratio] 29.5 kg/m2 [facility] 03-17-2023 16:14-0400 Body temperature 97.7 [degF] [facility] 03-17-2023 16:14-0400 Body weight 101.4 kg [facility] 03-26-2022 18:03-0400 Body temperature 99.8 [degF] Dr. Rahel Anglin Work Phone: [facility] Work Phone: 03-26-2022 18:03-0400 Diastolic blood pressure 81 mm[Hg] Dr. Rahel Anglin Work Phone: [facility] Work Phone: 03-26-2022 18:03-0400 Heart rate 116 /min Dr. Rahel Anglin Work Phone: [facility] Work Phone: 03-26-2022 18:03-0400 Respiratory rate 18 /min Dr. Rahel Anglin Work Phone: [facility] Work Phone: 03-26-2022 18:03-0400 SaO2% (BldA) [Mass fraction] 97 % Dr. Rahel Anglin Work Phone: [facility] Work Phone: 03-26-2022 18:03-0400 Systolic blood pressure 152 mm[Hg] Dr. Rahel Anglin Work Phone: [facility] Work Phone: 03-26-2022 16:02-0400 Body height 187.[address] Rahel Anglin Work Phone: [facility] Work Phone: 03-26-2022 16:02-0400 Body mass index (BMI) [Ratio] 28.2 kg/m2 Dr. Rahel Anglin Work Phone: [facility] Work Phone: 03-26-2022 16:02-0400 Body weight 99.[address] Rahel Anglin Work Phone: [facility] Work Phone: Encounters Encounter Date Encounter Type Care Provider Facility Start: 11-21-2024 End: 11-21-2024 ambulatory Raehl Agnlin Facility:[facility] Start: 06-25-2024 End: 06-25-2024 ambulatory [facility] Facility:[facility] Start: 06-18-2024 End: 06-18-2024 ambulatory [facility] Facility:[facility] Start: 04-02-2024 End: 04-02-2024 ambulatory Rahel Anglin Facility:[facility] Start: 03-26-2024 End: 03-26-2024 ambulatory [facility] Facility:[facility] Start: 03-19-2024 End: 03-19-2024 ambulatory Rahel Anglin Facility:[facility] Start: 03-19-2024 End: 03-19-2024 ambulatory [facility] Facility:[facility] Start: 03-12-2024 ambulatory Rahel Anglin Facility: [facility] Start: 03-12-2024 Non-patient / Non-visit Dr. Annel Anglin Work Phone: [facility] Work Phone: Start: 03-10-2024 End: 03-10-[address] Rahel Anglin Work Phone: [facility] Work Phone: Start: 03-10-2024 End: 03-10-[address] Rahel Anglin Work Phone: [facility] Work Phone: Start: 03-10-2024 End: 03-10-2024 ambulatory Rahel Anglin Facility:[facility] Start: 02-06-2024 End: 02-06-2024 Emergency department patient visit [facility] Work Phone: Start: 03-17-2023 End: 03-17-2023 Emergency department patient visit [facility] Start: 02-14-2023 End: 02-14-2023 ambulatory [facility] Work Phone: Start: 02-14-2023 End: 02-14-2023 Patient encounter procedure [facility] Start: 03-26-2022 Non-patient / Non-visit Dr. Annel Anglin Work Phone: [facility] Start: 03-26-2022 End: 03-26-2022 Emergency department patient [facility] Start: 02-14-2022 End: 02-14-2022 Patient encounter procedure [facility] Procedures Date Procedure Procedure Detail Performing Clinician Start: 03-17-2023 Plain chest X-ray Start: 03-17-2023 CT of head without contrast Start: 03-26-2022 Plain chest X-ray Dr. Corie Anglin Work Phone: Start: 03-26-2022 SARS-CoV-2 & FLU Ant igen (Rapid) Dr. Rahel Anglin Work Phone: Plan of Treatment Date Care Activity Detail Author Start: 02-06-2024 [facility] Start: 03-26-2022 Bacteria identified in Blood by Culture Blood Culture [facility] Work Phone: Patient Education [facility] Work Phone: Patient referral [facility] Work Phone: Payers Date Payer Category Payer Self-pay [id number] 2007 Private Health Insurance 101 [id number] Unknown [id number] 2.16.8 [id number] Unknown [id number] 2.16.8 [id number] Unknown [id number] 2.16.8 [id number] Unknown [id number] 2.16.8 [id number] Unknown [id number] 2.16.8 [id number] Unknown [id number] 2.16.8 [id number] Unknown [id number] 2.16.8 [id number] Unknown [id number] 2.16.8 [id number] Unknown [id number] 2.16.8 [id number] Unknown [id number] 2.16.8 [id number] Social History Date Type Detail Facility Start: 04-27-2020 End: 03-12-2024 Tobacco smoking status NHIS Unknown if ever smoked [facility] Start: 04-27-2020 Sober [facility] Start: 04-27-2020 None;Cocaine;Marijuana [facility] Start: 04-27-2020 Spouse/ Signif icant Other [facility] Start: 04-27-2020 Cigarettes [facility] Start: 1950 Sex Assigned At Male W [facility] Mental Status Date Assessment Result Facility 03-17-2023 Cognitive function Level Of Cons ciousness Awake;Alert;Appropriate;Follow s Commands [facility] Work Phone: Evaluation note Note Date & Type Note Facility Evaluation note No assessment information availa ble [facility] Work Phone: Hospital Discharge instructions Note Date & Type Note Facility Hospital Discharge instructions Additional Instructions Maintain hydration, advance her diet as tolerated [facility] Work Phone: Family History No Family History Records Found Relationship Condition Age at Onset Recorded Date/T ubaldo Unknown Family History?Cancer Unknown April 122019 8:57pm Family History?Heart Disease Unknown April 27, 2020 8:57pm Relationship Condition Age at Onset Recorded Date/T ubaldo Not Specified Alcoholism Unknown Relationship Condition Age at Onset Recorded Date/T ubaldo Not Specified Alcoholism Unknown father Malignant neoplasm Unknown aunt Cardiac disease Unknown Advance Directives No Advanced Directives Records Found Advance Directive Response Recorded Date/ Time Living Will Yes April 28, 2020 3:50pm Power of Pacs Specialist Yes April 28 3:50pm Advance Directive Response Recorded Date/ Time Living Will No March 26, 2022 4 :03pm Power of Pacs Specialist No March 26, 2022 4:03pm Advance Directive Response Recorded Date/ Time Living Will No March 17, 2023 4: 21pm Power of Pacs Specialist No March 17, 2023 4:21pm Advance Directive Response Recorded Date/ Time Living Will Yes February 06, 2024 5:10pm Power of Pacs Specialist Yes February 05 5:10pm Name of Medical Power of Pacs Specialist wifee or daug hter February 06, 2024 5:10pm Advance Directive Response Recorded Date/ Time Name of Medical Power of Pacs Specialist wifee or daug hter February 06, 2024 5:10pm Living Will Yes February 06, 2024 5:10pm Power of Pacs Specialist Yes February 05 5:10pm Chief Complaint and Reason for Visit Chief Complaint SOB Shortness of breath Chief Complaint SYNCOPE, N/V/D Chief Complaint nausea/vomiting/diah rrea Chief Complaint nausea/vomiting/diah rrea NEED ORDER Amb Documentation Summary Purpose Additional Source Comments Goals (unrecognized section and content) Goals may be documented in a n alternate sectionGoals may be documented in an alternate sectionGoals may be documented in an alternate sectionGoals may be documented in an alternate sectionGoals may be documented in an alternate sectionGoals may be documented in an alternate section Care Teams (unrecognized sec tion and content) Team Status: Active Member Role Status Dates Dr. Rahel Anglin MD Family Provider Active Dr. Rahel Anglin MD Primary Care Provider Active Team Status: Inactive Member Role Status Dates Dr. Rahel Anglin MD Primary Care Prov ider, Attending Provider, Referring Provider Active Team Status: Inactive Member Role Status Dates Dr. Rahel Anglin MD Primary Care Provider Active Dr. Zonia Castillo MD Emergency Provider Active Team Status: Active Member Role Status Dates Dr. Rahel Anglin MD Primary Care Provider Active Varsha José Attending Provider Active Team Status: Inactive Member Role Status Dates Dr. Rahel Anglin MD Primary Care Provider Active Dr. Zonia Castillo MD Attending Provider, Emergency Provider Active (unrecognized sect ion and content) No Status Records Found INFORMATION SOURCE (unrecogn ized section and content) DATE CREATED AUTHOR 12/20/2024 [facility] FOR RECORDS PERTAINING TO PATIENTS WHO ARE OR HAVE BEEN ENROLLED IN A CHEMICAL DEPENDENCY/SUBSTANCEABUSE PROGRAM, SOME INFORMATION MAY BE OMITTED. This clinical summary was aggregated from multiple sources. Caution should be exercised in using it in the provision of clinical care. This summary normalizes information from multiple sources, and as a consequence, information in this document may materially change the coding, format and clinical context of patient data. In addition, data may be omitted in some cases. CLINICAL DECISIONS SHOULD BE BASED ON THE PRIMARY CLINICAL RECORDS. [employer] provides no warranty or guarantee of the accuracy or completeness of information in this document.
== END | disposition home or self-care (01) ==
LOC: MFPLAB 10:01
PROVIDERS: PCP Family Medicine; Referring Provider Family Medicine; Visit Provider Family Medicine
DX: E11.65 Type 2 diabetes mellitus with hyperglycemia (principal)
CPT/HCPCS: 36415; 80053; 80061; 82043; 82570; 85027

== ENCOUNTER → 2025-09-03 | Outpatient (CLI) | payer MEDICARE, SELFPAY ==
[2025-09-03 12:26] LABS: Creatinine, Urine (random) 136.00 mg/dL (39.00-259.00); Microalbumin,Random Urine 27.8 mg/L (<20 mg/L)
== END | disposition home or self-care (01) ==
LOC: LABSPEC 10:20
PROVIDERS: PCP Family Medicine; Visit Provider Family Medicine
DX: E11.65 Type 2 diabetes mellitus with hyperglycemia (principal)
CPT/HCPCS: 82043; 82570

== ENCOUNTER → 2025-10-19 | Outpatient (CLI) | payer MEDICARE, SELFPAY ==
--- OUTSIDE RECORDS SUMMARY | 2025-10-19 08:55 | XMS RPT_ITS | CCD ---
Author Organization [facility] Care Team Providers Care Jewel Bearing Facer Name Role Phone Dr. Rahel Anglin Primary Care Provider Dr. Arias Noe Emergency Provider Dr. Xavier Espana Attending Provider Dr. Rahle Anglin Primary Care Provider Varsha José Attending Provider Unavailable Dr. Romie Ibarra MD Primary Care Provider Dr. Romie Ibarra MD Attending Provider Dr. Romie Ibarra MD Referring Provider Romie Ibarra Attending Unavailable Romie Ibarra Primary Care Unavailable Romie Ibarra Primary Care Unavailable Romie Ibarra Referring Unavailable Romie Ibarra Attending Unavailable Rahel Anlgin Referring Unavailable Rahel Anglin Attending Unavailable Rahel Anglin Primary Care Unavailable Allergies Allergy Classification Reported Allergen(s) Allergy Type Date of Onset Reaction(s) Facility (7 sources) Propoxyphene Drug Allergy 9 Vomiting [facility] (7 sources) Adhesive agent; Translations: [adhesive] Propensity to adverse reactions 2 Rash [facility] (1 source) Propoxyphene Drug Allergy 4 [facility] Repository Medications Current Medications Medication Drug Class(es) Dates Sig (Normalized) Sig (Original) acetaminophen 500 mg oral tablet (1 source) Start: 05-10-2020 take 1000 mg by mouth every six hours as needed Acetaminophen Active 1000 MG PO EVERY 6 HOURS NEEDED May 10, 2020 9:40pm aspirin 81 mg chewable tablet (7 sources) Platelet Aggregation Inhibitor, Nonsteroidal Anti-inflammatory Drug Start: 04-27-2020 take 81 mg by mouth twice daily Aspirin Active 81 MG PO TWICE A DAY April 27, 2020 5:57pm Start: 04-27-2020 take 1 tablet by milton th once daily Aspirin 81 MG tablet,chewable Active 81 mg PO DAILY April 27, 2020 12:00am Blood thinner atorvastatin 20 mg oral tablet (8 sources) HMG-CoA Reductase Inhibitor Start: 06-02-2019 take 1 tablet by mouth at bedtime Atorvastatin 20 MG tablet Active 20 mg PO AT BEDTIME 0 May 10, 2020 12:00am candesartan cilexetil 8 mg oral tablet (7 sources) Angiotensin 2 Receptor Nanci Start: 06-02-2019 take 1 tablet by mouth once daily Candesartan 8 mg tablet Active 8 mg PO DAILY 90 0 June 02, 2019 12:00am BP celecoxib 200 mg oral capsule (7 sources) Nonsteroidal Anti-inflammatory Drug Start: 06-02-2019 take 1 capsule by mouth twice daily Celecoxib 200 mg capsule Active 200 mg PO TWICE A DAY 180 0 June 02, 2019 12:00am Pain docusate sodium 50 mg / sennosides, mcc 8.6 mg oral tablet (1 source) Start: 05-10-2020 take 2 tablets by mouth twice daily Sennosides-Docusat e Sodium Active 2 TABLET PO TWICE A DAY 120 May 10, 2020 9:40pm glimepiride 4 mg oral tablet (7 sources) Sulfonylurea Start: 06-02-2019 take 4 mg by mouth once daily Glimepiride Active 4 MG PO DAILY 90 June 02, 2019 8:20am Start: 06-02-2019 take 1 tablet by milton th twice daily Glimepiride 4 mg tablet Active 4 mg PO TWICE A DAY 90 0 June 02, 2019 12:00am Blood sugar hydrocortisone 25 mg/ml topical cream (3 sources) Corticosteroid Start: 05-10-2020 Hydrocortisone Active 1 APPLIC TOPICAL TWICE DAILY NEEDED 1 May 10, 2020 9:40pm Menthol / Zinc [...] 12:00am metFORMIN hydrochloride 1000 mg oral tablet (14 sources) Biguanide Start: 04-27-2020 take 1 tablet by mouth at bedtime Metformin 1,000 MG tablet Active 1000 mg PO AT BEDTIME April 27, 2020 12:00am Blood sugar Start: 06-02-2019 take 1 tablet by milton th once daily Metformin 500 mg tablet Active 500 mg PO DAILY 270 0 June 02, 2019 12:00am Blood sugar omeprazole 20 mg delayed release oral capsule (1 source) Proton Pump Inhibitor Start: 03-19-2024 take 1 capsule by mouth once daily Omeprazole 20 mg capsule,delayed release(DR/EC) Active 20 mg PO DAILY March 19, 2024 12:00am polyethylene glycol 3350 35311 mg powder for oral solution (1 source) Osmotic Laxative Start: 05-10-2020 take 17 g by mouth once daily Polyethylene Glycol 3350 Active 17 GM PO DAILY May 10, 2020 9:40pm tadalafil 20 mg oral tablet (6 sources) Phosphodiesterase 5 Inhibitor Start: 03-12-2024 End: 03-19-2024 take 1 tablet by mouth every twenty-four hours Tadalafil (Cialis) 20 mg tablet Active 60 mg PO DAILY as needed March 19, 2024 9:25am administer approximately 30min before sexual activity; do not use more than 1 dose per 24hrs Start: 04-27-2020 take 20 mg by mouth at bedtime Tadalafil Active 20 MG PO AT BEDTIME April 27, 2020 5:31pm tamsulosin hydrochloride 0.4 mg oral capsule (8 sources) alpha-Adrenergic Nanci Start: 05-10-2020 take 0.4 mg by mouth twice daily Tamsulosin Active 0.4 MG PO BID@0830,1730 60 May 10, 2020 9:40pm Start: 04-27-2020 End: 05-10-2020 take 1 capsule by mouth once daily Tamsulosin 0.4 MG capsule Discontinued 0.4 mg PO DAILY April 27, 2020 12:00am May 10, 2020 9:42pm Urine retention Completed/Discontinued Medications Medication Drug Class(es) Dates Sig (Normalized) Sig (Original) ascorbic acid 500 mg oral tablet (8 sources) Vitamin C Start: 05-10-2020 End: 03-19-2024 take 2 tablets by mouth twice daily at mealtime Ascorbic Acid (Vitamin C) 500 MG tablet Discontinued 1000 mg PO TWICE DAILY WITH MEALS 0 May 10, 2020 12:00am March 19, 2024 9:26am Start: 05-10-2020 take 1000 mg by mout h twice daily at mealtime Ascorbic Acid (Vitamin C) Active 1000 MG PO TWICE DAILY WITH MEALS May 10, 2020 12:00am Start: 04-27-2020 take 1000 mg by mouth twice da oliva Ascorbic Acid (Vitamin C) Active 1000 MG PO TWICE A DAY April 27, 2020 5:31pm dicyclomine hydrochloride 20 mg oral tablet (4 sources) Anticholinergic Start: 03-17-2023 End: 03-19-2024 take 1 tablet by mouth three times daily Dicyclomine 20 mg tablet Discontinued 20 mg PO THREE TIMES A DAY 14 0 March 17, 2023 12:00am March 19, 2024 9:26am esomeprazole 20 mg delayed release oral capsule (7 sources) Proton Pump Inhibitor Start: 04-27-2020 End: 03-12-2024 take 1 capsule by mouth once daily Esomeprazole Magnesium 20 MG capsule,delayed release(DR/EC) Discontinued 20 mg PO DAILY April 27, 2020 12:00am March 12, 2024 10:49am Stomach acid Ginkgo Biloba (9 sources) Start: 03-12-2024 End: 03-19-2024 take 1 tablet by mouth once daily Ginkgo Biloba 40 mg tablet Discontinued 40 mg PO DAILY March 12, 2024 12:00am March 19, 2024 9:26am give with meal/snack Start: 03-12-2024 take 40 mg by mouth once daily Ginkgo Biloba Active 40 MG PO DAILY March 12, 2024 12:00am give with meal/snack Start: 04-27-2020 End: 05-10-2020 take 60 mg by mouth twice daily Ginkgo Biloba Disconti nued 60 MG PO TWICE A DAY April 27, 2020 5:31pm May 10, 2020 9:42pm Start: 04-27-2020 End: 05-10-2020 take 1 capsule by mouth twice daily Ginkgo Biloba 60 MG capsule Discontinued 60 mg PO TWICE A DAY April 27, 2020 12:00am May 10, 2020 9:42pm Supplement Start: 04-27-2020 End: 05-10-2020 take 60 mg by mouth twice daily Ginkgo Biloba Disconti nued 60 MG PO TWICE A DAY April 27, 2020 12:00am May 10, 2020 9:42pm melatonin 3 mg oral tablet (7 sources) Start: 04-27-2020 End: 03-12-2024 take 1 tablet by mouth at bedtime Melatonin 3 MG tablet Discontinued 3 mg PO AT BEDTIME April 27, 2020 12:00am March 12, 2024 10:49am Sleep ondansetron 4 mg disintegrating oral tablet (7 sources) Serotonin-3 Receptor Antagonist Start: 03-17-2023 End: 03-19-2024 take 1 tablet by mouth every eight hours as needed for nausea Ondansetron 4 mg tablet,disintegrat ing Discontinued 4 mg PO EVERY 8 HOURS NEEDED as needed for Nausea 10 0 February 06, 2024 12:00am March 19, 2024 9:26am [place]'s Wort (2 sources) Start: 03-12-2024 End: 03-19-2024 take 1 capsule by mouth once daily Gama's Wort 300 mg capsule Discontinued 300 mg PO DAILY March 12, 2024 12:00am March 19, 2024 9:26am Start: 03-12-2024 take 300 mg by mouth once kaleigh y Gama's Wort Active 300 MG PO DAILY March 12, 2024 12:00am traMADol hydrochloride 50 mg oral tablet (8 sources) Opioid Agonist Start: 04-27-2020 End: 05-10-2020 take 1 tablet by mouth every six hours as needed for pain Tramadol 50 MG tablet Discontinued 50 mg PO EVERY 6 HOURS NEEDED as needed for Pain Or Fever April 27, 2020 12:00am May 10, 2020 [...] 27, 2020 12:00am May 10, 2020 9:42pm Vitamin D unit (1 source) Start: 04-27-2020 End: 05-10-2020 take 1000 [IU] by mouth once daily Vitamin D unit Discontinued 1000 U PO DAILY April 27, 2020 12:00am May 10, 2020 9:42pm supplement Problems Problem Classification Problem Date Documented Da te Episodic/Chronic Alcohol-related disorders (7 sources) Alcohol abuse; Translations: [Alcohol abuse, uncomplicated] 04-27-2020 Chronic Diabetes mellitus with complications (2 sources) Type 2 diabetes mellitus with hyperglycemia; Translations: [Type 2 diabetes mellitus with other specified complication] Onset: Chronic Diabetes mellitus without complication (7 sources) Diabetes mellitus; Translations: [Type 2 diabetes mellitus without complications] 04-27-2020 Chronic Diabetes mellitus without complication (6 sources) Acute hyperglycemia; Translations: [Hyperglycemia, unspecified] 04-03-2022 Episodic Diseases of white blood cells (1 source) Leukocytosis; Translations: [Elevated white blood cell count, unspecified] 06-25-2024 Chronic Comment on above: Neutrophilia, Flow c ytometry on 03/19/2024 showed no abnormal cells.CT c/a/p on 03/26/2024 showed no evidence of malignancy.WBC on 06/18/2024 is normal. Flow cytometry is normal.Discussed results, needs observation. Disorders of lipid metabolism (7 sources) Hyperlipidemia; Translations: [Hyperlipidemia, unspecified] 04-27-2020 Chronic Esophageal disorders (7 sources) Gastroesophageal reflux disease; Translations: [Gastro-esophageal reflux disease without esophagitis] 04-27-2020 Chronic Essential hypertension (7 sources) Hypertensive disorder; Translations: [Essential (primary) hypertension] 04-27-2020 Chronic Malaise and fatigue (7 sources) Asthenia; Translations: [Other malaise] 04-27-2020 Episodic Mycoses (7 sources) Tinea corporis; Translations: [Tinea corporis] 04-27-2020 Episodic Nausea and vomiting (4 sources) Nausea and vomiting; Translations: [Nausea with vomiting, unspecified] 03-17-2023 Episodic Noninfectious gastroenteritis (3 sources) Gastroenteritis; Translations: [Noninfective gastroenteritis and colitis, unspecified] 02-06-2024 Episodic Osteoarthritis (7 sources) Primary gonarthrosis, bilateral; Translations: [Bilateral primary osteoarthritis of knee] 04-27-2020 Chronic Other acquired deformities (1 source) Acquired deformity of foot; Translations: [Unspecified acquired deformity of unspecified lower leg] 03-19-2024 Episodic Comment on above: Had fx of R foot bon e, now has a bulge on the lateral aspect of foot. Other gastrointestinal disorders (7 sources) Irritable bowel syndrome; Translations: [Irritable bowel syndrome without diarrhea] 04-27-2020 Chronic Other gastrointestinal disorders (4 sources) Diarrhea; Translations: [Diarrhea, unspecified] 03-17-2023 Episodic Other male genital disorders (7 sources) Male erectile dysfunction, unspecified; Translations: [Erectile dysfunction] 04-27-2020 Chronic Other nervous system disorders (7 sources) Neuropathy; Translations: [Polyneuropathy, unspecified] 04-27-2020 Chronic Other nervous system disorders (7 sources) Impairment of balance; Translations: [Other abnormalities of gait and mobility] 04-27-2020 Episodic Other non-epithelial cancer of skin (7 sources) Basal cell carcinoma of skin; Translations: [Basal cell carcinoma of skin, unspecified] 04-27-2020 Episodic Residual codes; unclassified (7 sources) Insomnia; Translations: [Insomnia, unspecified] 04-27-2020 Episodic Septicemia (except in labor) (6 sources) Sepsis; Translations: [Sepsis, unspecified organism] 04-03-2022 Episodic Skin and subcutaneous tissue infections (12 sources) Cellulitis of lower limb; Translations: [Cellulitis of right lower limb] 04-03-2022 Episodic Spondylosis; intervertebral disc disorders; other back problems (7 sources) Spinal stenosis of lumbar region; Translations: [Spinal stenosis, lumbar region without neurogenic claudication] 04-27-2020 Episodic Syncope (7 sources) Vasovagal syncope; Translations: [Syncope and collapse] 03-17-2023 Episodic Results Test Name Value Interpretation Reference Range Facility Microalb:Creat Ratio,Random URon 09-03-2025 Creatinine [Mass/Vol] 136.00 mg/dL Normal 39.00-259.00 [facility] Comment on above: Order Comment: Order Date: 09/03/25 Order Info: [id number] - MIALB Performed By: #### L [id number] #### [facility] [address] [place], [place] [address]darion [place], [address] MALB:CREAT 20.4 mg/g CRE Normal <30 mg/g CRE [facility] Comment on above: Order Comment: Order Date: 09/03/25 Order Info: [id number] - MIALB Performed By: #### L 502.0250 #### [facility] [address] [place], [address] MICROALBUMIN,UR 27.8 mg/L Normal <20 mg/L [facility] Comment on above: Order Comment: Order Date: 09/03/25 Order Info: [id number] - MIALB Performed By: #### L 502.0250 #### [facility] [address] [place], [address] Anion gap in Serum or Plasma Ordered By: Romie Ibarra on 06-08-2025 Anion gap [Moles/Vol] 15 mmol/L - [facility] BUN/creatinine ratioOrdered By: Romie Ibarra on 06-08-2025 Urea nitrogen/Creatinine [Mass ratio] 14.7 mg/mg - [facility] Bilirubin, totalOrdered By: Romie Ibarra on 06-08-2025 Bilirubin [Mass/Vol] 0.38 mg/dL 0.00-1.30 [facility] CBC-Complete Blood Cnt No Di ffon 06-08-2025 Erythrocyte distribution width (RBC) [Ratio] 12.8 % Normal 11.6-14.6 [facility] Comment on above: Order Comment: Order Date: 06/08/25 Order Info: [id number] - CBC Performed By: #### L [id number], L500.4100, L100.0500 #### [facility] [address] [place], [address] Hematocrit (Bld) [Volume fraction] 45.0 % Normal 40-54 [facility] Comment on above: Order Comment: Order Date: 06/08/25 Order Info: [id number] - CBC Performed By: #### L [id number], L500.4100, L100.0500 #### [facility] [address] [place], [address] Hemoglobin (Bld) [Mass/Vol] 15.4 g/dL Normal 13.0-16.5 [facility] Comment on above: Order Comment: Order Date: 06/08/25 Order Info: [id number] - CBC Performed By: #### L [id number], L500.4100, L100.0500 #### [facility] [address] [place], [address] MCH (RBC) [Entitic mass] 31.0 pg Normal 27.0-32.0 [facility] Comment on above: Order Comment: Order Date: 06/08/25 Order Info: [id number] - CBC Performed By: #### L [id number], L500.4100, L100.0500 #### [facility] [address] [place], [address] MCHC (RBC) [Mass/Vol] 34.2 g/dL Normal 32-36 [facility] Comment on above: Order Comment: Order Date: 06/08/25 Order Info: [id number] - CBC Performed By: #### L [id number], L500.4100, L100.0500 #### [facility] [address] [place], [address] MCV (RBC) [Entitic vol] 90.5 fL Normal 80-94 [facility] Comment on above: Order Comment: Order Date: 06/08/25 Order Info: [id number] - CBC Performed By: #### L [id number], L500.4100, L100.0500 #### [facility] [address] [place], [address] Platelet mean volume (Bld) [Entitic vol] 9.8 fL Normal 6.2-12.0 [facility] Comment on above: Order Comment: Order Date: 06/08/25 Order Info: [id number] - CBC Performed By: #### L [id number], L500.4100, L100.0500 #### [facility] [address] [place], [address] Platelets (Bld) [#/Vol] 323 10*3/uL Normal 150-450 [facility] Comment on above: Order Comment: Order Date: 06/08/25 Order Info: [id number] - CBC Performed By: #### L [id number], L500.4100, L100.0500 #### [facility] [address] [place], [address] RBC (Bld) [#/Vol] 4.97 10*6/uL Normal 4.6-6.2 [facility] Comment on above: Order Comment: Order Date: 06/08/25 Order Info: [id number] - CBC Performed By: #### L [id number], L500.4100, L100.0500 #### [facility] [address] [place], [address] RDW SD 42.0 fl Normal 35.1-43.9 [facility] Comment on above: Order Comment: Order Date: 06/08/25 Order Info: [id number] - CBC Performed By: #### L [id number], L500.4100, L100.0500 #### [facility] [address] [place], [address] WBC (Bld) [#/Vol] 7.5 10*3/uL Normal 4.4-11.0 [facility] Comment on above: Order Comment: Order Date: 06/08/25 Order Info: [id number] - CBC Performed By: #### L [id number], L500.4100, L100.0500 #### [facility] [address] [place], [address] Calculated very low density lipoprotein (VLDL) cholesterol measurementOrdered By: Romie Ibarra on 06-08-2025 Calculated very low density lipoprotein (VLDL) cholesterol measurement 20 mg/dL 5-40 [facility] Carbon dioxide, total [Moles /volume] in Central venous bloodOrdered By: Romie Ibarra on 06-08-2025 CO2 [Moles/Vol] 18.7 mmol/L Low 21.0-32.0 [facility] Chloride assayOrdered By: Jesus Manuel Ibarra on 06-08-2025 Chloride [Moles/Vol] 103 mmol/L 98-108 [facility] Comprehensive Metabolic Prof ilon 06-08-2025 Albumin [Mass/Vol] 4.4 g/dL Normal 3.4-4.8 [facility] Comment on above: Order Comment: Order Date: 06/08/25 Order Info: [id number] - CMP Order Info: [id number] - LIPID Performed By: #### L 500.4050, L500.4100, L100.0500 #### [facility] [address] [place], [address] Albumin/Globulin [Mass ratio] 1.5 {ratio} Normal 0.9-2.4 [facility] Comment on above: Order Comment: Order Date: 06/08/25 Order Info: [id number] - CMP Order Info: [id number] - LIPID Performed By: #### L 500.4050, L500.4100, L100.0500 #### [facility] [address] [place], [address] ALK PHOS 74 U/L Normal 40-129 [facility] Comment on above: Order Comment: Order Date: 06/08/25 Order Info: [id number] - CMP Order Info: [id number] - LIPID Performed By: #### L 500.4050, L500.4100, L100.0500 #### [facility] [address] [place], [address] ALT [Catalytic activity/Vol] 17 U/L Normal <=46 [facility] Comment on above: Order Comment: Order Date: 06/08/25 Order Info: [id number] - CMP Order Info: [id number] - LIPID Performed By: #### L 500.4050, L500.4100, L100.0500 #### [facility] [address] [place], [address] AST [Catalytic activity/Vol] 17 U/L Normal <=37 [facility] Comment on above: Order Comment: Order Date: 06/08/25 Order Info: [id number] - CMP Order Info: [id number] - LIPID Performed By: #### L [id number], L500.4100, L100.0500 #### [facility] [address] [place], [address] Bilirubin [Mass/Vol] 0.38 mg/dL Normal 0.00-1.30 [facility] Comment on above: Order Comment: Order Date: 06/08/25 Order Info: [id number] - CMP Order Info: [id number] - LIPID Performed By: #### L 500.4050, L500.4100, L100.0500 #### [facility] [address] [place], [address] BUN/CRE 14.7 RATIO Normal 10-20 [facility] Comment on above: Order Comment: Order Date: 06/08/25 Order Info: [id number]- - CMP Order Info: [id number] - LIPID Performed By: #### L 500.4050, L500.4100, L100.0500 #### [facility] [address] [place], [address] Calcium [Mass/Vol] 10.4 mg/dL Normal 7.6-11.0 [facility] Comment on above: Order Comment: Order Date: 06/08/25 Order Info: [id number]- - CMP Order Info: [id number] - LIPID Performed By: #### L 500.4050, L500.4100, L100.0500 #### [facility] [address] [place], [address] Chloride [Moles/Vol] 103 mmol/L Normal 98-108 [facility] Comment on above: Order Comment: Order Date: 06/08/25 Order Info: [id number] - CMP Order Info: [id number] - LIPID Performed By: #### L 500.4050, L500.4100, L100.0500 #### [facility] [address] [place], [address] CO2 [Moles/Vol] 18.7 mmol/L Low 21.0-32.0 [facility] Comment on above: Order Comment: Order Date: 06/08/25 Order Info: [id number] - CMP Order Info: [id number] - LIPID Performed By: #### L 500.4050, L500.4100, L100.0500 #### [facility] [address] [place], [address] Creatinine [Mass/Vol] 0.99 mg/dL Normal 0.70-1.20 [facility] Comment on above: Order Comment: Order Date: 06/08/25 Order Info: [id number] - CMP Order Info: [id number] - LIPID Performed By: #### L 500.4050, L500.4100, L100.0500 #### [facility] [address] [place], [address] GAP 15 Normal 5-15 [facility] Comment on above: Order Comment: Order Date: 06/08/25 Order Info: [id number]- - CMP Order Info: [id number] - LIPID Performed By: #### L 500.4050, L500.4100, L100.0500 #### [facility] [address] [place], [address] GFR/1.73 sq M.predicted among non-blacks MDRD (S/P/Bld) [Vol rate/Area] 79 mL/min/{1.73_m2} Normal >60 [facility] Comment on above: Order Comment: Order Date: 06/08/25 Order Info: [id number]- - CMP Order Info: [id number] - LIPID Result Comment: mL/m in/1.73m2 CKD-EPI Creatinine Equation (2020) Performed By: #### L 500.4050, L500.4100, L100.0500 #### [facility] [address] [place], [address] Globulin (S) [Mass/Vol] 3.0 g/dL Normal 2.2-4.2 [facility] Comment on above: Order Comment: Order Date: 06/08/25 Order Info: [id number] - CMP Order Info: [id number] - LIPID Performed By: #### L 500.4050, L500.4100, L100.0500 #### [facility] [address] [place], [address] Glucose [Mass/Vol] 183 mg/dL High 70-99 [facility] Comment on above: Order Comment: Order Date: 06/08/25 Order Info: [id number]- - CMP Order Info: [id number] - LIPID Performed By: #### L 500.4050, L500.4100, L100.0500 #### [facility] [address] [place], [address] Potassium [Moles/Vol] 4.2 mmol/L Normal 3.3-5.1 [facility] Comment on above: Order Comment: Order Date: 06/08/25 Order Info: [id number] - CMP Order Info: [id number] - LIPID Performed By: #### L 500.4050, L500.4100, L100.0500 #### [facility] [address] [place], [address] Sodium [Moles/Vol] 137 mmol/L Normal 133-145 [facility] Comment on above: Order Comment: Order Date: 06/08/25 Order Info: [id number] - CMP Order Info: [id number] - LIPID Performed By: #### L 500.4050, L500.4100, L100.0500 #### [facility] [address] [place], [address] T PROT 7.4 g/dL Normal 5.9-8.4 [facility] Comment on above: Order Comment: Order Date: 06/08/25 Order Info: [id number] - CMP Order Info: [id number] - LIPID Performed By: #### L 500.4050, L500.4100, L100.0500 #### [facility] [address] [place], [address] Urea nitrogen [Mass/Vol] 15 mg/dL Normal 4-19 [facility] Comment on above: Order Comment: Order Date: 06/08/25 Order Info: [id number] - CMP Order Info: [id number] - LIPID Performed By: #### L 500.4050, L500.4100, L100.0500 #### [facility] [address] [place], [place], [id number] Erythrocyte distribution wid th ratioOrdered By: Romie Ibarra on 06-08-2025 Erythrocyte distribution width (RBC) [Ratio] 12.8 % 11.6-14.6 [facility] Erythrocyte distribution wid th standard deviationOrdered By: Romie Ibarra on 06-08-2025 Erythrocyte distribution width (RBC) [Ratio] 42.0 fl 35.1-43.9 [facility] Glomerular filtration rate ( GFR) estimation/1.73 sq m using serum, plasma, or whole bOrdered By: Romie Ibarra on 06-08-2025 GFR/1.73 sq M.predicted among non-blacks MDRD (S/P/Bld) [Vol rate/Area] 79 mL/min/{1.73_m2} >60 [facility] Comment on above: mL/min/1.73m2 CKD-EP I Creatinine Equation (2020) Hematocrit Auto (Bld) [Volum e fraction]Ordered By: Romie Ibarra on 06-08-2025 Hematocrit (Bld) [Volume fraction] 45.0 % 40-54 [facility] Hemoglobin measurementOrdere d By: Romie Ibarra on 06-08-2025 Hemoglobin (Bld) [Mass/Vol] 15.4 g/dL 13.0-16.5 [facility] LDL calc ser/plasOrdered By: Romie Ibarra on 06-08-2025 Cholesterol in LDL [Mass/Vol] 85 mg/dL [facility] Comment on above: Vaikbsgfqb=521-745 m g/dL & Higher Yofv=622 mg/dL or greaterFriedwald Equation for LDL-C Laboratory - Chemistry and C hemistry - challengeOrdered By: Romie Ibarra on 06-08-2025 AST [Catalytic activity/Vol] 17 U/L <38 [facility] Lipid Profileon 06-08-2025 CHOL:HDL 2.80 Normal [facility] Comment on above: Order Comment: Order Date: 06/08/25 Order Info: [id number] - CMP Order Info: [id number] - LIPID Performed By: #### L 500.4050, L500.4100, L100.0500 #### [facility] [address] [place], [address] Cholesterol [Mass/Vol] 163 mg/dL Normal <=200 [facility] Comment on above: Order Comment: Order Date: 06/08/25 Order Info: [id number] - CMP Order Info: [id number] - LIPID Result Comment: Chol esterol level, Desirable <200 mg/dL Borderline high cholesterol 200-239 mg/dL High cholesterol >=240 mg/dL Recommendations of the NCEP Adult Treatment Panel for the following risk-cutoff thresholds for the [place] population. Performed By: #### L 500.4050, L500.4100, L100.0500 #### [facility] [address] [place] [place], [address] Cholesterol in HDL [Mass/Vol] 58 mg/dL Normal [facility] Comment on above: Order Comment: Order Date: 06/08/25 Order Info: [id number] - CMP Order Info: [id number] - LIPID Result Comment: Myah onal Cholesterol Education Program (NCEP) guidelines: <40 mg/dL: Low HDL-cholesterol (major risk factor for CHD) >= 60 mg/dL: High HDL-cholesterol (negative risk factor for CHD) HDL-cholesterol is affected by a number of factors, e.g. smoking, exercise, hormones, sex and age. Performed By: #### L 500.4050, L500.4100, L100.0500 #### [facility] [address] [place], [address] Cholesterol in LDL [Mass/Vol] 85 mg/dL Normal [facility] Comment on above: Order Comment: Order Date: 06/08/25 Order Info: [id number] - CMP Order Info: [id number] - LIPID Result Comment: Bord zdtlej=462-954 mg/dL Higher Zgui=149 mg/dL or greater Friedwald Equation for LDL-C Performed By: #### L 500.4050, L500.4100, L100.0500 #### [facility] [address] [place], [address] Cholesterol in VLDL [Mass/Vol] 20 mg/dL Normal 5-40 [facility] Comment on above: Order Comment: Order Date: 06/08/25 Order Info: [id number] - CMP Order Info: [id number] - LIPID Performed By: #### L 500.4050, L500.4100, L100.0500 #### [facility] [address] [place], [address] Triglyceride [Mass/Vol] 99 mg/dL Normal [facility] Comment on above: Order Comment: Order Date: 06/08/25 Order Info: [id number] - CMP Order Info: [id number] - LIPID Result Comment: The drugs N-Acetylcysteine and Metamizole may falsely depress this assay. Normal range: <150 mg/dL Borderline High: 150-199 mg/dL High: 200-499 mg/dL Very High: >500 mg/dL Performed By: #### L 500.4050, L500.4100, L100.0500 #### [facility] [address] [place], [address] MCV (mean corpuscular volume ) determinationOrdered By: Romie Ibarra on 06-08-2025 MCV (RBC) [Entitic vol] 90.5 fL 80-94 [facility] Mean corpuscular hemoglobin (MCH) determinationOrdered By: Romie Ibarra on 06-08-2025 MCH (RBC) [Entitic mass] 31.0 pg 27.0-32.0 [facility] Mean corpuscular hemoglobin concentration (MCHC) determinationOrdered By: Romie Ibarra on 06-08-2025 MCHC (RBC) [Mass/Vol] 34.2 g/dL 32-36 [facility] Mean platelet volume determi nationOrdered By: Romie Ibarra on 06-08-2025 Platelet mean volume (Bld) [Entitic vol] 9.8 fL 6.2-12.0 [facility] Microalb:Creat Ratio,Random URon 06-08-2025 Creatinine [Mass/Vol] 125.00 mg/dL Normal 39.00-259.00 [facility] Comment on above: Order Comment: Order Date: 06/08/25 Order Info: [id number] - MIALB Performed By: #### L 502.0250 #### [facility] [address] [place], [place], [id number] MALB:CREAT 40.8 mg/g CRE High <30 mg/g CRE [facility] Comment on above: Order Comment: Order Date: 06/08/25 Order Info: [id number] - MIALB Performed By: #### L 502.0250 #### [facility] [address] [place], [address] MICROALBUMIN,UR 51.0 mg/L Normal <20 mg/L [facility] Comment on above: Order Comment: Order Date: 06/08/25 Order Info: [id number] - MIALB Performed By: #### L 502.0250 #### [facility] [address] [place], [address] Platelet countOrdered By: Jesus Manuel Ibarra on 06-08-2025 Platelets (Bld) [#/Vol] 323 10*3/uL 150-450 [facility] Potassium measurement (mass/ volume)Ordered By: Romie Ibarra on 06-08-2025 Potassium (Unsp spec) [Mass/Vol] 4.2 mmol/L 3.3-5.1 [facility] RBC Auto (Bld) [#/Vol]Ordere d By: Romie Ibarra on 06-08-2025 RBC (Bld) [#/Vol] 4.97 10*6/uL 4.6-6.2 [facility] Random urine creatinine veronica urement (mass/volume)Ordered By: Romie Ibarra on 06-08-2025 Creatinine Unsp time (U) [Mass/Vol] 125.00 mg/dL 39.00-259.00 [facility] Screening total cholesterol/ high density lipoprotein (HDL) cholesterol ratioOrdered By: Romie Ibarra on 06-08-2025 Cholesterol.total/Choles terol in HDL [Mass ratio] 2.80 {ratio} [facility] Serum creatinine measurement (mass/volume)Ordered By: Romie Ibarra on 06-08-2025 Creatinine [Mass/Vol] 0.99 mg/dL 0.70-1.20 [facility] Serum globulin measurementOr dered By: Romie Ibarra on 06-08-2025 Globulin (S) [Mass/Vol] 3.0 g/dL 2.2-4.2 [facility] Serum glucose measurement (m ass/volume)Ordered By: Romie Ibarra on 06-08-2025 Glucose [Mass/Vol] 183 mg/dL High 70-99 [facility] Serum or plasma alanine quintanilla otransferase (ALT) measurementOrdered By: Romie Ibarra on 06-08-2025 ALT [Catalytic activity/Vol] 17 U/L <47 [facility] Serum or plasma albumin veronica urement (mass/volume)Ordered By: Romie Ibarra on 06-08-2025 Albumin [Mass/Vol] 4.4 g/dL 3.4-4.8 [facility] Serum or plasma albumin/glob ulin mass ratioOrdered By: Romie Ibarra on 06-08-2025 Albumin/Globulin [Mass ratio] 1.5 {ratio} 0.9-2.4 [facility] Serum or plasma alkaline rachael sphatase measurementOrdered By: Romie Ibarra on 06-08-2025 ALP [Catalytic activity/Vol] 74 U/L 40-129 [facility] Serum or plasma calcium veronica urement (mass/volume)Ordered By: Romie Ibarra on 06-08-2025 Calcium [Mass/Vol] 10.4 mg/dL 7.6-11.0 [facility] Serum or plasma cholesterol in HDL measurement (mass/volume)Ordered By: Romie Ibarra on 06-08-2025 Cholesterol in HDL [Mass/Vol] 58 mg/dL >40 [facility] Comment on above: National Cholesterol Education Program (NCEP) guidelines:<40 mg/dL: Low HDL-cholesterol (major risk factor for CHD)>= 60 mg/dL: High HDL-cholesterol (negative risk factor for CHD)HDL-cholesterol is affected by a number of factors, e.g. smoking, exercise, hormones, sex and age. Serum or plasma cholesterol measurement (mass/volume)Ordered By: Romie Ibarra on 06-08-2025 Cholesterol [Mass/Vol] 163 mg/dL <201 [facility] Comment on above: Cholesterol level, D esirable <200 mg/dLBorderline high cholesterol 200-239 mg/dLHigh cholesterol >=240 mg/dLRecommendations of the NCEP Adult Treatment Panel for the following risk-cutoff thresholds for the [place] population. Serum or plasma urea nitroge n measurement (mass/volume)Ordered By: Romie Ibarra on 06-08-2025 Urea nitrogen [Mass/Vol] 15 mg/dL 4-19 [facility] Sodium levelOrdered By: Romie Ibarra on 06-08-2025 Sodium [Moles/Vol] 137 mmol/L 133-145 [facility] Total proteinOrdered By: Kassandra Ibarra on 06-08-2025 Protein [Mass/Vol] 7.4 g/dL 5.9-8.4 [facility] Triglycerides measurementOrd ered By: Romie Ibarra on 06-08-2025 Triglyceride [Mass/Vol] 99 mg/dL <199 [facility] Comment on above: The drugs N-Acetylcy steine and Metamizole may falsely depress this assay. Normal range: <150 mg/dLBorderline High: 150-199 mg/dLHigh: 200-499 mg/dLVery High: >500 mg/dL Urine albumin measurement [facility] detection limit of 20 mg/L or less (mass/volume)Ordered By: Romie Ibarra on 07-28-2025 Albumin DL <= 20 mg/L (U) [Mass/Vol] 51.0 mg/L <20 mg/L [facility] White blood cell (WBC) count Ordered By: Romie Ibarra on 06-08-2025 WBC (Bld) [#/Vol] 7.5 10*3/uL 4.4-11.0 [facility] Protein+Creatinine Ratio,Uri neon 11-22-2024 PROT:CRE RATIO 281 mg/g CRE High 0-200 [facility] Comment on above: Performed By: #### L [id number], L502.0250, L501.0900, L500.4100 #### [facility] [address] [place], [address] Protein (U) [Mass/Vol] 39.9 mg/dL High <11.9 [facility] Comment on above: Performed By: #### L [id number], L502.0250, L501.0900, L500.4100 #### [facility] [address] [place], [address] Lipid Profileon 11-21-2024 Cholesterol [Mass/Vol] 166 mg/dL Normal 200 [facility] Comment on above: Result Comment: <200 mg/dL Desirable 200-240 mg/dL Borderline >240 mg/dL High Risk Performed By: #### L [id number], L502.0250, L501.0900, L500.4100 #### [facility] [address] [place], [address] Cholesterol in HDL [Mass/Vol] 54 mg/dL Normal [facility] Comment on above: Result Comment: The drugs N-Acetylcysteine and Metamizole may falsely depress this assay. Reference Range HDL <40 mg/dL Low HDL Cholesterol HDL >or= 60 mg/dL High HDL Cholesterol Performed By: #### L [id number], L502.0250, L501.0900, L500.4100 #### [facility] [address] [place], [address] Cholesterol in LDL [Mass/Vol] 95 mg/dL Normal 0-130 [facility] Comment on above: Performed By: #### L [id number], L502.0250, L501.0900, L500.4100 #### [facility] [address] [place], [address] Cholesterol in VLDL [Mass/Vol] 17 mg/dL Normal 5-40 [facility] Comment on above: Performed By: #### L [id number], L502.0250, L501.0900, L500.4100 #### [facility] [address] [place], [address] Triglyceride [Mass/Vol] 84 mg/dL Normal [facility] Comment on above: Result Comment: The drugs N-Acetylcysteine and Metamizole may falsely depress this assay. Serum Triglycerides Reference Interval Normal <150 mg/dL Borderline high 150 - 199 mg/dL High 200 - 499 mg/dL Very High > or = 500 mg/dL Performed By: #### L [id number], L502.0250, L501.0900, L500.4100 #### [facility] [address] [place], [address] Microalb:Creat Ratio,Random URon 11-21-2024 Creatinine [Mass/Vol] 142.00 mg/dL Normal NO RANGE EST . [facility] Comment on above: Performed By: #### L [id number], L502.0250, L501.0900, L500.4100 #### [facility] [address] [place], [address] MALB:CRE 71.8 mg/g CRE High <30 mg/g CRE [facility] Comment on above: Performed By: #### L [id number], L502.0250, L501.0900, L500.4100 #### [facility] [address] [place], [address] MICROALBUMIN,UR 102.0 mg/L Normal NO RANGE EST. [facility] Comment on above: Performed By: #### L [id number], L502.0250, L501.0900, L500.4100 #### [facility] [address] [place], [address] Thyroid Stim Hormone (TSH)on 11-21-2024 TSH 1.680 uIU/mL Normal 0.358-3.740 [facility] Comment on above: Performed By: #### L [id number], L502.0250, L501.0900, L500.4100 #### [facility] [address] [place], [address] Absolute lymphocyte countOrd ered By: Rahel Anglin on 03-10-2024 Lymphocytes Auto (Unsp spec) [#/Vol] 1.46 10*3/uL 0.83-4.51 [facility] Automated lymphocyte count a s percentage of total leukocytesOrdered By: Rahel Anglin on 03-10-2024 Lymphocytes/100 WBC Auto (Unsp spec) 10.7 % 19-41 [facility] Basophil percentageOrdered B y: Rahel Anglin on 03-10-2024 Basophils/100 WBC (Bld) 0.4 % 0-1 [facility] Bilirubin [Mass/Vol] 0.40 mg/dL 0.20-1.00 [facility] Comment on above: For patients on eltr ombopag therapy, use of Dimension [place] TBIL is not recommended. Chloride [Moles/Vol] 106 mmol/L 98-107 [facility] Cholesterol [Mass/Vol] 145 mg/dL <200 [facility] Comment on above: <200 mg/dL Desirable 200-240 mg/dL Borderline >240 mg/dL High Risk Eosinophils/100 WBC (Bld) 0.8 % 0-5 [facility] Glucose [Mass/Vol] 130 mg/dL 74-106 [facility] Comment on above: Fasting Glucose resu lt greater than or equal to 126 mg/dL suggests DIABETES MELLITUS per A.D.A. criteria. Hemoglobin (Bld) [Mass/Vol] 15.4 g/dL 13.0-16.5 [facility] Monocytes/100 WBC (Bld) 6.6 % 0-10 [facility] Neutrophils (Bld) [#/Vol] 11.0 10*3/uL 2.0-7.7 [facility] Neutrophils/100 WBC (Bld) 81.1 % 47-70 [facility] Potassium [Moles/Vol] 4.3 mmol/L 3.5-5.1 [facility] Protein [Mass/Vol] 7.7 g/dL 6.4-8.2 [facility] Sodium [Moles/Vol] 137 mmol/L 136-145 [facility] Triglyceride [Mass/Vol] 92 mg/dL <199 [facility] [place] Comment on above: The drugs N-Acetylcy steine and Metamizole may falsely depress this assay.Serum Triglycerides Reference Interval Normal <150 mg/dL Borderline high 150 - 199 mg/dL High 200 - 499 mg/dL Very High > or = 500 mg/dL WBC (Bld) [#/Vol] 13.6 10*3/uL 4.4-11.0 [facility] Determination of erythrocyte mean corpuscular volume (MCV)Ordered By: Rahel Anglin on 03-10-2024 MCV (RBC) [Entitic vol] 93.1 fL 80-94 [facility] Direct bilirubinOrdered By: Rahel Anglin on 03-10-2024 Bilirubin.direct [Mass/Vol] 0.10 mg/dL 0.00-0.30 [facility] Erythrocyte distribution wid th ratioOrdered By: Rahel Anglin on 03-10-2024 Erythrocyte distribution width (RBC) [Ratio] 12.5 % 11.6-14.6 [facility] Erythrocyte distribution wid th standard deviationOrdered By: Rahel Anglin on 03-10-2024 Erythrocyte distribution width (RBC) [Entitic vol] 42.9 fL 35.1-43.9 [facility] Hematocrit Auto (Bld) [Volum e fraction]Ordered By: Rahel Anglin on 03-10-2024 Hematocrit (Bld) [Volume fraction] 47.3 % 40-54 [facility] Immature granulocytes/100 WB C Auto (Bld)Ordered By: Rahel Anglin on 03-10-2024 Immature granulocytes/100 WBC (Bld) 0.400 % 0.0-0.9 [facility] Comment on above: IG% - Immature Granu locytes (promyelocytes, myelocytes and metamyelocytes) > 1% indicates that a LEFT SHIFT is Present. Laboratory - Chemistry and C hemistry - challengeOrdered By: Rahel Anglin on 03-10-2024 ALP [Catalytic activity/Vol] 81 U/L 45-117 [facility] ALT [Catalytic activity/Vol] 27 U/L 16-61 [facility] Cholesterol in HDL [Mass/Vol] 55 mg/dL >40 [facility] Comment on above: The drugs N-Acetylcy steine and Metamizole may falsely depress this assay. Reference Range HDL <40 mg/dL Low HDL Cholesterol HDL >or= 60 mg/dL High HDL Cholesterol Cholesterol in LDL [Mass/Vol] 72 mg/dL 0-130 [facility] CO2 [Moles/Vol] 23.0 mmol/L 21.0-32.0 [facility] Globulin (S) [Mass/Vol] 3.6 g/dL 2.2-4.2 [facility] Urea nitrogen/Creatinine [Mass ratio] 12.8 mg/mg 10-20 [facility] - Hematology and Cell countsOrdered By: Rahel Anglin on 03-10-2024 MCH (RBC) [Entitic mass] 30.3 pg 27.0-32.0 [facility] MCHC (RBC) [Mass/Vol] 32.6 g/dL 32-36 [facility] Nucleated RBC/100 WBC (Bld) [Ratio] 0 % 0-5 [facility] Platelet mean volume (Bld) [Entitic vol] 9.8 fL 6.2-12.0 [facility] Platelets (Bld) [#/Vol] 332 10*3/uL 150-450 [facility] No Panel InformationOrdered By: Rahel Anglin on 03-10-2024 Estimated GFR (MDRD) Amer 78 mL/min >60 [facility] Comment on above: GFR Calc Estimated GFR (MDRD) Non-Af Amer 65 mL/min >60 [facility] Comment on above: Non- GFR Calc VLDL Cholesterol 18 mg/dL 5-40 [facility] RBC Auto (Bld) [#/Vol]Ordere d By: Rahel Anglin on 03-10-2024 RBC (Bld) [#/Vol] 5.08 10*6/uL 4.6-6.2 [facility] Serum or plasma calcium veronica urement (mass/volume)Ordered By: Rahel Anglin on 03-10-2024 Calcium [Mass/Vol] 10.0 mg/dL 8.5-10.1 [facility] Serum or plasma creatinine m easurement (mass/volume)Ordered By: Rahel Anglin on 03-10-2024 Creatinine [Mass/Vol] 1.17 mg/dL 0.70-1.30 [facility] Comment on above: The validity of the calculated GFR & GFRAA in patients over 70 years has not been determined. Clinical correlation is essential. Serum or plasma urea nitroge n measurement (mass/volume)Ordered By: Rahel Anglin on 03-10-2024 Urea nitrogen [Mass/Vol] 15 mg/dL 7-18 [facility] Thin prep Papanicolaou smear with manual screeningOrdered By: Rahel Anglin on 03-10-2024 Protein (U) [Mass/Vol] 45.1 mg/dL 0.0-11.8 [facility] Thin prep Papanicolaou smear with manual screening 4.1 g/dL 3.2-5.0 [facility] Thin prep Papanicolaou smear with manual screening 18 U/L 15-37 [facility] Thin prep Papanicolaou smear with manual screening 8 5-15 [facility] Urine creatinine measurement (mass/volume)Ordered By: Rahel Anglin on 03-10-2024 Creatinine (U) [Mass/Vol] 155.00 mg/dL NO RANGE EST. [facility] Urine protein/creatinine mas s ratioOrdered By: Rahel Anglin on 03-10-2024 Protein/Creatinine (U) [Mass ratio] 291 mg/g CRE 0-200 [facility] Absolute lymphocyte countOrd ered By: Zonia Castillo on 02-06-2024 Lymphocytes Auto (Unsp spec) [#/Vol] 0.65 10*3/uL 0.83-4.51 [facility] Automated lymphocyte count a s percentage of total leukocytesOrdered By: Zonia Castillo on 02-06-2024 Lymphocytes/100 WBC Auto (Unsp spec) 2.7 % 19-41 [facility] Basophil percentageOrdered B y: Zonia Castillo on 02-06-2024 Basophils/100 WBC (Bld) 0.5 % 0-1 [facility] Bilirubin [Mass/Vol] 0.40 mg/dL 0.20-1.00 [facility] Comment on above: For patients on eltr ombopag therapy, use of Dimension [place] TBIL is not recommended. Chloride [Moles/Vol] 107 mmol/L 98-107 [facility] Eosinophils/100 WBC (Bld) 0.3 % 0-5 [facility] Glucose [Mass/Vol] 249 mg/dL 74-106 [facility] Comment on above: Glucose result great er than or equal to 200 mg/dLsuggests DIABETES MELLITUS per A.D.A. criteria. Hemoglobin (Bld) [Mass/Vol] 14.6 g/dL 13.0-16.5 [facility] Monocytes/100 WBC (Bld) 7.1 % 0-10 [facility] Neutrophils (Bld) [#/Vol] 21.4 10*3/uL 2.0-7.7 [facility] Neutrophils/100 WBC (Bld) 88.7 % 47-70 [facility] Potassium [Moles/Vol] 3.9 mmol/L 3.5-5.1 [facility] Protein [Mass/Vol] 7.4 g/dL 6.4-8.2 [facility] Sodium [Moles/Vol] 135 mmol/L 136-145 [facility] WBC (Bld) [#/Vol] 24.1 10*3/uL 4.4-11.0 [facility] Blood manual differential co mment interpretation (narrative result)Ordered By: Zonia Castillo on 02-06-2024 Manual differential comment Bhanu (Bld) [Interp] SCANNED [facility] Comment on above: NEUTROPHILIA NOTEDMO NOCYTOSIS NOTED Determination of erythrocyte mean corpuscular volume (MCV)Ordered By: Zonia Castillo on 02-06-2024 MCV (RBC) [Entitic vol] 95.4 fL 80-94 [facility] [place] Direct bilirubinOrdered By: Zonia Castillo on 02-06-2024 Bilirubin.direct [Mass/Vol] 0.13 mg/dL 0.00-0.30 [facility] Erythrocyte distribution wid th ratioOrdered By: Zonia Castillo on 02-06-2024 Erythrocyte distribution width (RBC) [Ratio] 12.7 % 11.6-14.6 [facility] Erythrocyte distribution wid th standard deviationOrdered By: Zonia Castillo on 02-06-2024 Erythrocyte distribution width (RBC) [Entitic vol] 44.1 fL 35.1-43.9 [facility] Hematocrit Auto (Bld) [Volum e fraction]Ordered By: Zonia Castillo on 02-06-2024 Hematocrit (Bld) [Volume fraction] 46.0 % 40-54 [facility] Immature granulocytes/100 WB C Auto (Bld)Ordered By: Zonia Castillo on 02-06-2024 Immature granulocytes/100 WBC (Bld) 0.700 % 0.0-0.9 [facility] Comment on above: IG% - Immature Granu locytes (promyelocytes, myelocytes and metamyelocytes) > 1% indicates that a LEFT SHIFT is Present. Laboratory - Chemistry and C hemistry - challengeOrdered By: Zonia Castillo on 02-06-2024 ALP [Catalytic activity/Vol] 73 U/L 45-117 [facility] ALT [Catalytic activity/Vol] 25 U/L 16-61 [facility] CO2 [Moles/Vol] 21.0 mmol/L 21.0-32.0 [facility] Globulin (S) [Mass/Vol] 3.4 g/dL 2.2-4.2 [facility] [place] Lipase [Catalytic activity/Vol] 47 U/L 13-75 [facility] Comment on above: Please note:LIPASE r evised reference range effective 23. New Lipase methodology. Expected to produce lower values than the previous assay method. NEW Reference Range: 13 - 75 U/L Urea nitrogen/Creatinine [Mass ratio] 17.6 mg/mg 10-20 [facility] - Hematology and Cell countsOrdered By: Zonia Casitllo on 02-06-2024 MCH (RBC) [Entitic mass] 30.3 pg 27.0-32.0 [facility] MCHC (RBC) [Mass/Vol] 31.7 g/dL 32-36 [facility] Nucleated RBC/100 WBC (Bld) [Ratio] 0 % 0-5 [facility] Platelet mean volume (Bld) [Entitic vol] 9.4 fL 6.2-12.0 [facility] Platelets (Bld) [#/Vol] 310 10*3/uL 150-450 [facility] No Panel InformationOrdered By: Zonia Castillo on 02-06-2024 Estimated Creatinine Clearance Calc 67.93 ml/min [facility] Estimated GFR (MDRD) Amer 77 mL/min >60 [facility] Comment on above: GFR Calc Estimated GFR (MDRD) Non-Af Amer 63 mL/min >60 [facility] Comment on above: Non- GFR Calc RBC Auto (Bld) [#/Vol]Ordere d By: Zonia Castillo on 02-06-2024 RBC (Bld) [#/Vol] 4.82 10*6/uL 4.6-6.2 [facility] Review by pathologistOrdered By: Zonia Castillo on 02-06-2024 Pathologist review Bhanu (Unsp spec) [Interp] Areli rodriguez [facility] Pathologist review Bhanu (Unsp spec) [Interp] Reviewed [facility] Comment on above: Previous reported re sult: Areli rodriguez Edited by: NAYELI on 02/07/24:1432Neutrophilic leukocytosis.MacrocytosisClinical correlation necessary.Cristhian Mujica M.D. 02/07/24 AMENDED REPORT 02/07/24 1432 PATH REV previously reported as: Areli rodriguez Serum or plasma calcium veronica urement (mass/volume)Ordered By: Zonia Castillo on 02-06-2024 Calcium [Mass/Vol] 9.4 mg/dL 8.5-10.1 [facility] Serum or plasma creatinine m easurement (mass/volume)Ordered By: Zonia Castillo on 02-06-2024 Creatinine [Mass/Vol] 1.19 mg/dL 0.70-1.30 [facility] Comment on above: The validity of the calculated GFR & GFRAA in patients over 70 years has not been determined. Clinical correlation is essential. Serum or plasma urea nitroge n measurement (mass/volume)Ordered By: Zonia Castillo on 02-06-2024 Urea nitrogen [Mass/Vol] 21 mg/dL 7-18 [facility] Thin prep Papanicolaou smear with manual screeningOrdered By: Zonia Castillo on 02-06-2024 Thin prep Papanicolaou smear with manual screening 4.0 g/dL 3.2-5.0 [facility] Thin prep Papanicolaou smear with manual screening 14 U/L 15-37 [facility] Thin prep Papanicolaou smear with manual screening 7 5-15 [facility] Absolute lymphocyte countOrd ered By: Artie Carl on 03-17-2023 Lymphocytes Auto (Unsp spec) [#/Vol] 0.82 10*3/uL 0.83-4.51 [facility] Basophil percentageOrdered B y: Artie Carl on 03-17-2023 Basophil percentage 10-25 SEEN /hpf 0-5 [facility] Basophils/100 WBC (Bld) 0.3 % 0-1 [facility] [place] Bilirubin [Mass/Vol] 0.30 mg/dL 0.20-1.00 [facility] Comment on above: For patients on eltr ombopag therapy, use of Dimension [place] TBIL is not recommended. Chloride [Moles/Vol] 109 mmol/L 98-107 [facility] Eosinophils/100 WBC (Bld) 0.7 % 0-5 [facility] Glucose [Mass/Vol] 264 mg/dL 74-106 [facility] Comment on above: Glucose result great er than or equal to 200 mg/dLsuggests DIABETES MELLITUS per A.D.A. criteria. Neutrophils (Bld) [#/Vol] 13.4 10*3/uL 2.0-7.7 [facility] Neutrophils/100 WBC (Bld) 84.6 % 47-70 [facility] Potassium [Moles/Vol] 3.7 mmol/L 3.5-5.1 [facility] Protein [Mass/Vol] 7.2 g/dL 6.4-8.2 [facility] Sodium [Moles/Vol] 141 mmol/L 136-145 [facility] WBC (Bld) [#/Vol] 15.8 10*3/uL 4.4-11.0 [facility] Bilirubin Test strip Ql (U)O rdered By: Artie Carl on 03-17-2023 Bilirubin Ql (U) Negative Negative [facility] Blood erythrocytes count (nu mber/volume)Ordered By: Artie Carl on 03-17-2023 RBC (Bld) [#/Vol] 4.79 10*6/uL 4.6-6.2 [facility] Blood hemoglobin measurement (mass/volume)Ordered By: Artie Carl on 03-17-2023 Hemoglobin (Bld) [Mass/Vol] 15.1 g/dL 13.0-16.5 [facility] Blood lymphocytes/100 leukoc ytesOrdered By: Artie Carl on 03-17-2023 Lymphocytes/100 WBC (Bld) 5.2 % 19-41 [facility] Blood monocytes/100 leukocyt esOrdered By: Artie Carl on 03-17-2023 Monocytes/100 WBC (Bld) 8.9 % 0-10 [facility] [place] Blood platelet mean volumeOr dered By: Artie Carl on 03-17-2023 Platelet mean volume (Bld) [Entitic vol] 9.4 fL 6.2-12.0 [facility] Determination of erythrocyte mean corpuscular volume (MCV)Ordered By: Artie Carl on 03-17-2023 MCV (RBC) [Entitic vol] 93.9 fL 80-94 [facility] [place] Hematocrit Auto (Bld) [Volum e fraction]Ordered By: Artie Carl on 03-17-2023 Hematocrit (Bld) [Volume fraction] 45.0 % 40-54 [facility] Ketones Test strip Ql (U)Ord ered By: Artie Carl on 03-17-2023 Ketones Ql (U) 50 mg/dl Negative [facility] Laboratory - Chemistry and C hemistry - challengeOrdered By: Artie Carl on 03-17-2023 ALP [Catalytic activity/Vol] 71 U/L 45-117 [facility] ALT [Catalytic activity/Vol] 31 U/L 16-61 [facility] CO2 [Moles/Vol] 20.0 mmol/L 21.0-32.0 [facility] Globulin (S) [Mass/Vol] 3.4 g/dL 2.2-4.2 [facility] [place] Lipase [Catalytic activity/Vol] 48 U/L 13-75 [facility] Comment on above: Please note:LIPASE r evised reference range effective 23. New Lipase methodology. Expected to produce lower values than the previous assay method. NEW Reference Range: 13 - 75 U/L Urea nitrogen/Creatinine [Mass ratio] 21.5 mg/mg 10-20 [facility] Laboratory - Hematology and Cell countsOrdered By: Artie Carl on 03-17-2023 Erythrocyte distribution width (RBC) [Entitic vol] 44.0 fL 35.1-43.9 [facility] Erythrocyte distribution width (RBC) [Ratio] 12.8 % 11.6-14.6 [facility] Immature granulocytes/100 WBC (Bld) 0.300 % 0.0-0.9 [facility] Comment on above: IG% - Immature Granu locytes (promyelocytes, myelocytes and metamyelocytes) > 1% indicates that a LEFT SHIFT is Present. MCH (RBC) [Entitic mass] 31.5 pg 27.0-32.0 [facility] Nucleated RBC/100 WBC (Bld) [Ratio] 0 % 0-5 [facility] MCHC Auto (RBC) [Mass/Vol]Or dered By: Artie Carl on 03-17-2023 MCHC (RBC) [Mass/Vol] 33.6 g/dL 32-36 [facility] Mucus LM Ql (Urine sed)Order ed By: Artie Carl on 03-17-2023 Mucus Ql (Urine sed) 0 SEEN /hpf [facility] Nitrite Test strip Ql (U)Ord ered By: Artie Carl on 03-17-2023 Nitrite Ql (U) Negative Negative [facility] No Panel InformationOrdered By: Artie Carl on 03-17-2023 Troponin I High Sensitivity 4 pg/mL 3.0-78.0 [facility] Comment on above: Please Note: New Krysta t Units and Gender Specific Reference Ranges. For more information see Policy Stat Procedure [place] High Sensitivity Troponin (TNIH) and attachments. Estimated Creatinine Clearance Calc 60.53 ml/min [facility] Estimated GFR (MDRD) Amer 75 mL/min >60 [facility] Comment on above: GFR Calc Estimated GFR (MDRD) Non-Af Amer 62 mL/min >60 [facility] Comment on above: Non- GFR Calc Platelets bldOrdered By: Ania Carl on 03-17-2023 Platelets (Bld) [#/Vol] 293 10*3/uL 150-450 [facility] Protein Test strip Ql (U)Ord ered By: Artie Carl on 03-17-2023 Protein Ql (U) 30 mg/dl Negative [facility] Serum or plasma albumin veronica urement (mass/volume)Ordered By: Artie Carl on 03-17-2023 Albumin [Mass/Vol] 3.8 g/dL 3.2-5.0 [facility] Serum or plasma albumin/glob ulin mass ratioOrdered By: Artie Carl on 03-17-2023 Albumin/Globulin [Mass ratio] 1.1 {ratio} 0.9-2.4 [facility] Serum or plasma calcium veronica urement (mass/volume)Ordered By: Artie Carl on 03-17-2023 Calcium [Mass/Vol] 9.6 mg/dL 8.5-10.1 [facility] Serum or plasma creatinine m easurement (mass/volume)Ordered By: Artie Carl on 03-17-2023 Creatinine [Mass/Vol] 1.21 mg/dL 0.70-1.30 [facility] Comment on above: The validity of the calculated GFR & GFRAA in patients over 70 years has not been determined. Clinical correlation is essential. Serum or plasma urea nitroge n measurement (mass/volume)Ordered By: Artie Carl on 03-17-2023 Urea nitrogen [Mass/Vol] 26 mg/dL 7-18 [facility] Squamous epithelial cells de tection in urine sediment by light microscopyOrdered By: Artie Carl on 03-17-2023 Epithelial cells.squamous LM Ql (Urine sed) 0 SEEN /hpf 0-5 [facility] Thin prep Papanicolaou smear with manual screeningOrdered By: Artie Carl on 03-17-2023 Thin prep Papanicolaou smear with manual screening 17 U/L 15-37 [facility] Thin prep Papanicolaou smear with manual screening 12 5-15 [facility] Urine blood detectionOrdered By: Artie Carl on 03-17-2023 RBC Ql (U) Negative Negative [facility] RBC Ql (U) 0-5 SEEN /hpf 0-5 [facility] Urine clarityOrdered By: Ania Carl on 03-17-2023 Clarity (U) Clear Clear [facility] Urine color determinationOrd ered By: Artie Carl on 03-17-2023 Color (U) Yellow Yellow [facility] Urine glucose detectionOrder ed By: Artie Carl on 03-17-2023 Glucose Ql (U) 250 mg/dl Normal [facility] Urine leukocyte esterase det ection by dipstickOrdered By: Artie Carl on 03-17-2023 Leukocyte esterase Test strip Ql (U) 25 /ul Negative [facility] Urine pHOrdered By: Artie kevin on 03-17-2023 pH (U) 6.0 [pH] 5.0 - 8.0 [facility] Urine sediment bacteria coun t by microscopy (number/high power field)Ordered By: Artie Carl on 03-17-2023 Bacteria LM.HPF (Urine sed) [#/Area] RARE /hpf None Seen [facility] Urine specific gravity measu rementOrdered By: Artie Carl on 03-17-2023 Specific gravity (U) [Rel density] 1.015 1.002-1.030 [facility] Urobilinogen Auto test strip Ql (U)Ordered By: Artie Carl on 03-17-2023 Urobilinogen Ql (U) Normal mg/dl Normal [facility] Basophil percentageOrdered B y: Dr. Anglin on 02-14-2023 Bilirubin [Mass/Vol] 0.40 mg/dL 0.20-1.00 [facility] Comment on above: For patients on eltr ombopag therapy, use of Dimension [place] TBIL is not recommended. Chloride [Moles/Vol] 108 mmol/L 98-107 [facility] Cholesterol [Mass/Vol] 151 mg/dL <200 [facility] Comment on above: <200 mg/dL Desirable 200-240 mg/dL Borderline >240 mg/dL High Risk Glucose [Mass/Vol] 132 mg/dL 74-106 [facility] Comment on above: Fasting Glucose resu lt greater than or equal to 126 mg/dL suggests DIABETES MELLITUS per A.D.A. criteria. Potassium [Moles/Vol] 4.5 mmol/L 3.5-5.1 [facility] Comment on above: Slight Hemolysis, Re sult may be falsely increased. Protein [Mass/Vol] 7.3 g/dL 6.4-8.2 [facility] Sodium [Moles/Vol] 136 mmol/L 136-145 [facility] Triglyceride [Mass/Vol] 102 mg/dL <199 [place] Comment on above: The drugs N-Acetylcy steine and Metamizole may falsely depress this assay.Serum Triglycerides Reference Interval Normal <150 mg/dL Borderline high 150 - 199 mg/dL High 200 - 499 mg/dL Very High > or = 500 mg/dL Direct bilirubinOrdered By: Dr. Anglin on 02-14-2023 Bilirubin.direct [Mass/Vol] 0.10 mg/dL 0.00-0.30 [facility] Laboratory - Chemistry and C hemistry - challengeOrdered By: Dr. Anglin on 02-14-2023 ALP [Catalytic activity/Vol] 65 U/L 45-117 [facility] ALT [Catalytic activity/Vol] 35 U/L 16-61 [facility] CO2 [Moles/Vol] 21.0 mmol/L 21.0-32.0 [facility] Globulin (S) [Mass/Vol] 3.3 g/dL 2.2-4.2 [facility] Urea nitrogen/Creatinine [Mass ratio] 15.3 mg/mg 10-20 [facility] No Panel InformationOrdered By: Dr. Anglin on 02-14-2023 Estimated GFR (MDRD) Amer 83 mL/min >60 [facility] Comment on above: GFR Calc Estimated GFR (MDRD) Non-Af Amer 69 mL/min >60 [facility] Comment on above: Non- GFR Calc Serum or plasma albumin veronica urement (mass/volume)Ordered By: Dr. Anglin on 02-14-2023 Albumin [Mass/Vol] 4.0 g/dL 3.2-5.0 [facility] Serum or plasma calcium veronica urement (mass/volume)Ordered By: Dr. Anglin on 02-14-2023 Calcium [Mass/Vol] 9.8 mg/dL 8.5-10.1 [facility] Serum or plasma cholesterol in HDL measurement (mass/volume)Ordered By: Dr. Anglin on 02-14-2023 Cholesterol in HDL [Mass/Vol] 51 mg/dL >40 [facility] Comment on above: The drugs N-Acetylcy steine and Metamizole may falsely depress this assay. Reference Range HDL <40 mg/dL Low HDL Cholesterol HDL >or= 60 mg/dL High HDL Cholesterol Serum or plasma cholesterol in VLDL measurement (mass/volume)Ordered By: Dr. Anglin on 02-14-2023 Cholesterol in VLDL [Mass/Vol] 20 mg/dL 5-40 [facility] Serum or plasma creatinine m easurement (mass/volume)Ordered By: Dr. Anglin on 02-14-2023 Creatinine [Mass/Vol] 1.11 mg/dL 0.70-1.30 [facility] Comment on above: The validity of the calculated GFR & GFRAA in patients over 70 years has not been determined. Clinical correlation is essential. Serum or plasma low density lipoprotein (LDL) cholesterol measurement (mass/volume)Ordered By: Dr. Anglin on 02-14-2023 Cholesterol in LDL [Mass/Vol] 80 mg/dL 0-130 [facility] Serum or plasma urea nitroge n measurement (mass/volume)Ordered By: Dr. Anglin on 02-14-2023 Urea nitrogen [Mass/Vol] 17 mg/dL 7-18 [facility] Thin prep Papanicolaou smear with manual screeningOrdered By: Dr. Anglin on 02-14-2023 Thin prep Papanicolaou smear with manual screening 21 U/L 15-37 [facility] Comment on above: Slight Hemolysis, Re sult may be falsely increased. Thin prep Papanicolaou smear with manual screening 7 5-15 [facility] Absolute lymphocyte counton 03-26-2022 Lymphocytes Auto (Unsp spec) [#/Vol] 0.37 10*3/uL 0.83-4.51 [facility] Work Phone: Basophil percentageon 2021 Basophils/100 WBC (Bld) 0.1 % 0-1 [place] Work Phone: [phone] Chloride [Moles/Vol] 107 mmol/L 98-107 [facility] Work Phone: [phone] Eosinophils/100 WBC (Bld) 0.1 % 0-5 [facility] Work Phone: Glucose [Mass/Vol] 326 mg/dL 74-106 [facility] Work Phone: Comment on above: Glucose result great er than or equal to 200 mg/dLsuggests DIABETES MELLITUS per A.D.A. criteria. Lactate [Moles/Vol] 1.8 mmol/L 0.4-2.0 [facility]: Neutrophils (Bld) [#/Vol] 16.8 10*3/uL 2.0-7.7 [facility] Work Phone: [phone] Neutrophils/100 WBC (Bld) 90.1 % 47-70 [facility] Work Phone: Potassium [Moles/Vol] 4.3 mmol/L 3.5-5.1 [facility]: Sodium [Moles/Vol] 135 mmol/L 136-145 [facility] Work Phone: [phone] WBC (Bld) [#/Vol] 18.6 10*3/uL 4.4-11.0 [facility] Work [facility]: Blood erythrocytes count (nu mber/volume)on 03-26-2022 RBC (Bld) [#/Vol] 4.62 10*6/uL 4.6-6.2 [facility] Work Phone: Blood hemoglobin measurement (mass/volume)on 03-26-2022 Hemoglobin (Bld) [Mass/Vol] 14.5 g/dL 13.0-16.5 [facility] Work Phone: [phone] Blood lymphocytes/100 leukoc yteson 03-26-2022 Lymphocytes/100 WBC (Bld) 2.0 % 19-41 [facility] Work Phone: Blood monocytes/100 leukocyt eson 03-26-2022 Monocytes/100 WBC (Bld) 6.5 % 0-10 [facility] [place] Work Phone: Blood platelet mean volumeon 03-26-2022 Platelet mean volume (Bld) [Entitic vol] 9.5 fL 6.2-12.0 [facility] Work Phone: Determination of erythrocyte mean corpuscular volume (MCV)on 03-26-2022 MCV (RBC) [Entitic vol] 93.9 fL 80-94 [facility] [place] Work Phone: Hematocrit Auto (Bld) [Volum e fraction]on 03-26-2022 Hematocrit (Bld) [Volume fraction] 43.4 % 40-54 [facility] Work Phone: Laboratory - Chemistry and C hemistry - challengeon 03-26-2022 CO2 [Moles/Vol] 20.0 mmol/L 21.0-32.0 [facility] Work Phone: Urea nitrogen/Creatinine [Mass ratio] 26.8 mg/mg 10-20 [facility] Work Phone: Laboratory - Hematology and Cell countson 03-26-2022 Anisocytosis Ql (Bld) 1+ [facility] Work Phone: Erythrocyte distribution width (RBC) [Entitic vol] 43.4 fL 35.1-43.9 [facility] Work Phone: Erythrocyte distribution width (RBC) [Ratio] 12.6 % 11.6-14.6 [facility] Work Phone: Immature granulocytes/100 WBC (Bld) 1.200 % 0.0-0.9 [facility] Work Phone: Comment on above: IG% - Immature Granu locytes (promyelocytes, myelocytes and metamyelocytes) > 1% indicates that a LEFT SHIFT is Present. MCH (RBC) [Entitic mass] 31.4 pg 27.0-32.0 [facility] Work Phone: Nucleated RBC/100 WBC (Bld) [Ratio] 0 % 0-5 [facility] Work Phone: MCHC Auto (RBC) [Mass/Vol]on 03-26-2022 MCHC (RBC) [Mass/Vol] 33.4 g/dL 32-36 [facility] Work Phone: No Panel Informationon 03-26 D-Dimer Quantitative (PE/DVT) 0.30 FEU/ug/m 0.27-0.49 [facility] Work Phone: Comment on above: NORMAL D-Dimer level (<0.50) indicates no DVT or PE. Estimated Creatinine Clearance Calc 53.87 ml/min [facility] Work Phone: Estimated GFR (MDRD) Amer 63 mL/min >60 [facility] Work Phone: Comment on above: GFR Calc Estimated GFR (MDRD) Non-Af Amer 52 mL/min >60 [facility] Work Phone: Comment on above: Non- GFR Calc Troponin I High Sensitivity 4 pg/mL 3.0-78.0 [facility] Work Phone: Comment on above: Please Note: New Krysta t Units and Gender Specific Reference Ranges. For more information see Policy Stat Procedure [place] High Sensitivity Troponin (TNIH) and attachments. SARS-CoV-2 & FLU Antigen (Rapid) [facility] Work Phone: Platelets bldon 03-26-2022 Platelets (Bld) [#/Vol] 277 10*3/uL 150-450 [facility] Work Phone: Serum or plasma calcium veronica urement (mass/volume)on 03-26-2022 Calcium [Mass/Vol] 9.6 mg/dL 8.5-10.1 [facility] Work Phone: Serum or plasma creatinine m easurement (mass/volume)on 03-26-2022 Creatinine [Mass/Vol] 1.42 mg/dL 0.70-1.30 [facility] Work Phone: Comment on above: The validity of the calculated GFR & GFRAA in patients over 70 years has not been determined. Clinical correlation is essential. Serum or plasma urea nitroge n measurement (mass/volume)on 03-26-2022 Urea nitrogen [Mass/Vol] 38 mg/dL 7-18 [facility] Work Phone: Thin prep Papanicolaou smear with manual screeningon 03-26-2022 Thin prep Papanicolaou smear with manual screening 8 5-15 [facility] Work Phone: Basophil percentageon 2021 Chloride [Moles/Vol] 109 mmol/L 98-107 [facility] Work Phone: Cholesterol [Mass/Vol] 158 mg/dL <200 [facility] Work Phone: Comment on above: <200 mg/dL Desirable 200-240 mg/dL Borderline >240 mg/dL High Risk Glucose [Mass/Vol] 125 mg/dL 74-106 [facility] Work Phone: Comment on above: Fasting Glucose resu lt from 100 to 125 mg/dL suggests IMPAIRED HOMEOSTASIS per A.D.A. criteria. Potassium [Moles/Vol] 4.4 mmol/L 3.5-5.1 [facility] Work Phone: Sodium [Moles/Vol] 138 mmol/L 136-145 [facility] Work Phone: Triglyceride [Mass/Vol] 91 mg/dL [place] Work Phone: Comment on above: The drugs N-Acetylcy steine and Metamizole may falsely depress this assay.Serum Triglycerides Reference Interval Normal <150 mg/dL Borderline high 150 - 199 mg/dL High 200 - 499 mg/dL Very High > or = 500 mg/dL Laboratory - Chemistry and C hemistry - challengeon 02-14-2022 ALT [Catalytic activity/Vol] 41 U/L 16-61 [facility] Work Phone: CO2 [Moles/Vol] 21.0 mmol/L 21.0-32.0 [facility] Work Phone: Urea nitrogen/Creatinine [Mass ratio] 17.1 mg/mg 10-20 [facility] Work Phone: No Panel Informationon 02-14 Estimated GFR (MDRD) Amer 74 mL/min >60 [facility] Work Phone: Comment on above: GFR Calc Estimated GFR (MDRD) Non-Af Amer 61 mL/min >60 [facility] Work Phone: Comment on above: Non- GFR Calc Urine Microalbumin/Creatinine Ratio 31.0 mg/g CRE <30 [facility] Work Phone: Serum or plasma calcium veronica urement (mass/volume)on 02-14-2022 Calcium [Mass/Vol] 9.9 mg/dL 8.5-10.1 [facility] Work Phone: Serum or plasma cholesterol in HDL measurement (mass/volume)on 02-14-2022 Cholesterol in HDL [Mass/Vol] 55 mg/dL [facility] Work Phone: Comment on above: The drugs N-Acetylcy steine and Metamizole may falsely depress this assay. Reference Range HDL <40 mg/dL Low HDL Cholesterol HDL >or= 60 mg/dL High HDL Cholesterol Serum or plasma cholesterol in VLDL measurement (mass/volume)on 02-14-2022 Cholesterol in VLDL [Mass/Vol] 18 mg/dL 5-40 [facility] Work Phone: Serum or plasma creatinine m easurement (mass/volume)on 02-14-2022 Creatinine [Mass/Vol] 1.23 mg/dL 0.70-1.30 [facility] Work Phone: Comment on above: The validity of the calculated GFR & GFRAA in patients over 70 years has not been determined. Clinical correlation is essential. Serum or plasma low density lipoprotein (LDL) cholesterol measurement (mass/volume)on 02-14-2022 Cholesterol in LDL [Mass/Vol] 85 mg/dL 0-130 [facility] Work Phone: Serum or plasma urea nitroge n measurement (mass/volume)on 02-14-2022 Urea nitrogen [Mass/Vol] 21 mg/dL 7-18 [facility] Work Phone: Thin prep Papanicolaou smear with manual screeningon 02-14-2022 Thin prep Papanicolaou smear with manual screening 21 U/L 15-37 [facility] Work Phone: Thin prep Papanicolaou smear with manual screening 8 5-15 [facility] Work Phone: Thin prep Papanicolaou smear with manual screening 80.3 mg/L NO RANGE EST. [facility] Work Phone: Urine creatinine measurement (mass/volume)on 02-14-2022 Creatinine (U) [Mass/Vol] 259.00 mg/dL NO RANGE EST. [facility] Work Phone: Vital Signs Date Time Vital Sign Value Performing Clinician Faci yolisy 02-06-2024 19:48-0400 Body temperature 98.4 [degF] [facility] 02-06-2024 19:48-0400 Diastolic blood pressure 89 mm[Hg] [facility] 02-06-2024 19:48-0400 Heart rate 106 /min [facility] 02-06-2024 19:48-0400 Respiratory rate 18 /min [facility] 02-06-2024 19:48-0400 SaO2% (BldA) [Mass fraction] 98 % [facility] 02-06-2024 19:48-0400 Systolic blood pressure 139 mm[Hg] [facility] 02-06-2024 17:05-0400 Body height 186.69 cm [facility] 02-06-2024 17:05-0400 Body mass index (BMI) [Ratio] 29.8 kg/m2 [facility] 02-06-2024 17:05-0400 Body weight 104 kg [facility] 03-17-2023 19:22-0400 Diastolic blood pressure 88 mm[Hg] [facility] 03-17-2023 19:22-0400 Heart rate 100 /min [facility] 03-17-2023 19:22-0400 Respiratory rate 17 /min [facility] 03-17-2023 19:22-0400 SaO2% (BldA) [Mass fraction] 98 % [facility] 03-17-2023 19:22-0400 Systolic blood pressure 136 mm[Hg] [facility] 03-17-2023 16:14-0400 Body height 185.42 cm [facility] 03-17-2023 16:14-0400 Body mass index (BMI) [Ratio] 29.5 kg/m2 [facility] 03-17-2023 16:14-0400 Body temperature 97.7 [degF] [facility] 03-17-2023 16:14-0400 Body weight 101.4 kg [facility] 03-26-2022 18:03-0400 Body temperature 99.8 [degF] Dr. Rahel Anglin Work Phone: [facility] Work Phone: 03-26-2022 18:03-0400 Diastolic blood pressure 81 mm[Hg] Dr. Rahel Anglin Work Phone: [facility] Work Phone: 03-26-2022 18:03-0400 Heart rate 116 /min Dr. Rahel Anglin Work Phone: [facility] Work Phone: 03-26-2022 18:03-0400 Respiratory rate 18 /min Dr. Rahel Anglin Work Phone: [facility] Work Phone: 03-26-2022 18:03-0400 SaO2% (BldA) [Mass fraction] 97 % Dr. Rahel Anglin Work Phone: [facility] Work Phone: 03-26-2022 18:03-0400 Systolic blood pressure 152 mm[Hg] Dr. Rahel Anglin Work Phone: [facility] Work Phone: 03-26-2022 16:02-0400 Body height 187.[address] Rahel Anglin Work Phone: [facility] Work Phone: 03-26-2022 16:02-0400 Body mass index (BMI) [Ratio] 28.2 kg/m2 Dr. Rahel Anglin Work Phone: [facility] Work Phone: 03-26-2022 16:02-0400 Body weight 99.[address] Rahel Anglin Work Phone: [facility] Work Phone: Encounters Encounter Date Encounter Type Care Provider Facility Start: 09-03-2025 End: 09-03-2025 ambulatory Romie Ibarra Facility:[facility] Start: 06-08-2025 End: 06-08-[address] Romie Ibarra MD Work Phone: -[facility] Start: 06-08-2025 End: 06-08-[address] Romie Ibarra MD -[facility] Start: 06-08-2025 End: 06-08-2025 ambulatory Romie Ibarra Facility:[facility] Start: 11-21-2024 End: 11-21-2024 ambulatory aRhel Anglin Facility:[facility] Start: 03-12-2024 Non-patient / Non-visit Dr. Annel Anglin Work Phone: [facility] Work Phone: Start: 03-10-2024 End: 03-10-[address] Rahel Angiln Work Phone: [facility] Work Phone: Start: 03-10-2024 End: 03-10-[address] Rahel Anglin Work Phone: [facility] Work Phone: Start: 02-06-2024 End: 02-06-2024 [facility] Start: 03-17-2023 End: 03-17-2023 [facility] Start: 02-14-2023 End: 02-14-2023 ambulatory [facility] Work Phone: Start: 02-14-2023 End: 02-14-2023 Patient encounter procedure [facility] Start: 03-26-2022 Non-patient / Non-visit Dr. Annel Anglin Work Phone: [facility] Start: 03-26-2022 End: 03-26-2022 Emergency department patient visit [facility] Start: 02-14-2022 End: 02-14-2022 Patient encounter procedure [facility] Procedures Date Procedure Procedure Detail Performing Clinician Start: 06-08-2025 Urine microalbumin/creatinine ratio measurement Dr. Romie Ibarra MD Work Phone: Start: 03-17-2023 Plain chest X-ray Start: 03-17-2023 CT of head without contrast Start: 03-26-2022 Plain chest X-ray Dr. Corie Anglin Work Phone: Start: 03-26-2022 SARS-CoV-2 & FLU Ant igen (Rapid) Dr. Rahel Anglin Work Phone: Plan of Treatment Date Care Activity Detail Author Start: 02-06-2024 [facility] Start: 03-26-2022 Bacteria identified in Blood by Culture Blood Culture [facility] Work Phone: Patient Education [facility] Work Phone: Patient referral [facility] Work Phone: Payers Date Payer Category Payer Self-pay [id number] 2007 Private Health Insurance [id number] Unknown [id number] Unknown [id number] Unknown [id number] Social History Date Type Detail Facility Start: 04-27-2020 End: 03-12-2024 Tobacco smoking status NEIS Unknown if ever smoked [facility] Start: 04-27-2020 Sober [facility] Start: 04-27-2020 None;Cocaine;Marijuana [facility] Start: 04-27-2020 Spouse/ Signif icant Other [facility] Start: 04-27-2020 Cigarettes [facility] Start: 1950 Sex Assigned At Male [facility] [place] Start: 03-19-2024 Tobacco smoking status NHIS Ex-smoker (finding) [facility] Mental Status Date Assessment Result Facility 03-17-2023 Cognitive function Level Of Cons ciousness Awake;Alert;Appropriate;Follow s Commands [facility] Work Phone: Evaluation note Note Date & Type Note Facility Evaluation note No assessment information availa ble [facility] Work Phone: Hospital Discharge instructions Note Date & Type Note Facility Hospital Discharge instructions Additional Instructions Maintain hydration, advance her diet as tolerated [facility] Work Phone: Reason for referral (narrative) Note Date & Type Note Facility Reason for referral (narrative) No reason for referral information available [facility] Work Phone: Family History No Family History Records Found Relationship Condition Age at Onset Recorded Date/T ubaldo Unknown Family History?Cancer Unknown April 122019 8:57pm Family History?Heart Disease Unknown April 27, 2020 8:57pm Relationship Condition Age at Onset Recorded Date/T ubaldo Not Specified Alcoholism Unknown Relationship Condition Age at Onset Recorded Date/T bualdo Not Specified Alcoholism Unknown father Malignant neoplasm Unknown aunt Cardiac disease Unknown Advance Directives No Advanced Directives Records Found Advance Directive Response Recorded Date/ Time Living Will Yes April 28, 2020 3:50pm Power of Signals Intelligence Analyst Yes April 28 3:50pm Advance Directive Response Recorded Date/ Time Living Will No March 26, 2022 4 :03pm Power of Signals Intelligence Analyst No March 26, 2022 4:03pm Advance Directive Response Recorded Date/ Time Living Will No March 17, 2023 4: 21pm Power of Signals Intelligence Analyst No March 17, 2023 4:21pm Advance Directive Response Recorded Date/ Time Living Will Yes February 06, 2024 5:10pm Power of Signals Intelligence Analyst Yes February 05 5:10pm Name of Medical Power of Signals Intelligence Analyst wifee or daug hter February 06, 2024 5:10pm Advance Directive Response Recorded Date/ Time Name of Medical Power of Signals Intelligence Analyst wifee or daug hter February 06, 2024 5:10pm Living Will Yes February 06, 2024 5:10pm Power of Signals Intelligence Analyst Yes February 05 5:10pm Chief Complaint and [...] Castillo MD Attending Provider, Emergency Provider Active Team Status: Active Member Role/Relationship Status Dates Dr. Rahel Anglin MD Family Provider Active Dr. Romie Ibarra MD Primary Care Provider Active Team Status: Inactive Member Role/Relationship Status Dates Dr. Romie Ibarra MD Primary Care Provider Active Start: June 08, 2025 End: June 08, 2025 Dr. Romie Ibarra MD Attending Provider Active St art: June 08, 2025 End: June 08, 2025 Dr. Romie Ibarra MD Referring Provider Active St art: June 08, 2025 End: June 08, 2025 (unrecognized sect ion and content) No Status Records Found INFORMATION SOURCE (unrecogn ized section and content) DATE CREATED AUTHOR 09/11/2025 [facility] FOR RECORDS PERTAINING TO PATIENTS WHO ARE [...] BE BASED ON THE PRIMARY CLINICAL RECORDS. [employer] provides no warranty or guarantee of the accuracy or completeness of information in this document.
[2025-10-19 10:36] LABS: Hematocrit 44.6 % (40-54); Hemoglobin 14.6 g/dL (13.0-16.5); Immature Granulocytes Count 0.020 X10^3/uL (0.0-0.0); Mean Corp Hgb Conc 32.7 g/dL (32-36); Mean Corpuscular Volume 92.5 fL (80-94); Mean Platelet Vol. 9.7 fl (6.2-12.0); NRBC Flagged by Analyzer 0 % (0-5); Platelet Count 317 K/mm3 (150-450); RBC Distribution Width CV 12.9 % (11.6-14.6); RBC Distribution Width SD 43.8 fl (35.1-43.9); Red Blood Count 4.82 M/mm3 (4.6-6.2); White Blood Count 6.5 K/mm3 (4.4-11.0)
[2025-10-19 11:11] LABS: AST(SGOT) 19 U/L (<=37); Alanine Aminotransfer ALT/SGPT 14 U/L (<=46); Albumin, Serum 4.4 g/dL (3.4-4.8); Alkaline Phosphatase 57 U/L (40-129); Anion Gap 12 (5-15); BUN 17 mg/dL (4-19); BUN/Creat Ratio 17.8 RATIO (10-20); Calcium,Total 10.3 mg/dL (7.6-11.0); Carbon Dioxide 21.2 mmol/L (21.0-32.0); Chloride 103 mmol/L (98-108); Cholesterol 148 mg/dL (<=200); Globulin 2.6 g/dL (2.2-4.2); Glucose 130 mg/dL (70-99); Low Density Lipoprotein Calc. 76 mg/dL; Potassium 4.3 mmol/L (3.3-5.1); Triglycerides 105 mg/dL; Very Low Density Lipoprotein 21 mg/dL (5-40); cholesterol:hdl ratio screen 2.80
== END | disposition home or self-care (01) ==
LOC: MFPLAB 08:31
PROVIDERS: PCP Family Medicine; Visit Provider Family Medicine
DX: E11.65 Type 2 diabetes mellitus with hyperglycemia (principal); E11.59 Type 2 diabetes mellitus with other circulatory complications
CPT/HCPCS: 36415; 80053; 80061; 84443; 85025